=== PATIENT | female | born 1955 | race Caucasian/White ===

== ENCOUNTER → 2019-03-06 | Outpatient (CLI) | payer MEDICARE, MEDICAID ==
[~2019-03-06] MED LIST: ALPR0.254 PO
[2019-03-06 13:51] LABS: BASOPHILS % (AUTO) 0 % (0-10); EOSINOPHILS # (AUTO) 0.1 10^3/uL (0.0-0.3); EOSINOPHILS % (AUTO) 1 % (0-10); HEMATOCRIT 42 % (35-52); HEMOGLOBIN 13.9 G/DL (11.5-16.0); LYMPHOCYTES % (AUTO) 36 % (12-44); MEAN CORPUSCULAR HEMOGLOBIN 31 PG (25-34); MEAN CORPUSCULAR HGB CONC 33 G/DL (32-36); MEAN CORPUSCULAR VOLUME 93 FL (80-99); MEAN PLATELET VOLUME 10.8 FL (7.4-10.4); MONOCYTES # (AUTO) 0.9 X 10^3 (0.0-1.0); MONOCYTES % (AUTO) 8 % (0-12); NEUTROPHILS # (AUTO) 6.2 X 10^3 (1.8-7.8); NEUTROPHILS % (AUTO) 55 % (42-75); PLATELET COUNT 230 10^3/uL (130-400); RED CELL DISTRIBUTION WIDTH 14.5 % (10.0-14.5); WHITE BLOOD COUNT 11.3 10^3/uL (4.3-11.0)
[2019-03-06 14:09] LABS: ALANINE AMINOTRANSFERASE 12 U/L (0-55); ALBUMIN 3.9 GM/DL (3.2-4.5); ALKALINE PHOSPHATASE 59 U/L (40-136); BILIRUBIN,TOTAL 0.4 MG/DL (0.1-1.0); BUN/CREATININE RATIO 15; CALCIUM 9.7 MG/DL (8.5-10.1); CARBON DIOXIDE 23 MMOL/L (21-32); CHLORIDE 108 MMOL/L (98-107); CREATININE SERUM 0.79 MG/DL (0.60-1.30); GFR ESTIMATED > 60; GLUCOSE 95 MG/DL (70-105); PHOSPHORUS 3.2 MG/DL (2.3-4.7); SODIUM 141 MMOL/L (135-145); TOTAL PROTEIN 7.1 GM/DL (6.4-8.2)
--- NOTE | 2019-03-06 17:37 | Diagnostic Imaging Report ---
PROCEDURE: CT chest, abdomen, and pelvis without contrast. INDICATION: Recent diagnosis of left breast cancer. No current treatment. TECHNIQUE: Noncontrast imaging of the chest, abdomen, and pelvis. Auto Exposure Controls were utilized during the CT exam to meet ALARA standards for radiation dose reduction. CORRELATION STUDY: None. FINDINGS: CT CHEST: Nearly 3 cm mass suggested centrally in the left breast. There are some asymmetric increased densities diffusely in the remainder of the left breast. Slight area of nodularity along the posterolateral peripheral margins with density towards the axilla could be reflective of prominent lymph node at 8 mm. There are additional disproportionately prominent left axillary lymph nodes compared to the right axilla concerning for potential metastatic disease despite their relatively smaller size. There is an additional lymph node in the lateral left retropectoral lymph node region, 7 mm in size. Tiny nodule in the medial retropectoral lymph node region as well. A few small lymph nodes at the base of the neck on the left. Prominent mediastinal lymph nodes are present. Lymph node in the mid pretracheal region, short axis dimension 8 mm. Additional one at the subcarinal region anteriorly, short axis 10 mm. Additional smaller lymph nodes are present as well. No definitive enlarged internal mammary lymph node chain nodes. Heart size is normal. No pericardial effusion. Thoracic aortic contour is unremarkable. Lung li demonstrate emphysematous changes along with bullous changes particularly at the lung apices and posterior lungs. Asymmetric wispy-like density in the lateral left upper lobe, 19 x 10 mm. Asymmetric pleural thickening at the lung apices right greater than left posteriorly. Visualized osseous structures demonstrate no evie lytic or sclerotic changes. CT ABDOMEN and PELVIS: The unenhanced liver, spleen, pancreas, and adrenal glands are unremarkable. There is some asymmetric increased density in the dependent portion of the gallbladder which could be reflective of some sludge, debris, or perhaps small stones. No bile duct dilatation. Kidneys with normal configuration. No calcification or obstruction. Mild wall calcification of the abdominal aorta, nonaneurysmal. No pathologically enlarged central or retroperitoneal lymph nodes. Gastrointestinal tract demonstrates no obstruction. Mild severity fecal retention. There are few prominent but nonpathologic enlarged shotty lymph nodes throughout the mesentery. No abdominal ascites or free air. Urinary bladder is unremarkable. Uterus and adnexa are unremarkable. Visualized osseous structures demonstrate asymmetric disc space narrowing at the L5-S1 level. No evie lytic or sclerotic changes. IMPRESSION: CT CHEST: 1. Approximately 3 cm left breast mass likely corresponding to the recent breast cancer diagnosis. 2. Asymmetric number of left axillary and retropectoral lymph nodes. While sizes are smaller at this time, given the overall features, are worrisome for potential neoplasm. There is also an asymmetrically prominent mediastinal lymph node and a few asymmetric lymph nodes at the base of the neck on the left. If further assessment is desired, PET/CT imaging may be of additional benefit. 3. Emphysematous changes. Irregular parenchymal density left upper lobe. This may represent a small area of pneumonitis. Neoplasm not excluded. CT ABDOMEN and PELVIS: 1. Multiple small scattered mesenteric lymph nodes. No definitive pathologically enlarged abdominal or pelvic lymphadenopathy or otherwise findings to suggest abdominal or pelvic metastatic disease. Dictated by: Dictated on workstation # [id number]
== END ==
LOC: RAD 13:35
PROVIDERS: ATTEND Nurse Practitioner Family
DX: C50.912 Malignant neoplasm of unspecified site of left female breast (principal); J43.9 Emphysema, unspecified; J98.4 Other disorders of lung; R59.0 Localized enlarged lymph nodes
CPT/HCPCS: 36415; 71250; 74176; 80053; 84100; 85025

== ENCOUNTER 2019-03-10 06:00 | Outpatient (CLI) | payer MEDICARE, MEDICAID ==
[~2019-03-10] VITALS: Ht 167.6 cm; Wt 74.2 kg
[2019-03-10] MEDS ORDERED: ALPR0.254 PO (13:45)
[2019-03-10 13:49] VITALS: BP 110/58
== END 2019-03-10 15:30 | disposition home or self-care (01) ==
LOC: PREOP 06:00
PROVIDERS: ATTEND Surgery
DX: Z01.818 Encounter for other preprocedural examination (principal)
CPT/HCPCS: 87081

== ENCOUNTER 2019-03-12 06:15 | Inpatient (IN) | payer MEDICARE, MEDICAID ==
[2019-03-12] VITALS (9 sets, daily range): BP systolic 111–132; BP diastolic 62–87
[~2019-03-12] VITALS: Ht 167.6 cm; Wt 74.4 kg
[2019-03-12] MEDS ORDERED: CLINDAMYCIN 600 MG/50 ML IVPB 50 ML IV ONE ×2 (07:00)
[2019-03-12] MEDS ORDERED: ONDANSETRON 4 MG/2 ML (SDV) Z0FRAN IV ONE (07:45)
[2019-03-12] MEDS ORDERED: SCOPOLAMINE 1.5 MG (TRANSDERM-SCOP) PATCH TOP ONE (07:45)
[2019-03-12] MEDS ORDERED: FAMOTIDINE 20MG/2ML IV (PEPCID) IV ONE (07:45)
--- NOTE | 2019-03-12 09:06 | Progress Note-Pre Operative ---
Pre-Operative Progress Note H&P Reviewed The H&P was reviewed, patient examined and no changes noted. Date Seen by Provider: Mar 12, 2019 Time Seen by Provider: 09:00 Date H&P Reviewed: Mar 12, 2019 Time H&P Reviewed: 08:55 Pre-Operative Diagnosis: Left Breast Cancer AYLEEN BRITO SATELLITE INSTRUCTION FACILITATOR Mar 12, 2019 09:06
[2019-03-12] MEDS ORDERED: OXYC-464 PO (09:14)
--- NOTE | 2019-03-12 09:15 | Discharge Inst-Surgical ---
D/C Lap Instructions-KIDO Reconcile Patient Problems Problems Reviewed?: Yes New, Converted, or Re-Newed RX: RX on Chart Follow Up Appt in 2 weeks Activity as tolerated No driving for 24 hours No driving while on pain medications Incentive Spirometry use every 2 hours while awake Regular Diet Symptoms to Report: Fever over 101 degree F, Nausea/Vomiting Infection Signs and Symptoms to report: Increased redness, Foul odor of wound, Increased drainage Bathing instructions: May shower Operative Area Clean/Dry; Keep incision clean/dry If any problems/questions: Contact your physician or go to Emergency Room AYLEEN BRITO APRN Mar 12, 2019 09:15
[2019-03-12] MEDS ORDERED: MIDAZOLAM 2 MG/2 ML (VERSED) VIAL ONE ×2 (09:51→10:57)
[2019-03-12] MEDS: LACTATED RINGERS 1,000 ML IV PRN ×2 (09:55→12:52)
[2019-03-12] MEDS ORDERED: MIDAZOLAM 2 MG/2 ML (VERSED) VIAL IV ONE (10:15)
[2019-03-12] MEDS ORDERED: proPOfol 200 MG/20 ML (DIPRIVAN) VIAL IV ONE (10:57)
[2019-03-12] MEDS ORDERED: LIDOCAINE PF 2% 5 ML (XYLOCAINE) VIAL ONE (10:57)
[2019-03-12] MEDS ORDERED: fentaNYL INJECTION 100 MCG/2 ML AMP ONE (10:57)
[2019-03-12] MEDS ORDERED: DEXAMETHASONE 10 MG/ML (DECADRON) 1 ML VIAL ONE (10:59)
[2019-03-12] MEDS ORDERED: ONDANSETRON 4 MG/2 ML (SDV) Z0FRAN ONE (10:59)
[2019-03-12] MEDS ORDERED: BUP/EPI 0.5% 1:200,000 (MARCAINE) 10ML VIAL IJ ONE (11:00)
[2019-03-12] MEDS ORDERED: METHYLENE BLUE 0.5% (PROVAYBLUE) 50 mg/10 ml vial IV ONE (11:01)
[2019-03-12] MEDS ORDERED: SEVOFLURANE (ULTANE) 15 ML INHAL SOLN ONE ×10 (11:03→15:09)
--- NOTE | 2019-03-12 11:54 | Diagnostic Imaging Report ---
INDICATION: Left lung mass. EXAMINATION: PA and lateral chest. FINDINGS: There is a 2 cm nodule in left upper lobe. There is a 3 cm patchy opacity in the right apex. Both of these were present on previous CT done on 03/06/2019. There are no effusions or pneumothoraces. Heart size and pulmonary vascularity are normal. IMPRESSION: Bilateral pulmonary opacities unchanged from CT dated 03/06/2019. Dictated by: Dictated on workstation # [id number]
[2019-03-12] MEDS ORDERED: HYDROmorphone 2 MG/ML VIAL (DILAUDID) ONE (13:42)
[2019-03-12] MEDS ORDERED: NS IV 1000 ML 1,000 ML IV SCH (14:39)
--- NOTE | 2019-03-12 14:39 | Progress Note-Post Operative ---
Post-Operative Progess Note Surgeon (s)/Industrial Relations Counselor (s) Surgeon GRISEL KWAN MD Industrial Relations Counselor: osiris mauricio INSTRUMENT PROCESSING TECH Pre-Operative Diagnosis Left Breast Cancer Post-Operative Diagnosis same. positive sentinel lymph node Procedure & Operative Findings Date of Procedure 03/12/19 Procedure Performed/Findings left breast sentinel node bx. left modified radical mastectomy. Anesthesia Type general LMA Estimated Blood Loss Estimated blood loss (mL): 100ml Specimens/Packing Specimens Removed left axilla sentinel node. left breast and axillary nodes. GRISEL KWAN MD Mar 12, 2019 14:39
[2019-03-12] MEDS ORDERED: ONDANSETRON 4 MG/2 ML (SDV) Z0FRAN IV PRN (14:45)
[2019-03-12] MEDS ORDERED: diphenhydrAMINE 50 MG/ML INJ (BENADRYL) IVP PRN (14:45)
[2019-03-12] MEDS ORDERED: diphenhydrAMINE 50 MG/ML INJ (BENADRYL) IV PRN (14:45)
[2019-03-12] MEDS ORDERED: METOCLOPRAMIDE INJ 10 MG/2 ML (REGLAN) IV PRN (14:45)
[2019-03-12] MEDS ORDERED: fentaNYL INJECTION 1,000 MCG in NS (IVPB) 80 ML IV SCH (14:45)
[2019-03-12] MEDS ORDERED: NALOXONE 0.4 MG/ML 1 ML (NARCAN) VIAL IV PRN (14:45)
[2019-03-12] MEDS ORDERED: ONDANSETRON 4 MG/2 ML (SDV) Z0FRAN IVP PRN (15:30)
[2019-03-12] MEDS ORDERED: HYDROmorphone 2 MG/ML VIAL (DILAUDID) IV ONE (15:30)
--- NOTE | 2019-03-12 16:10 | NUR ---
NAVA RAJAN admitted to room 433-1, post op left mastectomy with lymph removal, accompanied by staff.NAVA RAJAN and family introduced to surroundings, call light, bed controls, phone, TV, temperature control, lights, meal times, smoking policy, visitor policy, side rail policy, bathrooms and showers. NAVA RAJNA and family verbalize understanding that [facility] is not responsible for the loss or damage to any personal effects or valuables that are kept in the patients posession during their hospitalization. NAVA RAJAN and family verbalize understanding of Interdisciplinary Patient Education. Patient and family were informed about the Rapid Response Team and its purpose.
[2019-03-12] MEDS: LACTATED RINGERS 1,000 ML IV SCH (17:10)
[2019-03-12] MEDS: RT-ALBUTEROL SULF 2.5 MG/3 ML PRE-MIX VIAL INH SCH ×2 (19:18→22:43)
[2019-03-12] MEDS: ENOXAPARIN 30 MG/0.3 ML (LOVENOX) SYR SC SCH (20:43)
[2019-03-12] MEDS: CLINDAMYCIN 600 MG/50 ML IVPB 50 ML IV SCH (20:43)
[2019-03-12] MEDS: NICOTINE 21 MG (NICODERM) PATCH TD SCH (21:34)
[2019-03-13] VITALS (7 sets, daily range): BP systolic 90–117; BP diastolic 44–69
[2019-03-13] MEDS: LACTATED RINGERS 1,000 ML IV SCH ×5 (00:10→20:26)
--- NOTE | 2019-03-13 01:55 | OPERATIVE REPORT ---
DATE OF SERVICE: 03/12/2019 ATTENDING PRIMARY CARE PHYSICIAN: CHAS Amin PREOPERATIVE DIAGNOSIS: Left breast cancer. POSTOPERATIVE DIAGNOSIS: Left breast cancer with positive sentinel node. PROCEDURE: Left axillary sentinel node biopsy and left modified radical mastectomy. SURGEON: Grisel Kwan MD DIESEL FITTER MECHANIC: Adan Pineda APRN. ANESTHESIA: General laryngeal mask airway. ESTIMATED BLOOD LOSS: Minimal. FINDINGS: A large mass at approximately 5 o'clock position of the left breast. This was close to the skin. DISPOSITION: The patient tolerated the procedure well. INDICATIONS: The patient is a 63-year-old female who was recently found to have a left breast mass, which was able to identify upon palpation. She was seen by her primary care provider and did undergo mammography as well as breast ultrasound, which did show solid lesion with lobulated borders on the lower inner quadrant and a posterior acoustical shadowing highly suggestive of carcinoma. She then underwent a needle biopsy, which was positive for invasive ductal carcinoma. She was seen back in the office and the pathology results explained to her that she will at least need a lumpectomy and sentinel node versus a mastectomy and possible axillary node dissection. We then proceeded with further workup including a CBC, CMP, alkaline phosphatase as well as a CT scan of the chest and abdomen. There did appear to be lymphadenopathy of the left axilla on the CT scan. This was concerning for a regional metastasis. There is no distant metastasis identified at this time. DESCRIPTION OF PROCEDURE: The patient was brought to the operating room, laid supine on the table. After adequate IV pain and sedative medications and after a previous lymphoscintigraphy to identify a nuclear medicine, we then proceeded with subdermal injection of isosulfan blue among the quadrants of the nipple areolar complex. This was then massaged in for approximately 10 minutes. The left upper extremity, neck and chest were then prepped and draped in standard surgical fashion. We first proceeded with biopsy of the sentinel node. Using the gamma probe as well as markings from the previous lymphoscintigraphy, we used this as a guide to identify the sentinel node. Skin incision in the axilla was then made vertically using a 15 blade. The subcutaneous tissue as well as the clavipectoral fascia was then opened using electrocautery. The sentinel node was identified using the Francois counter. There was actually two adjacent to each other labeled sentinel node #1 and #2. The readings of the sentinel node were 2200 in the background of 0. This was sent to pathology for frozen section and confirmed positive. We then proceeded with a modified radical mastectomy. We measured out the skin incision in an elliptical shape encompassing the entirety of the nipple areolar complex as well as the axilla incorporating the previous incision. We first proceeded with the superior flap using electrocautery until we reached the clavicle. We then proceeded with creating the inferior flap in a similar manner using electrocautery leaving a thin amount of subcutaneous fat for adequate perfusion of the skin. We proceeded with inferior dissection until the superior aspect of the rectus abdominis muscle was identified. We then proceeded with medial lateral dissection of the breast tissue overlying the pectoralis. We then proceeded with our axillary stents as well as axillary node dissection encompassing levels 1 and 2 nodes. Medial border was the serratus anterior identified in the long thoracic nerve. Lateral border was the latissimus dorsi muscle and the thoracodorsal nerve was identified and spared throughout the process. Superior aspect was dissected to the level of the axillary vein. The thoracodorsal vein was then identified and dissected out using blunt dissection and thoracodorsal vein was then tied and resected or cut with Metzenbaum scissors. This was labeled in the axillary . We then proceeded with superior to inferior dissection encompassing all the lymph nodes. The thoracodorsal nerve and long thoracic nerve were identified and spared throughout the process. There were a few intercostal brachial nerves, which were excised throughout the process. This completed our modified radical mastectomy. The entire wound cavity was then irrigated with sterile water. Two drains were placed, one superiorly and one lateral draining the inferior portion and the medial drain in the superior portion. These were tied to the skin using 3-0 nylon sutures. The subcutaneous tissue was then reapproximated using 3-0 Vicryl interrupted sutures. Skin was closed using 4-0 Monocryl running subcuticular suture. Wound was then cleaned and covered with Dermabond. The patient tolerated the procedure well. We will admit her 23-hour observation and proceed with diet as tolerated as well as early ambulation as well as SCD prophylaxis with early ambulation, calf SCDs as well as Lovenox injections. We will also proceed with clindamycin 800 mg q.8 hours x3 doses as well as pain control with a BLOCK PAVER pump. Aftercare instructions will also be instructed to the patient including monitoring drainage output. Job ID: [id number] DocumentID: [id number] Dictated Date: 03/12/2019 14:59:12 Level Vial Grinder Date: 03/13/2019 01:54:55 Dictated By: GRISEL KWAN MD
[2019-03-13] MEDS: RT-ALBUTEROL SULF 2.5 MG/3 ML PRE-MIX VIAL INH SCH ×4 (02:53→16:13)
[2019-03-13 05:28] LABS: HEMOGLOBIN 11.4 G/DL (11.5-16.0); MEAN PLATELET VOLUME 11.4 FL (7.4-10.4); RED CELL DISTRIBUTION WIDTH 14.5 % (10.0-14.5); WHITE BLOOD COUNT 17.3 10^3/uL (4.3-11.0)
[2019-03-13] MEDS: CLINDAMYCIN 600 MG/50 ML IVPB 50 ML IV SCH ×3 (05:57→20:18)
[2019-03-13] MEDS: PANTOPRAZOLE 40 MG (PROTONIX) VIAL IV SCH (08:36)
[2019-03-13] MEDS: SENNA W/DOCUSATE (SENOKOT S) TABLET PO SCH (08:37)
[2019-03-13] MEDS: NICOTINE 21 MG (NICODERM) PATCH TD SCH (08:37)
[2019-03-13] MEDS: ENOXAPARIN 30 MG/0.3 ML (LOVENOX) SYR SC SCH ×2 (08:37→20:18)
--- NOTE | 2019-03-13 10:32 | Progress Note ---
Subjective Date Seen by a Provider: Mar 13, 2019 Time Seen by a Provider: 09:20 Subjective/Events-last exam Patient lying in bed with niece at bedside. Patient reports doing ok. Still having left chest/axillary pain. tolerating clear liquid diet. No nausea/vomiting or fever/chills. Did report some episodes of shaking. Has not ambulated yet other than to the bathroom. Objective Exam Vital Signs Date Time Temp Pulse Resp B/P (MAP) Pulse Ox O2 Delivery O2 Flow Rate FiO2 03/13/19 08:00 97.3 62 18 97/44 (61) 100 Room Air 03/13/19 07:51 99 Nasal Cannula 2.00 03/13/19 04:00 96.9 80 18 95/55 (68) 96 Nasal Cannula 03/13/19 02:53 88 Room Air 03/13/19 00:12 97.2 62 17 96/58 (71) 98 Room Air 03/12/19 22:43 94 Room Air 03/12/19 20:30 Room Air 03/12/19 20:00 97.5 60 18 124/66 (85) 100 Room Air 03/12/19 19:19 96 Room Air 03/12/19 16:10 Room Air 03/12/19 16:10 Room Air 03/12/19 16:10 97.0 14 96 Room Air 03/12/19 16:00 16 95 Room Air 03/12/19 16:00 96.5 54 18 115/62 (79) 98 Room Air 03/12/19 16:00 Room Air 03/12/19 15:50 16 96 Room Air 03/12/19 15:45 OxyMask 3 03/12/19 15:40 16 96 Room Air 03/12/19 15:30 14 97 OxyMask 5 03/12/19 15:30 OxyMask 5 03/12/19 15:20 18 100 OxyMask 10 03/12/19 15:17 95.3 20 100 OxyMask 10 03/12/19 15:17 OxyMask 10 I & O 03/13/19 07:00 Intake Total 2060 ml Output Total 1608 ml Balance 452 ml Capillary Refill : Less Than 3 Seconds General Appearance: No Apparent Distress, WD/WN Neck: Full Range of Motion, Non Tender, Supple Respiratory: Normal Breath Sounds, No Accessory Muscle Use, No Respiratory Distress Cardiovascular: Regular Rate, Rhythm, No Murmur Gastrointestinal: normal bowel sounds, non tender, soft Extremity: Normal Capillary Refill, Normal Range of Motion, Swelling (1+) Neurologic/Psychiatric: Alert, Oriented x3 Skin: Warm/Dry, Ecchymosis (Left axilla area), Other (Left mastectomy incision C/D/I. No redness or erythema noted. Left mastectomy drains with SS drainage.) Results Lab Laboratory Tests 03/13/19 05:17: White Blood Count 17.3H, Red Blood Count 3.65L, Hemoglobin 11.4L, Hematocrit 34L , Mean Corpuscular Volume 94, Mean Corpuscular Hemoglobin 31, Mean Corpuscular Hemoglobin Concent 33, Red Cell Distribution Width 14.5, Platelet Count 182, Mean Platelet Volume 11.4H Assessment/Plan Assessment/Plan Assess & Plan/Chief Complaint A 63 year old female with left breast cancer who is S/P left modified radical mastectomy. Encourage ambulation Advance to regular diet Start oral pain meds once patient is ambulating, tolerating pain on oral pain meds, and tolerating diet, she can be discharged home. Clinical Quality Measures DVT/VTE Risk/Contraindication: Risk Factor Score Per Nursin RFS Level Per Nursing on Admit: 4+=Very High AYLEEN BRITO METAL HANGING SUPERVISOR Mar 13, 2019 10:32
--- NOTE | 2019-03-13 10:52 | Anesthesia-General Post-Op ---
General Patient Condition Mental Status/LOC: Same as Preop Cardiovascular: Satisfactory Nausea/Vomiting: Absent Respiratory: Satisfactory Pain: Controlled Complications: Absent Post Op Complications Complications None Follow Up Care/Instructions Patient Instructions None needed. Anesthesia/Patient Condition Patient Condition Patient is doing well, no complaints, stable vital signs, no apparent adverse anesthesia problems. No complications reported per nursing. LUIS CARLOS MULLIGAN CRNA Mar 13, 2019 10:52
[2019-03-13] MEDS: oxyCODONE 5 MG/5 ML ORAL SOLN (roxiCODONE) 5 ML UDC PO PRN ×3 (11:17→20:23)
--- NOTE | 2019-03-13 12:34 | NUR ---
Initial visit with the pt, her niece Bebe and long-time friend, Luz Maria. The pt said she found out she had breast cancer a week ago and was told she would return home today. She said today was the first day she could reintroduce solid foods. 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 She expressed feeling unprepared for discharge because she is not stable on her feet, shakes, and added that another day would permit her niece to better prepare the home for her return. She does not have anyone at home to assist her at this time. The pt is L[employer] Day and said she does not have any specific restorationist affiliation or jainism community.
[2019-03-13] MEDS ORDERED: METOCLOPRAMIDE INJ 10 MG/2 ML (REGLAN) IVP PRN (14:45)
[2019-03-13] MEDS ORDERED: ONDANSETRON 4 MG/2 ML (SDV) Z0FRAN IVP PRN (14:45)
--- NOTE | 2019-03-13 14:49 | Progress Note ---
Standard Progress Note Progress Notes/Assess & Plan Date Seen by a Provider: Mar 13, 2019 Time Seen by a Provider: 14:30 Progress/Assessment & Plan Patient reports doing better with PO pain medications. Tolerating soft foods. Has not ambulated yet due to feeling weak. Patient reports that she lives alone and that family has to leave or go to work tonight and does not feel comfortable or steady enough to be by herself. It was explained to patient that we would order physical therapy in order to get her ambulating by herself so that she could care for herself at home. AYLEEN BRITO APRN Mar 13, 2019 14:49
--- NOTE | 2019-03-13 14:55 | NUR ---
Met with pt and jacki and Bebe CARRINGTON to discuss resources for Breast Cancer patients. Will make referral to [facility] Counselor through the [employer]. Will also refer to [facility] our local cancer support agency. Gave jacki literature about Breast cancer and will refer pt to Breast Cancer Navigator on Saturday.Laurezeyad worries about pt's ability to care for herself and her finances. Pt has appt [facility] and will follow upon discharge.
--- OUTSIDE RECORDS SUMMARY | 2019-03-13 15:04 | XMS REPORT | Clinical Summary ---
Author Author [facility] Organization [facility] Address Unknown Phone Unavailable Care Team Providers Care Commercial Driver Name Role Phone Unverified, Unverified Md PCP Unavailable Andrés Hope MD Unavailable Miko Morrissey MD Unavailable Maria T Storm MD Unavailable Mychart, Generic Provider Unavailable Unavailable Source Comments Some departments are not documenting in the electronic medical record. If you d o not see the information that you expected, contact Release of Information in [facility] Information Management department at [phone] for further assistan ce in locating additional records.[facility] Allergies Comments Active Allergy Reactions Severity Noted Date Paul says she gets a rash and then the rash turns into scars. Gadolinium-Containing SEE COMMENTS Low 04/15/2012 Contrast Media Latex, Natural Rubber RASH 06/12/2012 Medications End Date Status Medication Sig Dispensed Refills Start Date Active ALPRAZolam (XANAX) 0.25 Take 0.25 mg 0 mg tablet by mouth as Needed. Active Problems Problem Noted Date Hx of resection of meningioma 11/01/2016 Muscle cramps 03/29/2014 Memory loss 09/02/2013 Overview: She has had memory loss and cognitive symptoms attributed to her meningioma resection and post-surgical changes as well as effects of the cystic intraparenchymal lesion in the right anterior temporal lobe. In addition, she has memory loss including some trouble concentrating, and when considering causes of these cognitive symptoms, the differential should include depression, perhaps anxiety, stress, pain, fatigue, and insomnia, all of which she is experiencing. Last Assessment & Plan: - If TSH, vitamin B12, vitamin D, and RPR have been checked recently, please fax these results to Dr. Storm at . If these labs have not been drawn, please have them drawn and have the results faxed to Dr. Storm. - Referral has been placed to physical therapy for evaluation and treatment of pain in the neck, low back, hips, knees, and feet pain -- Consider joint injections for possible treatment of pain, or possibly the use of Lidoderm patches, Voltaren gel, or other local treatment for pain - Recommend having a sleep study closer to home to evaluate insomnia and fatigue - Recommend considering a psychology or counselor evaluation for evaluation and treatment of stress - If cognitive symptoms continue to get worse despite aggressive management of sleep issues, stress, pain, etc., we would be happy to schedule a follow-up appointment. A follow-up appointment has not been scheduled at this time, however. Chest pain 09/02/2013 Overview: Probable musculoskeletal etiology for the chest pain, however given the sensation of pressure on her chest, need to consider cardiac etiology. L ast Assessment & Plan: - Although chest pain is better today than the previous 4 days, recommend going to the ED for cardiac evaluation as soon after this visit as possible. She has some errands she would like to take care of today first before going to the ED. She acknowledges my concern for heart. Meningioma 06/12/2012 Memory loss 06/12/2012 Light headed 06/12/2012 Family History Medical History Relation Name Comments Brain Tumor Father Hypertension Mother Migraines Two siblings Other Hyperglycemia;Two siblings Relation Name Status Comments Father Mother Social History Date Tobacco Use Types Packs/Day Years Used Current Every Day Smoker Smokeless Tobacco: Never Used Tobacco Cessation: Ready to Quit: No Comments: a pack per day Drinks/Week oz/Week Comments Alcohol Use 0 Standard drinks or equivalent 0.0 Rare Yes Sex Assigned at Date Recorded Not on file Industry Job Start Date Occupation Not on file Not on file Not on file Travel End Travel History Travel Start No recent travel history available. Last Filed Vital Signs Reading Time Taken Comments Vital Sign 121/70 11/01/2016 1:12 PM CDT Blood Pressure 71 11/01/2016 1:12 PM CDT Pulse 36.7 C (98.1 F) 12/11/2012 8:30 AM CDT Temperature 16 06/12/2012 11:14 AM CDT Respiratory Rate - - Oxygen Saturation - - Inhaled Oxygen Concentration 78.5 kg (173 lb) 11/01/2016 1:12 PM CDT Weight 167.6 cm (5' 6") 11/01/2016 1:12 PM CDT Height 27.92 11/01/2016 1:12 PM CDT Body Mass Index Plan of Treatment Health Maintenance Due Date Last Done Comments HEPATITIS C SCREENING 1957 PHYSICAL (COMPREHENSIVE) 1964 EXAM HIV SCREENING 1972 DTAP/TDAP VACCINES (1 - 1975 Tdap) CERVICAL CANCER SCREENING 1987 BREAST CANCER SCREENING 1997 COLORECTAL CANCER 2007 SCREENING SHINGLES RECOMBINANT 2007 VACCINE (1 of 2) INFLUENZA VACCINE 05/12/2019 Results Not on filefrom Last 3 Months Insurance Type Payer Benefit Subscriber ID Effective Phone Address Plan / Dates Group Medicare MEDICARE MEDICARE xxxxxxxxxx 2004- PART A AND Present B Advance Directives Patient Auto Hiker Explanation Type Date Recorded Advance Directive/DPOA
--- OUTSIDE RECORDS SUMMARY | 2019-03-13 15:05 | XMS REPORT | Continuity of Care Document ---
Author Organization Unknown Address Unknown Phone Unavailable Allergies Active Description Code Type Severity Reaction Onset Reported/Identified Relationship to Patient Clinical Status Yes CEPHALEXIN SEVERE SEVERE Yes No Known Drug Allergies [id number] Drug Allergy Unknown N/A 06/11/2014 Yes cephalexin [id number] Drug Allergy Mild RASH 03/10/2019 Yes hydrocodone [id number] Drug Allergy Mild N/V 03/10/2019 Yes Iodinated Contrast- Oral and IV Dye [id number] Drug Allergy Mild TURNED SKIN ORA 03/10/2019 Yes Latex, Natural Rubber [id number] Drug Allergy Mild ITCHING 03/10/2019 Medications There is no data. Problems Date Dx Coded Attending Type Code Diagnosis Diagnosed By 12/18/2013 PAN DAVID MD Ot 780.52 INSOMNIA, UNSPECIFIED 12/18/2013 PAN DAVID MD Ot 780.54 HYPERSOMNIA, UNSPECIFIED 12/18/2013 PAN DAVID MD Ot 786.09 RESPIRATORY ABNORM NEC 07/16/2014 PAN DAVID MD Ot 348.0 07/16/2014 PAN DAVID MD Ot V45.89 02/17/2019 PAT RAJAN 338.19 OTHER ACUTE PAIN 02/17/2019 PAT RAJAN 611.72 LUMP OR MASS IN BREAST 02/17/2019 PAT RAJAN N63.24 UNSPECIFIED LUMP IN THE LEFT BREAST, LOWER INNER QUADRANT 02/17/2019 PAT RAJAN R52 PAIN, UNSPECIFIED 02/17/2019 PAT RAJAN 338.19 OTHER ACUTE PAIN 02/17/2019 PAT RAJAN 611.72 LUMP OR MASS IN BREAST 02/17/2019 PAT RAJAN N63.24 UNSPECIFIED LUMP IN THE LEFT BREAST, LOWER INNER QUADRANT 02/17/2019 PAT RAJAN R52 PAIN, UNSPECIFIED 02/18/2019 Bonnie Obando 338.19 OTHER ACUTE PAIN 02/18/2019 Bonnie Obando 611.72 LUMP OR MASS IN BREAST 02/18/2019 Bonnie Obando W N63.24 UNSPECIFIED LUMP IN THE LEFT BREAST, LOWER INNER QUADRANT 02/18/2019 Bonnie Obando W R52 PAIN, UNSPECIFIED 03/05/2019 PAN DAVID MD Ot 348.0 CEREBRAL CYSTS 03/05/2019 PAN DAVID MD Ot 348.0 CEREBRAL CYSTS 03/05/2019 PAN DAVID MD Ot V45.89 POSTSURGICAL STATES NEC 03/10/2019 ISABEL BRITOIN L RECAPPER Ot C50.912 MALIGNANT NEOPLASM OF UNSPECIFIED SITE O 03/10/2019 ISABEL BRITOIN L RECAPPER Ot J43.9 EMPHYSEMA, UNSPECIFIED 03/10/2019 ISABEL BRITOIN L RECAPPER Ot J98.4 OTHER DISORDERS OF LUNG 03/10/2019 ISABEL BRITOIN L RECAPPER Ot R59.0 LOCALIZED ENLARGED LYMPH NODES 03/10/2019 GRISEL KWAN MD, Ot Z01.818 ENCOUNTER FOR OTHER PREPROCEDURAL EXAMIN 03/11/2019 GRISEL KWAN MD, Ot Z01.818 ENCOUNTER FOR OTHER PREPROCEDURAL EXAMIN Procedures There is no data. Results Test Result Range Thyroid Stimulating Hormone - 02/27/17 14:50 TSH 1.02 mIU/mL 0.32-5.00 Complete blood count (CBC) with automated white blood cell (WBC) differential - 03/06/19 13:48 Blood leukocytes automated count (number/volume) 11.3 10*3/uL 4.3-11.0 Blood erythrocytes automated count (number/volume) 4.55 10*6/uL 4.35-5.85 Venous blood hemoglobin measurement (mass/volume) 13.9 g/dL 11.5-16.0 Blood hematocrit (volume fraction) 42 % 35-52 Automated erythrocyte mean corpuscular volume 93 [foz_us] 80-99 Automated erythrocyte mean corpuscular hemoglobin (mass per erythrocyte) 31 pg 25-34 Automated erythrocyte mean corpuscular hemoglobin concentration measurement (mass/volume) 33 g/dL 32-36 Automated erythrocyte distribution width ratio 14.5 % 10.0- 14.5 Automated blood platelet count (count/volume) 230 10*3/uL 130-400 Automated blood platelet mean volume measurement 10.8 [foz_us] 7.4-10.4 Automated blood neutrophils/100 leukocytes 55 % 42-75 Automated blood lymphocytes/100 leukocytes 36 % 12-44 Blood monocytes/100 leukocytes 8 % 0-12 Automated blood eosinophils/100 leukocytes 1 % 0-10 Automated blood basophils/100 leukocytes 0 % 0-10 Blood neutrophils automated count (number/volume) 6.2 10*3 1.8-7.8 Blood lymphocytes automated count (number/volume) 4.0 10*3 1.0-4.0 Blood monocytes automated count (number/volume) 0.9 10*3 0.0- 1.0 Automated eosinophil count 0.1 10*3/uL 0.0-0.3 Automated blood basophil count (count/volume) 0.0 10*3/uL 0.0-0.1 Comprehensive metabolic panel - 03/06/19 13:48 Serum or plasma sodium measurement (moles/volume) 141 mmol/L 135-145 Serum or plasma potassium measurement (moles/volume) 4.0 mmol/L 3.6-5.0 Serum or plasma chloride measurement (moles/volume) 108 mmol/L 98-107 Carbon dioxide 23 mmol/L 21-32 Serum or plasma anion gap determination (moles/volume) 10 mmol/L 5-14 Serum or plasma urea nitrogen measurement (mass/volume) 12 mg/dL 7-18 Serum or plasma creatinine measurement (mass/volume) 0.79 mg/dL 0.60-1.30 Serum or plasma urea nitrogen/creatinine mass ratio 15 NRG Serum or plasma creatinine measurement with calculation of estimated glomerular filtration rate > NRG Serum or plasma glucose measurement (mass/volume) 95 mg/dL 70-105 Serum or plasma calcium measurement (mass/volume) 9.7 mg/dL 8.5-10.1 Serum or plasma total bilirubin measurement (mass/volume) 0.4 mg/dL 0.1-1.0 Serum or plasma alkaline phosphatase measurement (enzymatic activity/volume) 59 U/L 40-136 Serum or plasma aspartate aminotransferase measurement (enzymatic activity/volume) 18 U/L 5-34 Serum or plasma alanine aminotransferase measurement (enzymatic activity/volume) 12 U/L 0-55 Serum or plasma protein measurement (mass/volume) 7.1 g/dL 6.4-8.2 Serum or plasma albumin measurement (mass/volume) 3.9 g/dL 3.2-4.5 CALCIUM CORRECTED 9.8 mg/dL 8.5-10.1 Serum or plasma phosphate measurement (mass/volume) - 03/06/19 13:48 Serum or plasma phosphate measurement (mass/volume) 3.2 mg/dL 2.3-4.7 Methicillin resistant Staphylococcus aureus (MRSA) screening culture - 03/10/19 14:30 Methicillin resistant Staphylococcus aureus (MRSA) screening culture NEG NRG Automated blood complete blood count (hemogram) panel - 03/13/19 05:17 Blood leukocytes automated count (number/volume) 17.3 10*3/uL 4.3-11.0 Blood erythrocytes automated count (number/volume) 3.65 10*6/uL 4.35-5.85 Venous blood hemoglobin measurement (mass/volume) 11.4 g/dL 11.5-16.0 Blood hematocrit (volume fraction) 34 % 35-52 Automated erythrocyte mean corpuscular volume 94 [foz_us] 80-99 Automated erythrocyte mean corpuscular hemoglobin (mass per erythrocyte) 31 pg 25-34 Automated erythrocyte mean corpuscular hemoglobin concentration measurement (mass/volume) 33 g/dL 32-36 Automated erythrocyte distribution width ratio 14.5 % 10.0- 14.5 Automated blood platelet count (count/volume) 182 10*3/uL 130-400 Automated blood platelet mean volume measurement 11.4 [foz_us] 7.4-10.4 Encounters ACCT No. Visit Date/Time Discharge Status Pt. Type Provider Facility Loc./Unit Complaint [id number] 02/18/2019 09:57:00 02/18/2019 23:59:00 DIS Outpatient Bonnie Obando [id number] 02/17/2019 11:15:00 02/17/2019 23:59:00 DIS Outpatient PAT RAJAN [id number] 02/27/2017 15:09:00 02/27/2017 23:59:00 DIS Outpatient Pan David [id number] 03/10/2019 06:00:00 03/10/2019 15:30:00 DIS Outpatient GRISEL KWAN MD [facility] PREOP LEFT BREAST CANCER [id number] 03/06/2019 13:35:00 03/06/2019 23:59:59 CLS Outpatient AYLEEN BRITO APRN [facility] RAD LEFT BREAST CANCER [id number] 03/04/2019 16:46:00 03/04/2019 23:59:59 CLS Preadmit AYLEEN BRITO APRN [facility] CARD LEFT BREAST CANCER [id number] 06/11/2014 08:47:00 06/11/2014 23:59:59 CLS Outpatient PAN DAVID MD [facility] RAD PAST HX TEMPORAL CYST MASS, YEARLY FOLLOW UP [id number] 06/07/2014 14:57:00 06/07/2014 23:59:59 CLS Outpatient PAN DAVID MD [facility] RAD PAST HX TEMPORAL CYST MASS, YEARLY FOLLOW UP [id number] 12/17/2013 20:46:00 12/18/2013 05:30:00 DIS Outpatient PAN DAVID MD [facility] SLEEP INSOMNIA,EXCESSIVE DAYTIME SLEEPINESS [id number] 04/01/2019 14:25:00 PEN Preadmit SHERITA KIRAN [facility] ONC [id number] 03/12/2019 06:15:00 ACT Outpatient GRISEL KWAN MD [facility] 4TH LEFT BREAST CANCER
--- NOTE | 2019-03-13 15:19 | Physical Therapy Progress Note ---
Therapy Progress Note Patient just returned from ambulating with nursing staff ~300' independently. Patient reports she feels good and plans to go home tomorrow. Patient declined PT and stated she will ambulate independent 2-3 more time this evening. 1 visit ([id number]) JESSIKA SALEEM PT Mar 13, 2019 15:19
[2019-03-14] MEDS: CLINDAMYCIN 600 MG/50 ML IVPB 50 ML IV SCH ×2 (03:27→11:48)
[2019-03-14] MEDS: LACTATED RINGERS 1,000 ML IV SCH (03:27)
[2019-03-14 04:26] VITALS: BP 100/62
[2019-03-14] MEDS: oxyCODONE 5 MG/5 ML ORAL SOLN (roxiCODONE) 5 ML UDC PO PRN (04:40)
--- NOTE | 2019-03-14 07:58 | Progress Note ---
Subjective Date Seen by a Provider: Mar 14, 2019 Time Seen by a Provider: 07:40 Subjective/Events-last exam Patient sleeping in bed comfortably upon arrival. Patient reports doing much better today. Patient said she slept through the night and took her pain meds before she went to bed and then this morning. 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 Tolerating diet with no N/V. No fever/chills. Had BM this AM. Patient reported that she ambulated up and down the steinberg several times yesterday afternoon and evening. She says she feels much better since doing that and more steady on her feet. She states that she does feel like she is ready to go home. Objective Exam Vital Signs Date Time Temp Pulse Resp B/P (MAP) Pulse Ox O2 Delivery O2 Flow Rate FiO2 03/14/19 06:40 20 03/14/19 04:26 98.1 61 18 100/62 (75) 95 Room Air 03/13/19 23:57 98.4 65 18 90/52 (65) 98 Room Air 03/13/19 19:54 98.4 72 18 117/68 (84) 100 Room Air 03/13/19 19:40 Room Air 03/13/19 18:01 20 03/13/19 16:13 95 Room Air 03/13/19 16:00 98.1 68 18 110/69 (83) 99 Room Air 03/13/19 12:08 95 Room Air 03/13/19 12:00 98.3 77 18 104/64 (77) 97 Room Air 03/13/19 09:00 Room Air 03/13/19 08:00 97.3 62 18 97/44 (61) 100 Room Air I & O 03/14/19 07:00 Intake Total 3900 ml Output Total 1520 ml Balance 2380 ml Capillary Refill : Less Than 3 Seconds General Appearance: No Apparent Distress, WD/WN Neck: Full Range of Motion, Normal Inspection, Non Tender, Supple Respiratory: Normal Breath Sounds, No Accessory Muscle Use, No Respiratory Distress Cardiovascular: Regular Rate, Rhythm, No Murmur Gastrointestinal: normal bowel sounds, non tender, soft Extremity: Normal Capillary Refill, Normal Range of Motion, Swelling (1+ lower extremities) Neurologic/Psychiatric: Alert, Oriented x3 Skin: Warm/Dry, Ecchymosis (axillary region), Other (Incision C/D/I. Drains with SS drainage) Assessment/Plan Assessment/Plan Assess & Plan/Chief Complaint A 63 year old female with left breast cancer who is S/P left modified radical mastectomy. Encourage ambulation Continue diet DC HIDE AND SKIN FLESHING MACHINE OPERATOR and fluids. Continue with oral pain meds as needed. Ok to discharge patient home and to follow up in the office on Saturday. Clinical Quality Measures DVT/VTE Risk/Contraindication: Risk Factor Score Per Nursin RFS Level Per Nursing on Admit: 4+=Very High AYLEEN BRITO DUST COLLECTOR Mar 14, 2019 07:58
--- NOTE | 2019-03-14 08:00 | NUR ---
FRANCHISE SALES REPRESENTATIVE discontinued, wasted 74ml Fentanyl with Ludmila SIMS, disposed of in Drug Buster container.
[2019-03-14 08:10] VITALS: BP 102/59
[2019-03-14] MEDS: SENNA W/DOCUSATE (SENOKOT S) TABLET PO SCH (08:26)
[2019-03-14] MEDS: PANTOPRAZOLE 40 MG (PROTONIX) VIAL IV SCH (08:26)
[2019-03-14] MEDS: NICOTINE 21 MG (NICODERM) PATCH TD SCH (08:26)
[2019-03-14] MEDS: ENOXAPARIN 30 MG/0.3 ML (LOVENOX) SYR SC SCH (08:27)
[2019-03-14 11:48] VITALS: BP 118/57
== END 2019-03-14 15:40 | disposition home or self-care (01) | DRG 580 ==
LOC: SDC 06:15 → 4TH 16:10 → SDC 03-13 14:40 → 4TH 03-13 14:40
PROVIDERS: ADMIT Surgery; ATTEND Surgery
PROC: 07T60ZZ Resection of Left Axillary Lymphatic, Open Approach (ICD-10-PCS; 2019-03-12)
PROC: 07B60ZX Excision of Left Axillary Lymphatic, Open Approach, Diagnostic (ICD-10-PCS; 2019-03-12)
PROC: 0HTU0ZZ Resection of Left Breast, Open Approach (ICD-10-PCS; principal; 2019-03-12 12:21)
DX: C50.312 Malignant neoplasm of lower-inner quadrant of left female breast (principal); C77.3 Secondary and unspecified malignant neoplasm of axilla and upper limb lymph nodes; F17.200 Nicotine dependence, unspecified, uncomplicated; Z86.011 Personal history of benign neoplasm of the brain
CPT/HCPCS: 36415; 71046; 85027; 94640; 94664; 94760

== ENCOUNTER 2019-04-02 06:11 | Outpatient (CLI) | payer MEDICARE, MEDICAID ==
[~2019-04-02] VITALS: Ht 167.6 cm; Wt 74.4 kg
[~2019-04-02 06:11] MED LIST changes: +OXYC-464 PO
[2019-04-02] MEDS ORDERED: AMOX-358 PO (13:11)
[2019-04-04] MEDS ORDERED: SULF1TAB35 PO (17:22)
== END 2019-04-02 13:19 | disposition home or self-care (01) ==
LOC: PREOP 06:11
PROVIDERS: ATTEND Surgery
DX: Z01.818 Encounter for other preprocedural examination (principal)

== ENCOUNTER 2019-04-03 08:57 | Day surgery (SDC) | payer MEDICARE, MEDICAID ==
[2019-04-03] VITALS (11 sets, daily range): BP systolic 78–151; BP diastolic 52–94
[~2019-04-03] VITALS: Ht 167.6 cm; Wt 74.4 kg
[~2019-04-03 08:57] MED LIST changes: +AMOX-358 PO
[2019-04-03] MEDS ORDERED: MIDAZOLAM 2 MG/2 ML (VERSED) VIAL ONE (09:40)
[2019-04-03] MEDS ORDERED: PROPOFOL INJECTION 50 ML IV ONE (09:40)
[2019-04-03] MEDS ORDERED: LACTATED RINGERS 1,000 ML IV PRN (09:42)
[2019-04-03] MEDS ORDERED: FAMOTIDINE 20MG/2ML IV (PEPCID) IV ONE (09:45)
[2019-04-03] MEDS ORDERED: ONDANSETRON 4 MG/2 ML (SDV) Z0FRAN IV ONE (09:45)
[2019-04-03] MEDS ORDERED: CLINDAMYCIN 600 MG/50 ML IVPB 50 ML IV ONE (09:45)
[2019-04-03] MEDS ORDERED: HEParin (CENTRAL IV FLUSH) 500 UNIT/5 ML SYR ONE (09:53)
[2019-04-03] MEDS ORDERED: 0.9% SODIUM CHLORIDE PF INJ 20 ML VIAL ONE (09:54)
[2019-04-03] MEDS ORDERED: LIDOCAINE/EPI 1%-1:100,000 (XYLOCAINE) 20ML ONE (09:54)
--- NOTE | 2019-04-03 10:22 | Progress Note-Pre Operative ---
Pre-Operative Progress Note H&P Reviewed The H&P was reviewed, patient examined and no changes noted. Date Seen by Provider: Apr 03, 2019 Time Seen by Provider: 10:00 Date H&P Reviewed: Apr 03, 2019 Time H&P Reviewed: 10:00 Pre-Operative Diagnosis: metastatic left breast cancer GRISEL KWAN MD Apr 03, 2019 10:22
--- NOTE | 2019-04-03 10:25 | Discharge Inst-Surgical ---
D/C Lap Instructions-AQUILES Follow Up 1 week. Activity as tolerated Regular Diet Symptoms to Report: Fever over 101 degree F, Nausea/Vomiting Infection Signs and Symptoms to report: Increased redness, Foul odor of wound, Increased drainage Bathing instructions: May shower Operative Area Clean/Dry; Keep incision clean/dry If any problems/questions: Contact your physician or go to Emergency Room GRISEL KWAN MD Apr 03, 2019 10:25
[2019-04-03] MEDS ORDERED: ONDANSETRON 4 MG/2 ML (SDV) Z0FRAN IVP PRN (10:30)
[2019-04-03] MEDS ORDERED: ACETAMINOPHEN 325 MG TABLET PO PRN (10:30)
[2019-04-03] MEDS ORDERED: oxyCODONE/APAP 5/325MG (PERCOCET 5) TABLET PO PRN (10:30)
[2019-04-03] MEDS ORDERED: morphine INJ 10 MG/ML 1ML (SYR OR VIAL) IVP PRN ×2 (10:30)
--- NOTE | 2019-04-03 11:12 | Progress Note-Post Operative ---
Post-Operative Progess Note Surgeon (s)/Shell Sieve Operator (s) Surgeon GRISEL KWAN MD Shell Sieve Operator: none Pre-Operative Diagnosis metastatic left breast cancer Post-Operative Diagnosis same Procedure & Operative Findings Date of Procedure 04/03/19 Procedure Performed/Findings right subclavian groshong implantable catheter under flouroscopy Anesthesia Type MAC with local Estimated Blood Loss Estimated blood loss (mL): minimal Specimens/Packing Specimens Removed none GRISEL KWAN MD Apr 03, 2019 11:12
[2019-04-03] MEDS ORDERED: morphine INJ 10 MG/ML 1ML (SYR OR VIAL) IVP ONE (11:30)
[2019-04-03] MEDS ORDERED: morphine INJ 10 MG/ML 1ML (SYR OR VIAL) ONE (11:38)
--- NOTE | 2019-04-03 11:50 | Diagnostic Imaging Report ---
INDICATION: Port placement. History of left breast cancer. Known pulmonary masses. TECHNIQUE: Single view chest, 11:34 a.m. CORRELATION STUDY: 03/12/2019. FINDINGS: Right subclavian Bmqdtw-v-Iksb catheter has been placed with tip projecting over the right paramediastinal region, likely over the SVC. Heart size and mediastinum are within normal limits. No pneumothorax or significant effusion. Irregular density at the lateral left upper lung persists, generally stable. Slight parenchymal density in the right lung apex also appears unchanged. There is a somewhat linear density projecting over the lateral aspect of the left lower chest, just lateral to the ribs, nonspecific as to etiology or significance. This may be perhaps attributed to known findings of the breast. IMPRESSION: 1. Right subclavian Ltnitv-m-Fbit catheter has been placed with tip projecting over the low SVC. Dictated by: Dictated on workstation # [id number]
--- NOTE | 2019-04-03 14:11 | Diagnostic Imaging Report ---
Indication: Fluoroscopy for port insertion. Fluoroscopy was provided in the OR during port insertion. One minute 55 seconds of fluoroscopic time was utilized. Images demonstrate a right-sided port with tip overlying the SVC. Impression: Fluoroscopy for port placement. Dictated by: Dictated on workstation # [id number]
--- NOTE | 2019-04-03 15:24 | OPERATIVE REPORT ---
DATE OF SERVICE: 04/03/2019 PREOPERATIVE DIAGNOSIS: Metastatic left breast cancer. POSTOPERATIVE DIAGNOSIS: Metastatic left breast cancer. PROCEDURE: Right subclavian Groshong implantable catheter under fluoroscopy. SURGEON: Grisel Kwan MD ANESTHESIA: Monitored anesthesia care with local. ESTIMATED BLOOD LOSS: Minimal. FINDINGS: Catheter tip at superior vena cava - right atrial junction. DISPOSITION: The patient tolerated the procedure well. INDICATIONS: The patient is a 63-year-old female, who was referred over to us for a palpable mass in the left breast, which was found to be an invasive ductal cancer. She then underwent a modified radical mastectomy for positive nodes of the axilla. She is scheduled to undergo further evaluation with a PET scan as well as chemotherapy and radiation. She is here for a Groshong implantable catheter. DESCRIPTION OF PROCEDURE: The patient was brought to the operating room, laid in the left lateral decubitus position. After adequate IV pain and sedative medications and monitored anesthesia care, the chest and neck were prepped and draped in standard surgical fashion. A 1% lidocaine with epinephrine was used to anesthetize the right subclavian region. The right subclavian vein was then cannulated with drawing of venous blood. Guidewire was then inserted under fluoroscopy. The cannulating needle was removed and a skin incision was made using a 11 blade. A tract was then created using a venous dilator and a sheath over the guidewire. The dilator and guidewire were then removed and a Groshong catheter was placed under fluoroscopy until the tip was at the superior vena cava - right atrial junction. The inner wire within the catheter was then removed. The catheter was cut down to size and port was placed onto the catheter. The subcutaneous reservoir of the anterior chest was then created using blunt dissection as well as electrocautery over the anterior pectoralis fascia with visualization of good hemostasis. The port was then placed into the chest reservoir and sutured to the anterior pectoralis fascia using interrupted 3-0 Vicryl sutures. Subcutaneous tissue was then reapproximated using 3-0 Vicryl interrupted sutures. Skin was closed using 4-0 Monocryl running subcuticular suture. Wound was then cleaned and covered with Dermabond. The patient tolerated the procedure well. We will start IV normal pain medication and get a post-procedure chest x-ray. Once she is tolerating clears, has good pain control and is ambulating well, we will discharge her home. Once confirmation of placement, the catheter may be accessed and used at any time. Job ID: [id number] DocumentID: [id number] Dictated Date: 04/03/2019 11:26:22 Cable Systems Installer Date: 04/03/2019 15:22:18 Dictated By: GRISEL KWAN MD
[2019-04-04] MEDS ORDERED: SULF1TAB35 PO (17:22)
== END 2019-04-03 13:30 | disposition home or self-care (01) ==
LOC: SDC 08:57
PROVIDERS: ATTEND Surgery
DX: C79.81 Secondary malignant neoplasm of breast (principal); C80.1 Malignant (primary) neoplasm, unspecified; F41.9 Anxiety disorder, unspecified; F17.210 Nicotine dependence, cigarettes, uncomplicated; Z91.040 Latex allergy status; Z91.041 Radiographic dye allergy status; Z88.4 Allergy status to anesthetic agent; Z88.1 Allergy status to other antibiotic agents; Z79.891 Long term (current) use of opiate analgesic; Z79.899 Other long term (current) drug therapy; Z91.048 Other nonmedicinal substance allergy status; Z80.1 Family history of malignant neoplasm of trachea, bronchus and lung; Z82.49 Family history of ischemic heart disease and other diseases of the circulatory system
CPT/HCPCS: 71045; 87081

== ENCOUNTER 2019-04-04 17:05 | Emergency (ER) | payer MEDICARE, MEDICAID | END 2019-04-04 17:31 | disposition home or self-care (01) | LOC: ER 17:05 ==

== ENCOUNTER → 2019-04-06 | Outpatient (CLI) | payer MEDICARE, MEDICAID ==
[~2019-04-06] MED LIST changes: +SULF1TAB35 PO
== END ==
LOC: CARD 08:12
PROVIDERS: ATTEND Internal Medicine Hematology & Oncology
DX: C50.912 Malignant neoplasm of unspecified site of left female breast (principal); R93.89 Abnormal findings on diagnostic imaging of other specified body structures
CPT/HCPCS: 93306

== ENCOUNTER → 2019-04-07 | Outpatient (CLI) | payer MEDICARE, MEDICAID ==
--- NOTE | 2019-04-09 14:16 | Diagnostic Imaging Report ---
EXAMINATION: PET/CT. INDICATION: Breast cancer initial. TECHNIQUE: PET/CT imaging was obtained from the base of the skull through the pelvis after the administration of 14.12 mCi of F-[address] imaging was utilized for localization and attenuation correction purposes. The low energy CT utilized for attenuation correction is not considered to be of high enough spatial resolution to allow in and of itself a separate anatomical analysis. The patient's height is 5 foot 6 inches and weight 161 lbs. PET images were obtained one hour after injection. FINDINGS: There are no prior PET/CT examinations available for Compression. The CT chest, abdomen and pelvis exam of 03/06/2019 noted a 3 cm mass in the left breast. By history, the patient had been recently diagnosed with breast cancer. The CT exam also identified a number of left axillary and retropectoral lymph nodes as well as a prominent mediastinal node and a few asymmetric lymph nodes in the base of the neck. In the interval since the prior exam, the patient has undergone a left mastectomy. The CT images do show that there is an 8.7 x 23.7 cm hematoma/seroma in the operative site; however, there is no hypermetabolic activity in this area to suggest residual malignancy. There is slightly increased activity of the chest wall. The maximum SUV in this area is 2.3. I suspect that this is the sequela of the recent surgical procedure. There are no hypermetabolic lymph nodes identified in the mediastinum or in the lower neck on the left. The overall appearance of the PET/CT exam is otherwise unremarkable. There is no other hypermetabolic activity seen to suggest the presence of malignancy. There is physiologic activity in the brain, the kidneys, the bowel, and the bladder. The CT images do show an irregular parenchymal density along the posterior aspect of the right upper lobe. This finding was present on the prior exam and has not changed. This area is not hypermetabolic. The CT exam also identified a 9.6 x 18.6 mm area of increased density in the left upper lung. That finding is again visualized and now measures 9.7 x 16.9 mm. This area has a maximum SUV of only 1.2. These parenchymal abnormalities may be secondary to scar formation. Even though they are not hypermetabolic, I would recommend that a short-term (three-month) follow-up CT chest exam be obtained for continued evaluation. The CT images do show postsurgical changes consistent with prior subtotal occipital craniotomy on the right. Correlation with the patient's history will be recommended. There may be some sludge within the gallbladder. If further study is desired, then ultrasound will be recommended. IMPRESSION: 1. There are postoperative changes consistent with an interval left mastectomy. There is a hematoma/seroma in the biopsy site, but there is no hypermetabolic activity in this area to suggest malignancy. There is no other hypermetabolic activity identified to indicate metastatic disease either. 2. The areas of increased density in both upper lobes are not hypermetabolic and may be secondary to scar formation. Recommendations as above. 3. There are postsurgical changes consistent with a prior subtotal right occipital craniotomy. Correlation with the patient's history will be recommended. 4. There is a question of sludge within the gallbladder. If further study is desired, then ultrasound will be recommended. 5. These results were discussed with Dr. Arita. Dictated by: Dictated on workstation # [id number]
== END ==
LOC: RAD 12:36
PROVIDERS: ATTEND Internal Medicine Hematology & Oncology
DX: C50.912 Malignant neoplasm of unspecified site of left female breast (principal); R93.89 Abnormal findings on diagnostic imaging of other specified body structures; R91.8 Other nonspecific abnormal finding of lung field; Z90.12 Acquired absence of left breast and nipple; Z98.890 Other specified postprocedural states

== ENCOUNTER → 2019-06-09 | Outpatient (CLI) | payer MEDICARE, MEDICAID ==
--- NOTE | 2019-06-09 14:35 | Diagnostic Imaging Report ---
PROCEDURE: US left lower extremity venous. TECHNIQUE: Multiple real-time grayscale images were obtained over the left lower extremity in various projections. Additional duplex Doppler and color Doppler images were also obtained. INDICATION: Pain behind the left knee with left ankle swelling. FINDINGS: There is no evidence of left lower extremity DVT. Left lower extremity deep venous system shows normal compressibility with normal response to augmentation and Valsalva. No fluid collection or mass is seen. IMPRESSION: No evidence of left lower extremity DVT. Dictated by: Dictated on workstation # [id number]
== END ==
LOC: RAD 13:47
PROVIDERS: ATTEND Nurse Practitioner Adult Health
DX: M25.562 Pain in left knee (principal); M25.472 Effusion, left ankle; M79.672 Pain in left foot; M25.572 Pain in left ankle and joints of left foot

== ENCOUNTER 2019-06-29 16:11 | Outpatient (RCR) | payer MEDICARE, MEDICAID ==
[2019-04-01 11:08] LABS: BASOPHILS % (AUTO) 0 % (0-10); EOSINOPHILS # (AUTO) 0.1 10^3/uL (0.0-0.3); EOSINOPHILS % (AUTO) 1 % (0-10); HEMATOCRIT 41 % (35-52); HEMOGLOBIN 13.3 G/DL (11.5-16.0); LYMPHOCYTES # (AUTO) 2.9 X 10^3 (1.0-4.0); LYMPHOCYTES % (AUTO) 25 % (12-44); MEAN CORPUSCULAR HEMOGLOBIN 30 PG (25-34); MEAN CORPUSCULAR HGB CONC 32 G/DL (32-36); MEAN CORPUSCULAR VOLUME 94 FL (80-99); MEAN PLATELET VOLUME 10.8 FL (7.4-10.4); MONOCYTES # (AUTO) 1.3 X 10^3 (0.0-1.0); MONOCYTES % (AUTO) 11 % (0-12); NEUTROPHILS # (AUTO) 7.1 X 10^3 (1.8-7.8); NEUTROPHILS % (AUTO) 63 % (42-75); PLATELET COUNT 238 10^3/uL (130-400); RED CELL DISTRIBUTION WIDTH 14.3 % (10.0-14.5); WHITE BLOOD COUNT 11.4 10^3/uL (4.3-11.0)
[2019-04-01 11:25] LABS: ALANINE AMINOTRANSFERASE 8 U/L (0-55); ALBUMIN 3.9 GM/DL (3.2-4.5); ALKALINE PHOSPHATASE 65 U/L (40-136); BILIRUBIN,TOTAL 0.5 MG/DL (0.1-1.0); BUN/CREATININE RATIO 11; CALCIUM 9.5 MG/DL (8.5-10.1); CARBON DIOXIDE 27 MMOL/L (21-32); CHLORIDE 107 MMOL/L (98-107); CREATININE SERUM 0.72 MG/DL (0.60-1.30); GFR ESTIMATED > 60; GLUCOSE 88 MG/DL (70-105); POTASSIUM 4.4 MMOL/L (3.6-5.0); SODIUM 141 MMOL/L (135-145); TOTAL PROTEIN 7.2 GM/DL (6.4-8.2)
[2019-05-04 14:29] LABS: BASOPHILS % (AUTO) 0 % (0-10); EOSINOPHILS # (AUTO) 0.1 10^3/uL (0.0-0.3); EOSINOPHILS % (AUTO) 1 % (0-10); HEMATOCRIT 39 % (35-52); LYMPHOCYTES # (AUTO) 3.7 X 10^3 (1.0-4.0); LYMPHOCYTES % (AUTO) 36 % (12-44); MEAN CORPUSCULAR HEMOGLOBIN 31 PG (25-34); MEAN CORPUSCULAR HGB CONC 33 G/DL (32-36); MEAN CORPUSCULAR VOLUME 94 FL (80-99); MEAN PLATELET VOLUME 10.9 FL (7.4-10.4); MONOCYTES # (AUTO) 0.9 X 10^3 (0.0-1.0); MONOCYTES % (AUTO) 9 % (0-12); NEUTROPHILS # (AUTO) 5.5 X 10^3 (1.8-7.8); NEUTROPHILS % (AUTO) 54 % (42-75); PLATELET COUNT 217 10^3/uL (130-400); RED CELL DISTRIBUTION WIDTH 14.2 % (10.0-14.5); WHITE BLOOD COUNT 10.2 10^3/uL (4.3-11.0)
[2019-05-04 14:46] LABS: ALANINE AMINOTRANSFERASE 13 U/L (0-55); ALBUMIN 3.9 GM/DL (3.2-4.5); ALKALINE PHOSPHATASE 54 U/L (40-136); BILIRUBIN,TOTAL 0.3 MG/DL (0.1-1.0); BUN/CREATININE RATIO 21; CALCIUM 8.9 MG/DL (8.5-10.1); CARBON DIOXIDE 26 MMOL/L (21-32); CHLORIDE 106 MMOL/L (98-107); CREATININE SERUM 0.68 MG/DL (0.60-1.30); GFR ESTIMATED > 60; GLUCOSE 93 MG/DL (70-105); POTASSIUM 4.2 MMOL/L (3.6-5.0); SODIUM 139 MMOL/L (135-145); TOTAL PROTEIN 6.8 GM/DL (6.4-8.2)
[2019-05-11 15:04] LABS: BUN/CREATININE RATIO 21; CALCIUM 8.6 MG/DL (8.5-10.1); CARBON DIOXIDE 28 MMOL/L (21-32); CHLORIDE 104 MMOL/L (98-107); CREATININE SERUM 0.67 MG/DL (0.60-1.30); GFR ESTIMATED > 60; GLUCOSE 105 MG/DL (70-105); SODIUM 139 MMOL/L (135-145)
[2019-05-11 16:41] LABS: BASOPHILS # (AUTO) 0.1 10^3/uL (0.0-0.1); BASOPHILS % (AUTO) 1 % (0-10); EOSINOPHILS # (AUTO) 0.1 10^3/uL (0.0-0.3); EOSINOPHILS % (AUTO) 1 % (0-10); HEMATOCRIT 38 % (35-52); HEMOGLOBIN 12.5 G/DL (11.5-16.0); LYMPHOCYTES # (AUTO) 3.4 X 10^3 (1.0-4.0); LYMPHOCYTES % (AUTO) 37 % (12-44); MEAN CORPUSCULAR HEMOGLOBIN 31 PG (25-34); MEAN CORPUSCULAR HGB CONC 33 G/DL (32-36); MEAN CORPUSCULAR VOLUME 92 FL (80-99); MONOCYTES % (AUTO) 0 % (0-12); NEUTROPHILS # (AUTO) 5.7 X 10^3 (1.8-7.8); NEUTROPHILS % (AUTO) 62 % (42-75); PLATELET COUNT 146 10^3/uL (130-400); RED CELL DISTRIBUTION WIDTH 13.3 % (10.0-14.5); WHITE BLOOD COUNT 9.2 10^3/uL (4.3-11.0)
[2019-05-18 16:13] LABS: BASOPHILS # (AUTO) 0.1 10^3/uL (0.0-0.1); BASOPHILS % (AUTO) 2 % (0-10); EOSINOPHILS # (AUTO) 0.1 10^3/uL (0.0-0.3); EOSINOPHILS % (AUTO) 2 % (0-10); HEMATOCRIT 37 % (35-52); LYMPHOCYTES # (AUTO) 3.1 X 10^3 (1.0-4.0); LYMPHOCYTES % (AUTO) 76 % (12-44); MEAN CORPUSCULAR HEMOGLOBIN 31 PG (25-34); MEAN CORPUSCULAR HGB CONC 33 G/DL (32-36); MEAN CORPUSCULAR VOLUME 94 FL (80-99); MEAN PLATELET VOLUME 10.1 FL (7.4-10.4); MONOCYTES # (AUTO) 0.8 X 10^3 (0.0-1.0); MONOCYTES % (AUTO) 20 % (0-12); NEUTROPHILS % (AUTO) 1 % (42-75); PLATELET COUNT 234 10^3/uL (130-400); RED CELL DISTRIBUTION WIDTH 13.9 % (10.0-14.5)
[2019-05-18 16:28] LABS: BUN/CREATININE RATIO 13; CALCIUM 8.7 MG/DL (8.5-10.1); CARBON DIOXIDE 26 MMOL/L (21-32); CHLORIDE 110 MMOL/L (98-107); CREATININE SERUM 0.71 MG/DL (0.60-1.30); GFR ESTIMATED > 60; GLUCOSE 95 MG/DL (70-105); POTASSIUM 3.8 MMOL/L (3.6-5.0); SODIUM 143 MMOL/L (135-145)
[2019-05-25 14:42] LABS: BASOPHILS # (AUTO) 0.1 10^3/uL (0.0-0.1); BASOPHILS % (AUTO) 1 % (0-10); EOSINOPHILS % (AUTO) 0 % (0-10); HEMATOCRIT 38 % (35-52); HEMOGLOBIN 12.2 G/DL (11.5-16.0); LYMPHOCYTES % (AUTO) 36 % (12-44); MEAN CORPUSCULAR HEMOGLOBIN 30 PG (25-34); MEAN CORPUSCULAR HGB CONC 32 G/DL (32-36); MEAN CORPUSCULAR VOLUME 94 FL (80-99); MEAN PLATELET VOLUME 9.8 FL (7.4-10.4); MONOCYTES # (AUTO) 1.6 X 10^3 (0.0-1.0); MONOCYTES % (AUTO) 15 % (0-12); NEUTROPHILS # (AUTO) 5.3 X 10^3 (1.8-7.8); NEUTROPHILS % (AUTO) 48 % (42-75); PLATELET COUNT 347 10^3/uL (130-400); RED CELL DISTRIBUTION WIDTH 14.7 % (10.0-14.5)
[2019-05-25 15:05] LABS: ALANINE AMINOTRANSFERASE 15 U/L (0-55); ALBUMIN 3.6 GM/DL (3.2-4.5); ALKALINE PHOSPHATASE 58 U/L (40-136); BILIRUBIN,TOTAL 0.2 MG/DL (0.1-1.0); BUN/CREATININE RATIO 12; CALCIUM 8.9 MG/DL (8.5-10.1); CARBON DIOXIDE 26 MMOL/L (21-32); CHLORIDE 108 MMOL/L (98-107); CREATININE SERUM 0.73 MG/DL (0.60-1.30); GFR ESTIMATED > 60; GLUCOSE 87 MG/DL (70-105); SODIUM 141 MMOL/L (135-145); TOTAL PROTEIN 6.7 GM/DL (6.4-8.2)
[2019-06-01 16:03] LABS: BASOPHILS # (AUTO) 0.1 10^3/uL (0.0-0.1); BASOPHILS % (AUTO) 1 % (0-10); EOSINOPHILS # (AUTO) 0.1 10^3/uL (0.0-0.3); EOSINOPHILS % (AUTO) 1 % (0-10); HEMATOCRIT 38 % (35-52); HEMOGLOBIN 12.5 G/DL (11.5-16.0); LYMPHOCYTES # (AUTO) 2.5 X 10^3 (1.0-4.0); LYMPHOCYTES % (AUTO) 32 % (12-44); MEAN CORPUSCULAR HEMOGLOBIN 31 PG (25-34); MEAN CORPUSCULAR HGB CONC 33 G/DL (32-36); MEAN CORPUSCULAR VOLUME 93 FL (80-99); MONOCYTES # (AUTO) 0.1 X 10^3 (0.0-1.0); MONOCYTES % (AUTO) 1 % (0-12); NEUTROPHILS # (AUTO) 5.1 X 10^3 (1.8-7.8); NEUTROPHILS % (AUTO) 66 % (42-75); PLATELET COUNT 152 10^3/uL (130-400); RED CELL DISTRIBUTION WIDTH 13.9 % (10.0-14.5); WHITE BLOOD COUNT 7.8 10^3/uL (4.3-11.0)
[2019-06-01 16:27] LABS: BUN/CREATININE RATIO 13; CARBON DIOXIDE 25 MMOL/L (21-32); CHLORIDE 105 MMOL/L (98-107); CREATININE SERUM 0.71 MG/DL (0.60-1.30); GFR ESTIMATED > 60; GLUCOSE 89 MG/DL (70-105); POTASSIUM 4.2 MMOL/L (3.6-5.0); SODIUM 139 MMOL/L (135-145)
[2019-06-08 16:01] LABS: BASOPHILS # (AUTO) 0.1 10^3/uL (0.0-0.1); BASOPHILS % (AUTO) 2 % (0-10); EOSINOPHILS # (AUTO) 0.1 10^3/uL (0.0-0.3); EOSINOPHILS % (AUTO) 3 % (0-10); HEMATOCRIT 37 % (35-52); HEMOGLOBIN 12.3 G/DL (11.5-16.0); LYMPHOCYTES # (AUTO) 2.7 X 10^3 (1.0-4.0); LYMPHOCYTES % (AUTO) 68 % (12-44); MEAN CORPUSCULAR HEMOGLOBIN 31 PG (25-34); MEAN CORPUSCULAR HGB CONC 33 G/DL (32-36); MEAN CORPUSCULAR VOLUME 94 FL (80-99); MEAN PLATELET VOLUME 10.4 FL (7.4-10.4); MONOCYTES # (AUTO) 0.9 X 10^3 (0.0-1.0); MONOCYTES % (AUTO) 23 % (0-12); NEUTROPHILS # (AUTO) 0.1 X 10^3 (1.8-7.8); NEUTROPHILS % (AUTO) 3 % (42-75); PLATELET COUNT 228 10^3/uL (130-400); RED CELL DISTRIBUTION WIDTH 14.6 % (10.0-14.5)
[2019-06-08 16:30] LABS: BUN/CREATININE RATIO 18; CALCIUM 9.5 MG/DL (8.5-10.1); CARBON DIOXIDE 26 MMOL/L (21-32); CHLORIDE 105 MMOL/L (98-107); CREATININE SERUM 0.73 MG/DL (0.60-1.30); GFR ESTIMATED > 60; GLUCOSE 94 MG/DL (70-105); POTASSIUM 4.2 MMOL/L (3.6-5.0); SODIUM 140 MMOL/L (135-145)
[2019-06-15 14:24] LABS: BASOPHILS # (AUTO) 0.1 10^3/uL (0.0-0.1); BASOPHILS % (AUTO) 1 % (0-10); EOSINOPHILS # (AUTO) 0.1 10^3/uL (0.0-0.3); EOSINOPHILS % (AUTO) 1 % (0-10); HEMATOCRIT 36 % (35-52); HEMOGLOBIN 11.8 G/DL (11.5-16.0); LYMPHOCYTES # (AUTO) 3.5 X 10^3 (1.0-4.0); LYMPHOCYTES % (AUTO) 29 % (12-44); MEAN CORPUSCULAR HEMOGLOBIN 30 PG (25-34); MEAN CORPUSCULAR HGB CONC 32 G/DL (32-36); MEAN CORPUSCULAR VOLUME 94 FL (80-99); MEAN PLATELET VOLUME 9.9 FL (7.4-10.4); MONOCYTES # (AUTO) 1.4 X 10^3 (0.0-1.0); MONOCYTES % (AUTO) 11 % (0-12); NEUTROPHILS # (AUTO) 7.2 X 10^3 (1.8-7.8); NEUTROPHILS % (AUTO) 59 % (42-75); PLATELET COUNT 344 10^3/uL (130-400); RED CELL DISTRIBUTION WIDTH 14.7 % (10.0-14.5); WHITE BLOOD COUNT 12.3 10^3/uL (4.3-11.0)
[2019-06-15 14:57] LABS: ALANINE AMINOTRANSFERASE 13 U/L (0-55); ALBUMIN 3.6 GM/DL (3.2-4.5); ALKALINE PHOSPHATASE 52 U/L (40-136); BILIRUBIN,TOTAL 0.1 MG/DL (0.1-1.0); BUN/CREATININE RATIO 13; CALCIUM 9.1 MG/DL (8.5-10.1); CARBON DIOXIDE 25 MMOL/L (21-32); CHLORIDE 107 MMOL/L (98-107); GFR ESTIMATED > 60; GLUCOSE 91 MG/DL (70-105); POTASSIUM 4.3 MMOL/L (3.6-5.0); SODIUM 140 MMOL/L (135-145); TOTAL PROTEIN 6.4 GM/DL (6.4-8.2)
[2019-06-23 10:40] LABS: BASOPHILS # (AUTO) 0.1 10^3/uL (0.0-0.1); BASOPHILS % (AUTO) 2 % (0-10); EOSINOPHILS # (AUTO) 0.1 10^3/uL (0.0-0.3); EOSINOPHILS % (AUTO) 1 % (0-10); HEMATOCRIT 36 % (35-52); HEMOGLOBIN 11.9 G/DL (11.5-16.0); LYMPHOCYTES # (AUTO) 2.3 X 10^3 (1.0-4.0); LYMPHOCYTES % (AUTO) 36 % (12-44); MEAN CORPUSCULAR HEMOGLOBIN 30 PG (25-34); MEAN CORPUSCULAR HGB CONC 33 G/DL (32-36); MEAN CORPUSCULAR VOLUME 93 FL (80-99); MEAN PLATELET VOLUME 10.6 FL (7.4-10.4); MONOCYTES # (AUTO) 0.1 X 10^3 (0.0-1.0); MONOCYTES % (AUTO) 2 % (0-12); NEUTROPHILS # (AUTO) 3.9 X 10^3 (1.8-7.8); NEUTROPHILS % (AUTO) 60 % (42-75); PLATELET COUNT 172 10^3/uL (130-400); RED CELL DISTRIBUTION WIDTH 14.6 % (10.0-14.5); WHITE BLOOD COUNT 6.5 10^3/uL (4.3-11.0)
[2019-06-23 11:14] LABS: BUN/CREATININE RATIO 14; CALCIUM 9.6 MG/DL (8.5-10.1); CARBON DIOXIDE 27 MMOL/L (21-32); CHLORIDE 105 MMOL/L (98-107); GFR ESTIMATED > 60; GLUCOSE 103 MG/DL (70-105); POTASSIUM 3.8 MMOL/L (3.6-5.0); SODIUM 138 MMOL/L (135-145)
[~2019-06-29] VITALS: Ht 167.6 cm; Wt 72.1 kg
[~2019-06-29 16:11] MED LIST changes: +CYCLOPHOSPHAMIDE INJECTION 1,000 MG, CYCLOPHOSPHAMIDE INJECTION 100 MG in NS (IVPB) CAN... IV SCH; +FOSAPREPITANT DIMEGLUMINE 150 MG in NS (IVPB) CANCER CENTER ONLY 150 ML IV SCH; +LORazepam INJ 2 MG/ML VIAL CANCER CTR IV SCH; +NS IV 1000 ML (CANCER CTR) IV SCH; +PALONOSETRON HCL 0.25 MG, DEXAMETHASONE INJECTION 10 MG in NS (IVPB) CANCER CENTER 50 ML IV SCH
[2019-06-29 16:30] LABS: BASOPHILS # (AUTO) 0.1 10^3/uL (0.0-0.1); BASOPHILS % (AUTO) 2 % (0-10); EOSINOPHILS # (AUTO) 0.1 10^3/uL (0.0-0.3); EOSINOPHILS % (AUTO) 2 % (0-10); HEMATOCRIT 36 % (35-52); HEMOGLOBIN 11.6 G/DL (11.5-16.0); LYMPHOCYTES # (AUTO) 2.5 X 10^3 (1.0-4.0); LYMPHOCYTES % (AUTO) 72 % (12-44); MEAN CORPUSCULAR HEMOGLOBIN 31 PG (25-34); MEAN CORPUSCULAR HGB CONC 33 G/DL (32-36); MEAN CORPUSCULAR VOLUME 94 FL (80-99); MEAN PLATELET VOLUME 10.7 FL (7.4-10.4); MONOCYTES # (AUTO) 0.6 X 10^3 (0.0-1.0); MONOCYTES % (AUTO) 16 % (0-12); NEUTROPHILS # (AUTO) 0.2 X 10^3 (1.8-7.8); NEUTROPHILS % (AUTO) 7 % (42-75); PLATELET COUNT 207 10^3/uL (130-400); WHITE BLOOD COUNT 3.4 10^3/uL (4.3-11.0)
[2019-06-29 16:43] LABS: BUN/CREATININE RATIO 10; CARBON DIOXIDE 27 MMOL/L (21-32); CHLORIDE 109 MMOL/L (98-107); CREATININE SERUM 0.71 MG/DL (0.60-1.30); GFR ESTIMATED > 60; GLUCOSE 99 MG/DL (70-105); POTASSIUM 4.4 MMOL/L (3.6-5.0); SODIUM 143 MMOL/L (135-145)
== END 2019-06-30 | disposition home or self-care (01) ==
LOC: ONC 16:11
PROVIDERS: ATTEND Internal Medicine Hematology & Oncology
DX: C50.312 Malignant neoplasm of lower-inner quadrant of left female breast (principal); C77.3 Secondary and unspecified malignant neoplasm of axilla and upper limb lymph nodes; F17.200 Nicotine dependence, unspecified, uncomplicated; Z86.011 Personal history of benign neoplasm of the brain
CPT/HCPCS: 36415; 36591; 80048; 80053; 84550; 85025; 86300; 96367; 96375; 96411; 96413; 99213; 99214

== ENCOUNTER 2019-08-27 16:14 | Outpatient (RCR) | payer MEDICARE, MEDICAID ==
[~2019-08-27 16:14] MED LIST changes: -CYCLOPHOSPHAMIDE INJECTION 1,000 MG, CYCLOPHOSPHAMIDE INJECTION 100 MG in NS (IVPB) CAN... IV SCH; -FOSAPREPITANT DIMEGLUMINE 150 MG in NS (IVPB) CANCER CENTER ONLY 150 ML IV SCH; -LORazepam INJ 2 MG/ML VIAL CANCER CTR IV SCH; -NS IV 1000 ML (CANCER CTR) IV SCH; -PALONOSETRON HCL 0.25 MG, DEXAMETHASONE INJECTION 10 MG in NS (IVPB) CANCER CENTER 50 ML IV SCH
== END 2019-11-18 | disposition home or self-care (01) ==
PROVIDERS: ATTEND Nurse Practitioner Adult Health
DX: I89.0 Lymphedema, not elsewhere classified (principal)

== ENCOUNTER → 2019-09-22 | Outpatient (CLI) | payer MEDICARE, MEDICAID ==
[~2019-09-22] VITALS: Ht 78 cm; Wt 167.0 kg
[~2019-09-22] MED LIST changes: +REGADENOSON 0.4 MG/5 ML SYR (LEXISCAN) IV ONE
[2019-09-22] MEDS: CATHETER FLUSH 10 ML SYR IV PRN ×2 (12:21→13:31)
[2019-09-22 13:29] VITALS: BP 155/77
--- NOTE | 2019-09-25 20:53 | STRESS TEST ---
DATE OF SERVICE: RESTING AND POST REGADENOSON TECHNETIUM-99M TETROFOSMIN SPECT CT IMAGING ORDERING PHYSICIAN: Dr. Sanchez. PRIMARY PHYSICIAN: Merle Baires APRN CLINICAL DIAGNOSIS: Chest discomfort. Baseline images were carried out after injection of 10.05 mCi of technetium-99m Tetrofosmin. This was followed by 0.4 mg regadenoson and 29.3 mCi of technetium-99m Tetrofosmin for stress imaging. The electrocardiogram showed sinus rhythm at baseline. It did not change significantly with the regadenoson infusion. The patient tolerated the procedure well and did not report any significant symptoms. Review of images at rest and following stress does not indicate any distinct perfusion defects consistent with myocardial ischemia or infarction. Gated images show normal global left ventricular systolic function, normal regional wall motion. Left ventricular ejection fraction is calculated to be 71%. Left ventricular end diastolic volume is 56 mL. TID is absent (1). CONCLUSIONS: 1. No evidence of any significant myocardial ischemia or infarction on this study. 2. Normal regional wall motion. 3. Normal global left ventricular systolic function with a calculated ejection fraction of 71%. Job ID: [id number] DocumentID: [id number] Dictated Date: 09/25/2019 18:33:11 Truck Loader Date: 09/25/2019 20:52:24 Dictated By: DULCE MARIA SANCHEZ MD, MA, FACP, FACC,
== END ==
LOC: CARD 12:00
PROVIDERS: ATTEND Internal Medicine Cardiovascular Disease
DX: R07.89 Other chest pain (principal); R00.2 Palpitations; Z72.0 Tobacco use
CPT/HCPCS: 78452; 93017; 93225; 93226

== ENCOUNTER → 2019-09-23 | Outpatient (CLI) | payer MEDICARE, MEDICAID ==
[~2019-09-23] MED LIST changes: -REGADENOSON 0.4 MG/5 ML SYR (LEXISCAN) IV ONE
== END ==
LOC: CARD 13:48
PROVIDERS: ATTEND Internal Medicine Cardiovascular Disease
DX: R07.89 Other chest pain (principal); R00.2 Palpitations; Z92.21 Personal history of antineoplastic chemotherapy
CPT/HCPCS: 93306

== ENCOUNTER 2019-10-02 10:51 | Outpatient (RCR) | payer MEDICARE, MEDICAID ==
[2019-07-06 15:14] LABS: BASOPHILS # (AUTO) 0.1 10^3/uL (0.0-0.1); BASOPHILS % (AUTO) 1 % (0-10); EOSINOPHILS # (AUTO) 0.1 10^3/uL (0.0-0.3); EOSINOPHILS % (AUTO) 1 % (0-10); HEMATOCRIT 36 % (35-52); HEMOGLOBIN 11.8 G/DL (11.5-16.0); LYMPHOCYTES % (AUTO) 28 % (12-44); MEAN CORPUSCULAR HEMOGLOBIN 31 PG (25-34); MEAN CORPUSCULAR HGB CONC 33 G/DL (32-36); MEAN CORPUSCULAR VOLUME 94 FL (80-99); MEAN PLATELET VOLUME 10.2 FL (7.4-10.4); MONOCYTES # (AUTO) 1.7 X 10^3 (0.0-1.0); MONOCYTES % (AUTO) 15 % (0-12); NEUTROPHILS # (AUTO) 6.1 X 10^3 (1.8-7.8); NEUTROPHILS % (AUTO) 56 % (42-75); PLATELET COUNT 312 10^3/uL (130-400); RED CELL DISTRIBUTION WIDTH 15.4 % (10.0-14.5); WHITE BLOOD COUNT 10.9 10^3/uL (4.3-11.0)
[2019-07-06 15:34] LABS: ALANINE AMINOTRANSFERASE 19 U/L (0-55); ALBUMIN 3.7 GM/DL (3.2-4.5); ALKALINE PHOSPHATASE 55 U/L (40-136); BILIRUBIN,TOTAL 0.1 MG/DL (0.1-1.0); BUN/CREATININE RATIO 13; CALCIUM 8.6 MG/DL (8.5-10.1); CARBON DIOXIDE 22 MMOL/L (21-32); CHLORIDE 110 MMOL/L (98-107); CREATININE SERUM 0.68 MG/DL (0.60-1.30); GFR ESTIMATED > 60; GLUCOSE 86 MG/DL (70-105); POTASSIUM 4.3 MMOL/L (3.6-5.0); SODIUM 141 MMOL/L (135-145); TOTAL PROTEIN 6.8 GM/DL (6.4-8.2)
[2019-07-14 15:05] LABS: BASOPHILS # (AUTO) 0.1 10^3/uL (0.0-0.1); BASOPHILS % (AUTO) 1 % (0-10); EOSINOPHILS % (AUTO) 1 % (0-10); HEMATOCRIT 36 % (35-52); LYMPHOCYTES # (AUTO) 2.2 X 10^3 (1.0-4.0); LYMPHOCYTES % (AUTO) 36 % (12-44); MEAN CORPUSCULAR HEMOGLOBIN 31 PG (25-34); MEAN CORPUSCULAR HGB CONC 33 G/DL (32-36); MEAN CORPUSCULAR VOLUME 92 FL (80-99); MEAN PLATELET VOLUME 10.6 FL (7.4-10.4); MONOCYTES # (AUTO) 0.1 X 10^3 (0.0-1.0); MONOCYTES % (AUTO) 2 % (0-12); NEUTROPHILS # (AUTO) 3.8 X 10^3 (1.8-7.8); NEUTROPHILS % (AUTO) 61 % (42-75); PLATELET COUNT 157 10^3/uL (130-400); RED CELL DISTRIBUTION WIDTH 14.6 % (10.0-14.5); WHITE BLOOD COUNT 6.2 10^3/uL (4.3-11.0)
[2019-07-14 15:20] LABS: BUN/CREATININE RATIO 17; CALCIUM 9.2 MG/DL (8.5-10.1); CARBON DIOXIDE 28 MMOL/L (21-32); CHLORIDE 105 MMOL/L (98-107); CREATININE SERUM 0.69 MG/DL (0.60-1.30); GFR ESTIMATED > 60; GLUCOSE 95 MG/DL (70-105); SODIUM 140 MMOL/L (135-145)
[2019-07-20 15:32] LABS: BASOPHILS # (AUTO) 0.1 10^3/uL (0.0-0.1); BASOPHILS % (AUTO) 2 % (0-10); EOSINOPHILS # (AUTO) 0.1 10^3/uL (0.0-0.3); EOSINOPHILS % (AUTO) 2 % (0-10); HEMATOCRIT 35 % (35-52); HEMOGLOBIN 11.3 G/DL (11.5-16.0); LYMPHOCYTES # (AUTO) 2.1 X 10^3 (1.0-4.0); LYMPHOCYTES % (AUTO) 64 % (12-44); MEAN CORPUSCULAR HEMOGLOBIN 31 PG (25-34); MEAN CORPUSCULAR HGB CONC 33 G/DL (32-36); MEAN CORPUSCULAR VOLUME 95 FL (80-99); MEAN PLATELET VOLUME 10.2 FL (7.4-10.4); MONOCYTES # (AUTO) 0.9 X 10^3 (0.0-1.0); MONOCYTES % (AUTO) 27 % (0-12); NEUTROPHILS # (AUTO) 0.2 X 10^3 (1.8-7.8); NEUTROPHILS % (AUTO) 5 % (42-75); PLATELET COUNT 225 10^3/uL (130-400); RED CELL DISTRIBUTION WIDTH 15.2 % (10.0-14.5); WHITE BLOOD COUNT 3.3 10^3/uL (4.3-11.0)
[2019-07-20 16:08] LABS: BUN/CREATININE RATIO 8; CALCIUM 8.8 MG/DL (8.5-10.1); CARBON DIOXIDE 25 MMOL/L (21-32); CHLORIDE 110 MMOL/L (98-107); CREATININE SERUM 0.73 MG/DL (0.60-1.30); GFR ESTIMATED > 60; GLUCOSE 102 MG/DL (70-105); POTASSIUM 4.2 MMOL/L (3.6-5.0); SODIUM 143 MMOL/L (135-145)
[2019-08-06 13:27] LABS: BASOPHILS % (AUTO) 0 % (0-10); EOSINOPHILS % (AUTO) 0 % (0-10); HEMATOCRIT 36 % (35-52); HEMOGLOBIN 11.9 G/DL (11.5-16.0); LYMPHOCYTES # (AUTO) 1.1 X 10^3 (1.0-4.0); LYMPHOCYTES % (AUTO) 6 % (12-44); MEAN CORPUSCULAR HEMOGLOBIN 31 PG (25-34); MEAN CORPUSCULAR HGB CONC 33 G/DL (32-36); MEAN CORPUSCULAR VOLUME 94 FL (80-99); MEAN PLATELET VOLUME 10.7 FL (7.4-10.4); MONOCYTES # (AUTO) 0.6 X 10^3 (0.0-1.0); MONOCYTES % (AUTO) 4 % (0-12); NEUTROPHILS # (AUTO) 16.2 X 10^3 (1.8-7.8); NEUTROPHILS % (AUTO) 90 % (42-75); PLATELET COUNT 258 10^3/uL (130-400); RED CELL DISTRIBUTION WIDTH 15.8 % (10.0-14.5)
[2019-08-06 13:43] LABS: ALANINE AMINOTRANSFERASE 18 U/L (0-55); ALKALINE PHOSPHATASE 52 U/L (40-136); BILIRUBIN,TOTAL 0.2 MG/DL (0.1-1.0); BUN/CREATININE RATIO 16; CALCIUM 9.3 MG/DL (8.5-10.1); CARBON DIOXIDE 22 MMOL/L (21-32); CHLORIDE 108 MMOL/L (98-107); CREATININE SERUM 0.75 MG/DL (0.60-1.30); GFR ESTIMATED > 60; GLUCOSE 168 MG/DL (70-105); POTASSIUM 3.8 MMOL/L (3.6-5.0); SODIUM 140 MMOL/L (135-145)
[2019-08-13 15:06] LABS: BASOPHILS % (AUTO) 0 % (0-10); EOSINOPHILS % (AUTO) 0 % (0-10); HEMATOCRIT 34 % (35-52); HEMOGLOBIN 11.2 G/DL (11.5-16.0); LYMPHOCYTES # (AUTO) 0.9 X 10^3 (1.0-4.0); LYMPHOCYTES % (AUTO) 5 % (12-44); MEAN CORPUSCULAR HEMOGLOBIN 31 PG (25-34); MEAN CORPUSCULAR HGB CONC 33 G/DL (32-36); MEAN CORPUSCULAR VOLUME 94 FL (80-99); MEAN PLATELET VOLUME 11.2 FL (7.4-10.4); MONOCYTES # (AUTO) 0.2 X 10^3 (0.0-1.0); MONOCYTES % (AUTO) 1 % (0-12); NEUTROPHILS # (AUTO) 16.9 X 10^3 (1.8-7.8); NEUTROPHILS % (AUTO) 94 % (42-75); PLATELET COUNT 218 10^3/uL (130-400); RED CELL DISTRIBUTION WIDTH 15.6 % (10.0-14.5); WHITE BLOOD COUNT 18.1 10^3/uL (4.3-11.0)
[2019-08-13 15:41] LABS: BUN/CREATININE RATIO 26; CARBON DIOXIDE 20 MMOL/L (21-32); CHLORIDE 107 MMOL/L (98-107); CREATININE SERUM 0.69 MG/DL (0.60-1.30); GFR ESTIMATED > 60; GLUCOSE 139 MG/DL (70-105); POTASSIUM 4.2 MMOL/L (3.6-5.0); SODIUM 138 MMOL/L (135-145)
[2019-08-13 15:42] LABS: CALCIUM 9.2 MG/DL (8.5-10.1)
[2019-08-20 13:43] LABS: BASOPHILS % (AUTO) 0 % (0-10); EOSINOPHILS % (AUTO) 0 % (0-10); HEMATOCRIT 34 % (35-52); HEMOGLOBIN 11.2 G/DL (11.5-16.0); LYMPHOCYTES # (AUTO) 0.7 X 10^3 (1.0-4.0); LYMPHOCYTES % (AUTO) 17 % (12-44); MEAN CORPUSCULAR HEMOGLOBIN 31 PG (25-34); MEAN CORPUSCULAR HGB CONC 33 G/DL (32-36); MEAN CORPUSCULAR VOLUME 94 FL (80-99); MEAN PLATELET VOLUME 10.4 FL (7.4-10.4); MONOCYTES # (AUTO) 0.2 X 10^3 (0.0-1.0); MONOCYTES % (AUTO) 4 % (0-12); NEUTROPHILS # (AUTO) 3.2 X 10^3 (1.8-7.8); NEUTROPHILS % (AUTO) 79 % (42-75); PLATELET COUNT 255 10^3/uL (130-400); RED CELL DISTRIBUTION WIDTH 15.6 % (10.0-14.5)
[2019-08-20 14:17] LABS: BUN/CREATININE RATIO 21; CALCIUM 9.4 MG/DL (8.5-10.1); CARBON DIOXIDE 20 MMOL/L (21-32); CHLORIDE 106 MMOL/L (98-107); GFR ESTIMATED > 60; GLUCOSE 159 MG/DL (70-105); POTASSIUM 4.3 MMOL/L (3.6-5.0); SODIUM 138 MMOL/L (135-145)
[2019-08-27 13:05] LABS: BASOPHILS # (AUTO) 0.1 10^3/uL (0.0-0.1); BASOPHILS % (AUTO) 3 % (0-10); EOSINOPHILS # (AUTO) 0.1 10^3/uL (0.0-0.3); EOSINOPHILS % (AUTO) 2 % (0-10); HEMATOCRIT 32 % (35-52); HEMOGLOBIN 10.5 G/DL (11.5-16.0); LYMPHOCYTES # (AUTO) 1.4 X 10^3 (1.0-4.0); LYMPHOCYTES % (AUTO) 55 % (12-44); MEAN CORPUSCULAR HEMOGLOBIN 32 PG (25-34); MEAN CORPUSCULAR HGB CONC 33 G/DL (32-36); MEAN CORPUSCULAR VOLUME 96 FL (80-99); MONOCYTES # (AUTO) 0.2 X 10^3 (0.0-1.0); MONOCYTES % (AUTO) 9 % (0-12); NEUTROPHILS # (AUTO) 0.8 X 10^3 (1.8-7.8); NEUTROPHILS % (AUTO) 31 % (42-75); PLATELET COUNT 255 10^3/uL (130-400); WHITE BLOOD COUNT 2.6 10^3/uL (4.3-11.0)
[2019-08-27 13:24] LABS: ALANINE AMINOTRANSFERASE 31 U/L (0-55); ALBUMIN 3.7 GM/DL (3.2-4.5); ALKALINE PHOSPHATASE 52 U/L (40-136); BILIRUBIN,TOTAL 0.3 MG/DL (0.1-1.0); BUN/CREATININE RATIO 13; CALCIUM 8.7 MG/DL (8.5-10.1); CARBON DIOXIDE 24 MMOL/L (21-32); CHLORIDE 108 MMOL/L (98-107); CREATININE SERUM 0.67 MG/DL (0.60-1.30); GFR ESTIMATED > 60; GLUCOSE 99 MG/DL (70-105); POTASSIUM 3.9 MMOL/L (3.6-5.0); SODIUM 139 MMOL/L (135-145); TOTAL PROTEIN 6.2 GM/DL (6.4-8.2)
[2019-09-03 13:46] LABS: BASOPHILS # (AUTO) 0.1 10^3/uL (0.0-0.1); BASOPHILS % (AUTO) 2 % (0-10); EOSINOPHILS # (AUTO) 0.1 10^3/uL (0.0-0.3); EOSINOPHILS % (AUTO) 2 % (0-10); HEMATOCRIT 34 % (35-52); HEMOGLOBIN 10.9 G/DL (11.5-16.0); LYMPHOCYTES # (AUTO) 2.8 X 10^3 (1.0-4.0); LYMPHOCYTES % (AUTO) 49 % (12-44); MEAN CORPUSCULAR HEMOGLOBIN 32 PG (25-34); MEAN CORPUSCULAR HGB CONC 33 G/DL (32-36); MEAN CORPUSCULAR VOLUME 97 FL (80-99); MEAN PLATELET VOLUME 10.2 FL (7.4-10.4); MONOCYTES # (AUTO) 0.9 X 10^3 (0.0-1.0); MONOCYTES % (AUTO) 17 % (0-12); NEUTROPHILS # (AUTO) 1.7 X 10^3 (1.8-7.8); NEUTROPHILS % (AUTO) 31 % (42-75); PLATELET COUNT 281 10^3/uL (130-400); RED CELL DISTRIBUTION WIDTH 16.6 % (10.0-14.5); WHITE BLOOD COUNT 5.6 10^3/uL (4.3-11.0)
[2019-09-03 14:09] LABS: BUN/CREATININE RATIO 19; CALCIUM 8.9 MG/DL (8.5-10.1); CARBON DIOXIDE 24 MMOL/L (21-32); CHLORIDE 109 MMOL/L (98-107); CREATININE SERUM 0.68 MG/DL (0.60-1.30); GFR ESTIMATED > 60; GLUCOSE 85 MG/DL (70-105); SODIUM 140 MMOL/L (135-145)
[2019-09-17 12:53] LABS: BASOPHILS # (AUTO) 0.1 10^3/uL (0.0-0.1); BASOPHILS % (AUTO) 0 % (0-10); EOSINOPHILS # (AUTO) 0.1 10^3/uL (0.0-0.3); EOSINOPHILS % (AUTO) 1 % (0-10); HEMATOCRIT 36 % (35-52); HEMOGLOBIN 11.5 G/DL (11.5-16.0); LYMPHOCYTES # (AUTO) 2.7 X 10^3 (1.0-4.0); LYMPHOCYTES % (AUTO) 23 % (12-44); MEAN CORPUSCULAR HEMOGLOBIN 31 PG (25-34); MEAN CORPUSCULAR HGB CONC 32 G/DL (32-36); MEAN CORPUSCULAR VOLUME 98 FL (80-99); MEAN PLATELET VOLUME 10.1 FL (7.4-10.4); MONOCYTES # (AUTO) 1.3 X 10^3 (0.0-1.0); MONOCYTES % (AUTO) 11 % (0-12); NEUTROPHILS # (AUTO) 7.6 X 10^3 (1.8-7.8); NEUTROPHILS % (AUTO) 65 % (42-75); PLATELET COUNT 277 10^3/uL (130-400); RED CELL DISTRIBUTION WIDTH 16.2 % (10.0-14.5); WHITE BLOOD COUNT 11.8 10^3/uL (4.3-11.0)
[2019-09-17 13:12] LABS: ALANINE AMINOTRANSFERASE 16 U/L (0-55); ALBUMIN 3.7 GM/DL (3.2-4.5); ALKALINE PHOSPHATASE 58 U/L (40-136); BILIRUBIN,TOTAL 0.2 MG/DL (0.1-1.0); BUN/CREATININE RATIO 14; CALCIUM 9.1 MG/DL (8.5-10.1); CARBON DIOXIDE 25 MMOL/L (21-32); CHLORIDE 109 MMOL/L (98-107); CREATININE SERUM 0.69 MG/DL (0.60-1.30); GFR ESTIMATED > 60; GLUCOSE 115 MG/DL (70-105); POTASSIUM 3.6 MMOL/L (3.6-5.0); SODIUM 141 MMOL/L (135-145); TOTAL PROTEIN 6.7 GM/DL (6.4-8.2)
[~2019-10-02 10:51] MED LIST changes: +CYCLOPHOSPHAMIDE INJECTION 1,000 MG, CYCLOPHOSPHAMIDE INJECTION 100 MG in NS (IVPB) CAN... IV SCH; +FAMOTIDINE 20MG/2ML IV (CANCER CTR) IV SCH; +FOSAPREPITANT DIMEGLUMINE 150 MG in NS (IVPB) CANCER CENTER ONLY 150 ML IV SCH; +LORazepam INJ 2 MG/ML VIAL CANCER CTR IV SCH; +NS IV 1000 ML (CANCER CTR) IV SCH; +ONDANSETRON MDV (CANCER CENTER 16 MG, DEXAMETHASONE INJECTION 10 MG in NS (IVPB) CANCER... IV SCH; +PALONOSETRON HCL 0.25 MG, DEXAMETHASONE INJECTION 10 MG in NS (IVPB) CANCER CENTER 50 ML IV SCH; +diphenhydrAMINE 25 MG TAB (BENADRYL) CANCER CENTER PO SCH; +diphenhydrAMINE 50 MG/ML INJ (CANCER CENTER) IV SCH; +diphenhydrAMINE 50 MG/ML INJ (CANCER CENTER) ONE
[2019-10-02 11:16] LABS: BASOPHILS % (AUTO) 0 % (0-10); EOSINOPHILS # (AUTO) 0.1 10^3/uL (0.0-0.3); EOSINOPHILS % (AUTO) 1 % (0-10); HEMATOCRIT 39 % (35-52); HEMOGLOBIN 12.2 G/DL (11.5-16.0); LYMPHOCYTES # (AUTO) 2.9 X 10^3 (1.0-4.0); LYMPHOCYTES % (AUTO) 30 % (12-44); MEAN CORPUSCULAR HEMOGLOBIN 31 PG (25-34); MEAN CORPUSCULAR HGB CONC 32 G/DL (32-36); MEAN CORPUSCULAR VOLUME 98 FL (80-99); MEAN PLATELET VOLUME 10.7 FL (7.4-10.4); MONOCYTES # (AUTO) 1.1 X 10^3 (0.0-1.0); MONOCYTES % (AUTO) 11 % (0-12); NEUTROPHILS # (AUTO) 5.6 X 10^3 (1.8-7.8); NEUTROPHILS % (AUTO) 57 % (42-75); PLATELET COUNT 221 10^3/uL (130-400); WHITE BLOOD COUNT 9.7 10^3/uL (4.3-11.0)
[2019-10-02 11:33] LABS: ALANINE AMINOTRANSFERASE 18 U/L (0-55); ALBUMIN 3.8 GM/DL (3.2-4.5); ALKALINE PHOSPHATASE 68 U/L (40-136); BILIRUBIN,TOTAL 0.2 MG/DL (0.1-1.0); BUN/CREATININE RATIO 14; CALCIUM 9.3 MG/DL (8.5-10.1); CARBON DIOXIDE 24 MMOL/L (21-32); CHLORIDE 107 MMOL/L (98-107); CREATININE SERUM 0.77 MG/DL (0.60-1.30); GFR ESTIMATED > 60; GLUCOSE 105 MG/DL (70-105); POTASSIUM 3.9 MMOL/L (3.6-5.0); SODIUM 141 MMOL/L (135-145); TOTAL PROTEIN 6.9 GM/DL (6.4-8.2)
== END 2019-10-04 | disposition home or self-care (01) ==
LOC: ONC 10:51
PROVIDERS: ATTEND Internal Medicine Hematology & Oncology
DX: Z51.11 Encounter for antineoplastic chemotherapy (principal); C50.312 Malignant neoplasm of lower-inner quadrant of left female breast; C77.3 Secondary and unspecified malignant neoplasm of axilla and upper limb lymph nodes; F17.200 Nicotine dependence, unspecified, uncomplicated; Z86.011 Personal history of benign neoplasm of the brain
CPT/HCPCS: 36591; 80048; 80053; 85025; 96367; 96375; 96411; 96413; 99213

== ENCOUNTER → 2019-10-13 | Outpatient (CLI) | payer MEDICARE, MEDICAID ==
[~2019-10-13] MED LIST changes: -CYCLOPHOSPHAMIDE INJECTION 1,000 MG, CYCLOPHOSPHAMIDE INJECTION 100 MG in NS (IVPB) CAN... IV SCH; -FAMOTIDINE 20MG/2ML IV (CANCER CTR) IV SCH; -FOSAPREPITANT DIMEGLUMINE 150 MG in NS (IVPB) CANCER CENTER ONLY 150 ML IV SCH; -LORazepam INJ 2 MG/ML VIAL CANCER CTR IV SCH; -NS IV 1000 ML (CANCER CTR) IV SCH; -ONDANSETRON MDV (CANCER CENTER 16 MG, DEXAMETHASONE INJECTION 10 MG in NS (IVPB) CANCER... IV SCH; -PALONOSETRON HCL 0.25 MG, DEXAMETHASONE INJECTION 10 MG in NS (IVPB) CANCER CENTER 50 ML IV SCH; -diphenhydrAMINE 25 MG TAB (BENADRYL) CANCER CENTER PO SCH; -diphenhydrAMINE 50 MG/ML INJ (CANCER CENTER) IV SCH; -diphenhydrAMINE 50 MG/ML INJ (CANCER CENTER) ONE
--- NOTE | 2019-10-13 14:18 | Diagnostic Imaging Report ---
INDICATION: Screening for osteoporosis. COMPARISON: None FINDINGS: The bone mineral density of the hips and spine was measured. There are no prior studies available for comparison. The T score for the spine is -1.8. The total T score for the left hip is -1.4 and for the right hip -1.2. The T score for the left femoral neck is -1.8 and for the right femoral neck -1.5. All of these values fall within the range of osteopenia. AP Spine L1-L4: [BMD (g/cm2): 0.985] [T-Score: -1.8] [Z-Score: -0.8] [BMD Previous: NA] [BMD % Change: NA] LT Hip Neck: [BMD (g/cm2): 0.793] [T-Score: -1.8] [Z-Score: -0.7] LT Hip Total: [BMD (g/cm2):0.832] [T-Score:-1.4] [Z-Score: -0.6] [BMD Previous: NA] [BMD % Change: NA] RT Hip Neck: [BMD (g/cm2):0.836] [T-Score:-1.5] [Z-Score:-0.4] RT Hip Total: [BMD (g/cm2):0.853] [T-score:-1.2] [Z-Score:-0.4] [BMD Previous:NA] [BMD % Change:NA] *Indicates significant change from prior examination based on 95% confidence level. World Health Organization criteria for BMD interpretation classify patients as Normal (T-score at or above -1.0), Osteopenic (T-score between -1.0 and -2.5) or Osteoporotic (T-score at or below -2.5). LIMITATIONS AND MODIFICATION: None. FRACTURE RISK (FRAX SCORE): The ten year probability of (%): Major Osteoporotic Fracture: [9.3] Hip Fracture: [1.1] IMPRESSION: 1. There is osteopenia of the spine and the hips and both femoral necks. 2. See below National Osteoporosis Foundation guidelines on when to potentially initiate pharmacologic therapy. Based on the National Osteoporosis Foundation Guidelines, pharmacologic treatment should be initiated in any of the following, unless clinical conditions suggest otherwise: * Any patient with prior fragility fracture of the hip or vertebrae. A spine fracture indicates 5X risk for subsequent spine fracture and 2X risk for subsequent hip fracture. * Osteoporosis (T-score <-2.5). * Postmenopausal women and men age 50 and older with low bone mass/osteopenia (T-score between -1.0 and -2.5) by DXA and 10-year major osteoporotic fracture greater than 20% or a 10-year probability of hip fracture greater than 3%. These fracture risks are supplied above in the FRAX score, if applicable. * Clinician judgement and/or patient preferences may indicate treatment for people with 10-year fracture probabilities above or below these levels. Dictated by: Dictated on workstation # [id number]
== END ==
LOC: RAD 13:25
PROVIDERS: ATTEND Internal Medicine Hematology & Oncology
DX: Z13.820 Encounter for screening for osteoporosis (principal); C50.912 Malignant neoplasm of unspecified site of left female breast; M85.89 Other specified disorders of bone density and structure, multiple sites; Z78.0 Asymptomatic menopausal state
CPT/HCPCS: 77080

== ENCOUNTER 2019-12-29 13:35 | Outpatient (RCR) | payer MEDICARE, MEDICAID ==
[2019-10-29 14:21] LABS: BASOPHILS % (AUTO) 0 % (0-10); EOSINOPHILS # (AUTO) 0.1 10^3/uL (0.0-0.3); EOSINOPHILS % (AUTO) 1 % (0-10); HEMATOCRIT 39 % (35-52); HEMOGLOBIN 12.8 G/DL (11.5-16.0); LYMPHOCYTES # (AUTO) 2.2 X 10^3 (1.0-4.0); LYMPHOCYTES % (AUTO) 33 % (12-44); MEAN CORPUSCULAR HEMOGLOBIN 31 PG (25-34); MEAN CORPUSCULAR HGB CONC 33 G/DL (32-36); MEAN CORPUSCULAR VOLUME 96 FL (80-99); MEAN PLATELET VOLUME 10.6 FL (7.4-10.4); MONOCYTES # (AUTO) 0.7 X 10^3 (0.0-1.0); MONOCYTES % (AUTO) 11 % (0-12); NEUTROPHILS # (AUTO) 3.7 X 10^3 (1.8-7.8); NEUTROPHILS % (AUTO) 55 % (42-75); PLATELET COUNT 232 10^3/uL (130-400); RED CELL DISTRIBUTION WIDTH 14.4 % (10.0-14.5); WHITE BLOOD COUNT 6.7 10^3/uL (4.3-11.0)
[2019-10-29 14:42] LABS: ALANINE AMINOTRANSFERASE 18 U/L (0-55); ALBUMIN 3.7 GM/DL (3.2-4.5); ALKALINE PHOSPHATASE 57 U/L (40-136); BILIRUBIN,TOTAL 0.4 MG/DL (0.1-1.0); BUN/CREATININE RATIO 13; CALCIUM 8.8 MG/DL (8.5-10.1); CARBON DIOXIDE 23 MMOL/L (21-32); CHLORIDE 106 MMOL/L (98-107); CREATININE SERUM 0.79 MG/DL (0.60-1.30); GFR ESTIMATED > 60; GLUCOSE 132 MG/DL (70-105); POTASSIUM 3.7 MMOL/L (3.6-5.0); SODIUM 138 MMOL/L (135-145); TOTAL PROTEIN 6.6 GM/DL (6.4-8.2)
[2019-12-01 09:43] LABS: BASOPHILS % (AUTO) 1 % (0-10); EOSINOPHILS # (AUTO) 0.1 10^3/uL (0.0-0.3); EOSINOPHILS % (AUTO) 1 % (0-10); HEMATOCRIT 39 % (35-52); HEMOGLOBIN 13.1 G/DL (11.5-16.0); LYMPHOCYTES # (AUTO) 1.6 X 10^3 (1.0-4.0); LYMPHOCYTES % (AUTO) 22 % (12-44); MEAN CORPUSCULAR HEMOGLOBIN 31 PG (25-34); MEAN CORPUSCULAR HGB CONC 34 G/DL (32-36); MEAN CORPUSCULAR VOLUME 93 FL (80-99); MONOCYTES # (AUTO) 1.1 X 10^3 (0.0-1.0); MONOCYTES % (AUTO) 15 % (0-12); NEUTROPHILS # (AUTO) 4.4 X 10^3 (1.8-7.8); NEUTROPHILS % (AUTO) 61 % (42-75); PLATELET COUNT 249 10^3/uL (130-400); RED CELL DISTRIBUTION WIDTH 14.3 % (10.0-14.5); WHITE BLOOD COUNT 7.1 10^3/uL (4.3-11.0)
[2019-12-01 10:00] LABS: ALANINE AMINOTRANSFERASE 21 U/L (0-55); ALBUMIN 3.7 GM/DL (3.2-4.5); ALKALINE PHOSPHATASE 61 U/L (40-136); BILIRUBIN,TOTAL 0.4 MG/DL (0.1-1.0); BUN/CREATININE RATIO 11; CARBON DIOXIDE 24 MMOL/L (21-32); CHLORIDE 106 MMOL/L (98-107); CREATININE SERUM 0.74 MG/DL (0.60-1.30); GFR ESTIMATED > 60; GLUCOSE 99 MG/DL (70-105); POTASSIUM 3.8 MMOL/L (3.6-5.0); SODIUM 140 MMOL/L (135-145); TOTAL PROTEIN 6.8 GM/DL (6.4-8.2)
[2019-12-29 14:14] LABS: BASOPHILS % (AUTO) 0 % (0-10); EOSINOPHILS # (AUTO) 0.1 10^3/uL (0.0-0.3); EOSINOPHILS % (AUTO) 1 % (0-10); HEMATOCRIT 41 % (35-52); HEMOGLOBIN 13.6 G/DL (11.5-16.0); LYMPHOCYTES # (AUTO) 1.6 X 10^3 (1.0-4.0); LYMPHOCYTES % (AUTO) 18 % (12-44); MEAN CORPUSCULAR HEMOGLOBIN 30 PG (25-34); MEAN CORPUSCULAR HGB CONC 33 G/DL (32-36); MEAN CORPUSCULAR VOLUME 91 FL (80-99); MEAN PLATELET VOLUME 10.1 FL (7.4-10.4); MONOCYTES % (AUTO) 11 % (0-12); NEUTROPHILS # (AUTO) 6.2 X 10^3 (1.8-7.8); NEUTROPHILS % (AUTO) 70 % (42-75); PLATELET COUNT 271 10^3/uL (130-400); RED CELL DISTRIBUTION WIDTH 14.6 % (10.0-14.5); WHITE BLOOD COUNT 8.9 10^3/uL (4.3-11.0)
[2019-12-29 14:32] LABS: ALANINE AMINOTRANSFERASE 12 U/L (0-55); ALBUMIN 3.7 GM/DL (3.2-4.5); ALKALINE PHOSPHATASE 77 U/L (40-136); BILIRUBIN,TOTAL 0.3 MG/DL (0.1-1.0); BUN/CREATININE RATIO 11; CALCIUM 9.2 MG/DL (8.5-10.1); CARBON DIOXIDE 26 MMOL/L (21-32); CHLORIDE 106 MMOL/L (98-107); CREATININE SERUM 0.76 MG/DL (0.60-1.30); GFR ESTIMATED > 60; GLUCOSE 97 MG/DL (70-105); POTASSIUM 3.8 MMOL/L (3.6-5.0); SODIUM 140 MMOL/L (135-145); TOTAL PROTEIN 7.3 GM/DL (6.4-8.2)
== END 2020-01-12 | disposition home or self-care (01) ==
LOC: ONC 13:35
PROVIDERS: ATTEND Internal Medicine Hematology & Oncology
DX: Z51.0 Encounter for antineoplastic radiation therapy (principal); C50.312 Malignant neoplasm of lower-inner quadrant of left female breast; C77.3 Secondary and unspecified malignant neoplasm of axilla and upper limb lymph nodes; F17.200 Nicotine dependence, unspecified, uncomplicated; Z86.011 Personal history of benign neoplasm of the brain
CPT/HCPCS: 36591; 77290; 77295; 77300; 77332; 77334; 77336; 77417; 77470; 80053; 82306; 85025; 99204; 99214

== ENCOUNTER → 2020-01-28 | Outpatient (CLI) | payer MEDICARE, MEDICAID | LOC: CARD 13:16 | PROVIDERS: ATTEND Nurse Practitioner Family | DX: I49.3 Ventricular premature depolarization (principal); Z72.0 Tobacco use | CPT/HCPCS: 93306 ==

== ENCOUNTER → 2020-03-21 | Outpatient (CLI) | payer MEDICARE, MEDICAID ==
--- NOTE | 2020-03-21 15:19 | Diagnostic Imaging Report ---
Indication: Right arm pain Grayscale and color Doppler evaluation of right upper extremity deep veins reveal no intraluminal filling defect. There is normal venous flow. There is normal compressibility and response to augmentation. Impression: No ultrasound evidence of right upper extremity deep venous thrombosis. Dictated by: Dictated on workstation # [id number]
== END ==
LOC: RAD 14:13
PROVIDERS: ATTEND Internal Medicine Hematology & Oncology
DX: M79.601 Pain in right arm (principal); C50.112 Malignant neoplasm of central portion of left female breast

== ENCOUNTER 2020-04-19 13:33 | Outpatient (RCR) | payer MEDICARE, MEDICAID ==
[2020-03-21 16:05] LABS: BASOPHILS % (AUTO) 0 % (0-10); EOSINOPHILS # (AUTO) 0.1 10^3/uL (0.0-0.3); EOSINOPHILS % (AUTO) 1 % (0-10); HEMATOCRIT 40 % (35-52); HEMOGLOBIN 13.2 G/DL (11.5-16.0); LYMPHOCYTES % (AUTO) 22 % (12-44); MEAN CORPUSCULAR HEMOGLOBIN 30 PG (25-34); MEAN CORPUSCULAR HGB CONC 33 G/DL (32-36); MEAN CORPUSCULAR VOLUME 92 FL (80-99); MEAN PLATELET VOLUME 11.1 FL (7.4-10.4); MONOCYTES # (AUTO) 0.7 X 10^3 (0.0-1.0); MONOCYTES % (AUTO) 8 % (0-12); NEUTROPHILS # (AUTO) 6.2 X 10^3 (1.8-7.8); NEUTROPHILS % (AUTO) 69 % (42-75); PLATELET COUNT 160 10^3/uL (130-400)
[2020-03-21 16:48] LABS: ALANINE AMINOTRANSFERASE 13 U/L (0-55); ALBUMIN 3.6 GM/DL (3.2-4.5); ALKALINE PHOSPHATASE 65 U/L (40-136); BILIRUBIN,TOTAL 0.3 MG/DL (0.1-1.0); BUN/CREATININE RATIO 14; CALCIUM 8.7 MG/DL (8.5-10.1); CARBON DIOXIDE 23 MMOL/L (21-32); CHLORIDE 108 MMOL/L (98-107); CREATININE SERUM 0.74 MG/DL (0.60-1.30); GFR ESTIMATED > 60; GLUCOSE 131 MG/DL (70-105); POTASSIUM 3.6 MMOL/L (3.6-5.0); SODIUM 140 MMOL/L (135-145); TOTAL PROTEIN 6.8 GM/DL (6.4-8.2)
[~2020-04-19 13:33] MED LIST changes: +ALPR.25T PO; -ALPR0.254 PO; +ALTEPLASE 2 MG (CATHFLO) CANCER CENTER IV ONE
== END 2020-05-09 | disposition home or self-care (01) ==
LOC: ONC 13:33
PROVIDERS: ATTEND Internal Medicine Hematology & Oncology
DX: Z45.2 Encounter for adjustment and management of vascular access device (principal); C50.112 Malignant neoplasm of central portion of left female breast; C77.3 Secondary and unspecified malignant neoplasm of axilla and upper limb lymph nodes; Z72.0 Tobacco use
CPT/HCPCS: 36593; 80053; 82306; 85025; 96523

== ENCOUNTER → 2020-05-18 | Outpatient (CLI) | payer MEDICARE, MEDICAID ==
[~2020-05-18] MED LIST changes: -ALTEPLASE 2 MG (CATHFLO) CANCER CENTER IV ONE; +IOHEXOL 300 MG/ML 50 ML (OMNIPAQUE 300) VIAL IV ONE
--- NOTE | 2020-05-18 14:26 | Diagnostic Imaging Report ---
INDICATION: Malfunction of right chest wall port. Patient was brought to the fluoroscopy suite and placed on the table in the supine position. The right port was accessed by the [facility]. Fluoroscopy over the chest was performed during the injection of the port with a small amount of Omnipaque 300 contrast. 46 seconds fluoroscopic time was utilized. Preliminary radiograph of the chest demonstrates the a right chest wall port with tip overlying the SVC. Injection images demonstrate a focal area of contrast extravasation from the midportion of the port at the level of the mid 3rd of the subclavian vein. Contrast does track laterally within the soft tissues towards the right axilla. Features are consistent with a focal hole within the port. IMPRESSION: Right chest wall port malfunction. There are findings consistent with a hole within the midportion of the port at the level of the mid subclavian vein. Contrast is seen extravasating from the hole with contrast extending laterally within the soft tissues towards the right axilla. Stephanie Baires of the Cancer Center was notified of these results. Dictated by: Dictated on workstation # [id number]
== END ==
LOC: RAD 13:17
PROVIDERS: ATTEND Nurse Practitioner Adult Health
DX: T85.698A Other mechanical complication of other specified internal prosthetic devices, implants and grafts, initial encounter (principal)
CPT/HCPCS: 36598

== ENCOUNTER 2020-06-14 13:45 | Outpatient (RCR) | payer MEDICARE, MEDICAID ==
[2020-06-14 14:03] LABS: BASOPHILS # (AUTO) 0.1 10^3/uL (0.0-0.1); BASOPHILS % (AUTO) 1 % (0-10); EOSINOPHILS # (AUTO) 0.1 10^3/uL (0.0-0.3); EOSINOPHILS % (AUTO) 1 % (0-10); HEMATOCRIT 43 % (35-52); LYMPHOCYTES # (AUTO) 2.9 10^3/uL (1.0-4.0); LYMPHOCYTES % (AUTO) 28 % (12-44); MEAN CORPUSCULAR HEMOGLOBIN 31 pg (25-34); MEAN CORPUSCULAR HGB CONC 33 g/dL (32-36); MEAN CORPUSCULAR VOLUME 93 fL (80-99); MEAN PLATELET VOLUME 10.2 fL (9.0-12.2); MONOCYTES % (AUTO) 10 % (0-12); NEUTROPHILS # (AUTO) 6.5 10^3/uL (1.8-7.8); NEUTROPHILS % (AUTO) 61 % (42-75); PLATELET COUNT 230 10^3/uL (130-400); WHITE BLOOD COUNT 10.7 10^3/uL (4.3-11.0)
[2020-06-14 14:20] LABS: ALANINE AMINOTRANSFERASE 13 U/L (0-55); ALBUMIN 3.8 GM/DL (3.2-4.5); ALKALINE PHOSPHATASE 61 U/L (40-136); BILIRUBIN,TOTAL 0.4 MG/DL (0.1-1.0); BUN/CREATININE RATIO 14; CALCIUM 9.2 MG/DL (8.5-10.1); CARBON DIOXIDE 24 MMOL/L (21-32); CHLORIDE 105 MMOL/L (98-107); GFR ESTIMATED > 60; GLUCOSE 132 MG/DL (70-105); POTASSIUM 3.7 MMOL/L (3.6-5.0); SODIUM 140 MMOL/L (135-145); TOTAL PROTEIN 7.1 GM/DL (6.4-8.2)
== END 2020-08-15 | disposition home or self-care (01) ==
LOC: ONC 13:45
PROVIDERS: ATTEND Internal Medicine Hematology & Oncology
DX: Z45.2 Encounter for adjustment and management of vascular access device (principal); C50.112 Malignant neoplasm of central portion of left female breast; C77.3 Secondary and unspecified malignant neoplasm of axilla and upper limb lymph nodes; Z72.0 Tobacco use
CPT/HCPCS: 80053; 85025; 99213

== ENCOUNTER → 2020-12-28 | Outpatient (RCR) | payer MEDICARE, MEDICAID ==
[2020-09-29 10:50] LABS: BASOPHILS # (AUTO) 0.1 10^3/uL (0.0-0.1); BASOPHILS % (AUTO) 1 % (0-10); EOSINOPHILS # (AUTO) 0.1 10^3/uL (0.0-0.3); EOSINOPHILS % (AUTO) 1 % (0-10); HEMATOCRIT 43 % (35-52); HEMOGLOBIN 14.1 g/dL (11.5-16.0); LYMPHOCYTES # (AUTO) 4.4 10^3/uL (1.0-4.0); LYMPHOCYTES % (AUTO) 43 % (12-44); MEAN CORPUSCULAR HEMOGLOBIN 31 pg (25-34); MEAN CORPUSCULAR HGB CONC 33 g/dL (32-36); MEAN CORPUSCULAR VOLUME 94 fL (80-99); MEAN PLATELET VOLUME 10.4 fL (9.0-12.2); MONOCYTES # (AUTO) 0.8 10^3/uL (0.0-1.0); MONOCYTES % (AUTO) 8 % (0-12); NEUTROPHILS # (AUTO) 4.7 10^3/uL (1.8-7.8); NEUTROPHILS % (AUTO) 47 % (42-75); PLATELET COUNT 235 10^3/uL (130-400); WHITE BLOOD COUNT 10.1 10^3/uL (4.3-11.0)
[2020-09-29 11:09] LABS: ALANINE AMINOTRANSFERASE 10 U/L (0-55); ALBUMIN 3.8 GM/DL (3.2-4.5); ALKALINE PHOSPHATASE 68 U/L (40-136); BILIRUBIN,TOTAL 0.2 MG/DL (0.1-1.0); BUN/CREATININE RATIO 15; CALCIUM 9.4 MG/DL (8.5-10.1); CARBON DIOXIDE 26 MMOL/L (21-32); CHLORIDE 105 MMOL/L (98-107); CREATININE SERUM 0.86 MG/DL (0.60-1.30); GFR ESTIMATED > 60; GLUCOSE 112 MG/DL (70-105); POTASSIUM 3.8 MMOL/L (3.6-5.0); SODIUM 140 MMOL/L (135-145); TOTAL PROTEIN 7.4 GM/DL (6.4-8.2)
[~2020-12-28] MED LIST changes: -IOHEXOL 300 MG/ML 50 ML (OMNIPAQUE 300) VIAL IV ONE
[2020-12-28 13:51] LABS: BASOPHILS # (AUTO) 0.1 10^3/uL (0.0-0.1); BASOPHILS % (AUTO) 0 % (0-10); EOSINOPHILS # (AUTO) 0.1 10^3/uL (0.0-0.3); EOSINOPHILS % (AUTO) 1 % (0-10); HEMATOCRIT 41 % (35-52); HEMOGLOBIN 13.6 g/dL (11.5-16.0); LYMPHOCYTES % (AUTO) 30 % (12-44); MEAN CORPUSCULAR HEMOGLOBIN 31 pg (25-34); MEAN CORPUSCULAR HGB CONC 33 g/dL (32-36); MEAN CORPUSCULAR VOLUME 94 fL (80-99); MEAN PLATELET VOLUME 10.5 fL (9.0-12.2); MONOCYTES % (AUTO) 8 % (0-12); NEUTROPHILS % (AUTO) 61 % (42-75); PLATELET COUNT 235 10^3/uL (130-400); WHITE BLOOD COUNT 13.2 10^3/uL (4.3-11.0)
[2020-12-28 14:15] LABS: ALANINE AMINOTRANSFERASE 12 U/L (0-55); ALBUMIN 3.8 GM/DL (3.2-4.5); ALKALINE PHOSPHATASE 65 U/L (40-136); BILIRUBIN,TOTAL 0.2 MG/DL (0.1-1.0); BUN/CREATININE RATIO 18; CARBON DIOXIDE 30 MMOL/L (21-32); CHLORIDE 105 MMOL/L (98-107); CREATININE SERUM 0.76 MG/DL (0.60-1.30); GFR ESTIMATED > 60; GLUCOSE 92 MG/DL (70-105); POTASSIUM 3.5 MMOL/L (3.6-5.0); SODIUM 141 MMOL/L (135-145); TOTAL PROTEIN 7.2 GM/DL (6.4-8.2)
== END | disposition home or self-care (01) ==
LOC: ONC 09-29 10:39
PROVIDERS: ATTEND Internal Medicine Hematology & Oncology
DX: Z45.2 Encounter for adjustment and management of vascular access device (principal); C50.112 Malignant neoplasm of central portion of left female breast; C77.3 Secondary and unspecified malignant neoplasm of axilla and upper limb lymph nodes; Z72.0 Tobacco use; Z79.811 Long term (current) use of aromatase inhibitors; Z92.3 Personal history of irradiation; Z92.21 Personal history of antineoplastic chemotherapy
CPT/HCPCS: 80053; 85025; G0463; 99213

== ENCOUNTER → 2021-03-30 | Outpatient (CLI) | payer MEDICARE, MEDICAID ==
[~2021-03-30] MED LIST changes: -OXYC-464 PO; +OXYC1TAB15 PO; -SULF1TAB35 PO; +SULF1TAB38 PO
[2021-03-30 13:41] LABS: BASOPHILS # (AUTO) 0.1 10^3/uL (0.0-0.1); BASOPHILS % (AUTO) 1 % (0-10); EOSINOPHILS # (AUTO) 0.1 10^3/uL (0.0-0.3); EOSINOPHILS % (AUTO) 1 % (0-10); HEMATOCRIT 42 % (35-52); HEMOGLOBIN 13.8 g/dL (11.5-16.0); LYMPHOCYTES # (AUTO) 2.9 10^3/uL (1.0-4.0); LYMPHOCYTES % (AUTO) 27 % (12-44); MEAN CORPUSCULAR HEMOGLOBIN 31 pg (25-34); MEAN CORPUSCULAR HGB CONC 33 g/dL (32-36); MEAN CORPUSCULAR VOLUME 95 fL (80-99); MEAN PLATELET VOLUME 10.7 fL (9.0-12.2); MONOCYTES # (AUTO) 0.8 10^3/uL (0.0-1.0); MONOCYTES % (AUTO) 8 % (0-12); NEUTROPHILS # (AUTO) 6.6 10^3/uL (1.8-7.8); NEUTROPHILS % (AUTO) 63 % (42-75); PLATELET COUNT 226 10^3/uL (130-400); WHITE BLOOD COUNT 10.5 10^3/uL (4.3-11.0)
[2021-03-30 14:03] LABS: ALBUMIN 3.8 GM/DL (3.2-4.5); BILIRUBIN,TOTAL 0.4 MG/DL (0.1-1.0); CALCIUM 9.6 MG/DL (8.5-10.1); CREATININE SERUM 0.75 MG/DL (0.60-1.30); POTASSIUM 3.7 MMOL/L (3.6-5.0); TOTAL PROTEIN 7.4 GM/DL (6.4-8.2)
== END ==
LOC: EDSTATUS 12-29 13:18 → ONC 13:32
PROVIDERS: ATTEND Internal Medicine Hematology & Oncology
DX: C50.812 Malignant neoplasm of overlapping sites of left female breast (principal); C50.112 Malignant neoplasm of central portion of left female breast; E55.9 Vitamin D deficiency, unspecified; Z92.21 Personal history of antineoplastic chemotherapy; Z92.3 Personal history of irradiation; Z79.811 Long term (current) use of aromatase inhibitors
CPT/HCPCS: 80053; 82306; 85025; G0463; 99213

== ENCOUNTER → 2021-06-22 | Outpatient (CLI) | payer MEDICAID, MEDICARE ==
[2021-06-22 14:05] LABS: BASOPHILS # (AUTO) 0.1 10^3/uL (0.0-0.1); BASOPHILS % (AUTO) 1 % (0-10); EOSINOPHILS # (AUTO) 0.1 10^3/uL (0.0-0.3); EOSINOPHILS % (AUTO) 1 % (0-10); HEMATOCRIT 44 % (35-52); HEMOGLOBIN 14.2 g/dL (11.5-16.0); LYMPHOCYTES % (AUTO) 37 % (12-44); MEAN CORPUSCULAR HEMOGLOBIN 31 pg (25-34); MEAN CORPUSCULAR HGB CONC 32 g/dL (32-36); MEAN CORPUSCULAR VOLUME 95 fL (80-99); MEAN PLATELET VOLUME 10.7 fL (9.0-12.2); MONOCYTES # (AUTO) 0.9 10^3/uL (0.0-1.0); MONOCYTES % (AUTO) 8 % (0-12); NEUTROPHILS # (AUTO) 5.7 10^3/uL (1.8-7.8); NEUTROPHILS % (AUTO) 53 % (42-75); PLATELET COUNT 215 10^3/uL (130-400); WHITE BLOOD COUNT 10.8 10^3/uL (4.3-11.0)
[2021-06-22 14:19] LABS: ALBUMIN 3.8 GM/DL (3.2-4.5); BILIRUBIN,TOTAL 0.5 MG/DL (0.1-1.0); CALCIUM 9.3 MG/DL (8.5-10.1); CREATININE SERUM 0.74 MG/DL (0.60-1.30); POTASSIUM 4.4 MMOL/L (3.6-5.0); TOTAL PROTEIN 7.2 GM/DL (6.4-8.2)
== END ==
LOC: ONC 13:51
PROVIDERS: ATTEND Internal Medicine Hematology & Oncology
DX: C50.112 Malignant neoplasm of central portion of left female breast (principal); C77.3 Secondary and unspecified malignant neoplasm of axilla and upper limb lymph nodes; Z79.811 Long term (current) use of aromatase inhibitors; E55.9 Vitamin D deficiency, unspecified; M85.89 Other specified disorders of bone density and structure, multiple sites; Z90.12 Acquired absence of left breast and nipple; Z98.890 Other specified postprocedural states; Z92.21 Personal history of antineoplastic chemotherapy; Z92.3 Personal history of irradiation; Z85.841 Personal history of malignant neoplasm of brain; Z72.0 Tobacco use
CPT/HCPCS: 80053; 82306; 85025; G0463; 99213

== ENCOUNTER 2021-08-07 13:36 | Outpatient (RCR) | payer MEDICARE, MEDICAID | END 2021-08-11 | disposition home or self-care (01) | PROVIDERS: ATTEND Physical Medicine & Rehabilitation | DX: R07.89 Other chest pain (principal); N64.4 Mastodynia; G89.18 Other acute postprocedural pain; Z90.12 Acquired absence of left breast and nipple ==

== ENCOUNTER 2021-11-13 14:07 | Emergency (ER) | payer MEDICARE, MEDICAID ==
[~2021-11-13] VITALS: Ht 167 cm; Wt 63.9 kg
--- NOTE | 2021-11-13 14:31 | ED General ---
General Chief Complaint: Abdominal/GI Problems Stated Complaint: UNABLE TO EAT AND DRINK Source of Information: Patient Exam Limitations: No Limitations History of Present Illness Date Seen by Provider: Nov 13, 2021 Time Seen by Provider: 14:16 Initial Comments Patient is a 66-year-old female who presents to the emergency department from home chief complaint of generalized weakness, nausea for 4 days and headache for 4 days. She states she has not been out of bed for 4 days. She states she has been under a lot of stress recently caring for her elderly mother. Patient has a history of breast cancer [address] Seth. She also has a history of a brain tumor removed in 2001 that she states was noncancerous. She states she started taking an antidepressant on and developed a headache. She states since that time she has had nausea and really nothing sounds good to eat or drink. She states she has urinated today. She feels generally weak. She feels a little lack of coordination that is worsened in her left arm than usual. She states her left side has felt a little weak since she had her breast cancer. She reports no fevers, chills, productive cough or shortness of breath. No chest pain or abdominal pain. Is not currently nauseated. No problems with bowel or bladder. No pain in her extremities. She denies any visual complaints. No speech deficits are noted. She states that she is "drooling" and on exam has a noticeable left droop in her mouth. Speech is clear however. Tongue is midline. No recent traumas, falls, head injuries. She states she is only on a medication for the breast cancer. Denies blood thinners. Does not currently have a headache. All other review of systems reviewed and negative except as stated. Timing/Duration: 3-4 Days Severity: Moderate Associated Systoms: Loss of Appetite, Malaise, Nausea/Vomiting, Weakness Allergies and Home Medications Allergies Coded Allergies: Iodinated Contrast Media (Verified Allergy, Mild, TURNED SKIN ORANGE/LEFT SCAR TISSUE ON ARMS, 03/10/19) Latex, Natural Rubber (Verified Allergy, Mild, ITCHING, 03/10/19) cephalexin (Verified Allergy, Mild, RASH, 03/10/19) hydrocodone (Verified Allergy, Mild, N/V, 03/10/19) Patient Home Medication List Home Medication List Reviewed: Yes ALPRAZolam (Xanax Tablet) 0.25 Mg Tablet, 0.25 MG PO PRN, (Reported) Entered as Reported by: WILLI KRISHNAN on 03/10/19 1345 Amoxicillin/Potassium Clav (Augmentin 875-125 Tablet) 1 Each Tablet, 1 EACH PO BID, (Reported) Entered as Reported by: DAISHA MIGUEL on 04/02/19 1311 Oxycodone HCl/Acetaminophen (Oxycodon-Acetaminophen 7.5-325) 1 Each Tablet, 1-2 EACH PO Q4H PRN for PAIN-MODERATE Prescribed by: AYLEEN BRITO on 03/12/19 0914 Sulfamethoxazole/Trimethoprim (Bactrim Ds Tablet) 1 Each Tablet, 1 EACH PO BID Prescribed by: RADHA BANGURA on 04/04/19 1722 Review of Systems Review of Systems Constitutional: see HPI EENTM: other (dry mouth and drooling) Respiratory: no symptoms reported Cardiovascular: no symptoms reported Gastrointestinal: loss of appetite, nausea Genitourinary: no symptoms reported : No Musculoskeletal: no symptoms reported Skin: no symptoms reported Psychiatric/Neurological: Headache (none currently) All Other Systems Reviewed Negative Unless Noted: Yes Past Kciemca-Dszaax-Fxddry Hx Immunizations Up To Date Tetanus Booster (TDap): Unknown PED Vaccines UTD: No Seasonal Allergies Seasonal Allergies: No Past Medical History Surgeries: Yes (BRAIN TUMOR, mastectomy) Respiratory: No Cardiac: No Neurological: Yes (HX BRAIN TUMOR) Genitourinary: No Gastrointestinal: No Musculoskeletal: Yes (MUSCLE CRAMPS IN HANDS/FEET, MILD ARTHRITIS IN BACK) Arthritis Endocrine: No HEENT: Yes (PARTIAL DENTURE) Loss of Vision: Denies Hearing Impairment: Denies Cancer: Yes (METS TO LYMPH NODES) Breast What Type of Treatment Did You: Surgical Intervention Psychosocial: Yes Anxiety Integumentary: Yes (BACTERIAL FOLLICULITIS) Blood Disorders: No Adverse Reaction/Blood Tranf: No Physical Exam Vital Signs Vital Signs - First Documented 11/13/21 14:10 Temp 36.5 Pulse 77 Resp 18 B/P (MAP) 114/77 (89) Pulse Ox 96 Capillary Refill : Height, Weight, BMI Height: 5'6.00" Weight: 160lbs. 2.0oz. 72.284528sh; 274.49 BMI Method:Stated General Appearance: No Apparent Distress, Thin Eyes: Bilateral Eye Normal Inspection, Bilateral Eye PERRL (pupils 3-4mm equal), Bilateral Eye EOMI HEENT: PERRL/EOMI, Other (dry mucous mebranes) Respiratory: Lungs Clear, Normal Breath Sounds, No Accessory Muscle Use, No Respiratory Distress Cardiovascular: Regular Rate, Rhythm, Normal Peripheral Pulses Gastrointestinal: Normal Bowel Sounds, Non Tender, Soft Extremity: Normal Inspection, Normal Range of Motion, Non Tender, No Calf Tenderness Neurologic/Psychiatric: Alert, Oriented x3, No Motor/Sensory Deficits, Normal Mood/Affect, Other (left shoulder shrug is somewhat weak; otherwise good strength all muscle groups kiki upper extremities; normal sensation (slightly better on the right she states) obvious droop left side of mouth; tongue is midline) Skin: Normal Color, Warm/Dry Progress/Results/Core Measures Suspected Sepsis SIRS Temperature: Pulse: Respiratory Rate: Laboratory Tests 11/13/21 14:20: White Blood Count 15.1H Blood Pressure / Mean: Laboratory Tests 11/13/21 14:20: Creatinine 0.92, INR Comment 1.0, Platelet Count 288, Total Bilirubin 0.5 Results/Orders Lab Results Laboratory Tests Test 11/13/21 14:15 11/13/21 14:20 11/13/21 16:30 Range/Units Glucometer 115 H 70-110 MG/DL White Blood Count 15.1 H 4.3-11.0 10^3/uL Red Blood Count 5.11 3.80-5.11 10^6/uL Hemoglobin 15.5 11.5-16.0 g/dL Hematocrit 47 35-52 % Mean Corpuscular Volume 93 80-99 fL Mean Corpuscular Hemoglobin 30 25-34 pg Mean Corpuscular Hemoglobin Concent 33 32-36 g/dL Red Cell Distribution Width 13.4 10.0-14.5 % Platelet Count 288 130-400 10^3/uL Mean Platelet Volume 10.8 9.0-12.2 fL Immature Granulocyte % (Auto) 1 % Neutrophils (%) (Auto) 73 42-75 % Lymphocytes (%) (Auto) 17 12-44 % Monocytes (%) (Auto) 8 0-12 % Eosinophils (%) (Auto) 0 0-10 % Basophils (%) (Auto) 1 0-10 % Neutrophils # (Auto) 11.1 H 1.8-7.8 10^3/uL Lymphocytes # (Auto) 2.6 1.0-4.0 10^3/uL Monocytes # (Auto) 1.2 H 0.0-1.0 10^3/uL Eosinophils # (Auto) 0.1 0.0-0.3 10^3/uL Basophils # (Auto) 0.1 0.0-0.1 10^3/uL Immature Granulocyte # (Auto) 0.1 0.0-0.1 10^3/uL Neutrophils % (Manual) 73 % Lymphocytes % (Manual) 16 % Monocytes % (Manual) 10 % Band Neutrophils 1 % Blood Morphology Comment NORMAL Prothrombin Time 13.5 12.2-14.7 SEC INR Comment 1.0 0.8-1.4 Activated Partial Thromboplast Time 26 24-35 SEC D-Dimer 2.18 H 0.00-0.49 UG/ML Sodium Level 143 135-145 MMOL/L Potassium Level 3.9 3.6-5.0 MMOL/L Chloride Level 103 98-107 MMOL/L Carbon Dioxide Level 21 21-32 MMOL/L Anion Gap 19 H 5-14 MMOL/L Blood Urea Nitrogen 17 7-18 MG/DL Creatinine 0.92 0.60-1.30 MG/DL Estimat Glomerular Filtration Rate 70 BUN/Creatinine Ratio 18 Glucose Level 108 H 70-105 MG/DL Calcium Level 10.1 8.5-10.1 MG/DL Corrected Calcium 10.0 8.5-10.1 MG/DL Total Bilirubin 0.5 0.1-1.0 MG/DL Aspartate Amino Transf (AST/SGOT) 15 5-34 U/L Alanine Aminotransferase (ALT/SGPT) 11 0-55 U/L Alkaline Phosphatase 82 40-136 U/L Troponin I < 0.028 <0.028 NG/ML Total Protein 8.1 6.4-8.2 GM/DL Albumin 4.1 3.2-4.5 GM/DL Urine Color YELLOW Urine Clarity CLEAR Urine pH 5.5 5-9 Urine Specific [place] >=1.030 1.016-1.022 Urine Protein 1+ H NEGATIVE Urine Glucose (UA) NEGATIVE NEGATIVE Urine Ketones 2+ H NEGATIVE Urine Nitrite NEGATIVE NEGATIVE Urine Bilirubin 2+ H NEGATIVE Urine Urobilinogen 1.0 < = 1.0 MG/DL Urine Leukocyte Esterase 1+ H NEGATIVE Urine RBC (Auto) 2+ H NEGATIVE Urine RBC 2-5 H /HPF Urine WBC 5-10 H /HPF Urine Crystals PRESENT H /LPF Urine Amorphous Sediment FEW RODNEY URATES H /LPF Urine Bacteria TRACE /HPF Urine Casts PRESENT /LPF Urine Hyaline Casts 10-25 H /LPF Urine Mucus NEGATIVE /LPF Urine Culture Indicated YES My Orders Orders - GARRY CARRASCO MD Cbc With Automated Diff (11/13/21 14:32) Protime With Inr (11/13/21 14:32) Partial Thromboplastin Time (11/13/21 14:32) Comprehensive Metabolic Panel (11/13/21 14:32) Fibrin Degradation Products (11/13/21 14:32) Troponin I Joel (11/13/21 14:32) Ua Culture If Indicated (11/13/21 14:32) Chest 1 View, Ap/Pa Only (11/13/21 14:32) Ekg Tracing (11/13/21 14:32) Nothing By Mouth (11/13/21 Lunch) Accucheck Stat ONCE (11/13/21 14:32) Ed Iv/Invasive Line Start (11/13/21 14:32) Ed Iv/Invasive Line Start (11/13/21 14:32) Vital Signs Stroke Patient Q15M (11/13/21 14:32) Ct Head Wo-R/O Stroke (11/13/21 14:32) O2 (11/13/21 14:32) Intake & Output 06,14,22 (11/13/21 14:32) Monitor-Rhythm Ecg Trace Only (11/13/21 14:32) Dysphagia Screening Tool Q10MX1 (11/13/21 14:32) Post Thrombolytic Adminstratio (11/13/21 14:32) Lipid Panel (11/14/21 06:00) Manual Differential (11/13/21 14:20) Dexamethasone Injection (Decadron Injec (11/13/21 16:45) Levetiracetam Injection (Keppra Injectio (11/13/21 16:33) Urine Culture (11/13/21 16:30) Medications Given in ED Current Medications Medications Dose Ordered Sig/Jaylen Route Start Time Stop Time Status Last Admin Dose Admin Dexamethasone Sodium Phosphate 10 mg ONCE ONCE IV 11/13/21 16:45 11/13/21 16:46 DC 11/13/21 17:01 10 MG Vital Signs/I&O 11/13/21 14:10 Temp 36.5 Pulse 77 Resp 18 B/P (MAP) 114/77 (89) Pulse Ox 96 Capillary Refill : Progress Note #1: Time: 15:48 Progress Note discussed with the patient, her CT findings, and her neice, Bebe. Bebe is her POA and requested both a local consult as well as [facility]. I clouded images to both facilities. Reached out to [facility] to discuss with Neurosurgery (Dr Luna is speech therapist early intervention for them). Awaiting a call back Progress Note #2: Time: 16:36 Progress Note Discussed with Dr. Dupree, neurosurgery at 1625 at [facility]. He accepts the patient in consultation. He recommends Decadron 10 mg IV as well as 1 g of Keppra. I spoke with Nava's DPOA, Bebe again. She is comfortable with transfer to [facility]. I am awaiting callback from [facility] with a hospitalist for acceptance. Progress Note #3: Time: 17:17 Progress Note Case discussed with Dr. Weiss at [facility] who accepts the patient for transfer. Bebe (tom) Patient's DPOA phone number [phone] ECG Initial ECG Impression Date: Nov 13, 2021 Initial ECG Impression Time: 14:18 Initial ECG Rate: 78 Initial ECG Rhythm: Normal Sinus Initial ECG Intervals: Normal Initial ECG Intervals SD 140 QRS 88 QTc 437 Normal sinus, no ectopy, no ST segment depression or elevation. Diagnostic Imaging Diagonstic Imaging: CT Plain Films/CT/US/NM/MRI: head Comments [facility], [place] NAME: NAVA RAAJN [facility] REC#: [id number] PT STATUS: REG ER : 1955 PHYSICIAN: GARRY CARRASCO MD ADMIT DATE: 11/13/21/ER Draft Date of Exam:11/13/21 CT HEAD WO-R/O STROKE PROCEDURE: CT head wo r/o stroke. TECHNIQUE: Multiple contiguous axial images were obtained through the brain without the use of intravenous contrast. Auto Exposure Controls were utilized during the CT exam to meet ALARA standards for radiation dose reduction. INDICATION: Left weakness and left facial droop. FINDINGS: There is an approximately 1.6 x 1.8 x 1.5 cm ovoid mass centered in the subcortical white matter in the posterior right frontal lobe with large amount of surrounding vasogenic edema. This does result in approximately 0.6 cm leftward shift of midline at the level of interventricular septum. No evie herniation is identified. There is no evidence of hemorrhage. There is focal density within the posterior aspect of the right head of caudate nucleus which may represent infarct of indeterminate age. Surgical findings are seen in the posterior fossa on the right with underlying cerebellar encephalomalacia and calcification within the region of superior sagittal sinus underlying this region which could be chronically thrombosed. IMPRESSION: Approximately 1.6 x 1.8 cm ovoid mass in the subcortical white matter of the posterior right frontal lobe with large amount of surrounding vasogenic edema and 0.6 cm leftward shift of midline. This may represent metastatic lesion and clinical correlation is recommended. Otherwise, there are postoperative findings in the posterior fossa related to known meningioma. Dictated on workstation # [id number] Dict: 11/13/21 1514 Trans: 11/13/21 1530 [id number] Interpreted by: YAYA SCHWARZ MD Electronically signed by: Diagonstic Imaging: Xray Plain Films/CT/US/NM/MRI: chest Comments [facility], [place] NAME: NAVA RAJAN [facility] REC#: [id number] PT STATUS: REG ER : 1955 PHYSICIAN: GARRY CARRASCO MD ADMIT DATE: 11/13/21/ER Signed Date of Exam:11/13/21 CHEST 1 VIEW, AP/PA ONLY CHEST 1 VIEW, AP/PA ONLY Indication: Stroke Comparison: 04/03/2019 Findings: No focal airspace disease in the visualized lungs. Please note that the posterior lower lobes are poorly evaluated by portable radiography. No pleural effusion or pneumothorax. Normal cardiomediastinal silhouette. Right IJ Port-A-Cath has been removed since prior exam. Impression: 1. No acute cardiopulmonary process by portable radiography. Dictated by: Dictated on workstation # [id number] Dict: 11/13/21 1449 Trans: 11/13/21 1451 [facility] [id number] Interpreted by: FLORI BERMUDEZ MD Electronically signed by: FLORI BERMUDEZ MD 11/13/21 1451 Departure Communication (PCP) [id number] Arita's office Impression Primary Impression: Brain tumor Disposition: XFER SHT-TRM HOSP Condition: Stable Transfer Transfer Reason: Exceeds level of care Time Spoke to Accepting Phy: 17:16 Transfer Progress Notes Discussed with Dr Weiss - accepted Transfer Facility: [facility] Method of Transfer: EMS Departure-Patient Inst. Referrals: NO,LOCAL PHYSICIAN (PCP) Primary Care Physician GARRY HERNANDEZ (Family) Primary Care Physician GARRY CARRASCO MD Nov 13, 2021 14:31
[2021-11-13 14:37] LABS: BASOPHILS # (AUTO) 0.1 10^3/uL (0.0-0.1); BASOPHILS % (AUTO) 1 % (0-10); EOSINOPHILS # (AUTO) 0.1 10^3/uL (0.0-0.3); EOSINOPHILS % (AUTO) 0 % (0-10); HEMATOCRIT 47 % (35-52); HEMOGLOBIN 15.5 g/dL (11.5-16.0); LYMPHOCYTES # (AUTO) 2.6 10^3/uL (1.0-4.0); LYMPHOCYTES % (AUTO) 17 % (12-44); MEAN CORPUSCULAR HEMOGLOBIN 30 pg (25-34); MEAN CORPUSCULAR HGB CONC 33 g/dL (32-36); MEAN CORPUSCULAR VOLUME 93 fL (80-99); MEAN PLATELET VOLUME 10.8 fL (9.0-12.2); MONOCYTES # (AUTO) 1.2 10^3/uL (0.0-1.0); MONOCYTES % (AUTO) 8 % (0-12); NEUTROPHILS # (AUTO) 11.1 10^3/uL (1.8-7.8); NEUTROPHILS % (AUTO) 73 % (42-75); PLATELET COUNT 288 10^3/uL (130-400); WHITE BLOOD COUNT 15.1 10^3/uL (4.3-11.0)
[2021-11-13 14:42] LABS: ALBUMIN 4.1 GM/DL (3.2-4.5); CHLORIDE 103 MMOL/L (98-107); POTASSIUM 3.9 MMOL/L (3.6-5.0); SODIUM 143 MMOL/L (135-145)
[2021-11-13 14:43] LABS: CALCIUM 10.1 MG/DL (8.5-10.1)
[2021-11-13 14:44] LABS: GLUCOSE 108 MG/DL (70-105)
[2021-11-13 14:45] LABS: TOTAL PROTEIN 8.1 GM/DL (6.4-8.2)
[2021-11-13 14:46] LABS: BILIRUBIN,TOTAL 0.5 MG/DL (0.1-1.0); CARBON DIOXIDE 21 MMOL/L (21-32); FIBRIN DEGRADATION PRODUCTS 2.18 UG/ML (0.00-0.49); PROTHROMBIN TIME PATIENT 13.5 SEC (12.2-14.7)
[2021-11-13 14:48] LABS: ALKALINE PHOSPHATASE 82 U/L (40-136); CREATININE SERUM 0.92 MG/DL (0.60-1.30); GFR ESTIMATED 70
[2021-11-13 14:49] LABS: BUN/CREATININE RATIO 18
[2021-11-13 14:51] LABS: ALANINE AMINOTRANSFERASE 11 U/L (0-55)
--- NOTE | 2021-11-13 14:52 | Diagnostic Imaging Report ---
CHEST 1 VIEW, AP/PA ONLY Indication: Stroke Comparison: 04/03/2019 Findings: No focal airspace disease in the visualized lungs. Please note that the posterior lower lobes are poorly evaluated by portable radiography. No pleural effusion or pneumothorax. Normal cardiomediastinal silhouette. Right IJ Port-A-Cath has been removed since prior exam. Impression: 1. No acute cardiopulmonary process by portable radiography. Dictated by: Dictated on workstation # [id number]
[2021-11-13 15:03] LABS: BAND NEUTROPHILS 1 %; LYMPHOCYTES % (MANUAL) 16 %; MONOCYTES % (MANUAL) 10 %; NEUTROPHILS % (MANUAL) 73 %
[2021-11-13 15:05] LABS: RBC MORPH NORMAL
--- NOTE | 2021-11-13 15:31 | Diagnostic Imaging Report ---
PROCEDURE: CT head wo r/o stroke. TECHNIQUE: Multiple contiguous axial images were obtained through the brain without the use of intravenous contrast. Auto Exposure Controls were utilized during the CT exam to meet ALARA standards for radiation dose reduction. INDICATION: Left weakness and left facial droop. FINDINGS: There is an approximately 1.6 x 1.8 x 1.5 cm ovoid mass centered in the subcortical white matter in the posterior right frontal lobe with large amount of surrounding vasogenic edema. This does result in approximately 0.6 cm leftward shift of midline at the level of interventricular septum. No evie herniation is identified. There is no evidence of hemorrhage. There is focal density within the posterior aspect of the right head of caudate nucleus which may represent infarct of indeterminate age. Surgical findings are seen in the posterior fossa on the right with underlying cerebellar encephalomalacia and calcification within the region of superior sagittal sinus underlying this region which could be chronically thrombosed. IMPRESSION: Approximately 1.6 x 1.8 cm ovoid mass in the subcortical white matter of the posterior right frontal lobe with large amount of surrounding vasogenic edema and 0.6 cm leftward shift of midline. This may represent metastatic lesion and clinical correlation is recommended. Otherwise, there are postoperative findings in the posterior fossa related to known meningioma. Dictated by: Dictated on workstation # [id number]
[2021-11-13 16:40] LABS: CLARITY,URINE CLEAR; COLOR,URINE YELLOW; GLUCOSE, URINE (UA) NEGATIVE (NEGATIVE); KETONES,URINE 2+ (NEGATIVE); LEUKOCYTE ESTERASE ,URINE 1+ (NEGATIVE); NITRITE,URINE NEGATIVE (NEGATIVE); PH,URINE 5.5 (5-9); PROTEIN,URINE 1+ (NEGATIVE)
[2021-11-13 17:00] LABS: AMORPHOUS SEDIMENT,UR FEW AMOR URATES /LPF; BACTERIA,URINE TRACE /HPF; BILIRUBIN,URINE 2+ (NEGATIVE)
[2021-11-13] MEDS ORDERED: fentaNYL INJ 100 MCG/2 ML AMP ONE (19:44)
[2021-11-13] MEDS ORDERED: fentaNYL INJ 100 MCG/2 ML AMP IVP ONE (19:45)
[2021-11-13 19:47] VITALS: BP 95/67
== END 2021-11-13 19:47 | disposition short-term general hospital (02) ==
LOC: EDUNIT# 14:07 → ER 14:09
DX: D49.6 Neoplasm of unspecified behavior of brain (principal); Z91.040 Latex allergy status
CPT/HCPCS: 36415; 70450; 71045; 80053; 81000; 82947; 84484; 85007; 85027; 85379; 85610; 85730; 87088; 93005; 93041

== ENCOUNTER 2021-11-18 09:31 | Inpatient (IN) | payer MEDICARE, MEDICAID ==
[~2021-11-18] VITALS: Ht 167 cm; Wt 72.9 kg
[~2021-11-18 09:31] MED LIST changes: +ACETAMINOPHEN 325 MG TABLET PO PRN; +BISACODYL 10 MG SUPP (DULCOLAX) PR PRN; +CALCIUM CARBONATE 500 MG (TUMS) TAB.CHEW PO PRN; +DOCUSATE SODIUM 100 MG (COLACE) CAP PO PRN; +FLEET ENEMA ADULT 1 EA BTL PR PRN; +LACTULOSE SYRUP 10GM/15ML (ENULOSE) 30ML UDC PO PRN; +LOPERAMIDE 2 MG (IMODIUM) TABLET PO PRN; +ONDANSETRON 4 MG (ZOFRAN) ORAL DISSOLVE TAB PO PRN; +diphenhydrAMINE 25 MG TAB (BENADRYL) PO PRN; +guaiFENesin/CODEINE (ROBITUSSIN AC) 10ML UDC PO PRN
[2021-11-18 09:37] VITALS: BP 150/87
--- NOTE | 2021-11-18 10:40 | Physical Therapy Progress Note ---
Therapy Progress Note Attempted to see patient for ARU Physical Therapy initial evaluation. Patient lying on her right side at this therapist entered the room. I introduced myself and the patient replied, "Hi, I'm Karen and I aint fucking doing anything today, bye." "Its too damn loud out there, all I hear is the fucking phone and the alarm, this is bullshit. In fact, I'm leaving right now." At this point patient attempts to get out of bed. She demonstrates [place] with bed mobility and with verbal cues, patient stopped while sitting on the edge of the bed. Patient was educated on the requirements of this rehab setting and replied, "that's fine, as soon as my niece gets here I'll have her take me home because I have bills to pain and maybe I'll come back if I ever get any rest, just shut that fucking door!" Patient was left in her bed per her request, with call light in reach, door shut upon PT departure and nurse notified of situation, although both ARU nurses were at the desk and indicated they heard the previous interaction. GINA COYNE PT Nov 18, 2021 10:40
--- NOTE | 2021-11-18 11:42 | Occupational Therapy Eval ---
OT Evaluation-General/PLF Medical Diagnosis Admission Date Nov 18, 2021 at 09:31 Height/Weight Height (Feet): 5 Height (Inches): 6.00 Weight (Pounds): 160 Weight (Ounces): 2.0 Precautions Precautions/Isolations: Seizure, Fall Prevention, Standard Precautions ADL-Prior Level of Function SCALE: Activities may be completed with or without assistive devices. 4-Smrvfxwxiz-lboipkp completes the activity by him/herself with no assistance from a helper. 5-Set-up or Clean-up Assistance-helper sets up or cleans up; patient completes activity. [place] assists only prior to or following the activity. 4-Supervision or Touching Assistance-helper provides verbal cues and/or touching/steadying and/or contact guard assistance as patient completes activity. Assistance may be provided throughout the activity or intermittently. 3-Partial/Moderate Assistance-helper does LESS THAN HALF the effort. [place] lifts, holds or supports trunk or limbs, but provides less than half the effort. 2-Substantial/Maximal Assistance-helper does MORE THAN HALF the effort. [place] l ifts or holds trunk or limbs and provides more than half the effort. 9-Lufxmfqqd-vnncib does ALL the effort. Patient does none of the effort to complete the activity. Or, the assistance of 2 or more helpers is required for the patient to complete the activity. If activity was not attempted, code reason: 7-Patient Refused. 9-Not Applicable-not attempted and the patient did not perform the activity before the current illness, exacerbation or injury. 10-Not Attempted due to Environmental Limitations-(lack of equipment, weather restraints, etc.). 88-Not Attempted due to Medical Conditions or Safety Concerns. ADL PLOF Comments Pt reports IND with I/ADLs and functional mobility without AD. She uses SPC as needed. OT Alf Goals Alf Goals 1=Demonstrate adherence to instructed precautions during ADL tasks. 2=Patient will verbalize/demonstrate understanding of assistive devices/modifications for ADL. 3=Patient will improve strength/tolerance for activity to enable patient to perform ADL's. OT Education/Plan Treatment Plan/Plan of Care Patient would benefit from OT for education, treatment and training to promote independence in ADL's, mobility, safety and/or upper extremity function for ADL's. GLENDY CAMACHO OT Nov 18, 2021 11:42
--- NOTE | 2021-11-18 11:50 | Occupational Therapy Eval ---
OT Evaluation-General/PLF Medical Diagnosis Admission Date Nov 18, 2021 at 09:31 Medical Diagnosis: brain masses Onset Date: Nov 18, 2021 Therapy Diagnosis Therapy Diagnosis: decreased ADL status Height/Weight Height (Feet): 5 Height (Inches): 6.00 Weight (Pounds): 160 Weight (Ounces): 2.0 Precautions Precautions/Isolations: Seizure, Fall Prevention, Standard Precautions Referral Physician: Noble Medical History Additional Medical History meningioma resection, breast cancer (2019 with L mastectomy). Brain tumor removed 2001. Presented to ED for generalized weakness, nausea, and abdominal pain for 4 days. Pt transferred to ARU 11/18/21 for skilled therapy and medication management. Current History Multiple brain masses consistent with metastatic brain disease, likely due to breast cancer, largest in R parietal and R frontal area. Social History Home: Single Level Current Living Status: Alone Entry Into Home: Stairs With Railing Steps Into Home: 3 ADL-Prior Level of Function SCALE: Activities may be completed with or without assistive devices. 6-Fnvcefrbrf-uktkjoj completes the activity by him/herself with no assistance from a helper. 5-Set-up or Clean-up Assistance-helper sets up or cleans up; patient completes activity. [place] assists only prior to or following the activity. 4-Supervision or Touching Assistance-helper provides verbal cues and/or touching/steadying and/or contact guard assistance as patient completes activity. Assistance may be provided throughout the activity or intermittently. 3-Partial/Moderate Assistance-helper does LESS THAN HALF the effort. [place] lifts, holds or supports trunk or limbs, but provides less than half the effort. 2-Substantial/Maximal Assistance-helper does MORE THAN HALF the effort. [place] lifts or holds trunk or limbs and provides more than half the effort. 7-Jtemfzttj-aylnwt does ALL the effort. Patient does none of the effort to complete the activity. Or, the assistance of 2 or more helpers is required for the patient to complete the activity. If activity was not attempted, code reason: 7-Patient Refused. 9-Not Applicable-not attempted and the patient did not perform the activity before the current illness, exacerbation or injury. 10-Not Attempted due to Environmental Limitations-(lack of equipment, weather restraints, etc.). 88-Not Attempted due to Medical Conditions or Safety Concerns. ADL PLOF Comments Pt reports IND with I/ADLs and functional mobility without AD. She uses SPC as needed. Self Care: Independent Functional Cognition: Independent DME/Equipment: Bath Chair, Grab Bars, Tub/Shower, Toilet/Riser OT Current Status Subjective Pt seated EOB, agreeable to OT evaluation. Pt states she would like to apologize to PT for how she acted with him. Pt indicates she needs to check out of the hospital for a little bit to go home, pay her bills, and get a few things settled. Pt states she does better with less stimuli, doors closed, lights off, and quiet. She also does better on a schedule, knowing when to expect people in/out of her room. Mental Status/Objective Patient Orientation: Person, Place, Situation Current Upper Extremity ROM WFL Upper Extremity Coordination WFL Upper Extremity Sensation Pt reports cubital tunnel syndrome LUE. 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 Upper Extremity Strength RUE grossly 4/5, LUE grossly 3+/5 ADL-Treatment Eating (QC): 4 (Supervision per clinical judgment due to pocketing of food.) Oral Hygiene (QC): 7 Shower/Bathe Self (QC): 7 Upper Body Dressing (QC): 7 Lower Body Dressing (QC): 7 On/Off Footwear (QC): 6 (IND) Toileting Hygiene (QC): 4 (SBA, pt able to manage hygiene and clothing management.) Pt appears impulsive during session. Other Treatments Pt seated EOB, agreeable to OT evaluation. Pt donned footwear independently, then agreeable to performing functional mobility around ARU common area. Pt completed with CGA, OT showed pt ARU common area and therapy gym, then pt returned to her room, no AD. Pt completed toileting, then stood at sink to wash hands, SBA. Pt returned EOB. Post tx, pt up EOB, instructed to use call light when she needs to get up, pt verbalized understanding. Nurse present, all needs met, call light in reach. Education OT Patient Education: Correct positioning, Energy conservation, Modified ADL techniques, Progress toward Goal/Update tx plan, Purpose of tx/functional activities, Rehab process Teaching Recipient: Patient Teaching Methods: Discussion Response to Teaching: Verbalize Understanding OT Short Term Goals Short Term Goals Time Frame: Nov 29, 2021 Eatin Oral hygiene: 5 Shower/bathe self: 5 Lower body dressin OT Hotel Controller Goals Hotel Controller Goals Time Frame: Dec 09, 2021 Eating (QC): 6 Oral Hygiene (QC): 6 Toileting Hygiene (QC): 6 Shower/Bathe Self (QC): 6 Upper Body Dressing (QC): 6 Lower Body Dressing (QC): 6 On/Off Footwear (QC): 6 Additional Goals: 1-Demonstrate ADL Tasks, 2-Verbalize Understanding, 3- ImproveStrength/Kaylynn 1=Demonstrate adherence to instructed precautions during ADL tasks. 2=Patient will verbalize/demonstrate understanding of assistive devices/modifications for ADL. 3=Patient will improve strength/tolerance for activity to enable patient to perform ADL's. OT Education/Plan Problem List/Assessment Assessment: Decreased Activ Tolerance, Decreased Safety Aware, Decreased UE Strength, Impaired Funct Balance, Impaired I ADL's, Impaired Self-Care Skills Discharge Recommendations Plan/Recommendations: Continue POC Treatment Plan/Plan of Care Patient would benefit from OT for education, treatment and training to promote independence in ADL's, mobility, safety and/or upper extremity function for ADL's. Plan of Care: ADL Retraining, Functional Mobility, Group Exercise/Act as Ind, UE Funct Exercise/Act Treatment Duration: Dec 09, 2021 Frequency: At least 5 of 7 days/Wk (IRF) Estimated Hrs Per Day: 1.5 hours per day Agreement: Yes Rehab Potential: Fair Time/GCodes Start Time: 11:15 Stop Time: 11:30 Total Time Billed (hr/min): 15 Billed Treatment Time ELICIA Bowling ADDISON OT Nov 18, 2021 11:50
--- NOTE | 2021-11-18 12:44 | PM&R Post Admission Assessment ---
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 She has a past medical history of left-sided breast cancer diagnosed in 2019 but found to have brain masses consistent with metastatic brain disease with the largest in the right parietal and right frontal area. She does have a history of meningioma resection. She will likely require whole brain radiation. Maintained on Keppra and Decadron. Previously her level of functioning was independent but she will need aggressive rehab to strengthen and decrease the chance of falls since she lives alone. Past Dnuuyiv-Teixnw-Ijmeuy Hx Past Med/Social Hx: Reviewed Nursing Past Med/Soc Hx, Reviewed and Corrections made Patient Social History Marrital Status: single Employed/Student: retired Alcohol Use: Denies Use Smoking Status: Current Everyday Smoker Former Smoker, Quit: Mar 12, 2019 Type Used: Cigarettes 2nd Hand Smoke Exposure: Yes Recent Hopitalizations: No Immunizations Up To Date Tetanus Booster (TDap): Unknown Pediatric: No Seasonal Allergies Seasonal Allergies: No Past Medical History Meningioma resection Musculoskeletal: Arthritis Loss of Vision: Denies Hearing Impairment: Denies Cancer: Breast What Type of Treatment Did You: Surgical Intervention Psychosocial: Anxiety History of Blood Disorders: No Adverse Reaction to Blood Bah: No Self Care: Independent Functional Cognition: Independent Eatin (Supervision per clinical judgment due to pocketing of food.) Oral Hygiene: 7 Shower/Bathe Self: 7 Upper Body Dressin Lower Body Dressin On/Off Footwear: 6 (IND) Toileting Hygiene: 4 (SBA, pt able to manage hygiene and clothing management.) PM&R Allergy/Meds/Data Review Allergies Coded Allergies: Iodinated Contrast Media (Verified Allergy, Mild, TURNED SKIN ORANGE/LEFT SCAR TISSUE ON ARMS, 03/10/19) Latex, Natural Rubber (Verified Allergy, Mild, ITCHING, 03/10/19) cephalexin (Verified Allergy, Mild, RASH, 03/10/19) hydrocodone (Verified Allergy, Mild, N/V, 03/10/19) Home Medications Scheduled Pantoprazole Sodium (Protonix), 40 MG PO DAILY, (Reported) Miscellaneous Medications Letrozole (Letrozole), Unknown Dose PO, (Reported) Discontinued Medications ALPRAZolam (Xanax Tablet), 0.25 MG PO PRN, (Reported) Amoxicillin/Potassium Clav (Augmentin 875-125 Tablet), 1 EACH PO BID, (Reported) Oxycodone HCl/Acetaminophen (Oxycodon-Acetaminophen 7.5-325), 1-2 EACH PO Q4H PRN for PAIN-MODERATE Sulfamethoxazole/Trimethoprim (Bactrim Ds Tablet), 1 EACH PO BID Current Medications Current Medications Reviewed Review of Systems Constitutional: see HPI, malaise, weakness EENTM: no symptoms reported Respiratory: no symptoms reported Cardiovascular: no symptoms reported Gastrointestinal: no symptoms reported Genitourinary: no symptoms reported Musculoskeletal: back pain, joint pain Skin: no symptoms reported Psychiatric/Neurological: Tremors, Weakness Physical Exam Physical Exam Vital Signs Vital Signs - First Documented 11/18/21 09:37 Temp 37.0 Pulse 73 Resp 20 B/P (MAP) 150/87 (108) Pulse Ox 98 O2 Delivery Room Air Capillary Refill : Height, Weight, BMI Height: 5'6.00" Weight: 160lbs. 2.0oz. [id number]; 22.91 BMI Method:Stated General Appearance: No Apparent Distress, WD/WN, Chronically ill, Thin Eyes: Bilateral Eye Normal Inspection, Bilateral Eye PERRL HEENT: PERRL/EOMI, Normal ENT Inspection, Pharynx Normal Neck: Full Range of Motion, Normal Inspection, Non Tender, Supple, Carotid Bruit Respiratory: Chest Non Tender, Lungs Clear, Normal Breath Sounds, No Accessory Muscle Use, No Respiratory Distress Cardiovascular: Regular Rate, Rhythm, No Edema, No Gallop, No JVD, No Murmur, Normal Peripheral Pulses Gastrointestinal: Normal Bowel Sounds, No Organomegaly, No Pulsatile Mass, Non Tender, Soft Back: Normal Inspection, No CVA Tenderness, No Vertebral Tenderness Extremity: Normal Capillary Refill, Normal Inspection, Normal Range of Motion, Non Tender, No Calf Tenderness, No Pedal Edema Neurologic/Psychiatric: Alert, Oriented x3, No Motor/Sensory Deficits, music writer II- XII Norm as Tested, Depressed Affect, Motor Weakness (Right-sided) Skin: Normal Color, Warm/Dry Lymphatic: No Adenopathy PM&R Medical Assessment & Plan REHAB/MEDICAL ASSESSMENT AND PLAN: REHAB IMPAIRMENT GROUP: Debility from brain masses ETIOLOGIC DIAGNOSIS: Debility from brain masses The comorbidities that impact the patients function and/or functional outcome by: Poor reserve, metastatic brain masses, current smoker REHAB PLAN: The patient is being admitted to our comprehensive inpatient rehabilitation [facility] and can tolerate the intensity of service consisting of at least: 180 minutes of therapy a day, 5 out of 7 days a week Rehab treatment will consist of: PT and OT will focus on regaining function with right-sided weakness and overall fall risk with the use of assistive devices in order to regain function to go home independently The patient/family has a good understanding of our discharge process and will benefit from an interdisciplinary inpatient rehabilitation program. The patient has potential to make improvement and is in need of at least two of the following multidisciplinary therapies including but not limited to physical, occupational, speech, and prosthetics and orthotics. Additionally the patient will need services from respiratory, nutritional services, wound care, psychology, etc. (Customize this to each patient). Given the patients complex condition and risk of further medical complications, rehabilitation services cannot be safely or effectively provided at a lower level of care such as a usp facility. BARRIERS TO DISCHARGE: Lives alone ESTIMATED LOS: 7 days DISPOSITION: Home RELEVANT CHANGES SINCE PREADMISSION SCREENING: I have compared the patients medical and functional status at the time of the preadmission screening and there are: no changes PROGNOSIS: Fair REHABILITATION GOALS: 1. PT and OT will focus on regaining function with right-sided weakness and overall fall risk with the use of assistive devices in order to regain function to go home independently All the above goals were reviewed with the patient and he/she is in agreement. By signing this document, I acknowledge that I have personally performed a full physical examination on this patient within 24 hours of admission to this inpatient rehabilitation facility and have determined the patient to be able to tolerate the above course of treatment at an intensive level for a reasonable period of time. I will be completing a detailed individualized Plan of Care for this patient by day #4 of the patients stay based upon the Preadmission Screen, the Post-Admission Evaluation, and the therapy evaluations. Admission Dx/Comorbidities: (1) Breast cancer, left Qualifiers: Qualified Codes: C50.912 - Malignant neoplasm of unspecified site of left female breast ICD Codes: C50.912 - Malignant neoplasm of unspecified site of left female breast (2) Brain tumor Status: Acute ICD Codes: D49.6 - Neoplasm of unspecified behavior of brain Assessment/Plan Assessment and Plan Assess & Plan/Chief Complaint Assessment: Metastatic brain disease Right-sided weakness Fall risk Breast cancer left in 2019 GERD Plan: Keppra Decadron Inpatient rehab protocol FELIX GARCIA DO Nov 18, 2021 12:43
[2021-11-18] MEDS: DOCUSATE SODIUM 100 MG (COLACE) CAP PO SCH ×2 (14:11→19:26)
[2021-11-18] MEDS: polyethylene glycoL POWDER 17 GM (MIRALAX) PACK PO SCH ×2 (14:11→19:26)
[2021-11-18] MEDS: SENNA W/DOCUSATE (SENOKOT S) TABLET PO SCH ×2 (14:11→19:27)
[2021-11-18] MEDS ORDERED: LETR2.5T6 PO (15:13)
[2021-11-18] MEDS ORDERED: PANT40TA2 PO (15:13)
[2021-11-18 19:36] VITALS: BP 126/81
[2021-11-18] MEDS: ALPRAZolam 0.25 MG (XANAX) TAB PO PRN (19:39)
[2021-11-18] MEDS: MELATONIN 3 MG TABLET PO PRN (19:40)
[2021-11-19 05:49] LABS: BASOPHILS % (AUTO) 0 % (0-10); EOSINOPHILS % (AUTO) 0 % (0-10); HEMATOCRIT 40 % (35-52); HEMOGLOBIN 13.3 g/dL (11.5-16.0); LYMPHOCYTES # (AUTO) 2.6 10^3/uL (1.0-4.0); LYMPHOCYTES % (AUTO) 15 % (12-44); MEAN CORPUSCULAR HEMOGLOBIN 31 pg (25-34); MEAN CORPUSCULAR HGB CONC 33 g/dL (32-36); MEAN CORPUSCULAR VOLUME 92 fL (80-99); MEAN PLATELET VOLUME 11.4 fL (9.0-12.2); MONOCYTES # (AUTO) 1.1 10^3/uL (0.0-1.0); MONOCYTES % (AUTO) 6 % (0-12); NEUTROPHILS # (AUTO) 12.7 10^3/uL (1.8-7.8); NEUTROPHILS % (AUTO) 76 % (42-75); PLATELET COUNT 190 10^3/uL (130-400); WHITE BLOOD COUNT 16.7 10^3/uL (4.3-11.0)
[2021-11-19 06:00] LABS: POTASSIUM 4.6 MMOL/L (3.6-5.0)
[2021-11-19 06:01] LABS: CALCIUM 8.4 MG/DL (8.5-10.1)
[2021-11-19 06:02] LABS: TOTAL PROTEIN 5.4 GM/DL (6.4-8.2)
[2021-11-19 06:04] LABS: BILIRUBIN,TOTAL 0.3 MG/DL (0.1-1.0)
[2021-11-19 06:06] LABS: CREATININE SERUM 0.63 MG/DL (0.60-1.30)
--- NOTE | 2021-11-19 07:41 | Individualized Plan of Care ---
Individualized Plan of Care Rehab Nursing IPOC Order Admission Date Nov 18, 2021 at 09:31 Current Orders Orders Admission Order(Inpt,Obs,Sdc) (11/18/21 06:07) Vital Signs: Per Unit Policy ( 08,16,00 (11/18/21 06:07) Trent Ch , (11/18/21 06:07) Sequential Compression Device (11/18/21 06:07) Shoder Filler-Inpt Rehab Con (11/18/21 06:07) Rehab Nursing Orders-Ipoc (11/18/21 06:07) Physical Therapy Rehab Orders (11/18/21 06:07) Occupational Therapy Rehab Ord (11/18/21 06:07) Speech Therapy Rehab Orders (11/18/21 06:07) Cbc With Automated Diff (11/19/21 06:00) Comprehensive Metabolic Panel (11/19/21 06:00) Precautions (Aru) (11/18/21 06:07) Weekly Weight WEEK (11/18/21 06:07) Rehab-Intensity Of Therapy (11/18/21 06:07) Initiate Admission Nursing Pro .admission (11/18/21 06:07) Alprazolam Tablet (Xanax Tablet) (11/18/21 06:15) Calcium Carbonate Chew Tablet (Antacid C (11/18/21 06:15) Diphenhydramine Tablet (Benadryl Tablet) (11/18/21 06:00) Docusate Sodium Capsule (Colace Capsule) (11/18/21 09:00) Docusate Sodium Capsule (Colace Capsule) (11/18/21 06:15) Bisacodyl Suppository (Dulcolax Supposit (11/18/21 06:15) Lactulose Oral Solution (Enulose Oral So (11/18/21 06:00) Na Phos/Na Biphos Enema (Fleet Enema Dererll (11/18/21 06:00) Guaifenesin/Codeine Syrup (Robitussin Ac (11/18/21 06:00) Loperamide Tablet (Imodium Tablet) (11/18/21 06:15) Melatonin Tablet (Melatonin Tablet) (11/18/21 06:00) Polyethylene Glycol Powder Pkt (Miralax (11/18/21 09:00) Ondansetron Oral Dissolve Tab (Zofran (11/18/21 06:15) Senna S Tablet (Senokot S Tablet) (11/18/21 09:00) Acetaminophen Tablet/Caplet (Tylenol T (11/18/21 06:00) Code/Resuscitation (11/18/21 06:07) Initiate Admission Nursing Pro .admission (11/18/21 06:07) Admission Arrival Bed Request (11/18/21 09:31) General/Regular (11/18/21 Lunch) Dexamethasone Tablet (Decadron Tablet) (11/18/21 21:00) Levetiracetam Tablet (Keppra Tablet) (11/18/21 21:00) Dexamethasone Tablet (Decadron Tablet) (11/21/21 09:00) Pantoprazole Tablet (Protonix Tablet) (11/19/21 07:00) Diclofenac 1% Gel (Voltaren 1% Gel) (11/19/21 13:00) Rehab Nursing Orders: Ongoing Assess. of Cognitive Status, Ongoing Assess. of Function Status, Bladder Management, Bladder Scan, Bladder Training, Bowel Management, Bowel Training, Disease Management & Educaiton, DVT Prophylaxis, Fall Prevention, Fluid/Electrolyte/Nutrition Mgmt, Infection Prevention, Medication Management & Education, Management of Risks & Complications, Management of Skin Intergrity, Nutrition Management, Pain Management, Patient/Family Support, Safety Management Intensity of Therapy to be met Patient to be seen: Min.3h per day/5 of 7d PT IPOC Problem List: Activity Tolerance, Gait, Transfer, ROM Treatment Plan: Continue Plan of Care Functional Activity Kaylynn, Functional Strength, Gait, Safety, Therapeutic Exercise Treatment Duration: Nov 20, 2021 Frequency: 5 times per week Estimated Hrs Per Day: 1 hour per day OT IPOC Problems: Decreased Activ Tolerance, Decreased Safety Aware, Decreased UE Strength, Impaired Funct Balance, Impaired I ADL's, Impaired Self-Care Skills OT Treatment, Training and Edu: Yes Plan of Care: ADL Retraining, Functional Mobility, Group Exercise/Act as Ind, UE Funct Exercise/Act Treatment Duration: Dec 09, 2021 Frequency: At least 5 of 7 days/Wk (IRF) Estimated Hrs Per Day: 1.[address] IPOC Speech Therapy Treatment Plan: Discontinue ST Treatment Duration: Nov 20, 2021 Frequency: Modified Program (IRF) Estimated Hrs Per Day: Other Shoder Filler/Case Mgmt Shoder Filler/Case Managemen: Discharge Planning Dietitian/Jira Developer Dietitian/Jira Developer to monitor nutritional status and make changes and/or recommendations as needed and work with speech pathology on dietary upgrades as the occur. Physician IPOC Medical Issues being managed closely and that require the 24 hour availability of a physician: Metastatic brain disease with generalized weakness and overall debility will require close monitoring for seizures and cerebral edema complications Medical Issues: Bowel/Bladder Function, DVT Prophylaxis, Falls Precautions, Fluid/Electrolyte/Nutrition Balance, Infection Protection, Pain Management Brief Synthesis of Preadmission Screen, Post-Admission Evaluation, and Therapy Evaluations: PT and OT will focus on safety and increase functional strength in order to return back to independent living Medical Prognosis: Fair Anticipated Length of Stay: 7 days FELIX GARCIA DO Nov 19, 2021 07:41
--- NOTE | 2021-11-19 07:41 | PM&R Progress Note ---
Subjective HPI/CC On Admission Date Seen by Provider: Nov 19, 2021 Time Seen by Provider: 12:30 Subjective/Events-last exam 11/19/2021: Patient doing well Pain is well controlled Cousin is here visiting at the bedside Voltaren gel will be placed on the thoracic spine where she has had pain since the CT scan done Checked meds labs Review of Systems General: Fatigue, Malaise Musculoskeletal: back pain Objective Exam Vital Signs Vital Signs Date Time Temp Pulse Resp B/P (MAP) Pulse Ox O2 Delivery O2 Flow Rate FiO2 11/19/21 20:19 37.5 55 16 121/59 (79) 97 Room Air Capillary Refill : General Appearance: No Apparent Distress, WD/WN, Chronically ill, Thin HEENT: PERRL/EOMI, Normal ENT Inspection, Pharynx Normal Neck: Full Range of Motion, Normal Inspection, Non Tender, Supple, Carotid Bruit Respiratory: Chest Non Tender, Lungs Clear, Normal Breath Sounds, No Accessory Muscle Use, No Respiratory Distress Cardiovascular: Regular Rate, Rhythm, No Edema, No Gallop, No JVD, No Murmur, Normal Peripheral Pulses Gastrointestinal: Normal Bowel Sounds, No Organomegaly, No Pulsatile Mass, Non Tender, Soft Back: Normal Inspection, No CVA Tenderness, No Vertebral Tenderness Extremity: Normal Capillary Refill, Normal Inspection, Normal Range of Motion, Non Tender, No Calf Tenderness, No Pedal Edema Neurologic/Psychiatric: Alert, Oriented x3, No Motor/Sensory Deficits, soaping machine back tender II- XII Norm as Tested, Depressed Affect, Motor Weakness (Right-sided) Skin: Normal Color, Warm/Dry Lymphatic: No Adenopathy Results/Procedures Lab Patient resulted labs reviewed. FIM Transfers Therapy Code Descriptions/Definitions Functional Nelson Measure: 0=Not Assessed/NA 4=Minimal Assistance 1=Total Assistance 5=Supervision or Setup 2=Maximal Assistance 6=Modified Nelson 3=Moderate Assistance 7=Complete IndependenceSCALE: Activities may be completed with or without assistive devices. 5-Tqfszhtxdm-nzqpmqm completes the activity by him/herself with no assistance from a helper. 5-Set-up or Clean-up Assistance-helper sets up or cleans up; patient completes activity. [place] assists only prior to or following the activity. 4-Supervision or Touching Assistance-helper provides verbal cues and/or touching/steadying and/or contact guard assistance as patient completes activity. Assistance may be provided throughout the activity or intermittently. 3-Partial/Moderate Assistance-helper does LESS THAN HALF the effort. [place] lifts, holds or supports trunk or limbs, but provides less than half the effort. 2-Substantial/Maximal Assistance-helper does MORE THAN HALF the effort. [place] lifts or holds trunk or limbs and provides more than half the effort. 7-Zossyfcbo-pfnope does ALL the effort. Patient does none of the effort to complete the activity. Or, the assistance of 2 or more helpers is required for the patient to complete the activity. If activity was not attempted, code reason: 7-Patient Refused. 9-Not Applicable-not attempted and the patient did not perform the activity before the current illness, exacerbation or injury. 10-Not Attempted due to Environmental Limitations-(lack of equipment, weather restraints, etc.). 88-Not Attempted due to Medical Conditions or Safety Concerns. ADL-Treatment Eating (QC): 4 (Supervision per clinical judgment due to pocketing of food.) Oral Hygiene (QC): 7 Shower/Bathe Self (QC): 7 Upper Body Dressing (QC): 7 Lower Body Dressing (QC): 7 On/Off Footwear (QC): 6 (IND) Toileting Hygiene (QC): 4 (SBA, pt able to manage hygiene and clothing management.) Assessment/Plan Assessment and Plan Assess & Plan/Chief Complaint Assessment: Metastatic brain disease Right-sided weakness Fall risk Breast cancer left in 2019 GERD Plan: Almas Metzger Inpatient rehab protocol 11/19/2021: Supportive care Pain control Voltaren gel (1) Breast cancer, left Qualifiers: Qualified Codes: C50.912 - Malignant neoplasm of unspecified site of left female breast (2) Brain tumor Status: Acute FELIX GARCIA DO Nov 19, 2021 07:41
[2021-11-19 08:23] VITALS: BP 104/69
[2021-11-19] MEDS: DOCUSATE SODIUM 100 MG (COLACE) CAP PO SCH ×2 (08:33→19:47)
[2021-11-19] MEDS: SENNA W/DOCUSATE (SENOKOT S) TABLET PO SCH ×2 (08:33→19:48)
[2021-11-19] MEDS: polyethylene glycoL POWDER 17 GM (MIRALAX) PACK PO SCH ×2 (08:33→19:47)
[2021-11-19] MEDS: PANTOPRAZOLE 40 MG (PROTONIX) TAB PO SCH (08:48)
[2021-11-19] MEDS: DICLOFENAC 1% GEL 100 GM (VOLTAREN) TUBE TOP SCH ×3 (13:34→19:49)
[2021-11-19 20:19] VITALS: BP 121/59
[2021-11-19] MEDS: MELATONIN 3 MG TABLET PO PRN (21:39)
[2021-11-19] MEDS: ALPRAZolam 0.25 MG (XANAX) TAB PO PRN (21:39)
--- NOTE | 2021-11-20 06:08 | PM&R Progress Note ---
Subjective HPI/CC On Admission Date Seen by Provider: Nov 20, 2021 Time Seen by Provider: 09:30 Subjective/Events-last exam 11/20/2021: Patient doing well Still very dizzy Appointment tomorrow regarding radiation plan Back pain still remains 11/19/2021: Patient doing well Pain is well controlled Cousin is here visiting at the bedside Voltaren gel will be placed on the thoracic spine where she has had pain since the CT scan done Checked meds labs Review of Systems General: Fatigue, Malaise Objective Exam Vital Signs Vital Signs Date Time Temp Pulse Resp B/P (MAP) Pulse Ox O2 Delivery O2 Flow Rate FiO2 11/20/21 20:00 95 Room Air 11/20/21 19:40 37.5 74 18 123/62 (82) Capillary Refill : General Appearance: No Apparent Distress, WD/WN, Chronically ill, Thin HEENT: PERRL/EOMI, Normal ENT Inspection, Pharynx Normal Neck: Full Range of Motion, Normal Inspection, Non Tender, Supple, Carotid Bruit Respiratory: Chest Non Tender, Lungs Clear, Normal Breath Sounds, No Accessory Muscle Use, No Respiratory Distress Cardiovascular: Regular Rate, Rhythm, No Edema, No Gallop, No JVD, No Murmur, Normal Peripheral Pulses Gastrointestinal: Normal Bowel Sounds, No Organomegaly, No Pulsatile Mass, Non Tender, Soft Back: Normal Inspection, No CVA Tenderness, No Vertebral Tenderness Extremity: Normal Capillary Refill, Normal Inspection, Normal Range of Motion, Non Tender, No Calf Tenderness, No Pedal Edema Neurologic/Psychiatric: Alert, Oriented x3, No Motor/Sensory Deficits, plant puller II- XII Norm as Tested, Depressed Affect, Motor Weakness (Right-sided) Skin: Normal Color, Warm/Dry Lymphatic: No Adenopathy Results/Procedures Lab Patient resulted labs reviewed. FIM Transfers Therapy Code Descriptions/Definitions Functional [place] Measure: 0=Not Assessed/NA 4=Minimal Assistance 1=Total Assistance 5=Supervision or Setup 2=Maximal Assistance 6=Modified [place] 3=Moderate Assistance 7=Complete IndependenceSCALE: Activities may be completed with or without assistive devices. 5-Yqqoybebly-abijoln completes the activity by him/herself with no assistance from a helper. 5-Set-up or Clean-up Assistance-helper sets up or cleans up; patient completes activity. [place] assists only prior to or following the activity. 4-Supervision or Touching Assistance-helper provides verbal cues and/or touching/steadying and/or contact guard assistance as patient completes activity. Assistance may be provided throughout the activity or intermittently. 3-Partial/Moderate Assistance-helper does LESS THAN HALF the effort. [place] lifts, holds or supports trunk or limbs, but provides less than half the effort. 2-Substantial/Maximal Assistance-helper does MORE THAN HALF the effort. [place] lifts or holds trunk or limbs and provides more than half the effort. 1-Ypvnnxpza-aidmma does ALL the effort. Patient does none of the effort to complete the activity. Or, the assistance of 2 or more helpers is required for the patient to complete the activity. If activity was not attempted, code reason: 7-Patient Refused. 9-Not Applicable-not attempted and the patient did not perform the activity before the current illness, exacerbation or injury. 10-Not Attempted due to Environmental Limitations-(lack of equipment, weather restraints, etc.). 88-Not Attempted due to Medical Conditions or Safety Concerns. ADL-Treatment Eating (QC): 4 (Supervision per clinical judgment due to pocketing of food.) Oral Hygiene (QC): 7 Shower/Bathe Self (QC): 7 Upper Body Dressing (QC): 7 Lower Body Dressing (QC): 7 On/Off Footwear (QC): 6 (IND) Toileting Hygiene (QC): 4 (SBA, pt able to manage hygiene and clothing management.) Assessment/Plan Assessment and Plan Assess & Plan/Chief Complaint Assessment: Metastatic brain disease Right-sided weakness Fall risk Breast cancer left in 2019 GERD Plan: Almas Metzger Inpatient rehab protocol 11/19/2021: Supportive care Pain control Voltaren gel 11/20/2021: Home medication evaluation Supportive care (1) Breast cancer, left Qualifiers: Qualified Codes: C50.912 - Malignant neoplasm of unspecified site of left female breast (2) Brain tumor Status: Acute FELIX GARCIA DO Nov 20, 2021 06:08
[2021-11-20] MEDS: PANTOPRAZOLE 40 MG (PROTONIX) TAB PO SCH (06:35)
[2021-11-20 07:15] VITALS: BP 113/67
[2021-11-20] MEDS: DOCUSATE SODIUM 100 MG (COLACE) CAP PO SCH ×2 (08:07→21:25)
[2021-11-20] MEDS: SENNA W/DOCUSATE (SENOKOT S) TABLET PO SCH ×2 (08:08→21:25)
[2021-11-20] MEDS: polyethylene glycoL POWDER 17 GM (MIRALAX) PACK PO SCH ×2 (08:08→21:28)
[2021-11-20] MEDS: DICLOFENAC 1% GEL 100 GM (VOLTAREN) TUBE TOP SCH ×4 (08:09→23:27)
--- NOTE | 2021-11-20 10:28 | ST Cognitive Linguistic Eval ---
Speech Evaluation-General Medical Diagnosis Brain Mass Onset Date: Nov 18, 2021 Therapy Diagnosis Therapy Diagnosis: Intact Neurocognitive Skills Precautions Precautions: Fall Precautions/Isolations: Fall Prevention, Standard Precautions Referral Referring Physician: Dr. Chayo Dickey Reason for Referral: Evaluation/Treatment Medical History Current History The patient is a 66-year-old female with a past medical history of breast cancer (left-side), who was transferred to [facility] for aggressive rehabilitation to strengthen and decrease falls following a diagnosis of brain masses consistent with metastatic brain disease. Reviewed History: Yes Social History Current Living Status: Alone Speech PLF-Current Status Prior Level of Function The patient denied any concerns with her speech, language, or cognition. Subjective The patient was seated upright in her bed, awake and alert upon entrance to her room by the clinician. The patient greeted the clinician appropriately and was agreeable to participation in the cognitive linguistic assessment. Language Eval: Auditory Comprehends Simple Yes/No Ques: Functional Indent/Objects Multiple Cheng: Functional Ident/Pics in Multiple Cheng: Functional Follows 1-Step Commands: Functional Follows Complex Directions: Functional Follows General Conversations: Functional Language Eval: Verbal Language Completes Spontaneous Greeting: Functional Produces Auto, Serial Info: Functional Imitates Simple Words/Phrases: Functional Word Finding: Functional Requests Basic Needs: Functional States Basic Personal Info: Functional Expresses Complex Ideas: Functional Language Evaluation: Reading Follows Simple Written Direct: Functional Language Evaluation: Writing Writes to Simple Dictation: Functional Cognitive Patient Orientation The patient was independently oriented to self, location, month, day of week, date and year. Objective Cognitive Domain Attention: WNL Memory: WNL Problem Solving: Functional Executive Functions: WNL Visuospatial Skills: WNL Composite Severity Rating: WNL Clock Drawing Severity Rating: WNL Objective Formal/Standardized Tests [facility] Mental Status Exam (UMS) Results The patient demonstrated a result of +28/30 on the SLUMS correlating to neurocognitive skills within normal limits. Oral Motor/Speech Production The patient does not display overt dysarthria or apraxia of speech. The patient remains 100% intelligible in known and unknown contexts. Impression The patient demonstrated a result of +28/30 on the SLUMS correlating to neurocognitive skills within normal limits. The patient received two points lower than 30 due to a subtraction error during mental math. Speech Patient Assess Expression of Ideas/Wants: Expression (4) Understanding Verbal Content: Understands (4) Brief Interview-Mental Status: Yes Repetition of Three Words: Three (3) Temporal Orientation: Year: Correct (3) Temporal Orientation: Month: Accurate within 5 days(2) Temporal Orientation: Day: Correct (1) Recall : Wear to say "Sock": Yes, no cue required (2) Recall : Color: Yes, no cue required (2) Recall : Bed: Yes, no cue required (2) Memory/Recall Ability: Current season, Location of own room, Staff names and faces, That he or she is in a hsp/hsp unit Speech-Plan Treatment Plan Speech Therapy Treatment Plan: Discontinue ST (Cognitive, Dysphagia to be evaluated on 11/21/21) Treatment Duration: Nov 20, 2021 Frequency: 1 time per week Estimated Hrs Per Day: .5 hour per day Rehab Potential: Fair Pt/Family Agrees to Plan: Yes Safety Risks/Education Teaching Recipient: Patient Teaching Methods: Discussion Response to Teaching: Verbalize Understanding Education Topics Provided: BONNIEUMS results, Plan of Care Time Speech Therapy Time In: 11:00 Speech Therapy Time Out: 11:30 Total Billed Time: 30 Billed Treatment Time 1, ROGER PHAN [facility] Nov 20, 2021 10:28
--- NOTE | 2021-11-20 10:29 | Occupational Ther Daily Note ---
OT Current Status-Daily Note Subjective Pt reports back pain. No numerical value given. Pt reports nursing staff have been applying Voltaren gel which has helped. Appearance Pt left sitting on side of bed, all needs within reach. Mental Status/Objective Patient Orientation: Person, Place, Situation Attachments: IV ADL-Treatment Therapy Code Descriptions/Definitions Functional [place] Measure: 0=Not Assessed/NA 4=Minimal Assistance 1=Total Assistance 5=Supervision or Setup 2=Maximal Assistance 6=Modified [place] 3=Moderate Assistance 7=Complete IndependenceSCALE: Activities may be completed with or without assistive devices. 8-Zmimjkydap-bfqsell completes the activity by him/herself with no assistance from a helper. 5-Set-up or Clean-up Assistance-helper sets up or cleans up; patient completes activity. [place] assists only prior to or following the activity. 4-Supervision or Touching Assistance-helper provides verbal cues and/or touching/steadying and/or contact guard assistance as patient completes activity. Assistance may be provided throughout the activity or intermittently. 3-Partial/Moderate Assistance-helper does LESS THAN HALF the effort. [place] lifts, holds or supports trunk or limbs, but provides less than half the effort. 2-Substantial/Maximal Assistance-helper does MORE THAN HALF the effort. [place] lifts or holds trunk or limbs and provides more than half the effort. 4-Tgksldmiq-bexuiv does ALL the effort. Patient does none of the effort to complete the activity. Or, the assistance of 2 or more helpers is required for the patient to complete the activity. If activity was not attempted, code reason: 7-Patient Refused. 9-Not Applicable-not attempted and the patient did not perform the activity before the current illness, exacerbation or injury. 10-Not Attempted due to Environmental Limitations-(lack of equipment, weather restraints, etc.). 88-Not Attempted due to Medical Conditions or Safety Concerns. Eating (QC): 6 Oral Hygiene (QC): 6 Shower/Bathe Self (QC): 5 Upper Body Dressing (QC): 6 Lower Body Dressing (QC): 6 On/Off Footwear: 6 Toileting Hygiene (QC): 6 Toilet Transfer (QC): 6 Pt reports that she had already washed up prior to OT arrival. Education on purpose of task, pt then agreeable. Post set up, pt able to reach/wash all body parts without assist. She retrieved and donned all clothing independently while sitting on the EOB. Pt appears slightly SOB post activity but denies any signs of fatigue. Pt already aware of energy conservation strategies and able to describe them to OT. SBA/supervision as she ambulated within the room, NO AD. No LOB. Pt reports loss of R peripheral vision. Education on compensating and scanning techniques. Pt sat to organize multiple bags, min verbal cues for redirection back to task as pt is very talkative. Pt reports she has been getting up to use bathroom without staff present. OT reminds/educates pt on safety/fall policy and use of call light. Reinforcement will be needed. Education OT Patient Education: Energy conservation, Modified ADL techniques, Progress toward Goal/Update tx plan, Purpose of tx/functional activities, Safety issues Teaching Recipient: Patient Teaching Methods: Discussion Response to Teaching: Verbalize Understanding, Return Demonstration OT Short Term Goals Short Term Goals Time Frame: Nov 29, 2021 Eatin Oral hygiene: 5 Shower/bathe self: 5 Lower body dressin OT [facility] Goals Elementary Vocal Music Teacher Goals Time Frame: Dec 09, 2021 Eating (QC): 6 Oral Hygiene (QC): 6 Toileting Hygiene (QC): 6 Shower/Bathe Self (QC): 6 Upper Body Dressing (QC): 6 Lower Body Dressing (QC): 6 On/Off Footwear (QC): 6 Additional Goals: 1-Demonstrate ADL Tasks, 2-Verbalize Understanding, 3- ImproveStrength/Kaylynn 1=Demonstrate adherence to instructed precautions during ADL tasks. 2=Patient will verbalize/demonstrate understanding of assistive d evices/modifications for ADL. 3=Patient will improve strength/tolerance for activity to enable patient to perform ADL's. OT Education/Plan Problem List/Assessment Assessment: Decreased Activ Tolerance, Decreased Safety Aware, Decreased UE Strength, Impaired I ADL's, Visual-Perceptual Deficit Discharge Recommendations Plan/Recommendations: Continue POC Treatment Plan/Plan of Care Treatment,Training & Education: Yes Patient would benefit from OT for education, treatment and training to promote independence in ADL's, mobility, safety and/or upper extremity function for ADL's. Plan of Care: ADL Retraining, Functional Mobility, Group Exercise/Act as Ind, UE Funct Exercise/Act Treatment Duration: Dec 09, 2021 Frequency: At least 5 of 7 days/Wk (IRF) Estimated Hrs Per Day: 1.5 hours per day Agreement: Yes Rehab Potential: Fair Time/GCodes Start Time: 08:55 Stop Time: 10:10 Total Time Billed (hr/min): 75 Billed Treatment Time 1 visit ADL x4 (60 min) FA (15 min) Letty Contreras OT Nov 20, 2021 10:29
[2021-11-20] MEDS ORDERED: ALPR0.254 PO (10:57)
[2021-11-20] MEDS ORDERED: LETR2.5T PO (10:57)
[2021-11-20] MEDS ORDERED: ESCI-2 PO (10:57)
--- NOTE | 2021-11-20 10:59 | Physical Therapy Evaluation ---
PT Evaluation-General Medical Diagnosis Admission Date Nov 18, 2021 at 09:31 Medical Diagnosis: brain masses Onset Date: Nov 18, 2021 Therapy Diagnosis Therapy Diagnosis: impaired balance, endurance Height/Weight Height (Feet): 5 Height (Inches): 6.00 Weight (Pounds): 160 Weight (Ounces): 2.0 Precautions Precautions/Isolations: Seizure, Fall Prevention, Standard Precautions Referral Physician: Chayo Dickey DO Reason for Referral: Evaluation/Treatment Medical History Pertinent Medical History: GERD Additional Medical History osteopenia (per patient) Current History meningioma resection, breast cancer (2019 with L mastectomy). Brain tumor removed 2001. Presented to ED for generalized weakness, nausea, and abdominal pain for 4 days. Pt transferred to ARU 11/18/21 for skilled therapy and medication management. Social History Home: Single Level Current Living Status: Alone Entry Into Home: Stairs With Railing PT Steps Into Home: 3 Prior Prior Level of Function SCALE: Activities may be completed with or without assistive devices. 9-Qkvflewnpq-okzuelu completes the activity by him/herself with no assistance from a helper. 5-Set-up or Clean-up Assistance-helper sets up or cleans up; patient completes activity. [place] assists only prior to or following the activity. 4-Supervision or Touching Assistance-helper provides verbal cues and/or touching/steadying and/or contact guard assistance as patient completes activity. Assistance may be provided throughout the activity or intermittently. 3-Partial/Moderate Assistance-helper does LESS THAN HALF the effort. [place] lifts, holds or supports trunk or limbs, but provides less than half the effort. 2-Substantial/Maximal Assistance-helper does MORE THAN HALF the effort. [place] lifts or holds trunk or limbs and provides more than half the effort. 1-Yizoetdji-lzhizm does ALL the effort. Patient does none of the effort to compl ete the activity. Or, the assistance of 2 or more helpers is required for the patient to complete the activity. If activity was not attempted, code reason: 7-Patient Refused. 9-Not Applicable-not attempted and the patient did not perform the activity before the current illness, exacerbation or injury. 10-Not Attempted due to Environmental Limitations-(lack of equipment, weather restraints, etc.). 88-Not Attempted due to Medical Conditions or Safety Concerns. Bed Mobility: 6 Transfers (B,C,W/C): 6 Gait: 6 Stairs: 6 Indoor Mobility (Ambulation): Independent Stairs: Independent PT Evaluation-Current Subjective Patient in bed pre tx, agrees to PT, has minor, unrated pain in right lateral calf. Pt/Family Goals to be independent at home Objective Patient Orientation: Person, Place, Situation ROM/Strength ROM Lower Extremities WNL Strength Lower Extremities LLE (hip flexion 3+/5, knee flexion 4-/5, knee extension 4+/5, dorsiflexion 4+/5), RLE (hip flexion 3+/5, knee flexion 4-/5, knee extension 4+/5, dorsiflexion 4+/5) Neuromuscular (Tone, Coordination, Reflexes) Patient states she has occasional impaired peripheral vision on the right side, when tested it is intact today. Sensory Vision: Functional Hearing: Functional Sensation Right Lower Extremit: Intact Sensation Left Lower Extremity: Intact Transfers Roll Left & Right (QC): 6 Sit to Lying (QC): 6 Lying to Sitting/Side of Bed(Q: 6 Sit to Stand (QC): 4 Chair/Imw-au-Odheq Xfer(QC): 4 Toilet Transfer (QC): 4 Car Transfer (QC): 4 Patient performs rolling and supine <-> sit with independence, sit <-> stand and transfers SBA, car transfer SBA. Gait Does the Patient Walk?: Yes Mode of Locomotion: Walk Anticipated Mode of Locomotion: Walk Walk 10 feet (QC): 4 Walk 50 ft with 2 Turns(QC): 4 Walk 150 ft (QC): 4 Walking 10ft/uneven surface-QC: 4 Distance: 300', 120' Gait Assistive Device: None Comments/Gait Description Patient can ambulate 300' without an assistive device with SBA (including 50' with at least 2 turns of 90 degrees and 10' over an uneven surface), gait is slow but steady. Wheelchair Training Wheel 50 ft with 2 turns (QC): 9 Wheel 150 ft (QC): 9 Stairs #of Steps: 12 1 Step (curb) (QC): 4 4 Steps (QC): 4 12 Steps (QC): 4 Patient can go up and down 12 steps using 1 handrail with SBA Balance Sitting Static: Normal Sitting Dynamic: Normal Standing Static: Normal Standing Dynamic: Good Picking up an Object (QC): 4 Treatment NuStep level 6 for 15 min. Patient also performed a [place] Balance Scale test and scored 49/56 indicating she may needs to use a cane especially over uneven surfaces or outside. Based on her balance score she should be ok to be independent in her room and go to the bathroom by herself but she has a 95 Morrison falls score which is a high risk so we will not recommend that at this time. Assessment/Needs Patient in bed post tx with nurse call, phone, tray, all needs met. Patient has impaired mobility, balance, strength, and endurance. However, she ambulates without an assistive device. Rehab Potential: Fair PT Short Term Goals Short Term Goals Time Frame: Nov 27, 2021 Roll Left & Right: 6 Sit to lyin Lying to sitting on side of be: 6 Sit to stand: 5 Chair/mao-sb-aieyl transfer: 5 Walk 10 feet: 5 Walk 50 feet with two turns: 5 Walk 150 feet: 5 PT Human Resources Talent Manager Goals Human Resources Talent Manager Goals PT Human Resources Talent Manager Goals Time Frame: December 11, 2021 Roll Left & Right (QC): 6 Sit to Lying (QC): 6 Lying-Sitting on Side/Bed(QC): 6 Sit to Stand (QC): 6 Chair/Wvt-hu-Uweif Xfer(QC): 6 Toilet Transfer (QC): 6 Car Transfer (QC): 6 Does the Patient Walk: Yes Walk 10 feet (QC): 6 Walk 50ft with 2 Turns (QC): 6 Walk 150 ft (QC): 6 Walking 10ft on Uneven Surface: 6 1 Step (curb) (QC): 6 4 Steps (QC): 6 12 Steps (QC): 6 Picking up an Object (QC): 6 Wheel 50 feet with 2 turns (QC: 9 Wheel 150 feet: 9 PT Plan Problem List Problem List: Activity Tolerance, Functional Strength, Safety, Balance, Gait, T KYLEE ray Treatment/Plan Treatment Plan: Continue Plan of Care Treatment Plan: Education, Functional Activity Kaylynn, Functional Strength, Gait, Safety, Therapeutic Exercise, Transfers Treatment Duration: December 11, 2021 Frequency: At least 5 of 7 days/Wk (IRF) Estimated Hrs Per Day: 1.5 hours per day Patient and/or Family Agrees t: Yes Safety Risks/Education Patient Education: Gait Training, Transfer Techniques, Correct Positioning, Safety Issues Teaching Recipient: Patient Teaching Methods: Demonstration, Discussion Response to Teaching: Reinforcement Needed Discharge Recommendations Plan Patient will perform bed mobility and transfer training, balance and endurance training, functional strengthening, stair training, gait training, and e ducation, to improve functional mobility and independence at home. Therapy Discharge Recommendati: Home & Family, Post Acute PT Time/GCodes Time In: 1015 Time Out: 1115 Total Billed Treatment Time: 60 Total Billed Treatment 1 visit EVM 15' NM 15' EX 15' FA 15' ALEXYS DIAZ PT Nov 20, 2021 10:59
--- NOTE | 2021-11-20 11:23 | Progress Note ---
GARRY CULLEN MED STUDENT 11/20/21 1123: Progress Note Karen states that there has not been much progress. She is still dizzy when sitting up in the chair. She is most concerned with her lumbar pain that seems to move around. Per PT, pt denied any treatment on Saturday, November 18. Per OT she reports getting up and using the restroom without notifying staff beforehand. She is able to dress herself without assistance. CHAYO DICKEY DO 11/21/21 0534: Supervisory-Addendum Brief Verification & Attestation Participated in pt care: history, MDM, physical Personally performed: exam, history, MDM, supervision of care Care discussed with: Medical Student Procedures: n/a Results interpretation: Verified all documentation Verification and Attestation of Medical Student E/M Service A medical student performed and documented this service in my presence. I reviewed and verified all information documented by the medical student and made modifications to such information, when appropriate. I personally performed the physical exam and medical decision making. Chayo Dickey, Nov 21, 2021,05:34 GARRY CULLEN MED STUDENT Nov 20, 2021 11:23 CHAYO DICKEY DO Nov 21, 2021 05:34
--- NOTE | 2021-11-20 13:20 | Physical Therapy Daily Note ---
PT Daily Note-Current Subjective Patient had just finished lunch and was ready to start treatment. Pain Location: No Pain Reported Mental Status Patient Orientation: Person, Place, Situation Transfers SCALE: Activities may be completed with or without assistive devices. 8-Odaxuadegh-nicedzd completes the activity by him/herself with no assistance from a helper. 5-Set-up or Clean-up Assistance-helper sets up or cleans up; patient completes activity. [place] assists only prior to or following the activity. 4-Supervision or Touching Assistance-helper provides verbal cues and/or touching/steadying and/or contact guard assistance as patient completes activity. Assistance may be provided throughout the activity or intermittently. 3-Partial/Moderate Assistance-helper does LESS THAN HALF the effort. [place] lifts, holds or supports trunk or limbs, but provides less than half the effort. 2-Substantial/Maximal Assistance-helper does MORE THAN HALF the effort. [place] lifts or holds trunk or limbs and provides more than half the effort. 2-Wyvydxehi-xcffkj does ALL the effort. Patient does none of the effort to comp lete the activity. Or, the assistance of 2 or more helpers is required for the patient to complete the activity. If activity was not attempted, code reason: 7-Patient Refused. 9-Not Applicable-not attempted and the patient did not perform the activity before the current illness, exacerbation or injury. 10-Not Attempted due to Environmental Limitations-(lack of equipment, weather restraints, etc.). 88-Not Attempted due to Medical Conditions or Safety Concerns. Sit to Stand (QC): 6 Weight Bearing Full Weight Bearing Full Weight Bearing Gait Training Does the Patient Walk?: Yes Distance: 700' Walk 10 feet (QC): 6 Walk 50 ft with 2 Turns(QC): 6 Walk 150 ft (QC): 6 Gait Assistive Device: None Wheelchair Training Does the Pt Use a Wheelchair?: No Treatments Ambulation Assessment Current Status: Good Progress Patient's walking speed is a little slow, but maintains safety and can navigate easily throughout the [place] without a walking aid. PT Short Term Goals Short Term Goals Time Frame: Nov 27, 2021 Roll Left & Right: 6 Sit to lyin Lying to sitting on side of be: 6 Sit to stand: 5 Chair/tpa-xp-vwpfl transfer: 5 Walk 10 feet: 5 Walk 50 feet with two turns: 5 Walk 150 feet: 5 PT Penitentiary Goals Heavy Equipment Operator/[place] Goals PT Penitentiary Goals Time Frame: December 11, 2021 Roll Left & Right (QC): 6 Sit to Lying (QC): 6 Lying-Sitting on Side/Bed(QC): 6 Sit to Stand (QC): 6 Chair/Cab-ej-Ikokd Xfer(QC): 6 Toilet Transfer (QC): 6 Car Transfer (QC): 6 Does the Patient Walk: Yes Walk 10 feet (QC): 6 Walk 50ft with 2 Turns (QC): 6 Walk 150 ft (QC): 6 Walking 10ft on Uneven Surface: 6 1 Step (curb) (QC): 6 4 Steps (QC): 6 12 Steps (QC): 6 Picking up an Object (QC): 6 Wheel 50 feet with 2 turns (QC: 9 Wheel 150 feet: 9 PT Plan Problem List Problem List: Activity Tolerance, Functional Strength, Safety, Balance, Gait Treatment/Plan Treatment Plan: Continue Plan of Care Treatment Plan: Education, Functional Activity Kaylynn, Functional Strength, Gait, Safety, Therapeutic Exercise, Transfers Treatment Duration: December 11, 2021 Frequency: At least 5 of 7 days/Wk (IRF) Estimated Hrs Per Day: 1.5 hours per day Patient and/or Family Agrees t: Yes Safety Risks/Education Patient Education: Gait Training, Safety Issues Teaching Recipient: Patient Teaching Methods: Discussion Response to Teaching: Verbalize Understanding Time/GCodes Time In: 1300 Time Out: 1315 Total Billed Treatment Time: 15 Total Billed Treatment 1 visit FA 15min ALEXYS DIAZ PT Nov 20, 2021 13:20
[2021-11-20 19:40] VITALS: BP 123/62
[2021-11-20] MEDS ORDERED: NON-FORMULARY MEDICATION 1 EA EA (Escitalopram Oxalate 10 MG) PO SCH (21:00)
[2021-11-20] MEDS: ALPRAZolam 0.25 MG (XANAX) TAB PO PRN (21:43)
[2021-11-20] MEDS: MELATONIN 3 MG TABLET PO PRN (21:43)
[2021-11-21] MEDS: PANTOPRAZOLE 40 MG (PROTONIX) TAB PO SCH (06:23)
--- NOTE | 2021-11-21 06:23 | PM&R Progress Note ---
Subjective HPI/CC On Admission Date Seen by Provider: Nov 21, 2021 Time Seen by Provider: 09:15 Subjective/Events-last exam 11/21/2021: Patient ready to go to appointment Plan for radiation treatment Supportive care continues Still feels a bit dizzy 11/20/2021: Patient doing well Still very dizzy Appointment tomorrow regarding radiation plan Back pain still remains 11/19/2021: Patient doing well Pain is well controlled Cousin is here visiting at the bedside Voltaren gel will be placed on the thoracic spine where she has had pain since the CT scan done Checked meds labs Review of Systems General: Fatigue, Malaise Objective Exam Vital Signs Vital Signs Date Time Temp Pulse Resp B/P (MAP) Pulse Ox O2 Delivery O2 Flow Rate FiO2 11/21/21 20:38 37.6 66 18 138/84 (102) 96 Room Air Capillary Refill : General Appearance: No Apparent Distress, WD/WN, Chronically ill, Thin HEENT: PERRL/EOMI, Normal ENT Inspection, Pharynx Normal Neck: Full Range of Motion, Normal Inspection, Non Tender, Supple, Carotid Bruit Respiratory: Chest Non Tender, Lungs Clear, Normal Breath Sounds, No Accessory Muscle Use, No Respiratory Distress Cardiovascular: Regular Rate, Rhythm, No Edema, No Gallop, No JVD, No Murmur, Normal Peripheral Pulses Gastrointestinal: Normal Bowel Sounds, No Organomegaly, No Pulsatile Mass, Non Tender, Soft Back: Normal Inspection, No CVA Tenderness, No Vertebral Tenderness Extremity: Normal Capillary Refill, Normal Inspection, Normal Range of Motion, Non Tender, No Calf Tenderness, No Pedal Edema Neurologic/Psychiatric: Alert, Oriented x3, No Motor/Sensory Deficits, sustainability project coordinator II- XII Norm as Tested, Depressed Affect, Motor Weakness (Right-sided) Skin: Normal Color, Warm/Dry Lymphatic: No Adenopathy Results/Procedures Lab Patient resulted labs reviewed. FIM Transfers Therapy Code Descriptions/Definitions Functional [place] Measure: 0=Not Assessed/NA 4=Minimal Assistance 1=Total Assistance 5=Supervision or Setup 2=Maximal Assistance 6=Modified [place] 3=Moderate Assistance 7=Complete IndependenceSCALE: Activities may be completed with or without assistive devices. 6-Nlojtzriyr-sznllhj completes the activity by him/herself with no assistance from a helper. 5-Set-up or Clean-up Assistance-helper sets up or cleans up; patient completes activity. [place] assists only prior to or following the activity. 4-Supervision or Touching Assistance-helper provides verbal cues and/or touching/steadying and/or contact guard assistance as patient completes activity. Assistance may be provided throughout the activity or intermittently. 3-Partial/Moderate Assistance-helper does LESS THAN HALF the effort. [place] lifts, holds or supports trunk or limbs, but provides less than half the effort. 2-Substantial/Maximal Assistance-helper does MORE THAN HALF the effort. [place] lifts or holds trunk or limbs and provides more than half the effort. 4-Joaagxnzh-gpqqqb does ALL the effort. Patient does none of the effort to complete the activity. Or, the assistance of 2 or more helpers is required for the patient to complete the activity. If activity was not attempted, code reason: 7-Patient Refused. 9-Not Applicable-not attempted and the patient did not perform the activity before the current illness, exacerbation or injury. 10-Not Attempted due to Environmental Limitations-(lack of equipment, weather restraints, etc.). 88-Not Attempted due to Medical Conditions or Safety Concerns. Roll Left to Right (QC): 6 Sit to Lying (QC): 6 Sit to Stand (QC): 6 Chair/Foj-kt-Ovopx Xfer(QC): 4 Car Transfer (QC): 4 Gait Training Does the Patient Walk?: Yes Distance: 700' Walk 10 feet (QC): 6 Walk 50 ft with 2 Turns(QC): 6 Walk 150 ft (QC): 6 Walking 10ft/uneven surface-QC: 4 Gait Assistive Device: None Wheelchair Training Does the Pt Use a Wheelchair?: No Wheel 50 ft with 2 turns (QC): 9 Wheel 150 ft (QC): 9 Stair Training #of Steps: 12 1 Step (curb) (QC): 4 4 Steps (QC): 4 12 Steps (QC): 4 Balance Picking up an Object (QC): 4 ADL-Treatment Eating (QC): 6 Oral Hygiene (QC): 6 Shower/Bathe Self (QC): 5 Upper Body Dressing (QC): 6 Lower Body Dressing (QC): 6 On/Off Footwear (QC): 6 Toileting Hygiene (QC): 6 Toilet Transfer (QC): 6 Assessment/Plan Assessment and Plan Assess & Plan/Chief Complaint Assessment: Metastatic brain disease Right-sided weakness Fall risk Breast cancer left in 2019 GERD Plan: Keppra Decadron Inpatient rehab protocol 11/19/2021: Supportive care Pain control Voltaren gel 11/20/2021: Home medication evaluation Supportive care 11/21/2021: Oncology appointment today Wean off Decadron (1) Breast cancer, left Qualifiers: Qualified Codes: C50.912 - Malignant neoplasm of unspecified site of left female breast (2) Brain tumor Status: Acute FELIX GARCIA DO Nov 21, 2021 06:23
[2021-11-21 08:00] VITALS: BP 116/65
[2021-11-21] MEDS: polyethylene glycoL POWDER 17 GM (MIRALAX) PACK PO SCH ×2 (08:01→20:06)
[2021-11-21] MEDS: DOCUSATE SODIUM 100 MG (COLACE) CAP PO SCH ×2 (08:01→20:06)
[2021-11-21] MEDS: DICLOFENAC 1% GEL 100 GM (VOLTAREN) TUBE TOP SCH ×4 (08:01→21:38)
[2021-11-21] MEDS: LETROZOLE 2.5 MG (FEMARA) TAB PO SCH (08:04)
[2021-11-21] MEDS: SENNA W/DOCUSATE (SENOKOT S) TABLET PO SCH ×2 (08:06→20:06)
--- NOTE | 2021-11-21 08:39 | Occupational Ther Daily Note ---
OT Current Status-Daily Note Subjective Pt reports feeling slightly nauseated at OT arrival, agreeable to treatment. Per nursing, pt's niece is supposed to pick patient up for appointment, however pt reports that her niece is to meet her at her appointment and transportation is to be arranged through the hospital. Niece was called and clarifies that she will be meeting patient at her appointment in [place]. RN notified to contact social work. Appearance Pt left sitting EOB, all needs within reach. Mental Status/Objective Patient Orientation: Person, Place, Situation Attachments: IV ADL-Treatment Therapy Code Descriptions/Definitions Functional [place] Measure: 0=Not Assessed/NA 4=Minimal Assistance 1=Total Assistance 5=Supervision or Setup 2=Maximal Assistance 6=Modified [place] 3=Moderate Assistance 7=Complete IndependenceSCALE: Activities may be completed with or without assistive devices. 2-Aaisvedxmf-jzobkfu completes the activity by him/herself with no assistance from a helper. 5-Set-up or Clean-up Assistance-helper sets up or cleans up; patient completes activity. [place] assists only prior to or following the activity. 4-Supervision or Touching Assistance-helper provides verbal cues and/or touching/steadying and/or contact guard assistance as patient completes activity. Assistance may be provided throughout the activity or intermittently. 3-Partial/Moderate Assistance-helper does LESS THAN HALF the effort. [place] lifts, holds or supports trunk or limbs, but provides less than half the effort. 2-Substantial/Maximal Assistance-helper does MORE THAN HALF the effort. [place] lifts or holds trunk or limbs and provides more than half the effort. 5-Guyxbqsuk-zhtqjr does ALL the effort. Patient does none of the effort to complete the activity. Or, the assistance of 2 or more helpers is required for the patient to complete the activity. If activity was not attempted, code reason: 7-Patient Refused. 9-Not Applicable-not attempted and the patient did not perform the activity before the current illness, exacerbation or injury. 10-Not Attempted due to Environmental Limitations-(lack of equipment, weather restraints, etc.). 88-Not Attempted due to Medical Conditions or Safety Concerns. Eating (QC): 6 Oral Hygiene (QC): 6 Upper Body Dressing (QC): 6 Lower Body Dressing (QC): 6 On/Off Footwear: 6 Toileting Hygiene (QC): 6 Toilet Transfer (QC): 6 Pt retrieved and donned all clothing independently. She stood at the sink to wash her upper body and hair and perform all grooming tasks without assist. Pt is very talkative and requires several redirection cues for time management. Other Treatment Pt ambulated around room to organize/clean up belongings, no LOB or cues for safety required. No AD utilized. Pt does report slight fatigue at end of activity. Education OT Patient Education: Energy conservation, Progress toward Goal/Update tx plan, Purpose of tx/functional activities Teaching Recipient: Patient Teaching Methods: Discussion Response to Teaching: Verbalize Understanding, Return Demonstration OT Short Term Goals Short Term Goals Time Frame: Nov 29, 2021 Eatin Oral hygiene: 5 Shower/bathe self: 5 Lower body dressin OT Residential Goals Cook Roast Goals Time Frame: Dec 09, 2021 Eating (QC): 6 Oral Hygiene (QC): 6 Toileting Hygiene (QC): 6 Shower/Bathe Self (QC): 6 Upper Body Dressing (QC): 6 Lower Body Dressing (QC): 6 On/Off Footwear (QC): 6 Additional Goals: 1-Demonstrate ADL Tasks, 2-Verbalize Understanding, 3- ImproveStrength/Kaylynn 1=Demonstrate adherence to instructed precautions during ADL tasks. 2=Patient will verbalize/demonstrate understanding of assistive devices/modifications for ADL. 3=Patient will improve strength/tolerance for activity to enable patient to perform ADL's. OT Education/Plan Problem List/Assessment Assessment: Decreased Activ Tolerance, Decreased UE Strength, Impaired I ADL's Discharge Recommendations Plan/Recommendations: Continue POC Therapy Discharge Recommendati: Home & Family Treatment Plan/Plan of Care Treatment,Training & Education: Yes Patient would benefit from OT for education, treatment and training to promote independence in ADL's, mobility, safety and/or upper extremity function for ADL's. Plan of Care: ADL Retraining, Functional Mobility, Group Exercise/Act as Ind, UE Funct Exercise/Act Treatment Duration: Dec 09, 2021 Frequency: At least 5 of 7 days/Wk (IRF) Estimated Hrs Per Day: 1.5 hours per day Agreement: Yes Rehab Potential: Fair Time/GCodes Start Time: 07:28 Stop Time: 08:45 Total Time Billed (hr/min): 77 Billed Treatment Time 1 visit ADL x3 (45 min) FA x2 (32 min) Letty Contreras OT Nov 21, 2021 08:39
--- NOTE | 2021-11-21 09:36 | Physical Therapy Progress Note ---
Therapy Progress Note Patient sitting EOB pre tx, has an appointment in [place] this morning. Patient refuses tx before getting picked up for her appointment. Encouraged patient to participate and explained the benefits of therapy. She continues to refuse and states she will try therapy after she gets back. ALEXYS DIAZ PT Nov 21, 2021 09:35
--- NOTE | 2021-11-21 11:10 | ST Dysphagia Evaluation ---
Speech Evaluation-General Medical Diagnosis Brain Mass Onset Date: Nov 18, 2021 Therapy Diagnosis Therapy Diagnosis: Intact Oropharyngeal Swallow Precautions Precautions: Fall, Aspiration Precautions/Isolations: Aspiration, Fall Prevention, Standard Precautions Referral Referring Physician: Dr. Chayo Dickey Reason for Referral: Evaluation/Treatment Medical History Pertinent Medical History: GERD Current History The patient is a 66-year-old female with a past medical history of breast cancer (left-side), who was transferred to [facility] for aggressive rehabilitation to strengthen and decrease falls following a diagnosis of brain masses consistent with metastatic brain disease. Reviewed History: Yes Social History Current Living Status: Alone Speech PLF/Current-Dysphagia Prior Level of Function The patient consumes a regular diet consistency with thin liquids. Upon arrival, the patient's documents stated "need for ST due to pocketing." The clinician and patient discussed the "pocketing" impairment to which the patient currently denied. Per patient, the pocketing was secondary to dental work and teeth extractions. The physician wanted to ensure material was not lodged in the extracted tooth region. The patient used a mirror to help her increase awareness of pocketing and impro ve consistent removal. Additionally, the patient stated she "drooled" for a couple of weeks which "made them think I had a stroke." The patient denied continued drooling or sensation differences in the left or right labial or buccal areas. Subjective The patient was seated upright on the edge of her bed, awake and alert upon entrance to her room by the clinician. The patient greeted the clinician appropriately and was agreeable to participation in the clinical bedside swallowing evaluation. Cognitive Status Patient Orientation: Person, Place, Time Oral Motor Skills Dentition: Natural Current Food Consistancy: Regular, Thin Liquids Ability to Follow Directions: Excellent Oral Expression Ability: No Impairment Voice Voice Phonatory-Based Quality: Normal Voice Pitch: Normal Voice Loudness: Normal Face Facial Symmetry: Symmetrical Oral-Facial Assessment Oral-Facial Dentition: Normal Labial Seal Description: Normal Smile: Normal Puff Cheeks: Normal Lingual Protrusion: Normal Lingual ROM: Normal Lingual Strength: Normal Volitional Dry Swallow: Yes Voluntary Cough: Yes Can Clear Throat Volitionally: Yes Productive Cough: Yes Productive Throat Clear: Yes Dysphagia Evaluation Consistencies Presented: Regular, Thin Liquid, Pureed The patient does not display oral dysphagia characteristics. The patient independently wipes her mouth following the swallow with a tissue which she attributes to the period where she "drooled." Pharyngeal swallowing impairments were not present during the evaluation. Dietary Recommendations: Regular Liquid Recommendations: Thin Recommendations: - Regular consistency diet with thin liquids, as tolerated. - Upright and alert for P.O. intake. - Small, single bites and sips. - Alternate solids and liquids on a 1:1 ratio, as needed. - Assess for pocketing (left), as necessary. - Monitor for s/s of suspected aspiration with P.O. intake. If demonstrated, contact speech pathology. Dysphagia Evaluation Summary The patient demonstrated an intact oropharyngeal swallow. Overt s/s of suspected aspiration were not demonstrated throughout the evaluation. Speech-Plan Treatment Plan Speech Therapy Treatment Plan: Discontinue ST Treatment Duration: Nov 20, 2021 Frequency: 1 time per week Estimated Hrs Per Day: .5 hour per day Rehab Potential: Good Pt/Family Agrees to Plan: Yes Safety Risks/Education Teaching Recipient: Patient Teaching Methods: Discussion Response to Teaching: Verbalize Understanding Education Topics Provided: Results of BSE, Safe Swallowing Practices Time Speech Therapy Time In: 08:45 Speech Therapy Time Out: 09:15 Total Billed Time: 30 Billed Treatment Time 1, DERECK, DYST WILLI Loo Nov 21, 2021 11:10
--- NOTE | 2021-11-21 16:26 | Physical Therapy Daily Note ---
PT Daily Note-Current Subjective Patient had returned from appointment at [place], and stated that she will start radiation therapy to the brain starting on saturday. Patient was compliant to start treatment and no new complaints. Pain Location: No Pain Reported Mental Status Patient Orientation: Person, Place, Time, Situation Transfers SCALE: Activities may be completed with or without assistive devices. 9-Jaejjkmgpj-wdoartg completes the activity by him/herself with no assistance from a helper. 5-Set-up or Clean-up Assistance-helper sets up or cleans up; patient completes activity. [place] assists only prior to or following the activity. 4-Supervision or Touching Assistance-helper provides verbal cues and/or touching/steadying and/or contact guard assistance as patient completes activity. Assistance may be provided throughout the activity or intermittently. 3-Partial/Moderate Assistance-helper does LESS THAN HALF the effort. [place] lifts, holds or supports trunk or limbs, but provides less than half the effort. 2-Substantial/Maximal Assistance-helper does MORE THAN HALF the effort. [place] lifts or holds trunk or limbs and provides more than half the effort. 7-Koxxsfdcy-bcwwxf does ALL the effort. Patient does none of the effort to complete the activity. Or, the assistance of 2 or more helpers is required for the patient to complete the activity. If activity was not attempted, code reason: 7-Patient Refused. 9-Not Applicable-not attempted and the patient did not perform the activity before the current illness, exacerbation or injury. 10-Not Attempted due to Environmental Limitations-(lack of equipment, weather restraints, etc.). 88-Not Attempted due to Medical Conditions or Safety Concerns. Sit to Lying (QC): 6 Lying to Sitting/Side of Bed(Q: 6 Sit to Stand (QC): 6 Weight Bearing Full Weight Bearing Full Weight Bearing Gait Training Does the Patient Walk?: Yes Distance: 500', 100', 100', 300' Walk 10 feet (QC): 6 Walk 50 ft with 2 Turns(QC): 6 Walk 150 ft (QC): 6 Gait Assistive Device: None Normal gait pattern and but slightly slow gait speed. Wheelchair Training Does the Pt Use a Wheelchair?: No Type of Wheelchair: N/A Exercises Supine Ex: Bridging Supine Reps: 30 Clams 3 x 10 reps NuStep Minutes: 12 NuStep Workload: 8 Treatments Step-ups 3 x 10 each leg. Ambulation (backward walking 4 x 10ft, side stepping 4 x 10ft, tandem walking 4 x 10ft). Sit to stands 3 x 8 reps. Assessment Current Status: Good Progress Patient has good strength and balance with normal ambulation without using an ambulation aid. Patient demonstrates R LE weakness as noted with sit to stands, and LE exercises. Patient was left in bed with call light, tray, and all needs met. PT Short Term Goals Short Term Goals Time Frame: Nov 27, 2021 Roll Left & Right: 6 Sit to lyin Lying to sitting on side of be: 6 Sit to stand: 5 Chair/ltf-yu-mdwfm transfer: 5 Walk 10 feet: 5 Walk 50 feet with two turns: 5 Walk 150 feet: 5 PT Snf Goals Snf Goals PT Aircraft Electronics Technical Officer Goals Time Frame: December 11, 2021 Roll Left & Right (QC): 6 Sit to Lying (QC): 6 Lying-Sitting on Side/Bed(QC): 6 Sit to Stand (QC): 6 Chair/Mbu-sj-Pwwqm Xfer(QC): 6 Toilet Transfer (QC): 6 Car Transfer (QC): 6 Does the Patient Walk: Yes Walk 10 feet (QC): 6 Walk 50ft with 2 Turns (QC): 6 Walk 150 ft (QC): 6 Walking 10ft on Uneven Surface: 6 1 Step (curb) (QC): 6 4 Steps (QC): 6 12 Steps (QC): 6 Picking up an Object (QC): 6 Wheel 50 feet with 2 turns (QC: 9 Wheel 150 feet: 9 PT Plan Problem List Problem List: Activity Tolerance, Functional Strength, Safety, Balance, Gait, Transfer, ROM Treatment/Plan Treatment Plan: Continue Plan of Care Treatment Plan: Education, Functional Activity Kaylynn, Functional Strength, Gait, Safety, Therapeutic Exercise, Transfers Treatment Duration: December 11, 2021 Frequency: At least 5 of 7 days/Wk (IRF) Estimated Hrs Per Day: 1.5 hours per day Patient and/or Family Agrees t: Yes Safety Risks/Education Patient Education: Gait Training, Safety Issues Teaching Recipient: Patient Teaching Methods: Discussion Response to Teaching: Verbalize Understanding Time/GCodes Time In: 1430 Time Out: 1620 Total Billed Treatment Time: 83 Total Billed Treatment 1 visit GT 15min FA 45 min EX 23 min (14:30-14:53) Patient break for meal (15:20-16:20) GINA COYNE PT Nov 21, 2021 16:26
[2021-11-21] MEDS ORDERED: CATHETER FLUSH 10 ML SYR IVP PRN (16:30)
[2021-11-21 20:38] VITALS: BP 138/84
[2021-11-21] MEDS: ALPRAZolam 0.25 MG (XANAX) TAB PO PRN (21:36)
[2021-11-21] MEDS: MELATONIN 3 MG TABLET PO PRN (21:36)
[2021-11-21] MEDS: CATHETER FLUSH 10 ML SYR IVP SCH (21:39)
--- NOTE | 2021-11-22 06:06 | PM&R Progress Note ---
Subjective HPI/CC On Admission Date Seen by Provider: Nov 22, 2021 Time Seen by Provider: 09:00 Subjective/Events-last exam 11/22/2021: Patient doing pretty well Discharge plan for Saturday Radiation is started on Saturday Checked meds and labs 11/21/2021: Patient ready to go to appointment Plan for radiation treatment Supportive care continues Still feels a bit dizzy 11/20/2021: Patient doing well Still very dizzy Appointment tomorrow regarding radiation plan Back pain still remains 11/19/2021: Patient doing well Pain is well controlled Cousin is here visiting at the bedside Voltaren gel will be placed on the thoracic spine where she has had pain since the CT scan done Checked meds labs Review of Systems General: Fatigue, Malaise Objective Exam Vital Signs Vital Signs Date Time Temp Pulse Resp B/P (MAP) Pulse Ox O2 Delivery O2 Flow Rate FiO2 11/22/21 20:30 Room Air 11/22/21 20:00 36.8 64 18 114/61 (78) 97 Capillary Refill : General Appearance: No Apparent Distress, WD/WN, Chronically ill, Thin HEENT: PERRL/EOMI, Normal ENT Inspection, Pharynx Normal Neck: Full Range of Motion, Normal Inspection, Non Tender, Supple, Carotid Brui t Respiratory: Chest Non Tender, Lungs Clear, Normal Breath Sounds, No Accessory Muscle Use, No Respiratory Distress Cardiovascular: Regular Rate, Rhythm, No Edema, No Gallop, No JVD, No Murmur, Normal Peripheral Pulses Gastrointestinal: Normal Bowel Sounds, No Organomegaly, No Pulsatile Mass, Non Tender, Soft Back: Normal Inspection, No CVA Tenderness, No Vertebral Tenderness Extremity: Normal Capillary Refill, Normal Inspection, Normal Range of Motion, Non Tender, No Calf Tenderness, No Pedal Edema Neurologic/Psychiatric: Alert, Oriented x3, No Motor/Sensory Deficits, 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 FIM Transfers Therapy Code Descriptions/Definitions Functional [place] Measure: 0=Not Assessed/NA 4=Minimal Assistance 1=Total Assistance 5=Supervision or Setup 2=Maximal Assistance 6=Modified [place] 3=Moderate Assistance 7=Complete IndependenceSCALE: Activities may be completed with or without assistive devices. 8-Egzlsouemp-hfpjtty completes the activity by him/herself with no assistance from a helper. 5-Set-up or Clean-up Assistance-helper sets up or cleans up; patient completes activity. [place] assists only prior to or following the activity. 4-Supervision or Touching Assistance-helper provides verbal cues and/or touching/steadying and/or contact guard assistance as patient completes activity. Assistance may be provided throughout the activity or intermittently. 3-Partial/Moderate Assistance-helper does LESS THAN HALF the effort. [place] lifts, holds or supports trunk or limbs, but provides less than half the effort. 2-Substantial/Maximal Assistance-helper does MORE THAN HALF the effort. [place] lifts or holds trunk or limbs and provides more than half the effort. 6-Dyqntzyis-povpck does ALL the effort. Patient does none of the effort to complete the activity. Or, the assistance of 2 or more helpers is required for the patient to complete the activity. If activity was not attempted, code reason: 7-Patient Refused. 9-Not Applicable-not attempted and the patient did not perform the activity before the current illness, exacerbation or injury. 10-Not Attempted due to Environmental Limitations-(lack of equipment, weather restraints, etc.). 88-Not Attempted due to Medical Conditions or Safety Concerns. Roll Left to Right (QC): 6 Sit to Lying (QC): 6 Sit to Stand (QC): 6 Chair/Kit-bs-Uibkw Xfer(QC): 4 Car Transfer (QC): 4 Gait Training Does the Patient Walk?: Yes Distance: 500', 100', 100', 300' Walk 10 feet (QC): 6 Walk 50 ft with 2 Turns(QC): 6 Walk 150 ft (QC): 6 Walking 10ft/uneven surface-QC: 4 Gait Assistive Device: None Wheelchair Training Does the Pt Use a Wheelchair?: No Wheel 50 ft with 2 turns (QC): 9 Wheel 150 ft (QC): 9 Type of Wheelchair: N/A Stair Training #of Steps: 12 1 Step (curb) (QC): 4 4 Steps (QC): 4 12 Steps (QC): 4 Balance Picking up an Object (QC): 4 ADL-Treatment Eating (QC): 6 Oral Hygiene (QC): 6 Shower/Bathe Self (QC): 5 Upper Body Dressing (QC): 6 Lower Body Dressing (QC): 6 On/Off Footwear (QC): 6 Toileting Hygiene (QC): 6 Toilet Transfer (QC): 6 Assessment/Plan Assessment and Plan Assess & Plan/Chief Complaint Assessment: Metastatic brain disease Right-sided weakness Fall risk Breast cancer left in 2019 GERD Plan: Keppra Decadron Inpatient rehab protocol 11/19/2021: Supportive care Pain control Voltaren gel 11/20/2021: Home medication evaluation Supportive care 11/21/2021: Oncology appointment today Wean off Decadron 11/22/2021: Radiation treatment to start on Saturday Continue aggressive treatment (1) Breast cancer, left Qualifiers: Qualified Codes: C50.912 - Malignant neoplasm of unspecified site of left female breast (2) Brain tumor Status: Acute FELIX GARCIA DO Nov 22, 2021 06:06
[2021-11-22] MEDS: CATHETER FLUSH 10 ML SYR IVP SCH ×3 (06:35→21:00)
[2021-11-22] MEDS: PANTOPRAZOLE 40 MG (PROTONIX) TAB PO SCH (06:35)
[2021-11-22 07:35] VITALS: BP 113/56
[2021-11-22] MEDS: LETROZOLE 2.5 MG (FEMARA) TAB PO SCH (08:30)
[2021-11-22] MEDS: SENNA W/DOCUSATE (SENOKOT S) TABLET PO SCH ×2 (08:34→19:50)
[2021-11-22] MEDS: polyethylene glycoL POWDER 17 GM (MIRALAX) PACK PO SCH ×2 (08:34→19:50)
[2021-11-22] MEDS: DOCUSATE SODIUM 100 MG (COLACE) CAP PO SCH ×2 (08:34→19:50)
[2021-11-22] MEDS: DICLOFENAC 1% GEL 100 GM (VOLTAREN) TUBE TOP SCH ×4 (08:34→20:59)
--- NOTE | 2021-11-22 09:10 | Physical Therapy Progress Note ---
Therapy Progress Note Patient refuses therapy this morning. She says she has a headache and won't do anything until she is ready. Patient continues to refuse even with encouragement. Will try back later. ALEXYS DIAZ PT Nov 22, 2021 09:10
--- NOTE | 2021-11-22 10:54 | Occupational Ther Daily Note ---
OT Current Status-Daily Note Subjective Pt requires significant extra time and encouragement to participate this date. Appearance Pt left sitting EOB, all needs within reach. Mental Status/Objective Attachments: IV ADL-Treatment Therapy Code Descriptions/Definitions Functional [place] Measure: 0=Not Assessed/NA 4=Minimal Assistance 1=Total Assistance 5=Supervision or Setup 2=Maximal Assistance 6=Modified [place] 3=Moderate Assistance 7=Complete IndependenceSCALE: Activities may be completed with or without assistive devices. 9-Eiknrysert-pvuhdyp completes the activity by him/herself with no assistance from a helper. 5-Set-up or Clean-up Assistance-helper sets up or cleans up; patient completes activity. [place] assists only prior to or following the activity. 4-Supervision or Touching Assistance-helper provides verbal cues and/or touching/steadying and/or contact guard assistance as patient completes activity. Assistance may be provided throughout the activity or intermittently. 3-Partial/Moderate Assistance-helper does LESS THAN HALF the effort. [place] lifts, holds or supports trunk or limbs, but provides less than half the effort. 2-Substantial/Maximal Assistance-helper does MORE THAN HALF the effort. [place] lifts or holds trunk or limbs and provides more than half the effort. 3-Atfhjsmme-ccmwqt does ALL the effort. Patient does none of the effort to complete the activity. Or, the assistance of 2 or more helpers is required for the patient to complete the activity. If activity was not attempted, code reason: 7-Patient Refused. 9-Not Applicable-not attempted and the patient did not perform the activity before the current illness, exacerbation or injury. 10-Not Attempted due to Environmental Limitations-(lack of equipment, weather restraints, etc.). 88-Not Attempted due to Medical Conditions or Safety Concerns. Eating (QC): 6 Oral Hygiene (QC): 6 Shower/Bathe Self (QC): 6 (per patient report) Upper Body Dressing (QC): 6 Lower Body Dressing (QC): 6 On/Off Footwear: 6 Toileting Hygiene (QC): 6 Toilet Transfer (QC): 6 Lengthy education/discussion on discharge plan and home modifications/energy conservation strategies. Pt knowledgeable on abilities and appears to have good insight into when to slow down and take breaks. Pt declines shower as she r eports she has been washing up with wet wipes before bed each night. She verbalizes that she doesn't require any assist. Other Treatment Pt participated in UE exercises with marky nguyen. Goal to promote increased strength, endurance, and coordination needed for functional tasks. Mod verbal and tactile cues for correct technique and for slow/controlled movement. Reminders/education on maintaining tension throughout entire movement. LUE slightly weaker than Right. 12x2 all planes. Education OT Patient Education: Correct positioning, Energy conservation, Exercise program, Modified ADL techniques, Purpose of tx/functional activities Teaching Recipient: Patient Teaching Methods: Demonstration, Discussion Response to Teaching: Verbalize Understanding, Return Demonstration, Reinforcement Needed OT Short Term Goals Short Term Goals Time Frame: Nov 29, 2021 Eatin Oral hygiene: 5 Shower/bathe self: 5 Lower body dressin OT Tv Production Assistant Goals Tv Production Assistant Goals Time Frame: Dec 09, 2021 Eating (QC): 6 Oral Hygiene (QC): 6 Toileting Hygiene (QC): 6 Shower/Bathe Self (QC): 6 Upper Body Dressing (QC): 6 Lower Body Dressing (QC): 6 On/Off Footwear (QC): 6 Additional Goals: 1-Demonstrate ADL Tasks, 2-Verbalize Understanding, 3- ImproveStrength/Kaylynn 1=Demonstrate adherence to instructed precautions during ADL tasks. 2=Patient will verbalize/demonstrate understanding of assistive devices/modifications for ADL. 3=Patient will improve strength/tolerance for activity to enable patient to perform ADL's. OT Education/Plan Problem List/Assessment Assessment: Decreased Activ Tolerance, Decreased UE Strength, Impaired I ADL's Discharge Recommendations Plan/Recommendations: Continue POC Therapy Discharge Recommendati: Home & Family Treatment Plan/Plan of Care Treatment,Training & Education: Yes Patient would benefit from OT for education, treatment and training to promote independence in ADL's, mobility, safety and/or upper extremity function for ADL's. Plan of Care: ADL Retraining, Functional Mobility, Group Exercise/Act as Ind, UE Funct Exercise/Act Treatment Duration: Dec 09, 2021 Frequency: At least 5 of 7 days/Wk (IRF) Estimated Hrs Per Day: 1.5 hours per day Agreement: Yes Rehab Potential: Good Time/GCodes Start Time: 07:30 (1000) Stop Time: 08:15 (1045) Total Time Billed (hr/min): 90 Billed Treatment Time 1 visit ADL x3 (45 min) EX x3 (45 min) Letty Contreras OT Nov 22, 2021 10:53
--- NOTE | 2021-11-22 12:02 | Physical Therapy Daily Note ---
PT Daily Note-Current Subjective Patient was in a better mood and consented treatment. Pain Location: No Pain Reported Mental Status Patient Orientation: Person, Place, Situation Transfers SCALE: Activities may be completed with or without assistive devices. 7-Aodwwknszd-ycibdum completes the activity by him/herself with no assistance from a helper. 5-Set-up or Clean-up Assistance-helper sets up or cleans up; patient completes activity. [place] assists only prior to or following the activity. 4-Supervision or Touching Assistance-helper provides verbal cues and/or touching/steadying and/or contact guard assistance as patient completes activity. Assistance may be provided throughout the activity or intermittently. 3-Partial/Moderate Assistance-helper does LESS THAN HALF the effort. [place] lifts, holds or supports trunk or limbs, but provides less than half the effort. 2-Substantial/Maximal Assistance-helper does MORE THAN HALF the effort. [place] lifts or holds trunk or limbs and provides more than half the effort. 9-Nmgnqtvij-fmcvjg does ALL the effort. Patient does none of the effort to complete the activity. Or, the assistance of 2 or more helpers is required for the patient to complete the activity. If activity was not attempted, code reason: 7-Patient Refused. 9-Not Applicable-not attempted and the patient did not perform the activity before the current illness, exacerbation or injury. 10-Not Attempted due to Environmental Limitations-(lack of equipment, weather restraints, etc.). 88-Not Attempted due to Medical Conditions or Safety Concerns. Roll Left & Right (QC): 6 Sit to Lying (QC): 6 Lying to Sitting/Side of Bed(Q: 6 Sit to Stand (QC): 6 Chair/Wpe-ve-Vqwhw Xfer(QC): 6 Toilet Transfer (QC): 6 Car Transfer (QC): 6 Weight Bearing Full Weight Bearing Full Weight Bearing Gait Training Distance: 100', 700' Walk 10 feet (QC): 6 Walk 50 ft with 2 Turns(QC): 6 Walk 150 ft (QC): 6 Walking 10ft/uneven surface-QC: 6 Gait Assistive Device: None Wheelchair Training Does the Pt Use a Wheelchair?: No Wheel 50 ft with 2 turns (QC): 9 Wheel 150 ft (QC): 9 Stair Training Stair Training: Handrails/: 2 handrails #of Steps: 12 1 Step (curb) (QC): 6 4 Steps (QC): 6 12 Steps (QC): 6 Stairs: Pattern: Reciprocal Balance Picking up an Object (QC): 6 Special Test Comments BBS: 50/56 Exercises Supine Ex: Bridging Supine Reps: 24 Clams 2 x 10reps (B) Treatments LE strengthening, sit to stands (2 l64soox), stair training, Ambulation, side stepping. Assessment Current Status: Good Progress Patient demonstrates dynamic knee valgus during stair training, and sit to stands and requires tactile cues. Patient has good walking balance, and endurance and can navigate long distance hallways without difficulty. Patient demonstrates good balance on the bourgeois balance scale scoring a 50/56. Patient was left seated in bed with call light, tray, and all needs met. PT Short Term Goals Short Term Goals Time Frame: Nov 27, 2021 Roll Left & Right: 6 Sit to lyin Lying to sitting on side of be: 6 Sit to stand: 5 Chair/qcn-kq-iwjix transfer: 5 Walk 10 feet: 5 Walk 50 feet with two turns: 5 Walk 150 feet: 5 PT Dye Weigher Helper Goals Dye Weigher Helper Goals PT Dye Weigher Helper Goals Time Frame: December 11, 2021 Roll Left & Right (QC): 6 Sit to Lying (QC): 6 Lying-Sitting on Side/Bed(QC): 6 Sit to Stand (QC): 6 Chair/Rox-wg-Bfwer Xfer(QC): 6 Toilet Transfer (QC): 6 Car Transfer (QC): 6 Does the Patient Walk: Yes Walk 10 feet (QC): 6 Walk 50ft with 2 Turns (QC): 6 Walk 150 ft (QC): 6 Walking 10ft on Uneven Surface: 6 1 Step (curb) (QC): 6 4 Steps (QC): 6 12 Steps (QC): 6 Picking up an Object (QC): 6 Wheel 50 feet with 2 turns (QC: 9 Wheel 150 feet: 9 PT Plan Problem List Problem List: Activity Tolerance, Functional Strength, Safety, Balance, Gait, Transfer, ROM Treatment/Plan Treatment Plan: Continue Plan of Care Treatment Plan: Education, Functional Activity Kaylynn, Functional Strength, Gait, Safety, Therapeutic Exercise, Transfers Treatment Duration: December 11, 2021 Frequency: At least 5 of 7 days/Wk (IRF) Estimated Hrs Per Day: 1.5 hours per day Patient and/or Family Agrees t: Yes Safety Risks/Education Patient Education: Gait Training, Transfer Techniques, Steps, Safety Issues Teaching Recipient: Patient Teaching Methods: Discussion Response to Teaching: Verbalize Understanding, Return Demonstration Time/GCodes Time In: 1100 Time Out: 1200 Total Billed Treatment Time: 60 Total Billed Treatment 1 visit EX 30min FA 30min ALEXYS DIAZ PT Nov 22, 2021 12:01
--- NOTE | 2021-11-22 13:36 | Physical Therapy Daily Note ---
PT Daily Note-Current Subjective Pt. agrees to Rx, denies any pain or discomfort. Pain Location: No Pain Reported Mental Status Patient Orientation: Normal For Age Transfers SCALE: Activities may be completed with or without assistive devices. 2-Cixsyamlpm-wonildx completes the activity by him/herself with no assistance from a helper. 5-Set-up or Clean-up Assistance-helper sets up or cleans up; patient completes activity. [place] assists only prior to or following the activity. 4-Supervision or Touching Assistance-helper provides verbal cues and/or touching/steadying and/or contact guard assistance as patient completes activity. Assistance may be provided throughout the activity or intermittently. 3-Partial/Moderate Assistance-helper does LESS THAN HALF the effort. [place] lifts, holds or supports trunk or limbs, but provides less than half the effort. 2-Substantial/Maximal Assistance-helper does MORE THAN HALF the effort. [place] lifts or holds trunk or limbs and provides more than half the effort. 8-Manmyijfh-wrwgay does ALL the effort. Patient does none of the effort to complete the activity. Or, the assistance of 2 or more helpers is required for the patient to complete the activity. If activity was not attempted, code reason: 7-Patient Refused. 9-Not Applicable-not attempted and the patient did not perform the activity before the current illness, exacerbation or injury. 10-Not Attempted due to Environmental Limitations-(lack of equipment, weather restraints, etc.). 88-Not Attempted due to Medical Conditions or Safety Concerns. Roll Left & Right (QC): 6 Sit to Lying (QC): 6 Lying to Sitting/Side of Bed(Q: 6 Sit to Stand (QC): 6 Chair/Dty-iy-Ucdoz Xfer(QC): 6 pt. also demonstrated seated to floor, and TRF from floor to quadruped to crawling to up to mat table again all indep/SBA Weight Bearing Full Weight Bearing Full Weight Bearing Gait Training Does the Patient Walk?: Yes Gait Assistive Device: None [id number] no AD, no LOB, good gait pattern Exercises NuStep Minutes: 10 NuStep Workload: 8 Treatments gait , prone, quadruped, crawling, tall on knees, balance challenges in tall on knees, floor TRF , nustep Assessment Current Status: Good Progress no LOB, no cognitive difficulty, no AD for gait, up ad ioana in room PT Short Term Goals Short Term Goals Time Frame: Nov 27, 2021 Roll Left & Right: 6 Sit to lyin Lying to sitting on side of be: 6 Sit to stand: 5 Chair/ysj-ru-uojwj transfer: 5 Walk 10 feet: 5 Walk 50 feet with two turns: 5 Walk 150 feet: 5 PT Clinical Microbiologist Goals Retirement Goals PT Clinical Microbiologist Goals Time Frame: December 11, 2021 Roll Left & Right (QC): 6 Sit to Lying (QC): 6 Lying-Sitting on Side/Bed(QC): 6 Sit to Stand (QC): 6 Chair/Rpd-rh-[place] Xfer(QC): 6 Toilet Transfer (QC): 6 Car Transfer (QC): 6 Does the Patient Walk: Yes Walk 10 feet (QC): 6 Walk 50ft with 2 Turns (QC): 6 Walk 150 ft (QC): 6 Walking 10ft on Uneven Surface: 6 1 Step (curb) (QC): 6 4 Steps (QC): 6 12 Steps (QC): 6 Picking up an Object (QC): 6 Wheel 50 feet with 2 turns (QC: 9 Wheel 150 feet: 9 PT Plan Treatment/Plan Treatment Plan: Continue Plan of Care Treatment Plan: Education, Functional Activity Kaylynn, Functional Strength, Gait, Safety, Therapeutic Exercise, Transfers Treatment Duration: December 11, 2021 Frequency: At least 5 of 7 days/Wk (IRF) Estimated Hrs Per Day: 1.5 hours per day Patient and/or Family Agrees t: Yes Safety Risks/Education Patient Education: Gait Training, Transfer Techniques (floor), Correct Positioning, Safety Issues Teaching Recipient: Patient Teaching Methods: Demonstration, Discussion Response to Teaching: Verbalize Understanding, Return Demonstration, Reinforcement Needed Time/GCodes Time In: 1300 Time Out: 1330 Total Billed Treatment Time: 30 Total Billed Treatment 1,EX15m,FA15m RUPAL KEVIN SCRAPER HAND Nov 22, 2021 13:35
[2021-11-22 20:00] VITALS: BP 114/61
[2021-11-22] MEDS: ALPRAZolam 0.25 MG (XANAX) TAB PO PRN (20:58)
[2021-11-22] MEDS: MELATONIN 3 MG TABLET PO PRN (20:59)
[2021-11-23] MEDS: PANTOPRAZOLE 40 MG (PROTONIX) TAB PO SCH (06:35)
[2021-11-23] MEDS: CATHETER FLUSH 10 ML SYR IVP SCH ×3 (06:35→20:13)
--- NOTE | 2021-11-23 06:39 | PM&R Progress Note ---
Subjective HPI/CC On Admission Date Seen by Provider: Nov 23, 2021 Time Seen by Provider: 11:30 Subjective/Events-last exam 11/23/21: Patient doing well Discharge is planned tomorrow No other concerns The patient has a mobility limitation that significantly impairs her ability to participate in one or more mobility-related activities of daily living (MRADL) in the home. Mobility limitation is one that: * Prevents the beneficiary from accomplishing the MRADL entirely, or * Places the beneficiary at reasonably determined heightened risk of morbidity or mortality secondary to the attempts to perform the MRADL, or * Prevents the beneficiary from completing the MRADL within a reasonable time frame; and The patient is able to safely use the walker; and The functional mobility deficit can be sufficiently resolved with use of a walker. 11/22/2021: Patient doing pretty well Discharge plan for Saturday Radiation is started on Saturday Checked meds and labs 11/21/2021: Patient ready to go to appointment Plan for radiation treatment Supportive care continues Still feels a bit dizzy 11/20/2021: Patient doing well Still very dizzy Appointment tomorrow regarding radiation plan Back pain still remains 11/19/2021: Patient doing well Pain is well controlled Cousin is here visiting at the bedside Voltaren gel will be placed on the thoracic spine where she has had pain since the CT scan done Checked meds labs Review of Systems General: Fatigue, Malaise Neurological: Weakness Objective Exam Vital Signs Vital Signs Date Time Temp Pulse Resp B/P (MAP) Pulse Ox O2 Delivery O2 Flow Rate FiO2 11/23/21 20:32 37.5 56 16 112/63 (79) 97 Room Air Capillary Refill : General Appearance: No Apparent Distress, WD/WN, Chronically ill, Thin HEENT: PERRL/EOMI, Normal ENT Inspection, Pharynx Normal Neck: Full Range of Motion, Normal Inspection, Non Tender, Supple, Carotid Bruit Respiratory: Chest Non Tender, Lungs Clear, Normal Breath Sounds, No Accessory Muscle Use, No Respiratory Distress Cardiovascular: Regular Rate, Rhythm, No Edema, No Gallop, No JVD, No Murmur, Normal Peripheral Pulses Gastrointestinal: Normal Bowel Sounds, No Organomegaly, No Pulsatile Mass, Non Tender, Soft Back: Normal Inspection, No CVA Tenderness, No Vertebral Tenderness Extremity: Normal Capillary Refill, Normal Inspection, Normal Range of Motion, Non Tender, No Calf Tenderness, No Pedal Edema Neurologic/Psychiatric: Alert, Oriented x3, No Motor/Sensory Deficits, 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 FIM Transfers Therapy Code Descriptions/Definitions Functional [place] Measure: 0=Not Assessed/NA 4=Minimal Assistance 1=Total Assistance 5=Supervision or Setup 2=Maximal Assistance 6=Modified [place] 3=Moderate Assistance 7=Complete IndependenceSCALE: Activities may be completed with or without assistive devices. 5-Minjpviivw-vgmpfiy completes the activity by him/herself with no assistance from a helper. 5-Set-up or Clean-up Assistance-helper sets up or cleans up; patient completes activity. [place] assists only prior to or following the activity. 4-Supervision or Touching Assistance-helper provides verbal cues and/or touching/steadying and/or contact guard assistance as patient completes activity. Assistance may be provided throughout the activity or intermittently. 3-Partial/Moderate Assistance-helper does LESS THAN HALF the effort. [place] lifts, holds or supports trunk or limbs, but provides less than half the effort. 2-Substantial/Maximal Assistance-helper does MORE THAN HALF the effort. [place] lifts or holds trunk or limbs and provides more than half the effort. 8-Pqxxbxogd-ugljxo does ALL the effort. Patient does none of the effort to complete the activity. Or, the assistance of 2 or more helpers is required for the patient to complete the activity. If activity was not attempted, code reason: 7-Patient Refused. 9-Not Applicable-not attempted and the patient did not perform the activity before the current illness, exacerbation or injury. 10-Not Attempted due to Environmental Limitations-(lack of equipment, weather restraints, etc.). 88-Not Attempted due to Medical Conditions or Safety Concerns. Roll Left to Right (QC): 6 Sit to Lying (QC): 6 Sit to Stand (QC): 6 Chair/Zgg-cr-Ymovq Xfer(QC): 6 Car Transfer (QC): 6 Gait Training Does the Patient Walk?: Yes Distance: 100', 700' Walk 10 feet (QC): 6 Walk 50 ft with 2 Turns(QC): 6 Walk 150 ft (QC): 6 Walking 10ft/uneven surface-QC: 6 Gait Assistive Device: None Wheelchair Training Does the Pt Use a Wheelchair?: No Wheel 50 ft with 2 turns (QC): 9 Wheel 150 ft (QC): 9 Type of Wheelchair: N/A Stair Training Stair Training: Handrails/: 2 handrails #of Steps: 12 1 Step (curb) (QC): 6 4 Steps (QC): 6 12 Steps (QC): 6 Stairs: Pattern: Reciprocal Balance Picking up an Object (QC): 6 ADL-Treatment Eating (QC): 6 Oral Hygiene (QC): 6 Shower/Bathe Self (QC): 6 (per patient report) Upper Body Dressing (QC): 6 Lower Body Dressing (QC): 6 On/Off Footwear (QC): 6 Toileting Hygiene (QC): 6 Toilet Transfer (QC): 6 Assessment/Plan Assessment and Plan Assess & Plan/Chief Complaint Assessment: Metastatic brain disease Right-sided weakness Fall risk Breast cancer left in 2019 GERD Plan: [facility] Inpatient rehab protocol 11/19/2021: Supportive care Pain control Voltaren gel 11/20/2021: Home medication evaluation Supportive care 11/21/2021: Oncology appointment today Wean off Decadron 11/22/2021: Radiation treatment to start on Saturday Continue aggressive treatment 11/23/2021: Discharge tomorrow (1) Breast cancer, left Qualifiers: Qualified Codes: C50.912 - Malignant neoplasm of unspecified site of left female breast (2) Brain tumor Status: Acute FELIX GARCIA DO Nov 23, 2021 06:39
[2021-11-23 08:00] VITALS: BP 128/60
[2021-11-23] MEDS: LETROZOLE 2.5 MG (FEMARA) TAB PO SCH (09:00)
[2021-11-23] MEDS: DICLOFENAC 1% GEL 100 GM (VOLTAREN) TUBE TOP SCH ×4 (09:08→20:20)
--- NOTE | 2021-11-23 10:26 | Occupational Ther Daily Note ---
OT Current Status-Daily Note Subjective Pt initially reports chest pain. Improves after getting up and burping. Appearance Pt returned to sitting EOB, all needs within reach. Mental Status/Objective Patient Orientation: Person, Place, Situation Attachments: IV ADL-Treatment Therapy Code Descriptions/Definitions Functional [place] Measure: 0=Not Assessed/NA 4=Minimal Assistance 1=Total Assistance 5=Supervision or Setup 2=Maximal Assistance 6=Modified [place] 3=Moderate Assistance 7=Complete IndependenceSCALE: Activities may be completed with or without assistive devices. 0-Rcfbhofrri-guacwlm completes the activity by him/herself with no assistance from a helper. 5-Set-up or Clean-up Assistance-helper sets up or cleans up; patient completes activity. [place] assists only prior to or following the activity. 4-Supervision or Touching Assistance-helper provides verbal cues and/or touching/steadying and/or contact guard assistance as patient completes activity. Assistance may be provided throughout the activity or intermittently. 3-Partial/Moderate Assistance-helper does LESS THAN HALF the effort. [place] lifts, holds or supports trunk or limbs, but provides less than half the effort. 2-Substantial/Maximal Assistance-helper does MORE THAN HALF the effort. [place] lifts or holds trunk or limbs and provides more than half the effort. 1-Jleojepfe-eemyby does ALL the effort. Patient does none of the effort to complete the activity. Or, the assistance of 2 or more helpers is required for the patient to complete the activity. If activity was not attempted, code reason: 7-Patient Refused. 9-Not Applicable-not attempted and the patient did not perform the activity before the current illness, exacerbation or injury. 10-Not Attempted due to Environmental Limitations-(lack of equipment, weather restraints, etc.). 88-Not Attempted due to Medical Conditions or Safety Concerns. Eating (QC): 6 Oral Hygiene (QC): 6 Shower/Bathe Self (QC): 6 Upper Body Dressing (QC): 6 Lower Body Dressing (QC): 6 On/Off Footwear: 6 Toileting Hygiene (QC): 6 Toilet Transfer (QC): 6 All adls performed independently, no safety concerns observed. Other Treatment Pt completed UE exercises with 2# dumbbell and seated/standing shoulder nile exercises with focus on improving UE strength, endurance, and L shoulder ROM for functional tasks. Improved speed/control of exercises after initial min cues. Pt able to complete all movements through full range but does fatigue quickly with L shoulder exercises. No LOB when performing exercises in standing. Min cues for preferred technique. 15x2, all planes. Pt ambulated ~400 feet x2, No LOB or use of AD. Education OT Patient Education: Correct positioning, Energy conservation, Exercise program, Progress toward Goal/Update tx plan, Purpose of tx/functional activities Teaching Recipient: Patient Teaching Methods: Demonstration, Discussion Response to Teaching: Verbalize Understanding, Return Demonstration OT Short Term Goals Short Term Goals Time Frame: Nov 29, 2021 Eatin Oral hygiene: 5 Shower/bathe self: 5 Lower body dressin OT Jail Goals Visitor Information Assistant Goals Time Frame: Dec 09, 2021 Eating (QC): 6 Oral Hygiene (QC): 6 Toileting Hygiene (QC): 6 Shower/Bathe Self (QC): 6 Upper Body Dressing (QC): 6 Lower Body Dressing (QC): 6 On/Off Footwear (QC): 6 Additional Goals: 1-Demonstrate ADL Tasks, 2-Verbalize Understanding, 3- ImproveStrength/Kaylynn 1=Demonstrate adherence to instructed precautions during ADL tasks. 2=Patient will verbalize/demonstrate understanding of assistive devices/modifications for ADL. 3=Patient will improve strength/tolerance for activity to enable patient to perform ADL's. OT Education/Plan Problem List/Assessment Assessment: Decreased Activ Tolerance, Decreased UE Strength Discharge Recommendations Plan/Recommendations: Continue POC Treatment Plan/Plan of Care Treatment,Training & Education: Yes Patient would benefit from OT for education, treatment and training to promote independence in ADL's, mobility, safety and/or upper extremity function for ADL's. Plan of Care: ADL Retraining, Functional Mobility, Group Exercise/Act as Ind, UE Funct Exercise/Act Treatment Duration: Dec 09, 2021 Frequency: At least 5 of 7 days/Wk (IRF) Estimated Hrs Per Day: 1.5 hours per day Agreement: Yes Rehab Potential: Good Time/GCodes Start Time: 08:50 Stop Time: 10:20 Total Time Billed (hr/min): 90 Billed Treatment Time 1 visit ADL x3 (45 min) EX x3 (45 min) Letty Contreras OT Nov 23, 2021 10:26
--- NOTE | 2021-11-23 12:07 | Physical Therapy Daily Note ---
PT Daily Note-Current Subjective Patient was sitting in bed prior to treatment. Pt had no new complaints. Pain Location: No Pain Reported Mental Status Patient Orientation: Person, Place, Time, Situation Transfers SCALE: Activities may be completed with or without assistive devices. 5-Eprxxtlhhn-vcdbtqs completes the activity by him/herself with no assistance f rom a helper. 5-Set-up or Clean-up Assistance-helper sets up or cleans up; patient completes activity. [place] assists only prior to or following the activity. 4-Supervision or Touching Assistance-helper provides verbal cues and/or touching/steadying and/or contact guard assistance as patient completes activity. Assistance may be provided throughout the activity or intermittently. 3-Partial/Moderate Assistance-helper does LESS THAN HALF the effort. [place] lifts, holds or supports trunk or limbs, but provides less than half the effort. 2-Substantial/Maximal Assistance-helper does MORE THAN HALF the effort. [place] lifts or holds trunk or limbs and provides more than half the effort. 7-Lcalhiqmf-weqoor does ALL the effort. Patient does none of the effort to complete the activity. Or, the assistance of 2 or more helpers is required for the patient to complete the activity. If activity was not attempted, code reason: 7-Patient Refused. 9-Not Applicable-not attempted and the patient did not perform the activity before the current illness, exacerbation or injury. 10-Not Attempted due to Environmental Limitations-(lack of equipment, weather restraints, etc.). 88-Not Attempted due to Medical Conditions or Safety Concerns. Sit to Lying (QC): 6 Lying to Sitting/Side of Bed(Q: 6 Sit to Stand (QC): 6 Chair/Ukj-xu-Dhzwj Xfer(QC): 6 Weight Bearing Full Weight Bearing Full Weight Bearing Gait Training Does the Patient Walk?: Yes Distance: 1500' Walk 10 feet (QC): 6 Walk 50 ft with 2 Turns(QC): 6 Walk 150 ft (QC): 6 Walking 10ft/uneven surface-QC: 6 Gait Assistive Device: None Relatively normal gait pattern and speed Wheelchair Training Does the Pt Use a Wheelchair?: No Stair Training Stair Training: Handrails/: 1 handrail #of Steps: 8 1 Step (curb) (QC): 6 4 Steps (QC): 6 Stairs: Pattern: Reciprocal Exercises Standing: Sit to Stand Standing Reps: 20 Stationary Lunge: 3 x 10reps each leg. NuStep Minutes: 15 NuStep Workload: 4 Treatments Ambulation, stairs, LE strengthening Assessment Current Status: Good Progress Patient was able to ambulate long distances without a rest break or any walking device independently. She could walk steadily over grass, uneven concrete, small hill, stairs, and curbs. Patient demonstrates good strength with transfers as she can do them independently. Patient has slight weakness in hip as dynamic valgus is seen with sit to stand exercises, and stationary lunges require assistance with both hands. Patient was left sitting in bed with tray, call light, and all needs met. PT Short Term Goals Short Term Goals Time Frame: Nov 27, 2021 Roll Left & Right: 6 Sit to lyin Lying to sitting on side of be: 6 Sit to stand: 5 Chair/jih-qz-elyxx transfer: 5 Walk 10 feet: 5 Walk 50 feet with two turns: 5 Walk 150 feet: 5 PT Independent Film Maker Goals Independent Film Maker Goals PT Assisted Goals Time Frame: December 11, 2021 Roll Left & Right (QC): 6 Sit to Lying (QC): 6 Lying-Sitting on Side/Bed(QC): 6 Sit to Stand (QC): 6 Chair/Vap-yd-Ojand Xfer(QC): 6 Toilet Transfer (QC): 6 Car Transfer (QC): 6 Does the Patient Walk: Yes Walk 10 feet (QC): 6 Walk 50ft with 2 Turns (QC): 6 Walk 150 ft (QC): 6 Walking 10ft on Uneven Surface: 6 1 Step (curb) (QC): 6 4 Steps (QC): 6 12 Steps (QC): 6 Picking up an Object (QC): 6 Wheel 50 feet with 2 turns (QC: 9 Wheel 150 feet: 9 PT Plan Problem List Problem List: Activity Tolerance, Functional Strength, Safety, Balance, Gait, Transfer, ROM Treatment/Plan Treatment Plan: Continue Plan of Care Treatment Plan: Education, Functional Activity Kaylynn, Functional Strength, Gait, Safety, Therapeutic Exercise, Transfers Treatment Duration: December 11, 2021 Frequency: At least 5 of 7 days/Wk (IRF) Estimated Hrs Per Day: 1.5 hours per day Patient and/or Family Agrees t: Yes Safety Risks/Education Patient Education: Gait Training, Transfer Techniques, Correct Positioning, Safety Issues Teaching Recipient: Patient Teaching Methods: Discussion Response to Teaching: Verbalize Understanding, Return Demonstration Time/GCodes Time In: 1100 Time Out: 1200 Total Billed Treatment Time: 60 Total Billed Treatment 1 visit 30min FA 30min EX ALEXYS DIAZ PT Nov 23, 2021 12:07
--- NOTE | 2021-11-23 15:23 | Physical Therapy Daily Note ---
PT Daily Note-Current Subjective Patient sitting at edge of bed upon PT arrival, agreeable to treatment. Mental Status Patient Orientation: Person, Place, Time, Situation Transfers SCALE: Activities may be completed with or without assistive devices. 4-Cpsrjstxzu-iqjnjmm completes the activity by him/herself with no assistance from a helper. 5-Set-up or Clean-up Assistance-helper sets up or cleans up; patient completes activity. [place] assists only prior to or following the activity. 4-Supervision or Touching Assistance-helper provides verbal cues and/or touching/steadying and/or contact guard assistance as patient completes activity. Assistance may be provided throughout the activity or intermittently. 3-Partial/Moderate Assistance-helper does LESS THAN HALF the effort. [place] lifts, holds or supports trunk or limbs, but provides less than half the effort. 2-Substantial/Maximal Assistance-helper does MORE THAN HALF the effort. [place] lifts or holds trunk or limbs and provides more than half the effort. 0-Ckhjbjezp-ttbrdm does ALL the effort. Patient does none of the effort to complete the activity. Or, the assistance of 2 or more helpers is required for the patient to complete the activity. If activity was not attempted, code reason: 7-Patient Refused. 9-Not Applicable-not attempted and the patient did not perform the activity before the current illness, exacerbation or injury. 10-Not Attempted due to Environmental Limitations-(lack of equipment, weather restraints, etc.). 88-Not Attempted due to Medical Conditions or Safety Concerns. Roll Left & Right (QC): 6 Sit to Lying (QC): 6 Lying to Sitting/Side of Bed(Q: 6 Sit to Stand (QC): 6 Chair/Ipz-rf-Qtqzv Xfer(QC): 6 Weight Bearing Full Weight Bearing Full Weight Bearing Gait Training Does the Patient Walk?: Yes Distance: 600 feet Walk 10 feet (QC): 6 Walk 50 ft with 2 Turns(QC): 6 Walk 150 ft (QC): 6 Gait Assistive Device: None Exercises Standing: Hip Abduction, Heel/toe raises, Marching NuStep Minutes: 10 NuStep Workload: 5 Assessment Current Status: Excellent Progress Patient tolerated treatment well. Patient performs all observed bed mobility and transfers with independence. Patient performs Nu Step and therapeutic exercise in standing as listed above. Patient ambulates 600 feet with no assistive device, with independence. Patient in bed post treatment with all needs met, nursing notified and call light in reach. PT Short Term Goals Short Term Goals Time Frame: Nov 27, 2021 Roll Left & Right: 6 Sit to lyin Lying to sitting on side of be: 6 Sit to stand: 5 Chair/zoh-uj-hetiq transfer: 5 Walk 10 feet: 5 Walk 50 feet with two turns: 5 Walk 150 feet: 5 PT Frame Cleaner Goals Long-Term Goals PT Long-Term Goals Time Frame: December 11, 2021 Roll Left & Right (QC): 6 (Met) Sit to Lying (QC): 6 (Met) Lying-Sitting on Side/Bed(QC): 6 (Met) Sit to Stand (QC): 6 (Met) Chair/Edg-mf-Wxnsf Xfer(QC): 6 (Met) Toilet Transfer (QC): 6 (Met) Car Transfer (QC): 6 (Met) Does the Patient Walk: Yes Walk 10 feet (QC): 6 (Met) Walk 50ft with 2 Turns (QC): 6 (Met) Walk 150 ft (QC): 6 (Met) Walking 10ft on Uneven Surface: 6 (Met) 1 Step (curb) (QC): 6 (Met) 4 Steps (QC): 6 (Met) 12 Steps (QC): 6 Picking up an Object (QC): 6 (Met) Does the Pt use WC or Scooter?: No Wheel 50 feet with 2 turns (QC: 9 Wheel 150 feet: 9 PT Plan Treatment/Plan Treatment Plan: Continue Plan of Care Treatment Plan: Education, Functional Activity Kaylynn, Functional Strength, Gait, Safety, Therapeutic Exercise, Transfers Treatment Duration: December 11, 2021 Frequency: At least 5 of 7 days/Wk (IRF) Estimated Hrs Per Day: 1.5 hours per day Patient and/or Family Agrees t: Yes Safety Risks/Education Patient Education: Gait Training Teaching Recipient: Patient Teaching Methods: Demonstration, Discussion Response to Teaching: Verbalize Understanding, Return Demonstration Time/GCodes Time In: 1400 Time Out: 1430 Total Billed Treatment Time: 30 Total Billed Treatment Visit, Gait, Ex GINA COYNE PT Nov 23, 2021 15:23
[2021-11-23] MEDS: SENNA W/DOCUSATE (SENOKOT S) TABLET PO SCH ×2 (16:36→20:10)
[2021-11-23] MEDS: DOCUSATE SODIUM 100 MG (COLACE) CAP PO SCH ×2 (16:36→20:10)
[2021-11-23] MEDS: polyethylene glycoL POWDER 17 GM (MIRALAX) PACK PO SCH ×2 (16:36→20:10)
[2021-11-23] MEDS: MELATONIN 3 MG TABLET PO PRN (20:11)
[2021-11-23] MEDS: ALPRAZolam 0.25 MG (XANAX) TAB PO PRN (20:11)
[2021-11-23 20:32] VITALS: BP 112/63
[2021-11-24] MEDS: PANTOPRAZOLE 40 MG (PROTONIX) TAB PO SCH (06:22)
[2021-11-24] MEDS: CATHETER FLUSH 10 ML SYR IVP SCH (06:23)
[2021-11-24] MEDS ORDERED: ESCI-2 PO (06:53)
[2021-11-24] MEDS ORDERED: DEXA4TAB PO (06:53)
[2021-11-24] MEDS ORDERED: LEVE500T6 PO (06:53)
[2021-11-24] MEDS ORDERED: ALPR0.254 PO (06:53)
[2021-11-24] MEDS ORDERED: LETR2.5T PO (06:53)
[2021-11-24] MEDS ORDERED: PANT40TA2 PO (06:53)
[2021-11-24] MEDS ORDERED: DICL100G13 TOP (06:53)
--- NOTE | 2021-11-24 06:54 | Discharge Summary ---
Diagnosis/Chief Complaint Date of Admission Nov 18, 2021 at 09:31 Date of Discharge Discharge Date: Nov 24, 2021 Discharge Diagnosis Assessment: Metastatic brain disease Right-sided weakness Fall risk Breast cancer left in 2019 GERD Plan: Keppra Decadron Inpatient rehab protocol 11/19/2021: Supportive care Pain control Voltaren gel 11/20/2021: Home medication evaluation Supportive care 11/21/2021: Oncology appointment today Wean off Decadron 11/22/2021: Radiation treatment to start on Saturday Continue aggressive treatment 11/23/2021: Discharge tomorrow (1) Breast cancer, left Qualifiers: Qualified Codes: C50.912 - Malignant neoplasm of unspecified site of left female breast (2) Brain tumor Status: Acute Discharge Summary Discharge Physical Examination Allergies: Coded Allergies: Iodinated Contrast Media (Verified Allergy, Mild, TURNED SKIN ORANGE/LEFT SCAR TISSUE ON ARMS, 03/10/19) Latex, Natural Rubber (Verified Allergy, Mild, ITCHING, 03/10/19) cephalexin (Verified Allergy, Mild, RASH, 03/10/19) hydrocodone (Verified Allergy, Mild, N/V, 03/10/19) Vitals & I&Os Vital Signs Date Time Temp Pulse Resp B/P (MAP) Pulse Ox O2 Delivery O2 Flow Rate FiO2 11/24/21 12:00 36.1 60 20 124/59 96 Room Air General Appearance: Alert, Oriented X3, Cooperative Respiratory: Clear to Auscultation Cardiovascular: Regular Rate Neuro: Normal Gait, Normal Speech, Strength at 5/5 X4 Ext Psych/Mental Status: Mental Status NL Hospital Course Was the Problem List Reviewed?: Yes Hospital course: Patient had an uneventful hospital course after she arrived following focal weakness found to have metastatic breast cancer to the brain. Patient was placed on Decadron and Keppra for cerebral edema and seizure prophylaxis respectively. Patient was able to participate in therapy and had good results and minimal dizziness and no syncope. Patient was deemed stable for discharge with radiation treatment to start on Saturday at [facility]. Labs (last 24 hrs) Laboratory Tests 11/19/21 05:30: White Blood Count 16.7H, Red Blood Count 4.35, Hemoglobin 13.3, Hematocrit 40, Mean Corpuscular Volume 92, Mean Corpuscular Hemoglobin 31, Mean Corpuscular Hemoglobin Concent 33, Red Cell Distribution Width 13.7, Platelet Count 190, Mean Platelet Volume 11.4, Immature Granulocyte % (Auto) 2, Neutrophils (%) (Auto) 76H, Lymphocytes (%) (Auto) 15, Monocytes (%) (Auto) 6, Eosinophils (%) (Auto) 0, Basophils (%) (Auto) 0, Neutrophils # (Auto) 12.7H, Lymphocytes # (A uto) 2.6, Monocytes # (Auto) 1.1H, Eosinophils # (Auto) 0.0, Basophils # (Auto) 0.0, Immature Granulocyte # (Auto) 0.4H, Sodium Level 138, Potassium Level 4.6, Chloride Level 102, Carbon Dioxide Level 24, Anion Gap 12, Blood Urea Nitrogen 18, Creatinine 0.63, Estimat Glomerular Filtration Rate 99, BUN/Creatinine Ratio 29, Glucose Level 88, Calcium Level 8.4L, Corrected Calcium 9.2, Total Bilirubin 0.3, Aspartate Amino Transf (AST/SGOT) 17, Alanine Aminotransferase (ALT/SGPT) 32, Alkaline Phosphatase 54, Total Protein 5.4L, Albumin 3.0L Pending Labs Laboratory Tests 11/19/21 05:30: White Blood Count 16.7, Red Blood Count 4.35, Hemoglobin 13.3, Hematocrit 40, Mean Corpuscular Volume 92, Mean Corpuscular Hemoglobin 31, Mean Corpuscular Hemoglobin Concent 33, Red Cell Distribution Width 13.7, Platelet Count 190, Mean Platelet Volume 11.4, Immature Granulocyte % (Auto) 2, Neutrophils (%) (Auto) 76, Lymphocytes (%) (Auto) 15, Monocytes (%) (Auto) 6, Eosinophils (%) (Auto) 0, Basophils (%) (Auto) 0, Neutrophils # (Auto) 12.7, Lymphocytes # (Auto) 2.6, Monocytes # (Auto) 1.1, Eosinophils # (Auto) 0.0, Basophils # (Auto) 0.0, Immature Granulocyte # (Auto) 0.4, Sodium Level 138, Potassium Level 4.6, Chloride Level 102, Carbon Dioxide Level 24, Anion Gap 12, Blood Urea Nitrogen 18, Creatinine 0.63, Estimat Glomerular Filtration Rate 99, BUN/Creatinine Ratio 29, Glucose Level 88, Calcium Level 8.4, Corrected Calcium 9.2, Total Bilirubin 0.3, Aspartate Amino Transf (AST/SGOT) 17, Alanine Aminotransferase (ALT/SGPT) 32, Alkaline Phosphatase 54, Total Protein 5.4, Albumin 3.0 Discharge Home Medications: Active Scripts Active Dexamethasone 4 Mg Tablet 2 Mg PO BID Levetiracetam 500 Mg Tablet 500 Mg PO BID Diclofenac Sodium 100 Gm Gel..gram. 0 Gm TOP QID ALPRAZolam 0.25 Mg Tablet 0.125-0.25 Mg PO Q8H PRN Escitalopram Oxalate 10 Mg Tablet 10 Mg PO HS Femara (Letrozole) 2.5 Mg Tab 2.5 Mg PO DAILY Protonix (Pantoprazole Sodium) 40 Mg Tablet.dr 40 Mg PO DAILY Instructions to patient/family Please see electronic discharge instructions given to patient. Diagnosis/Problems Diagnosis/Problems (1) Breast cancer, left Qualifiers: Qualified Codes: C50.912 - Malignant neoplasm of unspecified site of left female breast (2) Brain tumor Status: Acute FELIX GARCIA DO Nov 24, 2021 06:54
[2021-11-24 07:36] VITALS: BP 124/59
--- NOTE | 2021-11-24 08:09 | Therapy Team Discharge Summary ---
Therapy Discharge Summary Discharge Recommendations Date of Discharge Physical Therapy Patient came to rehab with diagnosis of brain mass. Upon evaluation patient performs rolling and supine <-> sit with independence, sit <-> stand and transfers SBA, car transfer SBA, ambulate 300' without an assistive device with SBA (including 50' with at least 2 turns of 90 degrees and 10' over an uneven surface), went up and down 12 steps using 1 handrail with SBA, and picked up an object from the floor with CGA. Patient has been performing bed mobility and transfer training, balance and endurance training, functional strengthening, stair training, gait training, and education. Patient has made good progress and has met all of her terminal manager goals. Now, patient performs bed mobility and transfers with independence, car transfer independent, ambulates over 700' without an assistive device with independence (including 50' with at least 2 turns of 90 degrees and 10' over an uneven surface), can go up and down 12 steps using 2 handrails with independence, and can cotton picker an object from the floor with independence. Patient is being discharged from this facility today and will be discharged from PT at this time. Roll Left to Right (QC): 6 Sit to Lying (QC): 6 Lying to Sitting/Side of Bed(Q: 6 Sit to Stand (QC): 6 Chair/Lxa-oj-Gzwkc Xfer(QC): 6 Toilet Transfer (QC): 6 Car Transfer (QC): 6 Does the Patient Walk: Yes Mode of Locomotion: Walk Anticipated Mode of Locomotion: Walk Walk 10 feet (QC): 6 Walk 50 ft with 2 Turns(QC): 6 Walk 150 ft (QC): 6 Walking 10ft on uneven surface: 6 Distance: 300', 120' Gait Assistive Device: None Does the Pt Use a Wheelchair: No Wheel 50 ft with 2 turns (QC): 9 Wheel 150 ft (QC): 9 Type of Wheelchair: N/A #of Steps: 8 1 Step (curb) (QC): 6 4 Steps (QC): 6 12 Steps (QC): 6 Balance Sitting Static: Normal Balance Sitting Dynamic: Normal Balance-Standing Static: Normal Picking up an Object (QC): 6 Occupational Therapy Decreased Activ Tolerance, Decreased UE Strength Eating (QC): 6 Oral Hygiene (QC): 6 Shower/Bathe Self (QC): 6 Upper Body Dressing (QC): 6 Lower Body Dressing (QC): 6 On/Off Footwear (QC): 6 Toileting Hygiene (QC): 6 PT Fdc Goals Fdc Goals PT Fdc Goals Time Frame: December 11, 2021 Roll Left to Right (QC): 6 (Met) Sit to Lying (QC): 6 (Met) Lying-Sitting on Side/Bed(QC): 6 (Met) Sit to Stand (QC): 6 (Met) Chair/Pww-ew-Jxdrv Xfer(QC): 6 (Met) Car Transfer (QC): 6 (Met) Does the Patient Walk: Yes Walk 10 feet (QC): 6 (Met) Walk 10ft-Uneven Surface(QC): 6 (Met) Walk 50ft with 2 Turns (QC): 6 (Met) Walk 150 ft (QC): 6 (Met) Does the Pt use WC or Scooter?: No Wheel 50 feet with 2 turns (QC: 9 1 Step (curb) (QC): 6 (Met) 4 Steps (QC): 6 (Met) 12 Steps (QC): 6 Picking up an Object (QC): 6 (Met) OT Fdc Goals Janitor Head Goals Time Frame: Dec 09, 2021 Eating (QC): 6 Oral Hygiene (QC): 6 Shower/Bathe Self (QC): 6 Upper Body Dressing (QC): 6 Lower Body Dressing (QC): 6 On/Off Footwear (QC): 6 Toileting Hygiene (QC): 6 Toilet/Commode Transfer (QC): 6 (Met) Additional Goals: 1-Demonstrate ADL Tasks, 2-Verbalize Understanding, 3- ImproveStrength/Kaylynn 1=Demonstrate adherence to instructed precautions during ADL tasks. 2=Patient will verbalize/demonstrate understanding of assistive devices/modifications for ADL. 3=Patient will improve strength/tolerance for activity to enable patient to perform ADL's. ALEXYS DIAZ PT Nov 24, 2021 08:09
[2021-11-24] MEDS: DOCUSATE SODIUM 100 MG (COLACE) CAP PO SCH (09:28)
[2021-11-24] MEDS: polyethylene glycoL POWDER 17 GM (MIRALAX) PACK PO SCH (09:29)
[2021-11-24] MEDS: SENNA W/DOCUSATE (SENOKOT S) TABLET PO SCH (09:29)
[2021-11-24] MEDS: LETROZOLE 2.5 MG (FEMARA) TAB PO SCH (09:29)
[2021-11-24] MEDS: DICLOFENAC 1% GEL 100 GM (VOLTAREN) TUBE TOP SCH (09:33)
[2021-11-24 12:00] VITALS: BP 124/59
--- NOTE | 2021-11-24 13:35 | Therapy Team Discharge Summary ---
Therapy Discharge Summary Discharge Recommendations Date of Discharge Therapy D/C Recommendations: Home Independently Physical Therapy Roll Left to Right (QC): 6 Sit to Lying (QC): 6 Lying to Sitting/Side of Bed(Q: 6 Sit to Stand (QC): 6 Chair/Cjh-bg-Mhsgj Xfer(QC): 6 Toilet Transfer (QC): 6 Car Transfer (QC): 6 Does the Patient Walk: Yes Mode of Locomotion: Walk Anticipated Mode of Locomotion: Walk Walk 10 feet (QC): 6 Walk 50 ft with 2 Turns(QC): 6 Walk 150 ft (QC): 6 Walking 10ft on uneven surface: 6 Distance: 300', 120' Gait Assistive Device: None Does the Pt Use a Wheelchair: No Wheel 50 ft with 2 turns (QC): 9 Wheel 150 ft (QC): 9 Type of Wheelchair: N/A #of Steps: 8 1 Step (curb) (QC): 6 4 Steps (QC): 6 12 Steps (QC): 6 Balance Sitting Static: Normal Balance Sitting Dynamic: Normal Balance-Standing Static: Normal Picking up an Object (QC): 6 Occupational Therapy OT arrived to ARU with diagnosis of brain masses. At time of eval, she was SBA for eating and toileting, set up for bathing, and indep with footwear, upper and lower body dressing. During rehab stay, OT focused on safety, energy conservation, endurance, UE strength/ROM, and higher level balance. 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 Pt is now indep with all adls. She discharged from this facility and will be discharged from OT at this time. Decreased Activ Tolerance, Decreased UE Strength Eating (QC): 6 Oral Hygiene (QC): 6 Shower/Bathe Self (QC): 6 Upper Body Dressing (QC): 6 Lower Body Dressing (QC): 6 On/Off Footwear (QC): 6 Toileting Hygiene (QC): 6 PT Television Servicer Goals Television Servicer Goals PT Fdc Goals Time Frame: December 11, 2021 Roll Left to Right (QC): 6 (Met) Sit to Lying (QC): 6 (Met) Lying-Sitting on Side/Bed(QC): 6 (Met) Sit to Stand (QC): 6 (Met) Chair/Vtl-az-Rxqjt Xfer(QC): 6 (Met) Car Transfer (QC): 6 (Met) Does the Patient Walk: Yes Walk 10 feet (QC): 6 (Met) Walk 10ft-Uneven Surface(QC): 6 (Met) Walk 50ft with 2 Turns (QC): 6 (Met) Walk 150 ft (QC): 6 (Met) Does the Pt use WC or Scooter?: No Wheel 50 feet with 2 turns (QC: 9 1 Step (curb) (QC): 6 (Met) 4 Steps (QC): 6 (Met) 12 Steps (QC): 6 Picking up an Object (QC): 6 (Met) OT Television Servicer Goals Television Servicer Goals Time Frame: Dec 09, 2021 Eating (QC): 6 (met) Oral Hygiene (QC): 6 (met) Shower/Bathe Self (QC): 6 (met) Upper Body Dressing (QC): 6 (met) Lower Body Dressing (QC): 6 (met) On/Off Footwear (QC): 6 (met) Toileting Hygiene (QC): 6 (met) Toilet/Commode Transfer (QC): 6 (Met) Additional Goals: 1-Demonstrate ADL Tasks, 2-Verbalize Understanding, 3- ImproveStrength/Kaylynn 1=Demonstrate adherence to instructed precautions during ADL tasks. 2=Patient will verbalize/demonstrate understanding of assistive devices/modifications for ADL. 3=Patient will improve strength/tolerance for activity to enable patient to perform ADL's. Letty Contreras OT Nov 24, 2021 13:35
== END 2021-11-24 12:00 | disposition home or self-care (01) | DRG 57 ==
PROVIDERS: ADMIT Internal Medicine; ATTEND Internal Medicine
DX: G81.91 Hemiplegia, unspecified affecting right dominant side (principal); C79.31 Secondary malignant neoplasm of brain; Z91.81 History of falling; F41.9 Anxiety disorder, unspecified; K21.9 Gastro-esophageal reflux disease without esophagitis; Z85.3 Personal history of malignant neoplasm of breast; Z87.891 Personal history of nicotine dependence; Z88.5 Allergy status to narcotic agent; Z88.1 Allergy status to other antibiotic agents; Z91.041 Radiographic dye allergy status; Z91.040 Latex allergy status
CPT/HCPCS: 36415; 80053; 85025

== ENCOUNTER 2022-01-01 15:04 | Outpatient (CLI) | payer MEDICARE, MEDICAID ==
[~2022-01-01] VITALS: Ht 167.6 cm; Wt 63.0 kg
[~2022-01-01 15:04] MED LIST changes: -ACETAMINOPHEN 325 MG TABLET PO PRN; +ALPR0.254 PO; -BISACODYL 10 MG SUPP (DULCOLAX) PR PRN; -CALCIUM CARBONATE 500 MG (TUMS) TAB.CHEW PO PRN; +DEXA4TAB PO; +DICL100G13 TOP; -DOCUSATE SODIUM 100 MG (COLACE) CAP PO PRN; +ESCI-2 PO; -FLEET ENEMA ADULT 1 EA BTL PR PRN; -LACTULOSE SYRUP 10GM/15ML (ENULOSE) 30ML UDC PO PRN; +LETR2.5T PO; +LETR2.5T6 PO; +LEVE500T6 PO; -LOPERAMIDE 2 MG (IMODIUM) TABLET PO PRN; -ONDANSETRON 4 MG (ZOFRAN) ORAL DISSOLVE TAB PO PRN; +PANT40TA2 PO; -diphenhydrAMINE 25 MG TAB (BENADRYL) PO PRN; -guaiFENesin/CODEINE (ROBITUSSIN AC) 10ML UDC PO PRN
[2022-01-01] MEDS ORDERED: LEVE500T99 PO (15:18)
[2022-01-01] MEDS ORDERED: ONDA-105 PO (15:18)
[2022-01-01] MEDS ORDERED: DOXY-227 PO (15:18)
== END 2022-01-01 15:26 | disposition home or self-care (01) ==
LOC: PREOP 15:04
PROVIDERS: ATTEND Surgery
DX: Z01.818 Encounter for other preprocedural examination (principal)

== ENCOUNTER 2022-01-04 12:20 | Day surgery (SDC) | payer MEDICARE, MEDICAID ==
[~2022-01-04] VITALS: Ht 167.3 cm; Wt 63.0 kg
[~2022-01-04 12:20] MED LIST changes: +DOXY-227 PO; +LEVE500T99 PO; +ONDA-105 PO
[2022-01-04] MEDS ORDERED: LACTATED RINGERS 1,000 ML IV STA (12:27)
[2022-01-04] MEDS ORDERED: HURRICAINE EXT TUBE (BENZOCAINE) XX PRN (12:30)
[2022-01-04 12:40] VITALS: BP 113/68
[2022-01-04] MEDS ORDERED: proPOfol 200 MG/20 ML (DIPRIVAN) VIAL IV ONE (14:03)
--- NOTE | 2022-01-04 14:08 | Progress Note-Pre Operative ---
Pre-Operative Progress Note H&P Reviewed The H&P was reviewed, patient examined and no changes noted. Date Seen by Provider: January 04, 2022 Time Seen by Provider: 14:07 Date H&P Reviewed: January 04, 2022 Time H&P Reviewed: 14:07 Pre-Operative Diagnosis: ABNORMAL PET, GERD JER SIMS DO January 04, 2022 14:08
[2022-01-04 14:27] VITALS: BP 115/59
--- NOTE | 2022-01-04 14:27 | Progress Note-Post Operative ---
Post-Operative Progess Note Surgeon (s)/Portrait Photographer (s) Surgeon JER SIMS DO Portrait Photographer: NA Pre-Operative Diagnosis ABNORMAL PET, GERD Post-Operative Diagnosis GASTRITIS, SMALL HIATAL HERNIA Procedure & Operative Findings Date of Procedure 01/04/22 Procedure Performed/Findings EGD C BIOPSIES Anesthesia Type PER TOILET PRODUCTS MOLDER Estimated Blood Loss Estimated blood loss (mL): NA Specimens/Packing Specimens Removed ANTRUM, GE JER SIMS DO January 04, 2022 14:27
--- NOTE | 2022-01-04 14:27 | Anesthesia-General Post-Op ---
MAC Patient Condition Mental Status/LOC: Same as Preop Cardiovascular: Satisfactory Nausea/Vomiting: Absent Respiratory: Satisfactory Pain: Controlled Complications: Absent Post Op Complications Complications None Follow Up Care/Instructions Patient Instructions None needed. Anesthesiology Discharge Order Discharge Order Patient is doing well, no complaints, stable vital signs, no apparent adverse anesthesia problems. No complications reported per nursing. LISA SUMMERS CRNA January 04, 2022 14:27
--- NOTE | 2022-01-04 14:28 | Discharge Inst-Simple/Standard ---
Discharge Inst-Standard Patient Instructions/Follow Up Plan of Care/Instructions/FU: 2 WEEKS LEVI Activity as Tolerated: Yes Discharge Diet: Regular Diet JER SIMS DO January 04, 2022 14:28
[2022-01-04 14:29] VITALS: BP 111/59
[2022-01-04 14:45] VITALS: BP 111/59
[2022-01-04 14:50] VITALS: BP 124/71
--- NOTE | 2022-01-04 23:03 | OPERATIVE REPORT ---
DATE OF SERVICE: 01/04/2022 PREOPERATIVE DIAGNOSIS: Abnormal PET scan and gastroesophageal reflux disease. POSTOPERATIVE DIAGNOSES: Gastritis, antral gastritis, small hiatal hernia. PROCEDURE: EGD with biopsy. SURGEON: Jer Tello DO ANESTHESIA: Per RN PERINATAL. ESTIMATED BLOOD LOSS: None. COMPLICATIONS: None. INDICATIONS: The patient is a 66-year-old female with metastatic breast cancer. She had an abnormal PET scan and she has GERD symptoms. She understands risks and benefits of procedure and wishes to proceed. Consent was signed in the chart. DESCRIPTION OF PROCEDURE: The patient is endoscopy suite, placed in left lateral recumbent position. Timeout was performed. Scope was inserted in mouth, down the esophagus, stomach and into the duodenum without difficulty. No polyps, masses or ulcerations within the duodenum. Scope was slowly retracted back into the stomach where it was further insufflated. Erythematous changes patching this in the antrum, which biopsies were obtained. There were no polyps, masses or ulcerations. Scope was retroflexed noting a small hiatal hernia, no other pathology. Scope was returned to its normal position, slowly withdrawn to distal esophagus. Biopsy of the GE junction was obtained. No polyps, masses or ulcerations. Scope was slowly retracted back to completely remove noting no other pathology. The patient tolerated procedure well without any complications. She was taken to recovery room in stable condition. RECOMMENDATIONS: The patient will continue on current medications. Await biopsy results. Further recommendations pending those results. Job ID: [id number] DocumentID: [id number] Dictated Date: 01/04/2022 14:30:58 Hand Launderer Date: 01/04/2022 23:02:56 Dictated By: JER TELLO DO
== END 2022-01-04 14:56 | disposition home or self-care (01) ==
LOC: ENDO 12:20
PROVIDERS: ATTEND Surgery
DX: K21.00 Gastro-esophageal reflux disease with esophagitis, without bleeding (principal); K29.50 Unspecified chronic gastritis without bleeding; K31.89 Other diseases of stomach and duodenum; K44.9 Diaphragmatic hernia without obstruction or gangrene; C50.919 Malignant neoplasm of unspecified site of unspecified female breast; R93.89 Abnormal findings on diagnostic imaging of other specified body structures; F17.210 Nicotine dependence, cigarettes, uncomplicated; Z79.899 Other long term (current) drug therapy; Z92.21 Personal history of antineoplastic chemotherapy; Z92.3 Personal history of irradiation

== ENCOUNTER 2022-02-09 16:42 | Inpatient (IN) | payer MEDICARE, MEDICAID ==
[~2022-02-09] VITALS: Ht 167.7 cm; Wt 66.1 kg
[2022-02-09 17:03] LABS: BASOPHILS % (AUTO) 0 % (0-10)
[2022-02-09 17:05] LABS: BASOPHILS # (AUTO) 0.2 10^3/uL (0.0-0.1); EOSINOPHILS # (AUTO) 2.2 10^3/uL (0.0-0.3); EOSINOPHILS % (AUTO) 3 % (0-10); HEMATOCRIT 37 % (35-52); HEMOGLOBIN 11.9 g/dL (11.5-16.0); LYMPHOCYTES # (AUTO) 3.1 10^3/uL (1.0-4.0); LYMPHOCYTES % (AUTO) 4 % (12-44); MEAN CORPUSCULAR HEMOGLOBIN 31 pg (25-34); MEAN CORPUSCULAR HGB CONC 32 g/dL (32-36); MEAN CORPUSCULAR VOLUME 96 fL (80-99); MEAN PLATELET VOLUME 13.9 fL (9.0-12.2); MONOCYTES % (AUTO) 5 % (0-12); NEUTROPHILS # (AUTO) 60.9 10^3/uL (1.8-7.8); NEUTROPHILS % (AUTO) 81 % (42-75)
[2022-02-09 17:08] LABS: WHITE BLOOD COUNT 75.6 10^3/uL (4.3-11.0)
[2022-02-09 17:09] LABS: PLATELET COUNT 38 10^3/uL (130-400)
[2022-02-09 17:31] LABS: POTASSIUM 3.6 MMOL/L (3.6-5.0)
[2022-02-09 17:32] LABS: CALCIUM 8.3 MG/DL (8.5-10.1)
[2022-02-09 17:33] LABS: TOTAL PROTEIN 6.2 GM/DL (6.4-8.2)
[2022-02-09 17:35] LABS: BILIRUBIN,TOTAL 1.2 MG/DL (0.1-1.0)
[2022-02-09 17:37] LABS: CREATININE SERUM 1.01 MG/DL (0.60-1.30)
[2022-02-09 17:40] LABS: ANISOCYTOSIS SLIGHT; ATYPICAL LYMPHOCYTES 2 %; BAND NEUTROPHILS 8 %; EOSINOPHILS % (MANUAL) 1 %; LYMPHOCYTES % (MANUAL) 4 %; MAGNESIUM 1.9 MG/DL (1.6-2.4); MONOCYTES % (MANUAL) 3 %; NEUTROPHILS % (MANUAL) 82 %; POIKILOCYTOSIS SLIGHT; TOXIC GRANULATION/VACUOLAZATIO 1+
[2022-02-09] MEDS ORDERED: NYSTATIN ORAL SUSP 5 ML UDC PO STA (18:01)
[2022-02-09] MEDS ORDERED: CEFEPIME INJECTION 2,000 MG in NS (IVPB) 50 ML IV ONE (18:30)
--- NOTE | 2022-02-09 18:48 | ED General ---
General Chief Complaint: General Problems/Pain Stated Complaint: DEHYDRATION,L ARM PAIN Nursing Triage Note: arrives to room 6 via ems with c/o generalized weakness, swelling in left arm and suspected dehydration. Source of Information: Patient, EMS Exam Limitations: No Limitations (RADHA ASTUDILLO MD) History of Present Illness Date Seen by Provider: Feb 09, 2022 Time Seen by Provider: 16:56 Initial Comments This is 66-year-old woman presents to the emergency room via EMS at the direction of Kirill Ma who is helping direct her care for the [facility]. She is presently being treated for breast cancer with brain metastasis. She just completed a round of whole brain radiation and has follow- up scheduled to determine progress. She is not actively on treatment at this moment. In recent days she has become exceptionally weak. She describes extreme thirst and feels like she is getting dehydrated. Apparently her home health workers tried to draw blood today and had a difficult time, presumably due to dehydration. Patient therefore was sent to the emergency room. She denies any urinary changes, fever, new cough or shortness of breath, or GI symptoms. She has had persistent nausea and vomiting related to her cancer treatments, and she takes Zofran for that. Bonnie Hernandez is her primary care provider. Dr. Arita is her oncologist. Systolic blood pressure was noted to be 85 by EMS. Patient reports she normally does run lower blood pressures. She has been on dexamethasone therapy along with her radiation. Patient has been noted to have increasing swelling in her left upper arm. This is the side she had mastectomy on. However, mastectomy was a few years ago and swelling is worsening recently. There was speculation about possible DVT. She is already on Xarelto for recent diagnosis of lower extremity DVT. Patient's niece, Bebe, who is also her POA ([phone]) later clarifies that the patient managed her radiation therapy at the end of November. She began having some neurologic symptoms such as drooling recently and was then restarted on dexamethasone therapy. (RADHA ASTUDILLO MD) Associated Systoms: Loss of Appetite (JEN TIPTON MD) Allergies and Home Medications Allergies Coded Allergies: Iodinated Contrast Media (Verified Allergy, Mild, TURNED SKIN ORANGE/LEFT SCAR TISSUE ON ARMS, 03/10/19) Latex, Natural Rubber (Verified Allergy, Mild, ITCHING, 03/10/19) cephalexin (Verified Allergy, Mild, RASH, 03/10/19) hydrocodone (Verified Allergy, Mild, N/V, 03/10/19) lactose (Verified Allergy, Unknown, 02/09/22) Patient Home Medication List Home Medication List Reviewed: Yes (RADHA ASTUDILLO MD) ALPRAZolam (ALPRAZolam) 0.25 Mg Tablet, 0.125-0.25 MG PO Q8H PRN for ANXIETY Prescribed by: FELIX GARCIA on 11/24/21653 Dexamethasone (Dexamethasone) 4 Mg Tablet, 2 MG PO BID Prescribed by: FELIX GARCIA on 11/24/21652 Doxycycline Hyclate (Doxycycline Hyclate) 100 Mg Tablet.dr, 100 MG PO BID, (Reported) Entered as Reported by: TAL GASPAR on 01/01/221517 Escitalopram Oxalate (Escitalopram Oxalate) 10 Mg Tablet, 10 MG PO HS Prescribed by: FELIX GARCIA on 11/24/21652 Letrozole (Femara) 2.5 Mg Tab, 2.5 MG PO DAILY Prescribed by: FELIX GARCIA on 11/24/21652 Levetiracetam (Levetiracetam) 500 Mg Tablet, 500 MG PO BID Prescribed by: FELIX GARCIA on 11/24/21652 Levetiracetam (Keppra) 500 Mg Tablet, 500 MG PO DAILY, (Reported) Entered as Reported by: TAL GASPAR on 01/01/221517 Ondansetron HCl (Ondansetron HCl) 4 Mg Tablet, 4 MG PO PRN, (Reported) Entered as Reported by: TAL GASPAR on 01/01/221517 Pantoprazole Sodium (Protonix) 40 Mg Tablet.dr, 40 MG PO DAILY Prescribed by: FELIX GARCIA on 11/24/21652 Review of Systems Review of Systems Constitutional: see HPI, weakness EENTM: no symptoms reported Respiratory: no symptoms reported Cardiovascular: see HPI Gastrointestinal: see HPI Genitourinary: no symptoms reported Musculoskeletal: no symptoms reported Skin: no symptoms reported Psychiatric/Neurological: See HPI Hematologic/Lymphatic: See HPI Immunological/Allergic: see HPI (RADHA ASTUDILLO MD) Past Plzsegs-Qmdgnw-Zxgipw Hx Patient Social History Tobacco Use?: No Smoking Status: Former Smoker Use of E-Cig and/or Vaping dev: No Substance use?: No Alcohol Use?: No Pt feels they are or have been: No (RADHA ASTUDILLO MD) Immunizations Up To Date Tetanus Booster (TDap): Unknown PED Vaccines UTD: No First/Initial COVID19 Vaccinat: declined Second COVID19 Vaccination Luis Daniel: NO Third COVID19 Vaccination Date: NO (RADHA ASTUDILLO MD) Seasonal Allergies Seasonal Allergies: No (RADHA ASTUDILLO MD) Past Medical History Surgery/Hospitalization HX: pmh: breast ca, brain tumor Surgeries: Yes (BRAIN TUMOR, mastectomy, port) Breast, Tonsillectomy Respiratory: No Cardiac: No Neurological: Yes (HX BRAIN TUMOR) Genitourinary: No Gastrointestinal: No Musculoskeletal: Yes (MUSCLE CRAMPS IN HANDS/FEET, MILD ARTHRITIS IN BACK) Arthritis Endocrine: No HEENT: Yes (PARTIAL DENTURE) Loss of Vision: Denies Hearing Impairment: Denies Cancer: Yes (METS TO LYMPH NODES) Brain, Breast Did You Recieve Any Treatments: Yes What Type of Treatment Did You: Radiation, Surgical Intervention Psychosocial: Yes Anxiety Integumentary: Yes (BACTERIAL FOLLICULITIS) Blood Disorders: No Adverse Reaction/Blood Tranf: No (RADHA ASTUDILLO MD) Physical Exam Vital Signs Vital Signs - First Documented 02/09/22 16:42 Temp 36.7 Pulse 91 Resp 18 B/P (MAP) 96/64 (75) Pulse Ox 98 O2 Delivery Room Air (JEN TIPTON MD) Vital Signs Capillary Refill : Less Than 3 Seconds (RADHA ASTUDILLO MD) Height, Weight, BMI Height: 5'6.00" Weight: 160lbs. 2.0oz. 72.247507br; 22.00 BMI Method:Stated General Appearance: No Apparent Distress, WD/WN, Cachetic HEENT: PERRL/EOMI, Normal ENT Inspection, Other (White plaquing on the tongue and roof of the mouth suspicious for thrush) Neck: Normal Inspection Respiratory: Lungs Clear, Normal Breath Sounds, No Accessory Muscle Use Cardiovascular: Regular Rate, Rhythm, No Edema, No Murmur Gastrointestinal: Normal Bowel Sounds, Non Tender, Soft Extremity: Normal Inspection, No Pedal Edema Neurologic/Psychiatric: Alert, Oriented x3, No Motor/Sensory Deficits, Normal Mood/Affect Skin: Normal Color, Warm/Dry (RADHA ASTUDILLO MD) Focused Exam Lactate Level 02/09/22 19:10: Lactic Acid Level 1.49 (JEN TIPTON MD) Lactic Acid Level Laboratory Tests Test 02/09/22 19:10 Lactic Acid Level 1.49 MMOL/L (0.50-2.00) (JEN TIPTON MD) Progress/Results/Core Measures Suspected Sepsis SIRS Temperature: Pulse: 91 Respiratory Rate: 18 Laboratory Tests 02/09/22 16:54: White Blood Count 75.6*H Blood Pressure 96 /64 Mean: 75 Laboratory Tests 02/09/22 16:54: Creatinine 1.01, Platelet Count 38*L, Total Bilirubin 1.2H (RADHA ASTUDILLO MD) Results/Orders Lab Results Laboratory Tests Test 02/09/22 16:54 02/09/22 18:55 02/09/22 19:10 Range/Units White Blood Count 75.6 *H 4.3-11.0 10^3/uL Red Blood Count 3.84 3.80-5.11 10^6/uL Hemoglobin 11.9 11.5-16.0 g/dL Hematocrit 37 35-52 % Mean Corpuscular Volume 96 80-99 fL Mean Corpuscular Hemoglobin 31 25-34 pg Mean Corpuscular Hemoglobin Concent 32 32-36 g/dL Red Cell Distribution Width 15.9 H 10.0-14.5 % Platelet Count 38 *L 130-400 10^3/uL Mean Platelet Volume 13.9 H 9.0-12.2 fL Immature Granulocyte % (Auto) 7 % Neutrophils (%) (Auto) 81 H 42-75 % Lymphocytes (%) (Auto) 4 L 12-44 % Monocytes (%) (Auto) 5 0-12 % Eosinophils (%) (Auto) 3 0-10 % Basophils (%) (Auto) 0 0-10 % Neutrophils # (Auto) 60.9 H 1.8-7.8 10^3/uL Lymphocytes # (Auto) 3.1 1.0-4.0 10^3/uL Monocytes # (Auto) 4.0 H 0.0-1.0 10^3/uL Eosinophils # (Auto) 2.2 H 0.0-0.3 10^3/uL Basophils # (Auto) 0.2 H 0.0-0.1 10^3/uL Immature Granulocyte # (Auto) 5.2 H 0.0-0.1 10^3/uL Neutrophils % (Manual) 82 % Lymphocytes % (Manual) 4 % Monocytes % (Manual) 3 % Eosinophils % (Manual) 1 % Band Neutrophils 8 % Atypical Lymphocytes 2 % Toxic Granulation 1+ Percent Immature Platelet Fraction 14.1 H 0.0-7.6 % Poikilocytosis SLIGHT Anisocytosis SLIGHT Sodium Level 138 135-145 MMOL/L Potassium Level 3.6 3.6-5.0 MMOL/L Chloride Level 101 98-107 MMOL/L Carbon Dioxide Level 24 21-32 MMOL/L Anion Gap 13 5-14 MMOL/L Blood Urea Nitrogen 19 H 7-18 MG/DL Creatinine 1.01 0.60-1.30 MG/DL Estimat Glomerular Filtration Rate 62 BUN/Creatinine Ratio 19 Glucose Level 100 70-105 MG/DL Calcium Level 8.3 L 8.5-10.1 MG/DL Corrected Calcium 9.1 8.5-10.1 MG/DL Magnesium Level 1.9 1.6-2.4 MG/DL Total Bilirubin 1.2 H 0.1-1.0 MG/DL Aspartate Amino Transf (AST/SGOT) 47 H 5-34 U/L Alanine Aminotransferase (ALT/SGPT) 37 0-55 U/L Alkaline Phosphatase 313 H 40-136 U/L Total Protein 6.2 L 6.4-8.2 GM/DL Albumin 3.0 L 3.2-4.5 GM/DL Influenza Type A (RT-PCR) Not Detected Not Detecte Influenza Type B (RT-PCR) Not Detected Not Detecte SARS-CoV-2 RNA (RT-PCR) Not Detected Not Detecte Lactic Acid Level 1.49 0.50-2.00 MMOL/L (JEN TIPTON MD) Medications Given in ED Current Medications Medications Dose Ordered Sig/Jaylen Route Start Time Stop Time Status Last Admin Dose Admin Cefepime HCl 2000 mg/Sodium Chloride 50 ml @ 100 mls/hr ONCE ONCE IV 7/1/22 18:30 02/09/22 18:59 DC 02/09/22 19:13 100 MLS/HR (JEN TIPTON MD) Vital Signs/I&O 02/09/22 02/09/22 16:42 20:29 Temp 36.7 Pulse 91 76 Resp 18 18 B/P (MAP) 96/64 (75) 98/52 Pulse Ox 98 96 O2 Delivery Room Air Room Air (JEN TIPTON MD) Vital Signs/I&O Capillary Refill : Less Than 3 Seconds (RADHA ASTUDILLO MD) Blood Pressure Mean: 75 Progress Note : Time: 18:42 Progress Note Patient was hydrated with a liter of IV fluids. Labs were reviewed and she was found to have severe leukocytosis and thrombocytopenia. I discussed these new changes with Dr. Arita. He does not believe this represents a neoplastic process but rather infection in the context of her metastatic breast cancer and steroid use. He is recommending a septic work-up and admission on broad- spectrum antibiotics. Patient is agreeable to this plan and actually thankful because she feels so weak that she does not feel she can function at home. She is receiving a total of 1500 mL of IV fluids at this point. Cefepime has been ordered for empiric antibiotic treatment. Oral nystatin is being given for thrush. Kirill Ma was updated with her condition. I discussed CODE STATUS with the patient. I explained risks and benefits of CPR and intubation. I explained the poor probable prognosis of a code experience with her comorbidi ties. She still would like cardiac resuscitation but no intubation. (RADHA ASTUDILLO MD) Progress Note : Progress Note 2008: I have assumed care of the patient from Dr. Astudillo pending labs. Lactic acid is negative as well as COVID testing. I did discuss the case with Dr. Padilla and she accepts patient for admission, inpatient status. UA is pending as well as blood cultures. I did speak with the patient's niece, Bebe, phone number is [phone]. I did update her on the case and did write bridge orders including her typical medications. There is question on nystatin which I have not ordered. We will continue cefepime 1 g every 6 hours per sepsis protocol and recheck labs in the morning. I will continue gentle hydration. Bebe has asked that she be updated after she is seen by Dr. Padilla. I did notify Dr. Padilla that Bebe was the DPOA and that the number would be in the chart as listed above. Patient is appreciative as well as Bebe is appreciative. Admit, inpatient status. (JEN TIPTON MD) Departure Communication (Admissions) Time/Spoke to Admitting Phy: 20:02 (JEN TIPTON MD) Impression Primary Impression: Metastatic breast cancer Additional Impressions: Leukocytosis Qualified Codes: D72.829 - Elevated white blood cell count, unspecified Thrombocytopenia Thrush Disposition: ADMITTED INPATIENT Condition: Stable Admissions Decision to Admit Reason: Admit from ER (General) (RADHA ASTUDILLO MD) Decision to Admit Reason: Admit from ER (General) Decision to Admit/Date: Feb 09, 2022 Time/Decision to Admit Time: 20:02 (JEN TIPTON MD) Departure-Patient Inst. Referrals: GARRY HERNANDEZ (PCP/Family) Primary Care Physician Copy Copies To 1: GINA MA MD Copies To 2: SHERITA ARITA JOSHUA T MD Feb 09, 2022 18:48 JEN TIPTON MD Feb 09, 2022 20:38
--- NOTE | 2022-02-09 19:09 | Diagnostic Imaging Report ---
INDICATION: Elevated white blood cell count COMPARISON: 11/13/2021 TECHNIQUE: Single radiograph of the chest dated 02/09/2022. FINDINGS: Interval placement of a Port-A-Cath with the hub overlying left chest with the distal tip overlying the right atrium. The cardiac silhouette is within normal limits in size. No significant pulmonary vascular congestion. The lungs are hyperinflated with background chronic interstitial lung changes again identified. No new focal pulmonary opacity. No pleural effusion. No pneumothorax. Scattered osseous degenerative changes without acute osseous abnormality. IMPRESSION: Background pulmonary hyperinflation with associated chronic interstitial lung changes without superimposed acute cardiopulmonary abnormality. Interval placement of a Port-A-Cath with the distal tip overlying the right atrium. No pneumothorax. Dictated by: Dictated on workstation # [id number]
[2022-02-09 21:00] VITALS: BP 116/60
[2022-02-09] MEDS ORDERED: NS IV ONE (21:00)
[2022-02-09] MEDS ORDERED: NS IV 1000 ML 1,000 ML ONE (21:36)
[2022-02-09] MEDS: NS IV 1000 ML 1,000 ML IV SCH (21:39)
[2022-02-09] MEDS: RIVAROXABAN 15 MG TABLET (XARELTO) PO SCH (21:57)
[2022-02-09] MEDS: ALPRAZolam 0.25 MG (XANAX) TAB PO PRN (21:57)
[2022-02-09] MEDS: fentaNYL INJ 100 MCG/2 ML AMP IV PRN (21:57)
[2022-02-09 23:00] VITALS: BP 102/46
[2022-02-10] MEDS: CEFEPIME 1,000 MG/NS 50 ML IVPB IV SCH ×8 (00:34→17:23)
[2022-02-10 04:00] VITALS: BP 115/54
[2022-02-10 05:39] LABS: BASOPHILS % (AUTO) 0 % (0-10); HEMATOCRIT 34 % (35-52); HEMOGLOBIN 10.9 g/dL (11.5-16.0); MEAN CORPUSCULAR HEMOGLOBIN 31 pg (25-34); MEAN CORPUSCULAR HGB CONC 32 g/dL (32-36); MEAN CORPUSCULAR VOLUME 96 fL (80-99); MONOCYTES # (AUTO) 3.4 10^3/uL (0.0-1.0); MONOCYTES % (AUTO) 4 % (0-12)
[2022-02-10 05:41] LABS: BASOPHILS # (AUTO) 0.2 10^3/uL (0.0-0.1); EOSINOPHILS # (AUTO) 2.7 10^3/uL (0.0-0.3); EOSINOPHILS % (AUTO) 4 % (0-10); LYMPHOCYTES % (AUTO) 4 % (12-44); MEAN PLATELET VOLUME 12.6 fL (9.0-12.2); NEUTROPHILS # (AUTO) 61.4 10^3/uL (1.8-7.8); NEUTROPHILS % (AUTO) 79 % (42-75); PLATELET COUNT 45 10^3/uL (130-400)
[2022-02-10 05:46] LABS: WHITE BLOOD COUNT 77.4 10^3/uL (4.3-11.0)
[2022-02-10 05:50] LABS: POTASSIUM 3.8 MMOL/L (3.6-5.0)
[2022-02-10 05:52] LABS: CALCIUM 7.8 MG/DL (8.5-10.1)
[2022-02-10] MEDS: PANTOPRAZOLE 40 MG (PROTONIX) TAB PO SCH (05:53)
[2022-02-10 05:56] LABS: CREATININE SERUM 0.82 MG/DL (0.60-1.30)
[2022-02-10 07:49] VITALS: BP 102/49
[2022-02-10] MEDS: RIVAROXABAN 15 MG TABLET (XARELTO) PO SCH ×2 (08:16→17:23)
[2022-02-10] MEDS: fentaNYL INJ 100 MCG/2 ML AMP IV PRN (09:49)
--- NOTE | 2022-02-10 10:19 | History & Physical-Hospitalist ---
History of Present Illness HPI/Chief Complaint Patient is 66-year-old female with past medical history of metastatic breast cancer who presented to the emergency department due to generalized weakness. She iS under the care of Renita Storm with [facility] program and was directed to the emergency department by him. She has breast cancer with brain mets and completed whole brain radiation in November. She states she is supposed to follow-up with her oncologist to have further imaging but she is unsure when that is. Over the past few days she has felt very ill and has continued to get weaker and weaker. She is very thirsty as well and was worried she was getting dehydrated. On arrival to the emergency department she was found to have a leukocytosis of 75 and oncology was consulted due to concern for neoplasm. Dr. Seth was more concerned about infectious etiology so she has been admitted for IV antibiotics. This morning she reports feeling a little better. She has been able to eat breakfast without nausea or vomiting. Source: patient Exam Limitations: no limitations Date Seen 02/10/22 Time Seen by a Provider: 10:00 Attending Physician Fartun Obando PCP Admitting Physician: Jarad Padilla MD Attending Physician: Jarad Padilla MD Referring Physician Date of Admission Feb 09, 2022 at 20:09 Home Medications & Allergies Home Medications Reviewed patient Home Medication Reconciliation performed by pharmacy medication reconciliations application technician and/or nursing. Patients Allergies have been reviewed. Allergies Allergies Coded Allergies Iodinated Contrast Media (Verified Allergy, Mild, TURNED SKIN ORANGE/LEFT SCAR TISSUE ON ARMS, 03/10/19) Latex, Natural Rubber (Verified Allergy, Mild, ITCHING, 03/10/19) cephalexin (Verified Allergy, Mild, RASH, 03/10/19) hydrocodone (Verified Allergy, Mild, N/V, 03/10/19) lactose (Verified Allergy, Unknown, 02/09/22) Past Enxykra-Wfdzja-Aoxzad Hx Patient Social History Employed/Student: retired Tobacco Use?: No Smoking Status: Former Smoker Use of E-Cig and/or Vaping dev: No Substance use?: No Alcohol Use?: No Pt feels they are or have been: No Immunizations Up To Date First/Initial COVID19 Vaccinat: declined Second COVID19 Vaccination Luis Daniel: declined Tetanus Booster (TDap): Unknown PED Vaccines UTD: No Seasonal Allergies Seasonal Allergies: No Current Status status: No Advance Directives: No Communicates: Verbally Primary Language: German Preferred Spoken Language: German Is interpretation needed?: No Implanted or Applied Medical D: Port-a-cath Past Medical History Surgeries: Breast, Tonsillectomy Arthritis Loss of Vision: Denies Hearing Impairment: Denies Brain, Breast Did You Recieve Any Treatments: Yes What Type of Treatment Did You: Radiation, Surgical Intervention Anxiety Blood Disorders: No Adverse Reaction/Blood Tranf: No Family Medical History Reviewed Nursing Family Hx No Pertinent Family Hx Review of Systems Constitutional: No chills, No fever; malaise, weakness EENTM: no symptoms reported Respiratory: No cough, No short of breath Cardiovascular: No chest pain, No palpitations Gastrointestinal: No abdominal pain; nausea, vomiting Genitourinary: no symptoms reported Musculoskeletal: no symptoms reported Skin: no symptoms reported Psychiatric/Neurological: No Symptoms Reported Physical Exam Physical Exam Vital Signs Vital Signs - First Documented 02/09/22 16:42 Temp 36.7 Pulse 91 Resp 18 B/P (MAP) 96/64 (75) Pulse Ox 98 O2 Delivery Room Air Capillary Refill : Less Than 3 Seconds Height, Weight, BMI Height: 5'6.00" Weight: 160lbs. 2.0oz. [id number]; 21.40 BMI Method:Stated General Appearance: Chronically ill, Cachetic, Thin HEENT: PERRL/EOMI, Moist Mucous Membranes; No Scleral Icterus (L), No Scleral Icterus (R) Neck: Normal Inspection, Supple Respiratory: Lungs Clear, No Accessory Muscle Use, No Respiratory Distress Cardiovascular: Regular Rate, Rhythm, No Murmur Gastrointestinal: Normal Bowel Sounds, Non Tender, Soft Extremity: Normal Capillary Refill, No Calf Tenderness, No Pedal Edema, Other (edematous left arm) Neurologic/Psychiatric: Alert, Oriented x3, Normal Mood/Affect; No Aphasia Results Results/Procedures Labs Laboratory Tests 02/09/22 16:54 02/10/22 05:10 Patient resulted labs reviewed. Imaging: Reviewed Imaging Report [facility] [place] NAME: NAVA RAJAN [facility] REC#: [id number] PT STATUS: REG ER : 1955 PHYSICIAN: RADHA AGUIRRE MD ADMIT DATE: 02/09/22/ER Signed Date of Exam:02/09/22 CHEST 1 VIEW, AP/PA ONLY INDICATION: Elevated white blood cell count COMPARISON: 11/13/2021 TECHNIQUE: Single radiograph of the chest dated 02/09/2022. FINDINGS: Interval placement of a Port-A-Cath with the hub overlying left chest with the distal tip overlying the right atrium. The cardiac silhouette is within normal limits in size. No significant pulmonary vascular congestion. The lungs are hyperinflated with background chronic interstitial lung changes again identified. No new focal pulmonary opacity. No pleural effusion. No pneumothorax. Scattered osseous degenerative changes without acute osseous abnormality. IMPRESSION: Background pulmonary hyperinflation with associated chronic interstitial lung changes without superimposed acute cardiopulmonary abnormality. Interval placement of a Port-A-Cath with the distal tip overlying the right atrium. No pneumothorax. Dictated by: Dictated on workstation # [id number] Dict: 02/09/221904 Trans: 02/09/221936 [facility] [id number] Interpreted by: DANIELA OBRIEN MD Electronically signed by: DANIELA OBRIEN MD 02/09/221936 Assessment/Plan Admission Diagnosis Profound leukocytosis Admission Status: Inpatient Order (span 2 midnights) Reason for Inpatient Admission: see below Assessment and Plan Profound leukocytosis thrombocytopenia New onset No identifiable infectious source noted Continue on Cefepime Discussed with Dr Arita who will see Unsure if infectious, neoplastic, or due to steroids Await cultures I called and spoke with her niece who is DPOA and answered all questions Metastatic breast cancer to brain Follows with Dr Arita Attempt to get MRI of brain 02/13 Anxiety Depression Continue home meds DVT ppx: Xarelto Diagnosis/Problems Diagnosis/Problems (1) Metastatic breast cancer Status: Acute (2) Thrombocytopenia Status: Acute (3) Leukocytosis Status: Acute Qualifiers: Leukocytosis type: unspecified Qualified Codes: D72.829 - Elevated white blood cell count, unspecified (4) Thrush Status: Acute (5) Brain tumor Status: Acute (6) GERD (gastroesophageal reflux disease) JARAD PADILLA MD Feb 10, 2022 10:19
[2022-02-10 12:00] VITALS: BP 90/54
[2022-02-10 15:41] VITALS: BP 90/49
[2022-02-10] MEDS: NS IV 1000 ML 1,000 ML IV SCH (16:16)
[2022-02-10 20:09] VITALS: BP 83/47
[2022-02-10] MEDS ORDERED: NON-FORMULARY MEDICATION 1 EA EA (Escitalopram Oxalate 10 MG) PO SCH (21:00)
[2022-02-10] MEDS: ALPRAZolam 0.25 MG (XANAX) TAB PO PRN (21:32)
[2022-02-10 22:01] LABS: BILIRUBIN,URINE NEGATIVE (NEGATIVE); CLARITY,URINE SL CLOUDY; COLOR,URINE DARK YELLOW; GLUCOSE, URINE (UA) NEGATIVE (NEGATIVE); KETONES,URINE TRACE (NEGATIVE); LEUKOCYTE ESTERASE ,URINE 1+ (NEGATIVE); NITRITE,URINE NEGATIVE (NEGATIVE); PROTEIN,URINE TRACE (NEGATIVE)
[2022-02-10 22:13] LABS: BACTERIA,URINE FEW /HPF; SQUAMOUS EPITHELIAL CELL,UR 0-2 /HPF
[2022-02-10 23:52] VITALS: BP 93/60
[2022-02-11] MEDS: CEFEPIME 1,000 MG/NS 50 ML IVPB IV SCH ×8 (00:18→17:54)
[2022-02-11 03:40] VITALS: BP 94/80
[2022-02-11] MEDS: PANTOPRAZOLE 40 MG (PROTONIX) TAB PO SCH ×2 (05:17→08:53)
[2022-02-11 05:27] LABS: BASOPHILS # (AUTO) 0.1 10^3/uL (0.0-0.1); BASOPHILS % (AUTO) 0 % (0-10); EOSINOPHILS # (AUTO) 1.8 10^3/uL (0.0-0.3); EOSINOPHILS % (AUTO) 2 % (0-10); HEMATOCRIT 34 % (35-52); HEMOGLOBIN 10.5 g/dL (11.5-16.0); LYMPHOCYTES # (AUTO) 3.1 10^3/uL (1.0-4.0); LYMPHOCYTES % (AUTO) 4 % (12-44); MEAN CORPUSCULAR HEMOGLOBIN 31 pg (25-34); MEAN CORPUSCULAR HGB CONC 31 g/dL (32-36); MEAN CORPUSCULAR VOLUME 100 fL (80-99); MEAN PLATELET VOLUME 11.8 fL (9.0-12.2); MONOCYTES # (AUTO) 3.7 10^3/uL (0.0-1.0); MONOCYTES % (AUTO) 5 % (0-12); NEUTROPHILS % (AUTO) 82 % (42-75); PLATELET COUNT 47 10^3/uL (130-400)
[2022-02-11 05:30] LABS: WHITE BLOOD COUNT 82.8 10^3/uL (4.3-11.0)
[2022-02-11 05:43] LABS: ALBUMIN 2.6 GM/DL (3.2-4.5); POTASSIUM 3.9 MMOL/L (3.6-5.0)
[2022-02-11 05:45] LABS: TOTAL PROTEIN 5.5 GM/DL (6.4-8.2)
[2022-02-11] MEDS: fentaNYL INJ 100 MCG/2 ML AMP IV PRN ×3 (05:45→20:34)
[2022-02-11 05:47] LABS: BILIRUBIN,TOTAL 0.8 MG/DL (0.1-1.0)
[2022-02-11 05:49] LABS: CREATININE SERUM 0.72 MG/DL (0.60-1.30)
[2022-02-11] MEDS: oxyCODONE/APAP 5/325MG (PERCOCET 5) TABLET PO PRN ×2 (07:38→18:00)
[2022-02-11] MEDS: RIVAROXABAN 15 MG TABLET (XARELTO) PO SCH (07:38)
[2022-02-11] MEDS: ALPRAZolam 0.25 MG (XANAX) TAB PO PRN ×2 (07:45→19:59)
[2022-02-11] MEDS: ONDANSETRON 4 MG/2 ML (SDV) Z0FRAN IV PRN ×2 (07:45→18:01)
[2022-02-11 07:54] LABS: ANISOCYTOSIS SLIGHT; BAND NEUTROPHILS 37 %; BASOPHILS % (MANUAL) 0 %; EOSINOPHILS % (MANUAL) 1 %; LYMPHOCYTES % (MANUAL) 4 %; METAMYELOCYTES % 5 %; MONOCYTES % (MANUAL) 2 %; NEUTROPHILS % (MANUAL) 51 %; POLYCHROMASIA SLIGHT
[2022-02-11 08:02] VITALS: BP 101/49
[2022-02-11] MEDS: LETROZOLE 2.5 MG (FEMARA) TAB PO SCH (08:53)
[2022-02-11] MEDS ORDERED: MAGIC MOUTHWASH, ADULT 155 ML BOTTLE PO SCH (09:00)
--- NOTE | 2022-02-11 11:48 | Progress Note - Hospitalist ---
Subjective HPI/CC On Admission Date Seen by Provider: Feb 11, 2022 Patient is 66-year-old female with past medical history of metastatic breast cancer who presented to the emergency department due to generalized weakness. She iS under the care of Renita Storm with [facility] program and was directed to the emergency department by him. She has breast cancer with brain mets and completed whole brain radiation in November. She states she is supposed to follow-up with her oncologist to have further imaging but she is unsure when that is. Over the past few days she has felt very ill and has continued to get weaker and weaker. She is very thirsty as well and was worried she was getting dehydrated. On arrival to the emergency department she was found to have a leukocytosis of 75 and oncology was consulted due to concern for neoplasm. Dr. Seth was more concerned about infectious etiology so she has been admitted for IV antibiotics. This morning she reports feeling a little better. She has been able to eat breakfast without nausea or vomiting. Subjective/Events-last exam Pt reports back pain. Has waffle pillow but requesting pillow case for it as it's sticking to her skin. No other specific complaints. Focused Exam Lactate Level 02/09/22 19:10: Lactic Acid Level 1.49 Objective Exam Vital Signs Vital Signs Date Time Temp Pulse Resp B/P (MAP) Pulse Ox O2 Delivery O2 Flow Rate FiO2 02/11/22 09:02 94 Room Air 02/11/22 08:02 36.6 71 16 101/49 (66) Capillary Refill : Less Than 3 Seconds General Appearance: No Apparent Distress, Chronically ill, Cachetic Respiratory: Lungs Clear, No Respiratory Distress Cardiovascular: Regular Rate, Rhythm, No Murmur Neurologic/Psychiatric: Alert, Oriented x3 Results/Procedures Lab Laboratory Tests 02/11/22 05:12 Patient resulted labs reviewed. Imaging: Reviewed Imaging Report Assessment/Plan Assessment and Plan Assess & Plan/Chief Complaint Profound leukocytosis thrombocytopenia No identifiable infectious source noted Continue on Cefepime until cultures back Heme/Onc consulted, appreciate recs Await cultures Spoke with niece (DPOA) again today, discussed lab results and answered all questions Metastatic breast cancer to brain Follows with Dr Arita Attempt to get MRI of brain 02/13 if able Anxiety Depression Continue home meds DVT ppx: Xarelto Diagnosis/Problems Diagnosis/Problems (1) Metastatic breast cancer Status: Acute (2) Thrombocytopenia Status: Acute (3) Leukocytosis Status: Acute Qualifiers: Leukocytosis type: unspecified Qualified Codes: D72.829 - Elevated white blood cell count, unspecified (4) Thrush Status: Acute (5) Brain tumor Status: Acute (6) GERD (gastroesophageal reflux disease) JARAD CAVAZOS MD Feb 11, 2022 11:48
[2022-02-11 12:18] VITALS: BP 90/45
[2022-02-11] MEDS: MAGIC MOUTHWASH (ADULT) PO SCH ×12 (12:23→19:57)
[2022-02-11] MEDS: NS IV 1000 ML 1,000 ML IV SCH (12:23)
[2022-02-11] MEDS ORDERED: MAGIC MOUTHWASH (ADULT) PO SCH ×4 (13:00)
[2022-02-11] MEDS: MAGIC MOUTHWASH, ADULT 155 ML BOTTLE PO SCH ×3 (13:15→19:55)
[2022-02-11 15:50] VITALS: BP 96/58
[2022-02-11] MEDS: RIVAROXABAN 20 MG TABLET (XARELTO) PO SCH (17:55)
[2022-02-11 20:09] VITALS: BP 111/72
[2022-02-11 23:07] VITALS: BP 92/57
[2022-02-12] MEDS: CEFEPIME 1,000 MG/NS 50 ML IVPB IV SCH ×10 (00:50→23:00)
[2022-02-12] MEDS: PANTOPRAZOLE 40 MG (PROTONIX) TAB PO SCH (02:16)
[2022-02-12] MEDS: fentaNYL INJ 100 MCG/2 ML AMP IV PRN ×5 (02:22→22:58)
[2022-02-12] MEDS: NS IV 1000 ML 1,000 ML IV SCH ×2 (05:52→06:31)
[2022-02-12 06:02] LABS: HEMOGLOBIN 9.7 g/dL (11.5-16.0)
[2022-02-12 06:04] LABS: BASOPHILS # (AUTO) 0.1 10^3/uL (0.0-0.1); BASOPHILS % (AUTO) 0 % (0-10); EOSINOPHILS % (AUTO) 3 % (0-10); HEMATOCRIT 30 % (35-52); LYMPHOCYTES % (AUTO) 4 % (12-44); MEAN CORPUSCULAR HEMOGLOBIN 32 pg (25-34); MEAN CORPUSCULAR HGB CONC 32 g/dL (32-36); MEAN CORPUSCULAR VOLUME 97 fL (80-99); MEAN PLATELET VOLUME 11.4 fL (9.0-12.2); MONOCYTES # (AUTO) 3.2 10^3/uL (0.0-1.0); MONOCYTES % (AUTO) 4 % (0-12); NEUTROPHILS # (AUTO) 63.6 10^3/uL (1.8-7.8); NEUTROPHILS % (AUTO) 81 % (42-75); PLATELET COUNT 46 10^3/uL (130-400)
[2022-02-12 06:19] LABS: ALBUMIN 2.3 GM/DL (3.2-4.5); POTASSIUM 3.7 MMOL/L (3.6-5.0)
[2022-02-12 06:21] LABS: CALCIUM 7.6 MG/DL (8.5-10.1)
[2022-02-12 06:22] LABS: TOTAL PROTEIN 4.8 GM/DL (6.4-8.2)
[2022-02-12 06:24] LABS: BILIRUBIN,TOTAL 0.8 MG/DL (0.1-1.0)
[2022-02-12 06:25] LABS: WHITE BLOOD COUNT 78.6 10^3/uL (4.3-11.0)
[2022-02-12 06:26] LABS: CREATININE SERUM 0.64 MG/DL (0.60-1.30)
[2022-02-12 08:23] VITALS: BP 107/68
[2022-02-12] MEDS: LETROZOLE 2.5 MG (FEMARA) TAB PO SCH (08:49)
[2022-02-12] MEDS: MAGIC MOUTHWASH, ADULT 155 ML BOTTLE PO SCH ×4 (08:50→19:37)
[2022-02-12] MEDS: MAGIC MOUTHWASH (ADULT) PO SCH ×16 (09:19→19:37)
--- NOTE | 2022-02-12 10:08 | Physical Therapy Progress Note ---
Therapy Progress Note Patient refused evaluation today. Reports she doesn't feel like it and "I probably won't be able to tomorrow either." Will attempt again tomorrow and progress per patient tolerance. GINA COYNE PT Feb 12, 2022 10:07
[2022-02-12] MEDS ORDERED: FLUCONAZOLE 100 MG/50 ML 50 ML IV NR (12:00)
--- NOTE | 2022-02-12 15:02 | Progress Note - Hospitalist ---
Subjective HPI/CC On Admission Date Seen by Provider: Feb 12, 2022 Time Seen by Provider: 11:35 Patient is 66-year-old female with past medical history of metastatic breast cancer who presented to the emergency department due to generalized weakness. She iS under the care of Renita Storm with [facility] program and was directed to the emergency department by him. She has breast cancer with brain mets and completed whole brain radiation in November. She states she is supposed to follow-up with her oncologist to have further imaging but she is unsure when that is. Over the past few days she has felt very ill and has continued to get weaker and weaker. She is very thirsty as well and was worried she was getting dehydrated. On arrival to the emergency department she was found to have a leukocytosis of 75 and oncology was consulted due to concern for neoplasm. Dr. Seth was more concerned about infectious etiology so she has been admitted for IV antibiotics. This morning she reports feeling a little better. She has been able to eat breakfast without nausea or vomiting. Subjective/Events-last exam She has no specific complaints. She is feeling tired. She denies shortness of breath and cough. She denies fevers. She denies diarrhea. She has had some abdominal pain. Her family is present. Her niece says she had a blood clot from her nose and she also coughed up some blood earlier. She also says her left arm is more swollen. Focused Exam Lactate Level 02/09/22 19:10: Lactic Acid Level 1.49 Objective Exam Vital Signs Vital Signs Date Time Temp Pulse Resp B/P (MAP) Pulse Ox O2 Delivery O2 Flow Rate FiO2 02/12/22 08:23 36.5 81 16 107/68 (81) 98 Room Air Capillary Refill : Less Than 3 Seconds General Appearance: No Apparent Distress, Chronically ill Respiratory: Lungs Clear, No Respiratory Distress Cardiovascular: Regular Rate, Rhythm, No Murmur Gastrointestinal: Normal Bowel Sounds, Non Tender, Soft Extremity: No Inflammation; Pedal Edema, Swelling (left arm) Neurologic/Psychiatric: Alert, Motor Weakness Skin: Normal Color, Warm/Dry Results/Procedures Lab Laboratory Tests 02/12/22 05:56 Patient resulted labs reviewed. Imaging: Reviewed Imaging Report Assessment/Plan Assessment and Plan Assess & Plan/Chief Complaint Leukocytosis Anemia Thrombocytopenia WBC 78, stable No evidence of acute infection CXR unrevealing UA with minimal WBC, few bacteria Blood cultures with no growth to date Manual diff with 37% bands Procal mildly elevated, 0.[address] Arita, he is concerned for infectious etiology Continue Cefepime Begin Diflucan Metastatic breast cancer to the brain s/p radiation Follows with Dr. Arita DVT Xarelto Anxiety and depression Continue home meds Diagnosis/Problems Diagnosis/Problems (1) Leukocytosis Status: Acute Qualifiers: Leukocytosis type: unspecified Qualified Codes: D72.829 - Elevated white blood cell count, unspecified (2) Thrombocytopenia Status: Acute (3) Metastatic breast cancer Status: Acute REIN WAITE MD Feb 12, 2022 15:01
[2022-02-12] MEDS: RIVAROXABAN 20 MG TABLET (XARELTO) PO SCH (15:36)
[2022-02-12] MEDS: ONDANSETRON 4 MG/2 ML (SDV) Z0FRAN IV PRN ×2 (15:36→22:58)
[2022-02-12 15:38] VITALS: BP 92/57
[2022-02-12 23:04] VITALS: BP 83/47
[2022-02-13 03:00] VITALS: BP 90/36
[2022-02-13] MEDS: CEFEPIME 1,000 MG/NS 50 ML IVPB IV SCH ×8 (05:23→22:22)
[2022-02-13 06:22] LABS: BASOPHILS # (AUTO) 0.1 10^3/uL (0.0-0.1); BASOPHILS % (AUTO) 0 % (0-10); EOSINOPHILS # (AUTO) 2.1 10^3/uL (0.0-0.3); EOSINOPHILS % (AUTO) 3 % (0-10); HEMATOCRIT 30 % (35-52); HEMOGLOBIN 9.5 g/dL (11.5-16.0); LYMPHOCYTES # (AUTO) 2.7 10^3/uL (1.0-4.0); LYMPHOCYTES % (AUTO) 3 % (12-44); MEAN CORPUSCULAR HEMOGLOBIN 31 pg (25-34); MEAN CORPUSCULAR HGB CONC 31 g/dL (32-36); MEAN CORPUSCULAR VOLUME 99 fL (80-99); MEAN PLATELET VOLUME 12.1 fL (9.0-12.2); MONOCYTES # (AUTO) 3.9 10^3/uL (0.0-1.0); MONOCYTES % (AUTO) 5 % (0-12); NEUTROPHILS # (AUTO) 65.9 10^3/uL (1.8-7.8); NEUTROPHILS % (AUTO) 79 % (42-75)
[2022-02-13 06:28] LABS: PLATELET COUNT 30 10^3/uL (130-400); WHITE BLOOD COUNT 83.1 10^3/uL (4.3-11.0)
[2022-02-13 06:38] LABS: ALBUMIN 2.2 GM/DL (3.2-4.5); POTASSIUM 3.5 MMOL/L (3.6-5.0)
[2022-02-13 06:40] LABS: TOTAL PROTEIN 4.8 GM/DL (6.4-8.2)
[2022-02-13 06:42] LABS: BILIRUBIN,TOTAL 0.9 MG/DL (0.1-1.0)
[2022-02-13 06:44] LABS: CREATININE SERUM 0.68 MG/DL (0.60-1.30)
[2022-02-13 07:52] VITALS: BP 97/49
--- NOTE | 2022-02-13 09:52 | Physical Therapy Progress Note ---
Therapy Progress Note Patient declined PT and OOB activity on this date. PT attempted to encourage patient to participate, however, patient continued to decline. Will attempt tomorrow a.m. 1 ref JESSIKA SALEEM PT Feb 13, 2022 09:52
[2022-02-13] MEDS ORDERED: DEXA1TAB PO (10:13)
[2022-02-13] MEDS ORDERED: CHOL400L PO (10:13)
[2022-02-13] MEDS ORDERED: MULT200T12 PO (10:13)
[2022-02-13] MEDS ORDERED: ALPR0.254 PO (10:13)
[2022-02-13] MEDS ORDERED: POLY30DR6 OP (10:13)
[2022-02-13] MEDS ORDERED: ONDA8TAB13 PO (10:13)
[2022-02-13] MEDS ORDERED: PANT40TA52 PO (10:13)
[2022-02-13] MEDS ORDERED: RIVA15TA PO (10:17)
[2022-02-13] MEDS: FLUCONAZOLE 100 MG/50 ML 50 ML IV SCH (10:29)
[2022-02-13] MEDS: PANTOPRAZOLE 40 MG (PROTONIX) TAB PO SCH (10:29)
[2022-02-13] MEDS: LETROZOLE 2.5 MG (FEMARA) TAB PO SCH (10:29)
[2022-02-13] MEDS: MAGIC MOUTHWASH (ADULT) PO SCH ×16 (10:42→20:30)
[2022-02-13] MEDS: MAGIC MOUTHWASH, ADULT 155 ML BOTTLE PO SCH ×4 (10:42→20:40)
[2022-02-13 15:49] VITALS: BP 90/42
--- NOTE | 2022-02-13 19:54 | Diagnostic Imaging Report ---
PROCEDURE: CT left upper extremity without contrast. TECHNIQUE: Multiple contiguous axial images were obtained through the left upper extremity without the use of intravenous contrast. Auto Exposure Controls were utilized during the CT exam to meet ALARA standards for radiation dose reduction. INDICATION: Occult infection and leukocytosis. There is some edema in the subcutaneous tissues of the left upper extremity. No definite superficial or deep soft tissue fluid collection is identified to suggest abscess. No soft tissue gas is identified. No bony destructive changes are seen. Shoulder alignment appears normal. There are no fractures. IMPRESSION: There is some mild soft tissue edema which could be owing to cellulitis. No fluid collection or soft tissue gas is identified. Dictated by: Dictated on workstation # [id number]
--- NOTE | 2022-02-13 20:18 | Diagnostic Imaging Report ---
PROCEDURE: CT chest, abdomen, and pelvis without contrast. TECHNIQUE: Multiple contiguous axial images were obtained through the chest, abdomen, and pelvis without the use of intravenous contrast. Auto Exposure Controls were utilized during the CT exam to meet ALARA standards for radiation dose reduction. INDICATION: Leukocytosis. Correlation is made with prior CT from 03/06/2019. CT CHEST: There is a left chest wall port that has the tip entering the right atrium. Postop changes from left mastectomy are noted. No definite axillary lymphadenopathy is identified. Mediastinal and hilar evaluation is limited without intravenous contrast but no significant lymphadenopathy is seen. There is no pericardial fluid. There is trace right and small left pleural effusion. There appears to be some biapical pleural-parenchymal scarring. There is an area of consolidation versus mass in the lateral aspect of the left upper lobe measuring 2.6 x 1.4 cm. The remainder of the lung li are fairly clear apart from some compressive atelectasis in the left lower lobe. CT abdomen and pelvis: Liver is enlarged measuring 20 cm. No liver mass is detected. There is a stone within the gallbladder. No biliary duct dilatation is seen. Pancreas and spleen are unremarkable. No adrenal mass is detected. Kidneys are unremarkable. Aorta is nonaneurysmal. No central retroperitoneal or mesenteric lymphadenopathy is seen. Bowel loops are normal caliber. No free fluid in the abdomen is seen. There is a small amount of free fluid in the pelvis. The uterus and bladder are unremarkable. No definite pelvic lymphadenopathy is seen. Bony structures are nonacute. IMPRESSION: 1. Postop changes from left mastectomy. There are areas of pleural parenchymal thickening and scarring in the apices bilaterally. There is a soft tissue masslike density in the left upper lobe, indeterminate between an area of consolidation and pneumonia versus mass. Close follow-up after course of therapy would be recommended to confirm clearing. A PET/CT study to evaluate for hypermetabolism would be an additional consideration. 2. Bilateral effusions, left greater. 3. Cholelithiasis. 4. Small amount of free pelvic fluid. No definite abdominal or pelvic mass or lymphadenopathy is seen. 5. Hepatomegaly. Dictated by: Dictated on workstation # [id number]
[2022-02-13] MEDS ORDERED: VANCOMYCIN INJECTION 0.1 MG in NS (IVPB) 250 ML IV SCH (21:15)
--- NOTE | 2022-02-13 21:18 | Progress Note - Hospitalist ---
Subjective HPI/CC On Admission Date Seen by Provider: Feb 13, 2022 Time Seen by Provider: 10:05 Patient is 66-year-old female with past medical history of metastatic breast cancer who presented to the emergency department due to generalized weakness. She iS under the care of Renita Storm with [facility] program and was directed to the emergency department by him. She has breast cancer with brain mets and completed whole brain radiation in November. She states she is supposed to follow-up with her oncologist to have further imaging but she is unsure when that is. Over the past few days she has felt very ill and has continued to get weaker and weaker. She is very thirsty as well and was worried she was getting dehydrated. On arrival to the emergency department she was found to have a leukocytosis of 75 and oncology was consulted due to concern for neoplasm. Dr. Seth was more concerned about infectious etiology so she has been admitted for IV antibiotics. This morning she reports feeling a little better. She has been able to eat breakfast without nausea or vomiting. Subjective/Events-last exam She is feeling tired. She denies pain. She is not short of breath. Objective Exam Vital Signs Vital Signs Date Time Temp Pulse Resp B/P (MAP) Pulse Ox O2 Delivery O2 Flow Rate FiO2 02/13/22 20:35 Room Air 02/13/22 15:49 36.3 84 16 90/42 (58) 97 Capillary Refill : Less Than 3 Seconds General Appearance: No Apparent Distress, Chronically ill Respiratory: Lungs Clear, No Respiratory Distress Cardiovascular: Regular Rate, Rhythm, No Murmur Gastrointestinal: Normal Bowel Sounds, Non Tender, Soft Extremity: Normal Inspection; No Inflammation; Pedal Edema, Swelling (left arm) Neurologic/Psychiatric: Alert, Depressed Affect, Motor Weakness Results/Procedures Lab Laboratory Tests 02/13/22 06:15 Patient resulted labs reviewed. Imaging: Reviewed Imaging Report Assessment/Plan Assessment and Plan Assess & Plan/Chief Complaint Leukocytosis Anemia Thrombocytopenia WBC remains significantly elevated Platelets down again today No evidence of acute infection CXR unrevealing UA with minimal WBC, few bacteria Blood cultures with no growth to date Urine culture with no growth Procal mildly elevated Case discussed with Dr. Arita, he is concerned for infectious etiology Continue Diflucan Add Vancomycin Add Flagyl Obtain CT chest/abdomen/pelvis/upper extremity Metastatic breast cancer to the brain s/p radiation Follows with Dr. Juan J Sunshineto Anxiety and depression Continue home meds Diagnosis/Problems Diagnosis/Problems (1) Leukocytosis Status: Acute Qualifiers: Leukocytosis type: unspecified Qualified Codes: D72.829 - Elevated white blood cell count, unspecified (2) Thrombocytopenia Status: Acute (3) Metastatic breast cancer Status: Acute ERIN WAITE MD Feb 13, 2022 21:18
[2022-02-13] MEDS ORDERED: VANCOMYCIN INJECTION 1,250 MG in NS (IVPB) 250 ML IV ONE (22:45)
[2022-02-13] MEDS: metroNIDAZOLE 500MG/100ML IVPB 100 ML IV SCH (23:19)
[2022-02-13] MEDS: ONDANSETRON 4 MG/2 ML (SDV) Z0FRAN IV PRN (23:28)
[2022-02-13] MEDS: fentaNYL INJ 100 MCG/2 ML AMP IV PRN (23:28)
[2022-02-13 23:30] VITALS: BP 93/46
[2022-02-14 06:43] LABS: BASOPHILS % (AUTO) 0 % (0-10); LYMPHOCYTES % (AUTO) 3 % (12-44); MEAN CORPUSCULAR VOLUME 97 fL (80-99)
[2022-02-14 06:45] LABS: ALBUMIN 2.3 GM/DL (3.2-4.5); BASOPHILS # (AUTO) 0.1 10^3/uL (0.0-0.1); EOSINOPHILS # (AUTO) 1.1 10^3/uL (0.0-0.3); EOSINOPHILS % (AUTO) 1 % (0-10); HEMATOCRIT 29 % (35-52); HEMOGLOBIN 9.3 g/dL (11.5-16.0); LYMPHOCYTES # (AUTO) 2.4 10^3/uL (1.0-4.0); MEAN CORPUSCULAR HEMOGLOBIN 31 pg (25-34); MEAN CORPUSCULAR HGB CONC 32 g/dL (32-36); MEAN PLATELET VOLUME 12.3 fL (9.0-12.2); MONOCYTES # (AUTO) 3.8 10^3/uL (0.0-1.0); MONOCYTES % (AUTO) 4 % (0-12); NEUTROPHILS # (AUTO) 77.5 10^3/uL (1.8-7.8); NEUTROPHILS % (AUTO) 83 % (42-75); POTASSIUM 3.6 MMOL/L (3.6-5.0)
[2022-02-14 06:46] LABS: CALCIUM 7.9 MG/DL (8.5-10.1)
[2022-02-14 06:47] LABS: TOTAL PROTEIN 4.8 GM/DL (6.4-8.2)
[2022-02-14 06:49] LABS: BILIRUBIN,TOTAL 0.8 MG/DL (0.1-1.0)
[2022-02-14 06:51] LABS: CREATININE SERUM 0.61 MG/DL (0.60-1.30)
[2022-02-14 07:06] LABS: PLATELET COUNT 24 10^3/uL (130-400); WHITE BLOOD COUNT 93.6 10^3/uL (4.3-11.0)
[2022-02-14 07:13] LABS: FIBRIN DEGRADATION PRODUCTS >= 20.00 UG/ML (0.00-0.49); FIBRINOGEN 152 MG/DL (221-496); INR 1.7 (0.8-1.4); PARTIAL THROMBOPLASTIN TIME 38 SEC (24-35); PROTHROMBIN TIME PATIENT 20.8 SEC (12.2-14.7)
[2022-02-14] MEDS ORDERED: VANCOMYCIN 750 MG/NS 250 ML IVPB IV SCH ×2 (07:30)
[2022-02-14] MEDS: LETROZOLE 2.5 MG (FEMARA) TAB PO SCH ×2 (07:48→08:31)
[2022-02-14] MEDS: PANTOPRAZOLE 40 MG (PROTONIX) TAB PO SCH ×2 (07:48→08:31)
[2022-02-14] MEDS: FLUCONAZOLE 100 MG/50 ML 50 ML IV SCH (07:48)
[2022-02-14 08:17] VITALS: BP 97/49
[2022-02-14] MEDS: MAGIC MOUTHWASH, ADULT 155 ML BOTTLE PO SCH ×4 (08:31→20:54)
[2022-02-14] MEDS: NYSTATIN ORAL SUSP 5 ML UDC PO SCH ×4 (08:31→20:54)
[2022-02-14 08:49] LABS: ANISOCYTOSIS SLIGHT; BAND NEUTROPHILS 20 %; EOSINOPHILS % (MANUAL) 2 %; LYMPHOCYTES % (MANUAL) 1 %; METAMYELOCYTES % 3 %; MONOCYTES % (MANUAL) 3 %; MYELOCYTES % 1 %; NEUTROPHILS % (MANUAL) 70 %; TOXIC GRANULATION/VACUOLAZATIO 1+
--- NOTE | 2022-02-14 08:57 | Physical Therapy Progress Note ---
Therapy Progress Note Order for PT evaluation received. Patient refuses therapy though. Patient was given encouragement and educated on the benefits of therapy but she continues to refuse. Will check back in the afternoon if able. ALEXYS DIAZ PT Feb 14, 2022 08:57
[2022-02-14] MEDS: CEFEPIME INJECTION 1,000 MG in NS (IVPB) 50 ML IV SCH ×3 (09:43→20:56)
[2022-02-14] MEDS: metroNIDAZOLE 500MG/100ML IVPB 100 ML IV SCH ×2 (10:20→22:09)
[2022-02-14 11:11] LABS: BASOPHILS # (AUTO) 0.1 10^3/uL (0.0-0.1); BASOPHILS % (AUTO) 0 % (0-10); EOSINOPHILS # (AUTO) 1.1 10^3/uL (0.0-0.3); EOSINOPHILS % (AUTO) 1 % (0-10); HEMATOCRIT 29 % (35-52); HEMOGLOBIN 9.3 g/dL (11.5-16.0); LYMPHOCYTES # (AUTO) 2.4 10^3/uL (1.0-4.0); LYMPHOCYTES % (AUTO) 3 % (12-44); MEAN CORPUSCULAR HEMOGLOBIN 31 pg (25-34); MEAN CORPUSCULAR HGB CONC 32 g/dL (32-36); MEAN CORPUSCULAR VOLUME 97 fL (80-99); MEAN PLATELET VOLUME 12.3 fL (9.0-12.2); MONOCYTES # (AUTO) 3.8 10^3/uL (0.0-1.0); MONOCYTES % (AUTO) 4 % (0-12); NEUTROPHILS # (AUTO) 77.5 10^3/uL (1.8-7.8); NEUTROPHILS % (AUTO) 83 % (42-75)
[2022-02-14 11:12] LABS: PLATELET COUNT 24 10^3/uL (130-400); WHITE BLOOD COUNT 93.6 10^3/uL (4.3-11.0)
[2022-02-14 11:28] LABS: ABSOLUTE RETIC # 108 10e9/uL (24-90); RETICULOCYTE % 3.58 % (0.50-2.40)
[2022-02-14 11:34] LABS: ANISOCYTOSIS SLIGHT; BAND NEUTROPHILS 20 %; BURR CELLS SLIGHT; EOSINOPHILS % (MANUAL) 2 %; HELMET/BITE CELLS SLIGHT; LYMPHOCYTES % (MANUAL) 1 %; METAMYELOCYTES % 3 %; MONOCYTES % (MANUAL) 3 %; MYELOCYTES % 1 %; NEUTROPHILS % (MANUAL) 70 %; TOXIC GRANULATION/VACUOLAZATIO 1+
--- NOTE | 2022-02-14 13:57 | Physical Therapy Progress Note ---
Therapy Progress Note Patient continues to refuse therapy. She says she feels too sick and too weak. Patient was encouraged to take advantage of physical activity when she can in order to maintain strength. Plan to attempt evaluation 02/15/22. MICHELLE STOUT PT Feb 14, 2022 13:57
--- NOTE | 2022-02-14 14:39 | Progress Note - Hospitalist ---
Subjective HPI/CC On Admission Date Seen by Provider: Feb 14, 2022 Time Seen by Provider: 11:00 Patient is 66-year-old female with past medical history of metastatic breast cancer who presented to the emergency department due to generalized weakness. She iS under the care of Renita Storm with [facility] program and was directed to the emergency department by him. She has breast cancer with brain mets and completed whole brain radiation in November. She states she is supposed to follow-up with her oncologist to have further imaging but she is unsure when that is. Over the past few days she has felt very ill and has continued to get weaker and weaker. She is very thirsty as well and was worried she was getting dehydrated. On arrival to the emergency department she was found to have a leukocytosis of 75 and oncology was consulted due to concern for neoplasm. Dr. Seth was more concerned about infectious etiology so she has been admitted for IV antibiotics. This morning she reports feeling a little better. She has been able to eat breakfast without nausea or vomiting. Subjective/Events-last exam She is feeling a bit better today. She is still tired and weak. She denies shortness of breath. Her appetite is slightly improved. Objective Exam Vital Signs Vital Signs Date Time Temp Pulse Resp B/P (MAP) Pulse Ox O2 Delivery O2 Flow Rate FiO2 02/14/22 08:17 36.7 75 18 97/49 (65) 97 Room Air Capillary Refill : Less Than 3 Seconds General Appearance: No Apparent Distress, Chronically ill Respiratory: No Respiratory Distress, Decreased Breath Sounds Cardiovascular: Regular Rate, Rhythm, No Murmur Gastrointestinal: Normal Bowel Sounds, Soft Extremity: No Inflammation; Swelling (left arm) Neurologic/Psychiatric: Alert, Depressed Affect, Motor Weakness Lymphatic: No Adenopathy Results/Procedures Lab Laboratory Tests 02/14/22 06:20 Patient resulted labs reviewed. Imaging: Reviewed Imaging Report Assessment/Plan Assessment and Plan Assess & Plan/Chief Complaint Leukocytosis Anemia Thrombocytopenia Possible CML DIC WBC remains significantly elevated, trended up Platelets down again today DIC panel consistent with DIC No evidence of acute infection CXR unrevealing UA with minimal WBC, few bacteria Blood cultures with no growth to date Urine culture with no growth Procal mildly elevated Case discussed with Dr. Arita, recommended pathology review of smear Peripheral smear ordered Case discussed with Dr. Morales, performed smear and will add on BCR-ABL testing Continue Diflucan, Vancomycin, Cefepime, Flagyl CT chest/abdomen/pelvis did not identify any infectious source, left lung mass which was previously present CT extremity with soft tissue swelling, no abscess Goals of care discussion Palliative care consulted DNR/DNI Metastatic cancer to the brain Lung mass History of breast cancer s/p brain radiation Follows with Dr. Arita DVT Xarelto Anxiety and depression Continue home meds Diagnosis/Problems Diagnosis/Problems (1) Leukocytosis Status: Acute Qualifiers: Leukocytosis type: unspecified Qualified Codes: D72.829 - Elevated white blood cell count, unspecified (2) Thrombocytopenia Status: Acute (3) DIC (disseminated intravascular coagulation) Status: Acute (4) Metastatic breast cancer Status: Acute (5) DVT (deep venous thrombosis) Status: Chronic Qualifiers: DVT location: lower extremity Affected thrombotic vein of extremity: unspecified vein of extremity Chronicity: acute Laterality: bilateral Qualified Codes: I82.403 - Acute embolism and thrombosis of unspecified deep veins of lower extremity, bilateral (6) Lung mass Status: Acute (7) Brain mass Status: Acute ERIN WAITE MD Feb 14, 2022 14:39
[2022-02-14 15:59] VITALS: BP 84/40
[2022-02-14] MEDS: VANCOMYCIN 750 MG/NS 250 ML IVPB IV SCH ×2 (18:00)
[2022-02-14] MEDS: oxyCODONE/APAP 5/325MG (PERCOCET 5) TABLET PO PRN (18:52)
[2022-02-14] MEDS ORDERED: TROUGH ORDER-PHARMACY XX NR (23:00)
[2022-02-14 23:19] VITALS: BP 90/46
[2022-02-15] MEDS: VANCOMYCIN 750 MG/NS 250 ML IVPB IV SCH ×2 (00:08)
[2022-02-15] MEDS: CEFEPIME INJECTION 1,000 MG in NS (IVPB) 50 ML IV SCH ×4 (03:31→20:25)
[2022-02-15] MEDS: ONDANSETRON 4 MG/2 ML (SDV) Z0FRAN IV PRN ×2 (05:45→08:51)
[2022-02-15 06:08] LABS: BASOPHILS % (AUTO) 1 % (0-10); HEMOGLOBIN 9.1 g/dL (11.5-16.0); LYMPHOCYTES % (AUTO) 3 % (12-44)
[2022-02-15 06:10] LABS: BASOPHILS # (AUTO) 0.6 10^3/uL (0.0-0.1); EOSINOPHILS # (AUTO) 2.3 10^3/uL (0.0-0.3); EOSINOPHILS % (AUTO) 3 % (0-10); HEMATOCRIT 28 % (35-52); LYMPHOCYTES # (AUTO) 2.5 10^3/uL (1.0-4.0); MEAN CORPUSCULAR HEMOGLOBIN 31 pg (25-34); MEAN CORPUSCULAR HGB CONC 32 g/dL (32-36); MEAN CORPUSCULAR VOLUME 97 fL (80-99); MONOCYTES # (AUTO) 3.8 10^3/uL (0.0-1.0); MONOCYTES % (AUTO) 5 % (0-12); NEUTROPHILS # (AUTO) 67.4 10^3/uL (1.8-7.8); NEUTROPHILS % (AUTO) 79 % (42-75)
[2022-02-15 06:22] LABS: ALBUMIN 2.2 GM/DL (3.2-4.5)
[2022-02-15 06:23] LABS: POTASSIUM 3.5 MMOL/L (3.6-5.0)
[2022-02-15 06:24] LABS: CALCIUM 7.7 MG/DL (8.5-10.1)
[2022-02-15 06:25] LABS: TOTAL PROTEIN 4.8 GM/DL (6.4-8.2)
[2022-02-15 06:27] LABS: BILIRUBIN,TOTAL 0.8 MG/DL (0.1-1.0)
[2022-02-15 06:29] LABS: CREATININE SERUM 0.61 MG/DL (0.60-1.30); PLATELET COUNT 17 10^3/uL (130-400)
[2022-02-15 08:00] VITALS: BP 89/44
[2022-02-15] MEDS ORDERED: VANCOMYCIN 500 MG/NS 100 ML IVPB IV SCH ×4 (08:00→12:00)
[2022-02-15] MEDS: PANTOPRAZOLE 40 MG (PROTONIX) TAB PO SCH (08:51)
[2022-02-15] MEDS: LETROZOLE 2.5 MG (FEMARA) TAB PO SCH ×3 (08:51→09:11)
[2022-02-15] MEDS: FLUCONAZOLE 100 MG/50 ML 50 ML IV SCH (08:51)
[2022-02-15] MEDS: oxyCODONE/APAP 5/325MG (PERCOCET 5) TABLET PO PRN (08:52)
[2022-02-15] MEDS: MAGIC MOUTHWASH, ADULT 155 ML BOTTLE PO SCH ×4 (09:11→20:25)
[2022-02-15] MEDS: NYSTATIN ORAL SUSP 5 ML UDC PO SCH ×4 (09:11→20:25)
--- NOTE | 2022-02-15 09:45 | Physical Therapy Evaluation ---
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 7-Yfzduvudkj-knbjqgb completes the activity by him/herself with no assistance from a helper. 5-Set-up or Clean-up Assistance-helper sets up or cleans up; patient completes activity. [place] assists only prior to or following the activity. 4-Supervision or Touching Assistance-helper provides verbal cues and/or touchin g/steadying and/or contact guard assistance as patient completes activity. Assistance may be provided throughout the activity or intermittently. 3-Partial/Moderate Assistance-helper does LESS THAN HALF the effort. [place] lifts, holds or supports trunk or limbs, but provides less than half the effort. 2-Substantial/Maximal Assistance-helper does MORE THAN HALF the effort. [place] lifts or holds trunk or limbs and provides more than half the effort. 4-Vvbqdyacj-rxlpjb does ALL the effort. Patient does none of the effort to complete the activity. Or, the assistance of 2 or more helpers is required for the patient to complete the activity. If activity was not attempted, code reason: 7-Patient Refused. 9-Not Applicable-not attempted and the patient did not perform the activity before the current illness, exacerbation or injury. 10-Not Attempted due to Environmental Limitations-(lack of equipment, weather restraints, etc.). 88-Not Attempted due to Medical Conditions or Safety Concerns. Bed Mobility: 6 Transfers (B,C,W/C): 6 Gait: 6 Indoor Mobility (Ambulation): Independent Prior Devices Use: None PT Evaluation-Current Subjective Patient agrees to PT. RN present Objective Patient Orientation: Confused ROM/Strength ROM Lower Extremities bilateral LE WFL Strength Lower Extremities 3/5 grossly bilateral LE Integumentary/Posture Bowel Incontinence: No Bladder Incontinence: No Posture WFL Neuromuscular (Tone, Coordination, Reflexes) grossly intact Sensory Vision: Functional Hearing: Functional Transfers Lying to Sitting/Side of Bed(Q: 3 Sit to Stand (QC): 3 Chair/Vst-nu-Jjghd Xfer(QC): 3 Gait Does the Patient Walk?: No and Walking Goal IS indicated Mode of Locomotion: Walk Anticipated Mode of Locomotion: Walk Gait Assistive Device: FWW Balance Sitting Static: Fair Sitting Dynamic: Fair Standing Static: Fair Standing Dynamic: Poor Assessment/Needs 66 y.o. female, will benefit from skilled PT to address functional strength and mobility to improve current LOF. Patient has c/o nausea. Up in recliner with needs met. Rehab Potential: Guarded PT Mcc Goals [place] Operator Goals PT Mcc Goals Time Frame: Mar 03, 2022 Roll Left & Right (QC): 4 Sit to Lying (QC): 4 Lying-Sitting on Side/Bed(QC): 4 Sit to Stand (QC): 4 Chair/Xrk-pm-Owdqb Xfer(QC): 4 Toilet Transfer (QC): 4 Walk 10 feet (QC): 4 Walk 50ft with 2 Turns (QC): 4 Walk 150 ft (QC): 4 PT Plan Problem List Problem List: Activity Tolerance, Functional Strength, Safety, Balance, Gait, Transfer, Bed Mobility Treatment/Plan Treatment Plan: Continue Plan of Care Treatment Plan: Bed Mobility, Education, Functional Activity Kaylynn, Functional Strength, Gait, Safety, Therapeutic Exercise, Transfers Treatment Duration: Mar 03, 2022 Frequency: 6 times per week Estimated Hrs Per Day: .25 hour per day Time/GCodes Time In: 843 Time Out: 856 Total Billed Treatment Time: 13 Total Billed Treatment 1 visit [facility] 13 min JESSIKA SALEEM PT Feb 15, 2022 09:45
[2022-02-15 09:52] VITALS: BP 89/44
[2022-02-15] MEDS: metroNIDAZOLE 500MG/100ML IVPB 100 ML IV SCH ×2 (10:00→23:00)
[2022-02-15 11:39] VITALS: BP 89/44
[2022-02-15] MEDS: VANCOMYCIN 500 MG/NS 100 ML IVPB IV SCH ×4 (14:32→23:00)
[2022-02-15 15:41] VITALS: BP 91/44
--- NOTE | 2022-02-15 16:48 | Progress Note - Hospitalist ---
Subjective HPI/CC On Admission Date Seen by Provider: Feb 15, 2022 Time Seen by Provider: 10:20 Patient is 66-year-old female with past medical history of metastatic breast cancer who presented to the emergency department due to generalized weakness. She iS under the care of Renita Storm with [facility] program and was directed to the emergency department by him. She has breast cancer with brain mets and completed whole brain radiation in November. She states she is supposed to follow-up with her oncologist to have further imaging but she is unsure when that is. Over the past few days she has felt very ill and has continued to get weaker and weaker. She is very thirsty as well and was worried she was getting dehydrated. On arrival to the emergency department she was found to have a leukocytosis of 75 and oncology was consulted due to concern for neoplasm. Dr. Seth was more concerned about infectious etiology so she has been admitted for IV antibiotics. This morning she reports feeling a little better. She has been able to eat breakfast without nausea or vomiting. Subjective/Events-last exam She is feeling about the same as yesterday. She is sitting in her chair. She denies pain. She is not short of breath. Objective Exam Vital Signs Vital Signs Date Time Temp Pulse Resp B/P (MAP) Pulse Ox O2 Delivery O2 Flow Rate FiO2 02/15/22 15:41 36.1 69 20 91/44 (60) 98 Room Air Capillary Refill : Less Than 3 Seconds General Appearance: No Apparent Distress, WD/WN Respiratory: Lungs Clear, No Respiratory Distress Cardiovascular: Regular Rate, Rhythm, No Murmur Gastrointestinal: Normal Bowel Sounds, Soft Extremity: Non Tender; No Inflammation; Swelling Neurologic/Psychiatric: Alert, Depressed Affect Results/Procedures Lab Laboratory Tests 02/15/22 06:00 Patient resulted labs reviewed. Imaging: Reviewed Imaging Report Assessment/Plan Assessment and Plan Assess & Plan/Chief Complaint Leukocytosis Anemia Thrombocytopenia Possible CML DIC WBC remains significantly elevated Platelets down again today DIC panel consistent with DIC No evidence of acute infection CXR unrevealing UA with minimal WBC, few bacteria Blood cultures with no growth to date Urine culture with no growth Throat culture negative Procal mildly elevated CT chest/abdomen/pelvis did not identify any infectious source, left lung mass which was previously present CT extremity with soft tissue swelling, no abscess Continue Diflucan, Vancomycin, Cefepime, Flagyl Peripheral smear concerning for possible CML/CMML Awaiting BCR-ABL testing Goals of care discussion Palliative care consulted DNR/DNI Metastatic cancer to the brain Lung mass History of breast cancer s/p brain radiation Follows with Dr. Arita DVT Xarelto Anxiety and depression Continue home meds Diagnosis/Problems Diagnosis/Problems (1) Leukocytosis Status: Acute Qualifiers: Leukocytosis type: unspecified Qualified Codes: D72.829 - Elevated white blood cell count, unspecified (2) Thrombocytopenia Status: Acute (3) DIC (disseminated intravascular coagulation) Status: Acute (4) Metastatic breast cancer Status: Acute (5) DVT (deep venous thrombosis) Status: Chronic Qualifiers: DVT location: lower extremity Affected thrombotic vein of extremity: unspecified vein of extremity Chronicity: acute Laterality: bilateral Qualified Codes: I82.403 - Acute embolism and thrombosis of unspecified deep veins of lower extremity, bilateral (6) Lung mass Status: Acute (7) Brain mass Status: Acute ERIN WAITE MD Feb 15, 2022 16:48
[2022-02-15 23:43] VITALS: BP 86/47
[2022-02-16] MEDS: CEFEPIME INJECTION 1,000 MG in NS (IVPB) 50 ML IV SCH ×4 (01:46→20:44)
[2022-02-16 05:03] LABS: BASOPHILS % (AUTO) 0 % (0-10); EOSINOPHILS % (AUTO) 1 % (0-10); MEAN CORPUSCULAR VOLUME 97 fL (80-99); NEUTROPHILS % (AUTO) 84 % (42-75)
[2022-02-16 05:05] LABS: BASOPHILS # (AUTO) 0.1 10^3/uL (0.0-0.1); HEMATOCRIT 29 % (35-52); HEMOGLOBIN 9.2 g/dL (11.5-16.0); LYMPHOCYTES # (AUTO) 3.2 10^3/uL (1.0-4.0); LYMPHOCYTES % (AUTO) 3 % (12-44); MEAN CORPUSCULAR HEMOGLOBIN 31 pg (25-34); MEAN CORPUSCULAR HGB CONC 32 g/dL (32-36); MEAN PLATELET VOLUME 12.5 fL (9.0-12.2); MONOCYTES # (AUTO) 3.8 10^3/uL (0.0-1.0); MONOCYTES % (AUTO) 4 % (0-12); NEUTROPHILS # (AUTO) 86.2 10^3/uL (1.8-7.8)
[2022-02-16 05:08] LABS: PLATELET COUNT 15 10^3/uL (130-400); WHITE BLOOD COUNT 103.2 10^3/uL (4.3-11.0)
[2022-02-16 05:11] LABS: ALBUMIN 2.3 GM/DL (3.2-4.5)
[2022-02-16 05:12] LABS: POTASSIUM 3.7 MMOL/L (3.6-5.0)
[2022-02-16 05:13] LABS: CALCIUM 7.8 MG/DL (8.5-10.1)
[2022-02-16 05:16] LABS: BILIRUBIN,TOTAL 0.7 MG/DL (0.1-1.0)
[2022-02-16 05:18] LABS: CREATININE SERUM 0.61 MG/DL (0.60-1.30)
[2022-02-16 08:00] VITALS: BP 100/54
[2022-02-16] MEDS: NYSTATIN ORAL SUSP 5 ML UDC PO SCH ×4 (09:02→20:44)
[2022-02-16] MEDS: MAGIC MOUTHWASH, ADULT 155 ML BOTTLE PO SCH ×4 (09:02→20:44)
[2022-02-16] MEDS: FLUCONAZOLE 100 MG/50 ML 50 ML IV SCH (09:57)
[2022-02-16] MEDS: metroNIDAZOLE 500MG/100ML IVPB 100 ML IV SCH ×2 (09:58→20:45)
[2022-02-16] MEDS: PANTOPRAZOLE 40 MG (PROTONIX) TAB PO SCH (09:58)
--- NOTE | 2022-02-16 10:03 | Physical Therapy Progress Note ---
Therapy Progress Note Patient on hold per RN due to current status. Will check in a.m. to resume JESSIKA SALEEM PT Feb 16, 2022 10:03
[2022-02-16] MEDS: VANCOMYCIN INJECTION 1,000 MG in NS (IVPB) 250 ML IV SCH ×2 (12:09→23:19)
[2022-02-16] MEDS: ALPRAZolam 0.25 MG (XANAX) TAB PO PRN (13:55)
[2022-02-16 15:34] VITALS: BP 93/43
--- NOTE | 2022-02-16 19:38 | Progress Note - Hospitalist ---
Subjective HPI/CC On Admission Date Seen by Provider: Feb 16, 2022 Time Seen by Provider: 09:45 Patient is 66-year-old female with past medical history of metastatic breast cancer who presented to the emergency department due to generalized weakness. She iS under the care of Renita Storm with [facility] program and was directed to the emergency department by him. She has breast cancer with brain mets and completed whole brain radiation in November. She states she is supposed to follow-up with her oncologist to have further imaging but she is unsure when that is. Over the past few days she has felt very ill and has continued to get weaker and weaker. She is very thirsty as well and was worried she was getting dehydrated. On arrival to the emergency department she was found to have a leukocytosis of 75 and oncology was consulted due to concern for neoplasm. Dr. Seth was more concerned about infectious etiology so she has been admitted for IV antibiotics. This morning she reports feeling a little better. She has been able to eat breakfast without nausea or vomiting. Subjective/Events-last exam She has been refusing medications. She thinks they are making her sick. We discussed all options including continued aggressive care and hospice. She will consider but does not want to make a decision at this time. Objective Exam Vital Signs Vital Signs Date Time Temp Pulse Resp B/P (MAP) Pulse Ox O2 Delivery O2 Flow Rate FiO2 02/16/22 15:34 36.6 75 18 93/43 (60) 98 Room Air Capillary Refill : Less Than 3 Seconds General Appearance: No Apparent Distress, Chronically ill Respiratory: Lungs Clear, No Respiratory Distress Cardiovascular: Regular Rate, Rhythm, No Murmur Gastrointestinal: Normal Bowel Sounds, Soft Extremity: Non Tender; No Inflammation; Swelling Neurologic/Psychiatric: Alert, Depressed Affect, Motor Weakness Results/Procedures Lab Laboratory Tests 02/16/22 04:57 Patient resulted labs reviewed. Imaging: Reviewed Imaging Report Assessment/Plan Assessment and Plan Assess & Plan/Chief Complaint Leukocytosis Anemia Thrombocytopenia Possible CML DIC WBC remains significantly elevated Platelets down again today DIC panel consistent with DIC No evidence of acute infection CXR unrevealing UA with minimal WBC, few bacteria Blood cultures with no growth to date Urine culture with no growth Throat culture negative Procal mildly elevated CT chest/abdomen/pelvis did not identify any infectious source, left lung mass which was previously present CT extremity with soft tissue swelling, no abscess Continue Diflucan, Vancomycin, Cefepime, Flagyl, currently refusing all medications Peripheral smear concerning for possible CML/CMML Awaiting BCR-ABL testing Goals of care discussion Palliative care following DNR/DNI Considering hospice Metastatic cancer to the brain Lung mass History of breast cancer s/p brain radiation Follows with Dr. Arita DVT Xarelto Anxiety and depression Continue home meds Diagnosis/Problems Diagnosis/Problems (1) Leukocytosis Status: Acute Qualifiers: Leukocytosis type: unspecified Qualified Codes: D72.829 - Elevated white blood cell count, unspecified (2) Thrombocytopenia Status: Acute (3) DIC (disseminated intravascular coagulation) Status: Acute (4) Metastatic breast cancer Status: Acute (5) DVT (deep venous thrombosis) Status: Chronic Qualifiers: DVT location: lower extremity Affected thrombotic vein of extremity: unspecified vein of extremity Chronicity: acute Laterality: bilateral Qualified Codes: I82.403 - Acute embolism and thrombosis of unspecified deep veins of lower extremity, bilateral (6) Lung mass Status: Acute (7) Brain mass Status: Acute ERIN WAITE MD Feb 16, 2022 19:38
[2022-02-16 23:28] VITALS: BP 102/44
[2022-02-17] MEDS: CEFEPIME INJECTION 1,000 MG in NS (IVPB) 50 ML IV SCH ×4 (02:19→19:59)
[2022-02-17 05:31] LABS: BASOPHILS % (AUTO) 1 % (0-10); HEMOGLOBIN 8.8 g/dL (11.5-16.0); LYMPHOCYTES # (AUTO) 2.7 10^3/uL (1.0-4.0); LYMPHOCYTES % (AUTO) 3 % (12-44); MEAN CORPUSCULAR VOLUME 97 fL (80-99)
[2022-02-17 05:33] LABS: BASOPHILS # (AUTO) 0.7 10^3/uL (0.0-0.1); EOSINOPHILS # (AUTO) 2.3 10^3/uL (0.0-0.3); EOSINOPHILS % (AUTO) 2 % (0-10); HEMATOCRIT 27 % (35-52); MEAN CORPUSCULAR HEMOGLOBIN 32 pg (25-34); MEAN CORPUSCULAR HGB CONC 33 g/dL (32-36); MEAN PLATELET VOLUME 12.3 fL (9.0-12.2); MONOCYTES # (AUTO) 3.9 10^3/uL (0.0-1.0); MONOCYTES % (AUTO) 4 % (0-12); NEUTROPHILS # (AUTO) 79.5 10^3/uL (1.8-7.8); NEUTROPHILS % (AUTO) 81 % (42-75)
[2022-02-17 05:38] LABS: PLATELET COUNT 14 10^3/uL (130-400); WHITE BLOOD COUNT 97.6 10^3/uL (4.3-11.0)
[2022-02-17 05:40] LABS: POTASSIUM 3.4 MMOL/L (3.6-5.0)
[2022-02-17 05:41] LABS: CALCIUM 7.7 MG/DL (8.5-10.1)
[2022-02-17 05:45] LABS: CREATININE SERUM 0.58 MG/DL (0.60-1.30)
[2022-02-17 06:07] LABS: PROTHROMBIN TIME PATIENT 22.7 SEC (12.2-14.7)
[2022-02-17 06:08] LABS: FIBRIN DEGRADATION PRODUCTS > 20.00 UG/ML (0.00-0.49); FIBRINOGEN 105 MG/DL (221-496); PARTIAL THROMBOPLASTIN TIME 38 SEC (24-35)
[2022-02-17 07:30] VITALS: BP 103/49
--- NOTE | 2022-02-17 08:34 | Physical Therapy Progress Note ---
Therapy Progress Note Patient refuses therapy this morning. Will check back Saturday. ALEXYS DIAZ PT Feb 17, 2022 08:34
[2022-02-17] MEDS: NYSTATIN ORAL SUSP 5 ML UDC PO SCH ×4 (08:49→20:02)
[2022-02-17] MEDS: PANTOPRAZOLE 40 MG (PROTONIX) TAB PO SCH (08:49)
[2022-02-17] MEDS: metroNIDAZOLE 500MG/100ML IVPB 100 ML IV SCH ×2 (08:50→22:00)
[2022-02-17] MEDS: FLUCONAZOLE 100 MG/50 ML 50 ML IV SCH (08:50)
[2022-02-17] MEDS: MAGIC MOUTHWASH, ADULT 155 ML BOTTLE PO SCH ×4 (09:12→20:02)
[2022-02-17] MEDS: VANCOMYCIN INJECTION 1,000 MG in NS (IVPB) 250 ML IV SCH ×2 (11:37→23:57)
--- NOTE | 2022-02-17 11:40 | Progress Note - Hospitalist ---
Subjective HPI/CC On Admission Date Seen by Provider: Feb 17, 2022 Time Seen by Provider: 10:20 Patient is 66-year-old female with past medical history of metastatic breast cancer who presented to the emergency department due to generalized weakness. She iS under the care of Renita Storm with [facility] program and was directed to the emergency department by him. She has breast cancer with brain mets and completed whole brain radiation in November. She states she is supposed to follow-up with her oncologist to have further imaging but she is unsure when that is. Over the past few days she has felt very ill and has continued to get weaker and weaker. She is very thirsty as well and was worried she was getting dehydrated. On arrival to the emergency department she was found to have a leukocytosis of 75 and oncology was consulted due to concern for neoplasm. Dr. Seth was more concerned about infectious etiology so she has been admitted for IV antibiotics. This morning she reports feeling a little better. She has been able to eat breakfast without nausea or vomiting. Subjective/Events-last exam She is feeling ok. She is doing about the same. She still has swelling in her left arm. She has been sipping several different drinks. Objective Exam Vital Signs Vital Signs Date Time Temp Pulse Resp B/P (MAP) Pulse Ox O2 Delivery O2 Flow Rate FiO2 02/17/22 08:18 98 Room Air 02/17/22 07:30 36.7 77 16 103/49 (67) Capillary Refill : Less Than 3 Seconds General Appearance: No Apparent Distress, Chronically ill Respiratory: Lungs Clear, No Respiratory Distress Cardiovascular: Regular Rate, Rhythm, No Murmur Gastrointestinal: Normal Bowel Sounds, Soft Extremity: Non Tender; No Inflammation; Swelling (left arm) Neurologic/Psychiatric: Alert, Depressed Affect Results/Procedures Lab Laboratory Tests 02/17/22 05:23 Patient resulted labs reviewed. Imaging: Reviewed Imaging Report Assessment/Plan Assessment and Plan Assess & Plan/Chief Complaint Leukocytosis Anemia Thrombocytopenia Possible CML DIC WBC remains significantly elevated, platelets very low DIC panel remains consistent with DIC No evidence of acute infection CXR unrevealing UA with minimal WBC, few bacteria Blood cultures with no growth to date Urine culture with no growth Throat culture negative Procal mildly elevated CT chest/abdomen/pelvis did not identify any infectious source, left lung mass which was previously present CT extremity with soft tissue swelling, no abscess Continue Diflucan, Vancomycin, Cefepime, Flagyl, currently refusing all medications Peripheral smear concerning for possible CML/CMML Awaiting BCR-ABL testing, still pending, discussed with lab Goals of care discussion Poor prognosis Palliative care following DNR/DNI Considering hospice, will make further decisions after BCR-ABL test returns Metastatic cancer to the brain Lung mass History of breast cancer s/p brain radiation Follows with Dr. Arita DVT Xarelto held due to thrombocytopenia Anxiety and depression Continue home meds Diagnosis/Problems Diagnosis/Problems (1) Leukocytosis Status: Acute Qualifiers: Leukocytosis type: unspecified Qualified Codes: D72.829 - Elevated white blood cell count, unspecified (2) Thrombocytopenia Status: Acute (3) DIC (disseminated intravascular coagulation) Status: Acute (4) Metastatic breast cancer Status: Acute (5) DVT (deep venous thrombosis) Status: Chronic Qualifiers: DVT location: lower extremity Affected thrombotic vein of extremity: unspecified vein of extremity Chronicity: acute Laterality: bilateral Qualified Codes: I82.403 - Acute embolism and thrombosis of unspecified deep veins of lower extremity, bilateral (6) Lung mass Status: Acute (7) Brain mass Status: Acute (8) Poor prognosis Status: Acute (9) Goals of care, counseling/discussion Status: Acute ERIN WAITE MD Feb 17, 2022 11:40
[2022-02-17 16:00] VITALS: BP 99/45
[2022-02-18 00:39] VITALS: BP 101/61
[2022-02-18] MEDS: CEFEPIME INJECTION 1,000 MG in NS (IVPB) 50 ML IV SCH ×4 (02:45→20:35)
[2022-02-18 05:13] LABS: BASOPHILS # (AUTO) 0.8 10^3/uL (0.0-0.1); BASOPHILS % (AUTO) 1 % (0-10); EOSINOPHILS # (AUTO) 2.1 10^3/uL (0.0-0.3); EOSINOPHILS % (AUTO) 2 % (0-10); HEMATOCRIT 28 % (35-52); LYMPHOCYTES % (AUTO) 3 % (12-44); MEAN CORPUSCULAR HEMOGLOBIN 31 pg (25-34); MEAN CORPUSCULAR HGB CONC 32 g/dL (32-36); MEAN CORPUSCULAR VOLUME 97 fL (80-99); MONOCYTES # (AUTO) 3.8 10^3/uL (0.0-1.0); MONOCYTES % (AUTO) 4 % (0-12); NEUTROPHILS # (AUTO) 84.5 10^3/uL (1.8-7.8); NEUTROPHILS % (AUTO) 82 % (42-75)
[2022-02-18 05:15] LABS: PLATELET COUNT 21 10^3/uL (130-400); WHITE BLOOD COUNT 102.7 10^3/uL (4.3-11.0)
[2022-02-18] MEDS: oxyCODONE/APAP 5/325MG (PERCOCET 5) TABLET PO PRN (07:54)
[2022-02-18] MEDS: ALPRAZolam 0.25 MG (XANAX) TAB PO PRN (07:54)
[2022-02-18 08:00] VITALS: BP 94/44
[2022-02-18] MEDS: FLUCONAZOLE 100 MG/50 ML 50 ML IV SCH (09:14)
[2022-02-18] MEDS: NYSTATIN ORAL SUSP 5 ML UDC PO SCH ×4 (09:15→20:36)
[2022-02-18] MEDS: MAGIC MOUTHWASH, ADULT 155 ML BOTTLE PO SCH ×4 (09:15→20:36)
[2022-02-18] MEDS: PANTOPRAZOLE 40 MG (PROTONIX) TAB PO SCH (09:15)
[2022-02-18] MEDS: metroNIDAZOLE 500MG/100ML IVPB 100 ML IV SCH (10:54)
[2022-02-18] MEDS: fentaNYL INJ 100 MCG/2 ML AMP IV PRN (11:53)
[2022-02-18] MEDS: VANCOMYCIN INJECTION 1,000 MG in NS (IVPB) 250 ML IV SCH (11:53)
[2022-02-18] MEDS: ONDANSETRON 4 MG/2 ML (SDV) Z0FRAN IV PRN (11:53)
--- NOTE | 2022-02-18 15:33 | Progress Note - Hospitalist ---
Subjective HPI/CC On Admission Date Seen by Provider: Feb 18, 2022 Time Seen by Provider: 11:20 Patient is 66-year-old female with past medical history of metastatic breast cancer who presented to the emergency department due to generalized weakness. She iS under the care of Renita Storm with [facility] program and was directed to the emergency department by him. She has breast cancer with brain mets and completed whole brain radiation in November. She states she is supposed to follow-up with her oncologist to have further imaging but she is unsure when that is. Over the past few days she has felt very ill and has continued to get weaker and weaker. She is very thirsty as well and was worried she was getting dehydrated. On arrival to the emergency department she was found to have a leukocytosis of 75 and oncology was consulted due to concern for neoplasm. Dr. Seth was more concerned about infectious etiology so she has been admitted for IV antibiotics. This morning she reports feeling a little better. She has been able to eat breakfast without nausea or vomiting. Subjective/Events-last exam She is doing about the same. She still has left arm swelling. She has been trying to drink some fluids. Objective Exam Vital Signs Vital Signs Date Time Temp Pulse Resp B/P (MAP) Pulse Ox O2 Delivery O2 Flow Rate FiO2 02/18/22 08:44 97 Room Air 0.00 02/18/22 08:00 36.5 79 16 94/44 (61) Capillary Refill : Less Than 3 Seconds General Appearance: No Apparent Distress, Chronically ill Respiratory: Lungs Clear, No Respiratory Distress Cardiovascular: Regular Rate, Rhythm, No Murmur Gastrointestinal: Normal Bowel Sounds, Soft Extremity: Normal Inspection; No Inflammation; Swelling Neurologic/Psychiatric: Alert, Depressed Affect, Motor Weakness Results/Procedures Lab Laboratory Tests 02/18/22 05:08 Patient resulted labs reviewed. Imaging: Reviewed Imaging Report Assessment/Plan Assessment and Plan Assess & Plan/Chief Complaint Leukocytosis Anemia Thrombocytopenia Possible CML DIC WBC remains significantly elevated, platelets very low DIC panel remains consistent with DIC No evidence of acute infection CXR unrevealing UA with minimal WBC, few bacteria Blood cultures with no growth to date Urine culture with no growth Throat culture negative Procal mildly elevated CT chest/abdomen/pelvis did not identify any infectious source, left lung mass which was previously present CT extremity with soft tissue swelling, no abscess Continue Diflucan, Vancomycin, Cefepime, Flagyl Peripheral smear concerning for possible CML/CMML Awaiting BCR-ABL testing, still pending Goals of care discussion Poor prognosis Palliative care following DNR/DNI Considering hospice, will make further decisions after BCR-ABL test returns Metastatic cancer to the brain Lung mass History of breast cancer s/p brain radiation Follows with Dr. Arita DVT Xarelto held due to thrombocytopenia Anxiety and depression Continue home meds Diagnosis/Problems Diagnosis/Problems (1) Leukocytosis Status: Acute Qualifiers: Leukocytosis type: unspecified Qualified Codes: D72.829 - Elevated white blood cell count, unspecified (2) Thrombocytopenia Status: Acute (3) DIC (disseminated intravascular coagulation) Status: Acute (4) Metastatic breast cancer Status: Acute (5) DVT (deep venous thrombosis) Status: Chronic Qualifiers: DVT location: lower extremity Affected thrombotic vein of extremity: unspecified vein of extremity Chronicity: acute Laterality: bilateral Qualified Codes: I82.403 - Acute embolism and thrombosis of unspecified deep veins of lower extremity, bilateral (6) Lung mass Status: Acute (7) Brain mass Status: Acute (8) Poor prognosis Status: Acute (9) Goals of care, counseling/discussion Status: Acute ERIN WAITE MD Feb 18, 2022 15:33
[2022-02-18 16:00] VITALS: BP 109/53
[2022-02-18 23:38] VITALS: BP 100/56
[2022-02-19] MEDS: VANCOMYCIN INJECTION 1,000 MG in NS (IVPB) 250 ML IV SCH ×3 (00:02)
[2022-02-19] MEDS: CEFEPIME INJECTION 1,000 MG in NS (IVPB) 50 ML IV SCH (02:45)
[2022-02-19 06:16] LABS: BASOPHILS # (AUTO) 0.1 10^3/uL (0.0-0.1); BASOPHILS % (AUTO) 0 % (0-10); EOSINOPHILS # (AUTO) 2.1 10^3/uL (0.0-0.3); EOSINOPHILS % (AUTO) 2 % (0-10); HEMATOCRIT 28 % (35-52); HEMOGLOBIN 8.8 g/dL (11.5-16.0); LYMPHOCYTES # (AUTO) 2.1 10^3/uL (1.0-4.0); LYMPHOCYTES % (AUTO) 2 % (12-44); MEAN CORPUSCULAR HEMOGLOBIN 31 pg (25-34); MEAN CORPUSCULAR HGB CONC 32 g/dL (32-36); MEAN CORPUSCULAR VOLUME 97 fL (80-99); MONOCYTES # (AUTO) 3.9 10^3/uL (0.0-1.0); MONOCYTES % (AUTO) 4 % (0-12); NEUTROPHILS # (AUTO) 87.5 10^3/uL (1.8-7.8); NEUTROPHILS % (AUTO) 84 % (42-75); PLATELET COUNT 18 10^3/uL (130-400); WHITE BLOOD COUNT 104.3 10^3/uL (4.3-11.0)
[2022-02-19 08:20] VITALS: BP 109/51
[2022-02-19] MEDS: FLUCONAZOLE 100 MG/50 ML 50 ML IV SCH (09:00)
[2022-02-19] MEDS: NYSTATIN ORAL SUSP 5 ML UDC PO SCH ×4 (09:00→19:28)
[2022-02-19] MEDS: MAGIC MOUTHWASH, ADULT 155 ML BOTTLE PO SCH ×4 (09:00→19:28)
[2022-02-19] MEDS: PANTOPRAZOLE 40 MG (PROTONIX) TAB PO SCH (09:00)
--- NOTE | 2022-02-19 09:27 | Physical Therapy Progress Note ---
Therapy Progress Note Patient adamantly declined PT. PT attempted to educate patient on importance of OOB activity, however, patient continues to decline. Will attempt tomorrow a.m. 1 ref JESSIKA SALEEM PT Feb 19, 2022 09:27
--- NOTE | 2022-02-19 10:52 | Progress Note - Hospitalist ---
Subjective HPI/CC On Admission Date Seen by Provider: Feb 19, 2022 Patient is 66-year-old female with past medical history of metastatic breast cancer who presented to the emergency department due to generalized weakness. She iS under the care of Renita Storm with [facility] program and was directed to the emergency department by him. She has breast cancer with brain mets and completed whole brain radiation in November. She states she is supposed to follow-up with her oncologist to have further imaging but she is unsure when that is. Over the past few days she has felt very ill and has continued to get weaker and weaker. She is very thirsty as well and was worried she was getting dehydrated. On arrival to the emergency department she was found to have a leukocytosis of 75 and oncology was consulted due to concern for neoplasm. Dr. Seth was more concerned about infectious etiology so she has been admitted for IV antibiotics. This morning she reports feeling a little better. She has been able to eat breakfast without nausea or vomiting. Subjective/Events-last exam Pt reports feeling tired. Did not eat much for breakfast. Discussed her lab results and my conversation with Dr Arita with her. She reports she does not want any further testing or medications. Objective Exam Vital Signs Vital Signs Date Time Temp Pulse Resp B/P (MAP) Pulse Ox O2 Delivery O2 Flow Rate FiO2 02/19/22 08:20 36.7 87 16 109/51 (70) 97 Room Air 02/18/22 08:44 0.00 Capillary Refill : Less Than 3 Seconds General Appearance: No Apparent Distress, Chronically ill, Cachetic Respiratory: Lungs Clear Cardiovascular: Regular Rate, Rhythm Neurologic/Psychiatric: Alert, Oriented x3 Results/Procedures Lab Laboratory Tests 02/19/22 05:55 Patient resulted labs reviewed. Imaging: Reviewed Imaging Report Assessment/Plan Assessment and Plan Assess & Plan/Chief Complaint Leukocytosis Anemia Thrombocytopenia Possible CML DIC WBC remains significantly elevated, platelets very low DIC panel remains consistent with DIC No evidence of acute infection despite exhaustive work up CXR unrevealing UA with minimal WBC, few bacteria Blood cultures with no growth to date Urine culture with no growth Throat culture negative Procal mildly elevated CT chest/abdomen/pelvis did not identify any infectious source, left lung mass which was previously present CT extremity with soft tissue swelling, no abscess Continue Diflucan, Vancomycin, Cefepime, Flagyl Peripheral smear concerning for possible CML/CMML Awaiting BCR-ABL testing, still pending Discussed with Dr Arita today who will talk to patient regarding options for further care as she is declining medications and further tests Goals of care discussion Poor prognosis Palliative care following DNR/DNI Considering hospice, plans to talk with Dr Arita about this Metastatic cancer to the brain Lung mass History of breast cancer s/p brain radiation Follows with Dr. Arita DVT Xarelto held due to thrombocytopenia Anxiety and depression Continue home meds Diagnosis/Problems Diagnosis/Problems (1) Metastatic breast cancer Status: Acute (2) Thrombocytopenia Status: Acute (3) Leukocytosis Status: Acute Qualifiers: Leukocytosis type: unspecified Qualified Codes: D72.829 - Elevated white blood cell count, unspecified (4) Thrush Status: Acute (5) Brain tumor Status: Acute (6) GERD (gastroesophageal reflux disease) JARAD CAVAZOS MD Feb 19, 2022 10:52
[2022-02-19 15:37] VITALS: BP 116/53
[2022-02-19 23:24] VITALS: BP 117/57
[2022-02-20 05:44] LABS: BASOPHILS # (AUTO) 0.1 10^3/uL (0.0-0.1); BASOPHILS % (AUTO) 0 % (0-10); EOSINOPHILS # (AUTO) 1.2 10^3/uL (0.0-0.3); EOSINOPHILS % (AUTO) 1 % (0-10); HEMATOCRIT 28 % (35-52); HEMOGLOBIN 8.9 g/dL (11.5-16.0); LYMPHOCYTES # (AUTO) 2.6 10^3/uL (1.0-4.0); LYMPHOCYTES % (AUTO) 2 % (12-44); MEAN CORPUSCULAR HEMOGLOBIN 31 pg (25-34); MEAN CORPUSCULAR HGB CONC 32 g/dL (32-36); MEAN CORPUSCULAR VOLUME 96 fL (80-99); MONOCYTES % (AUTO) 4 % (0-12); NEUTROPHILS # (AUTO) 93.4 10^3/uL (1.8-7.8); NEUTROPHILS % (AUTO) 85 % (42-75)
[2022-02-20 05:46] LABS: PLATELET COUNT 26 10^3/uL (130-400)
[2022-02-20 07:57] VITALS: BP 114/49
[2022-02-20] MEDS: MAGIC MOUTHWASH, ADULT 155 ML BOTTLE PO SCH ×4 (08:05→20:56)
[2022-02-20 09:01] LABS: ALBUMIN 2.5 GM/DL (3.2-4.5); BILIRUBIN,TOTAL 1.5 MG/DL (0.1-1.0); CALCIUM 8.1 MG/DL (8.5-10.1); CREATININE SERUM 0.71 MG/DL (0.60-1.30); TOTAL PROTEIN 4.8 GM/DL (6.4-8.2)
--- NOTE | 2022-02-20 09:20 | Physical Therapy Progress Note ---
Therapy Progress Note Patient continues to declined all PT intervention. Will attempt 1 more day before PT dismisses patient from services. 1 ref JESSIKA SALEEM PT Feb 20, 2022 09:20
[2022-02-20 12:46] LABS: PROTHROMBIN TIME PATIENT 23.1 SEC (12.2-14.7)
[2022-02-20] MEDS: FLUCONAZOLE 100 MG/50 ML 50 ML IV SCH (12:47)
[2022-02-20] MEDS: NYSTATIN ORAL SUSP 5 ML UDC PO SCH ×4 (12:48→20:56)
[2022-02-20] MEDS: PANTOPRAZOLE 40 MG (PROTONIX) TAB PO SCH (12:48)
[2022-02-20 15:39] VITALS: BP 107/46
--- NOTE | 2022-02-20 16:32 | Progress Note - Hospitalist ---
Subjective HPI/CC On Admission Date Seen by Provider: Feb 20, 2022 Time Seen by Provider: 09:40 Patient is 66-year-old female with past medical history of metastatic breast cancer who presented to the emergency department due to generalized weakness. She iS under the care of Renita Storm with [facility] program and was directed to the emergency department by him. She has breast cancer with brain mets and completed whole brain radiation in November. She states she is supposed to follow-up with her oncologist to have further imaging but she is unsure when that is. Over the past few days she has felt very ill and has continued to get weaker and weaker. She is very thirsty as well and was worried she was getting dehydrated. On arrival to the emergency department she was found to have a leukocytosis of 75 and oncology was consulted due to concern for neoplasm. Dr. Seth was more concerned about infectious etiology so she has been admitted for IV antibiotics. This morning she reports feeling a little better. She has been able to eat breakfast without nausea or vomiting. Subjective/Events-last exam She is feeling about the same. She denies pain. We discussed her lab results and she wants to go ahead with the bone marrow biopsy. Objective Exam Vital Signs Vital Signs Date Time Temp Pulse Resp B/P (MAP) Pulse Ox O2 Delivery O2 Flow Rate FiO2 02/20/22 15:39 36.5 78 18 107/46 (66) 99 Room Air 02/18/22 08:44 0.00 Capillary Refill : Less Than 3 Seconds General Appearance: No Apparent Distress, Chronically ill Respiratory: Lungs Clear, No Respiratory Distress Cardiovascular: Regular Rate, Rhythm, No Murmur Gastrointestinal: Normal Bowel Sounds, Soft Extremity: Normal Inspection, Pedal Edema, Swelling (left arm) Results/Procedures Lab Laboratory Tests 02/20/22 05:30 02/20/22 08:35 Patient resulted labs reviewed. Imaging: Reviewed Imaging Report Assessment/Plan Assessment and Plan Assess & Plan/Chief Complaint Leukocytosis Anemia Thrombocytopenia Possible CMML DIC WBC remains significantly elevated, platelets very low DIC panel remains consistent with DIC No evidence of acute infection Stop antibiotics CT chest/abdomen/pelvis did not identify any infectious source, left lung mass which was previously present CT extremity with soft tissue swelling, no abscess Peripheral smear concerning for possible CML/CMML BCR-ABL testing negative Radiology consulted for bone marrow biopsy Oncology, Dr. Arita, following Case discussed with Drs. Arita and Kin Goals of care discussion Poor prognosis Palliative care following DNR/DNI Metastatic cancer to the brain Lung mass History of breast cancer s/p brain radiation Follows with Dr. Arita DVT Xarelto held due to thrombocytopenia Anxiety and depression Continue home meds Diagnosis/Problems Diagnosis/Problems (1) Leukocytosis Status: Acute Qualifiers: Leukocytosis type: unspecified Qualified Codes: D72.829 - Elevated white blood cell count, unspecified (2) Thrombocytopenia Status: Acute (3) DIC (disseminated intravascular coagulation) Status: Acute (4) Metastatic breast cancer Status: Acute (5) DVT (deep venous thrombosis) Status: Chronic Qualifiers: DVT location: lower extremity Affected thrombotic vein of extremity: unspecified vein of extremity Chronicity: acute Laterality: bilateral Qualified Codes: I82.403 - Acute embolism and thrombosis of unspecified deep veins of lower extremity, bilateral (6) Lung mass Status: Acute (7) Brain mass Status: Acute (8) Poor prognosis Status: Acute (9) Goals of care, counseling/discussion Status: Acute ERIN WAITE MD Feb 20, 2022 16:32
[2022-02-20] MEDS: ALPRAZolam 0.25 MG (XANAX) TAB PO PRN (18:42)
[2022-02-20 23:32] VITALS: BP 99/52
[2022-02-21] VITALS (11 sets, daily range): BP systolic 92–116; BP diastolic 43–64
[2022-02-21] MEDS: oxyCODONE/APAP 5/325MG (PERCOCET 5) TABLET PO PRN (07:46)
[2022-02-21] MEDS ORDERED: LIDOCAINE 1% INJ 20 ML VIAL INJ ONE (08:15)
[2022-02-21] MEDS ORDERED: fentaNYL INJ 100 MCG/2 ML AMP IVP ONE (08:15)
[2022-02-21] MEDS ORDERED: MIDAZOLAM 2 MG/2 ML (VERSED) VIAL IVP ONE (08:15)
[2022-02-21] MEDS ORDERED: NS IV 1000 ML 1,000 ML ONE (08:46)
[2022-02-21 09:26] LABS: ABSOLUTE RETIC # 155 10e9/uL (24-90); BASOPHILS # (AUTO) 0.1 10^3/uL (0.0-0.1); BASOPHILS % (AUTO) 0 % (0-10); EOSINOPHILS # (AUTO) 1.9 10^3/uL (0.0-0.3); EOSINOPHILS % (AUTO) 2 % (0-10); HEMATOCRIT 27 % (35-52); HEMOGLOBIN 8.9 g/dL (11.5-16.0); LYMPHOCYTES # (AUTO) 2.4 10^3/uL (1.0-4.0); LYMPHOCYTES % (AUTO) 2 % (12-44); MEAN CORPUSCULAR HEMOGLOBIN 32 pg (25-34); MEAN CORPUSCULAR HGB CONC 33 g/dL (32-36); MEAN CORPUSCULAR VOLUME 98 fL (80-99); MONOCYTES # (AUTO) 4.6 10^3/uL (0.0-1.0); MONOCYTES % (AUTO) 4 % (0-12); NEUTROPHILS # (AUTO) 94.5 10^3/uL (1.8-7.8); NEUTROPHILS % (AUTO) 83 % (42-75); RETICULOCYTE % 5.53 % (0.50-2.40)
[2022-02-21 09:34] LABS: PLATELET COUNT 15 10^3/uL (130-400); WHITE BLOOD COUNT 113.5 10^3/uL (4.3-11.0)
--- NOTE | 2022-02-21 10:03 | Pre-Op Note & Conscious Sedat ---
Pre-Operative Progress Note H&P Reviewed The H&P was reviewed, patient examined and no changes noted. Date H&P Reviewed: Feb 21, 2022 Time H&P Reviewed: 08:00 Pre-Op Diagnosis: metastatic disease Conscious Sedation Pre-Proced Time 08:00 ASA Score 2 For ASA 3 and 4: Consider anesthesia and medical clearance. Also, for patients with a history of failed moderate sedation consider anesthesia. Airway Lungs Heart ASA score ASA 1: a normal healthy patient ASA 2: a patient with a mild systemic disease (mid diabetes, controlled hypertension, obesity ASA 3: a patient with a severe systemic disease that limits activity (angina, COPD, prior Myocardial infarction) ASA 4: a patient with an incapacitating disease that is a constant threat to life (CHF, renal failure) ASA 5: a moribund patient not expected to survive 24 hrs. (ruptured aneurysm) ASA 6: a declared brain- patient whose organs are being harvested. For emergent operations, add the letter E after the classification Mallampati Classification Grade 2 Sedation Plan Analgesia, Amnesia, Plan communicated to team members, Discussed options with patient/fam, Discussed risks with patient/fam The patient is an appropriate candidate to undergo the planned procedure, sedation, and anesthesia. The patient immediately re-assessed prior to indication. LEIDA RICH MD Feb 21, 2022 10:03
[2022-02-21 10:12] LABS: BAND NEUTROPHILS 27 %; BASOPHILS % (MANUAL) 0 %; EOSINOPHILS % (MANUAL) 4 %; LYMPHOCYTES % (MANUAL) 1 %; MONOCYTES % (MANUAL) 4 %; NEUTROPHILS % (MANUAL) 61 %
[2022-02-21 10:13] LABS: ANISOCYTOSIS MODERATE; METAMYELOCYTES % 2 %; MYELOCYTES % 1 %; POLYCHROMASIA SLIGHT
--- NOTE | 2022-02-21 10:15 | Diagnostic Imaging Report ---
INDICATION: Metastatic disease. Patient brought to the CT suite and placed on the table in the prone position. Axial imaging through the pelvis was performed to evaluate appropriate entry site. The low back was prepped and draped in usual sterile fashion. Small amount of 1% lidocaine was utilized for local anesthesia. Bone marrow needle was advanced and placed with its tip along the posterior cortex of the right iliac bone. The needle was advanced through the cortex utilizing a bone marrow drill. 2 bone marrow aspirates were then obtained. Next, the bone marrow drill was utilized to obtain a bone marrow core biopsy. Needle was removed. Hemostasis was obtained using manual compression. Total procedure time was 3 minutes. Patient tolerated the procedure well and left the department in stable condition. IMPRESSION: Successful CT-guided bone marrow aspiration and core biopsy. Pathology results are currently pending. Dictated by: Dictated on workstation # [id number]
[2022-02-21] MEDS: PANTOPRAZOLE 40 MG (PROTONIX) TAB PO SCH (10:29)
[2022-02-21] MEDS: MAGIC MOUTHWASH, ADULT 155 ML BOTTLE PO SCH ×4 (10:29→21:00)
[2022-02-21] MEDS: NYSTATIN ORAL SUSP 5 ML UDC PO SCH ×4 (10:29→21:00)
--- NOTE | 2022-02-21 11:07 | Physical Therapy Daily Note ---
PT Daily Note-Current Subjective Pt.in bed with LLE elevated, cold pack on top, Pt. states she will try to ex in bed but her Left foot ankle are in severe pain and she is not sure how much she can complete Pain Numeric Pain Scale: 8 Location: Left Location Body Site: Foot Pain Description: Stabbing Appearance Left foot and ankle purple black in color, edema noted Mental Status Patient Orientation: Normal For Age Attachments: IV Transfers SCALE: Activities may be completed with or without assistive devices. 6-Vzfhthnbkt-dezddav completes the activity by him/herself with no assistance from a helper. 5-Set-up or Clean-up Assistance-helper sets up or cleans up; patient completes activity. [place] assists only prior to or following the activity. 4-Supervision or Touching Assistance-helper provides verbal cues and/or touching/steadying and/or contact guard assistance as patient completes activity. Assistance may be provided throughout the activity or intermittently. 3-Partial/Moderate Assistance-helper does LESS THAN HALF the effort. [place] lifts, holds or supports trunk or limbs, but provides less than half the effort. 2-Substantial/Maximal Assistance-helper does MORE THAN HALF the effort. [place] lifts or holds trunk or limbs and provides more than half the effort. 7-Fookblqxj-tepvyd does ALL the effort. Patient does none of the effort to complete the activity. Or, the assistance of 2 or more helpers is required for the patient to complete the activity. If activity was not attempted, code reason: 7-Patient Refused. 9-Not Applicable-not attempted and the patient did not perform the activity before the current illness, exacerbation or injury. 10-Not Attempted due to Environmental Limitations-(lack of equipment, weather restraints, etc.). 88-Not Attempted due to Medical Conditions or Safety Concerns. Exercises Supine Ex: Ankle pumps, Quad Set, Glut sets, Straight leg raise (RLE ), Hip abd/add (RLE only) Supine Reps: 12 Treatments pt. attempted LE AROM but poor tolerance as L foot and ankle are in severe pain, cold/ice pack was repositioned several times but this did not soothe her. Rx was eventually discontinued Assessment Current Status: Poor Progress poor tolerance for Rx secondary to pain etc PT Jail Goals Sales Floor Manager Goals PT Sales Floor Manager Goals Time Frame: Mar 03, 2022 Roll Left & Right (QC): 4 Sit to Lying (QC): 4 Lying-Sitting on Side/Bed(QC): 4 Sit to Stand (QC): 4 Chair/Bab-hy-Plzdt Xfer(QC): 4 Toilet Transfer (QC): 4 Walk 10 feet (QC): 4 Walk 50ft with 2 Turns (QC): 4 Walk 150 ft (QC): 4 PT Plan Treatment/Plan Treatment Plan: Continue Plan of Care (as tolerated) Treatment Plan: Bed Mobility, Education, Functional Activity Kaylynn, Functional Strength, Gait, Safety, Therapeutic Exercise, Transfers Treatment Duration: Mar 03, 2022 Frequency: 6 times per week Estimated Hrs Per Day: .25 hour per day Safety Risks/Education Patient Education: Correct Positioning Teaching Recipient: Patient Teaching Methods: Discussion Response to Teaching: Return Demonstration, Reinforcement Needed Time/GCodes Time In: 1052 Time Out: 1100 Total Billed Treatment Time: 8 Total Billed Treatment 1,EX8m RUPAL KEVIN GARMENT FITTER Feb 21, 2022 11:07
[2022-02-21] MEDS ORDERED: HOLD METFORMIN - RECEIVED CONTRAST 20 ML VIAL IV SCH ×2 (13:15)
[2022-02-21] MEDS ORDERED: NS 100 ML (IVPB) BAG IV ONE (13:15)
[2022-02-21] MEDS ORDERED: CATHETER FLUSH 10 ML SYR IV PRN (13:15)
[2022-02-21] MEDS ORDERED: IOHEXOL 350 MG/ML 100 ML (OMNIPAQUE 350) VIAL IV ONE ×2 (13:15)
--- NOTE | 2022-02-21 14:00 | Diagnostic Imaging Report ---
INDICATION: Left leg pain and swelling and discoloration. Patient presents for CT angiography of the left lower extremity. TECHNIQUE: IV contrast bolus was used, axial slices were obtained with sagittal and coronal MIP reconstructions. Dose reduction protocol was used. FINDINGS: Soft tissue windows demonstrate some edema in the subcutaneous tissues in the left thigh, without well-defined lesion. There is some edema throughout the subcutaneous tissues of the left lower leg as well. There is no acute bony abnormality. The left common iliac artery is patent with minor plaquing. The left internal and external iliac arteries are patent. The left femoral bifurcation, common femoral artery, and profunda femoris artery are patent. The left SFA is patent throughout. The left popliteal artery, anterior tibial artery, tibioperoneal trunk, peroneal artery, and posterior tibial arteries are patent throughout their course. IMPRESSION: No evidence of arterial occlusion in the left lower extremity. Diffuse edema in the subcutaneous tissues throughout the left leg is noted. Dictated by: Dictated on workstation # [id number]
--- NOTE | 2022-02-21 17:23 | Progress Note - Hospitalist ---
Subjective HPI/CC On Admission Date Seen by Provider: Feb 21, 2022 Time Seen by Provider: 11:25 Patient is 66-year-old female with past medical history of metastatic breast cancer who presented to the emergency department due to generalized weakness. She iS under the care of Renita Storm with [facility] and was directed to the emergency department by him. She has breast cancer with brain mets and completed whole brain radiation in November. She states she is supposed to follow-up with her oncologist to have further imaging but she is unsure when that is. Over the past few days she has felt very ill and has continued to get weaker and weaker. She is very thirsty as well and was worried she was getting dehydrated. On arrival to the emergency department she was found to have a leukocytosis of 75 and oncology was consulted due to concern for neoplasm. Dr. Seth was more concerned about infectious etiology so she has been admitted for IV antibiotics. This morning she reports feeling a little better. She has been able to eat breakfast without nausea or vomiting. Subjective/Events-last exam She is having left foot pain. She had her bone marrow biopsy. She says it was uncomfortable. Objective Exam Vital Signs Vital Signs Date Time Temp Pulse Resp B/P (MAP) Pulse Ox O2 Delivery O2 Flow Rate FiO2 02/21/22 15:32 36.5 96 18 108/49 (68) 99 Room Air 02/18/22 08:44 0.00 Capillary Refill : Less Than 3 Seconds General Appearance: No Apparent Distress, Chronically ill Respiratory: Lungs Clear, No Respiratory Distress Cardiovascular: Regular Rate, Rhythm, No Murmur, Normal Peripheral Pulses Extremity: No Inflammation; Swelling, Other (tenderness to light touch, pulses obtained with doppler) Neurologic/Psychiatric: Alert, Depressed Affect Skin: Cool, Ecchymosis (left foot) Results/Procedures Lab Laboratory Tests 02/21/22 09:10 Patient resulted labs reviewed. Imaging: Reviewed Imaging Report Assessment/Plan Assessment and Plan Assess & Plan/Chief Complaint Leukocytosis Anemia Thrombocytopenia Possible CMML DIC WBC remains significantly elevated, platelets very low DIC panel remains consistent with DIC No evidence of acute infection Stop antibiotics CT chest/abdomen/pelvis did not identify any infectious source, left lung mass which was previously present CT extremity with soft tissue swelling, no abscess Peripheral smear concerning for possible CML/CMML BCR-ABL testing negative Radiology performed bone marrow biopsy 02/21 Oncology, Dr. Arita, following Await results of bone marrow biopsy Consider discharge to longterm facility once stable Goals of care discussion Poor prognosis Palliative care following DNR/DNI Metastatic cancer to the brain Lung mass History of breast cancer s/p brain radiation Follows with Dr. Arita DVT Xarelto held due to thrombocytopenia Anxiety and depression Continue home meds Diagnosis/Problems Diagnosis/Problems (1) Leukocytosis Status: Acute Qualifiers: Leukocytosis type: unspecified Qualified Codes: D72.829 - Elevated white blood cell count, unspecified (2) Thrombocytopenia Status: Acute (3) DIC (disseminated intravascular coagulation) Status: Acute (4) Metastatic breast cancer Status: Acute (5) DVT (deep venous thrombosis) Status: Chronic Qualifiers: DVT location: lower extremity Affected thrombotic vein of extremity: unspecified vein of extremity Chronicity: acute Laterality: bilateral Qualified Codes: I82.403 - Acute embolism and thrombosis of unspecified deep veins of lower extremity, bilateral (6) Lung mass Status: Acute (7) Brain mass Status: Acute (8) Poor prognosis Status: Acute (9) Goals of care, counseling/discussion Status: Acute ERIN WAITE MD Feb 21, 2022 17:23
[2022-02-21] MEDS: fentaNYL INJ 100 MCG/2 ML AMP IV PRN (18:26)
[2022-02-22 07:41] VITALS: BP 111/65
[2022-02-22] MEDS: ALPRAZolam 0.25 MG (XANAX) TAB PO PRN (08:41)
[2022-02-22] MEDS: PANTOPRAZOLE 40 MG (PROTONIX) TAB PO SCH ×2 (08:41→11:48)
[2022-02-22] MEDS: oxyCODONE/APAP 5/325MG (PERCOCET 5) TABLET PO PRN (08:42)
[2022-02-22] MEDS: MAGIC MOUTHWASH, ADULT 155 ML BOTTLE PO SCH ×4 (09:00→20:39)
[2022-02-22] MEDS: NYSTATIN ORAL SUSP 5 ML UDC PO SCH ×4 (09:00→20:39)
--- NOTE | 2022-02-22 09:19 | Physical Therapy Progress Note ---
Therapy Progress Note Patient declined PT due to fatigue and "not feeling well". Will attempt tomorrow a.m. 1 ref JESSIKA SALEEM PT Feb 22, 2022 09:19
--- NOTE | 2022-02-22 11:01 | Consultation-Cardiology ---
HPI-Cardiology Cardiology Consultation: Date of Consultation 02/22/22 Time Seen by a Provider: 10:35 Date of Admission 02-09-22 Attending Physician Fartun Obando Admitting Physician Admitting Physician: Mildred Padilla MD Attending Physician: Erin Waite MD Consulting Physician Brianne Sanchez MD HPI: Chief Complaint: Swelling, discoloration of LUE and RLE extremity Ms. Li is a 66 yr old female with breast cancer with mets to the brain for which she has undergone radiation. We have been consulted d/t gross swelling, bruising of right leg, foot and RUE. Patient is lethargic at this time. She opens her eyes to conversation, but ordoñez not answer any questions and closes her eyes. Review of chart has been done. She came in from home with increasing weakness and nausea. She has continued to decline during this hospitalization. Review of Systems-Cardiology Review of Systems Other comments D/t mentation ROS was unable to be obtained PSM-Hxbgvw-Vklfdn Hx Patient Social History Employed/Student: retired Smoking Status: Former Smoker 2nd Hand Smoke Exposure: Yes Have you traveled recently?: No Alcohol Use?: No Pt feels they are or have been: No Immunizations Up To Date Tetanus Booster (TDap): Unknown Past Medical History PMH As described under Assessment. Family Medical History Family Medical History: Unable to obtain Allergies and Home Medications Allergies Coded Allergies: Iodinated Contrast Media (Verified Allergy, Mild, TURNED SKIN ORANGE/LEFT SCAR TISSUE ON ARMS, 03/10/19) Latex, Natural Rubber (Verified Allergy, Mild, ITCHING, 03/10/19) cephalexin (Verified Allergy, Mild, RASH, 03/10/19) hydrocodone (Verified Allergy, Mild, N/V, 03/10/19) Patient Home Medication List ALPRAZolam (ALPRAZolam) 0.25 Mg Tablet, 0.125-0.25 MG PO Q8H PRN for ANXIETY, (Reported) Entered as Reported by: PRIYANKA REDDY on 02/13/22 1013 Last Action: Reviewed Cholecalciferol (Vitamin D3) (Vitamin D3) 10 Mcg/5 Ml (400 Unit/5 Ml) Liquid, 10 MCG PO DAILY, (Reported) Entered as Reported by: PRIYANKA REDDY on 02/13/22 1013 Last Action: Reviewed Dexamethasone (Dexamethasone) 1 Mg Tablet, 1 MG PO DAILY, (Reported) Entered as Reported by: PRIYANKA REDDY on 02/13/22 1013 Last Action: Reviewed Levetiracetam (Keppra) 500 Mg Tablet, 500 MG PO BID, (Reported) Entered as Reported by: TAL GASPAR on 01/01/22 1518 Last Action: Reviewed Multivit-Minerals/Folic Acid (Multivitamin Gummies) 200 Mcg Tab.chew, 200 MCG PO DAILY, (Reported) Entered as Reported by: PRIYANKA REDDY on 02/13/22 101 Last Action: Reviewed Ondansetron (Ondansetron Odt) 8 Mg Tab.rapdis, 8 MG PO Q8H PRN for NAUSEA/VOMITING-1ST LINE, (Reported) Entered as Reported by: PRIYANKA REDDY on 02/13/22 101 Last Action: Reviewed Pantoprazole Sodium (Pantoprazole Sodium) 40 Mg Tablet.dr, 40 MG PO DAILY, (Reported) Entered as Reported by: PRIYANKA REDDY on 02/13/22 101 Last Action: Reviewed Polyethylene Glycol 400 (Visine Dry Eye Relief) 1 % Drops, 1-2 DROPS OP UD PRN for DRY EYES, (Reported) Entered as Reported by: PRIYANKA REDDY on 02/13/22 101 Last Action: Reviewed Rivaroxaban (Xarelto) 15 Mg Tablet, 15 MG PO BID, (Reported) Entered as Reported by: PRIYANKA REDDY on 02/13/22 1017 Last Action: Reviewed Physical Exam-Cardiology Physical Exam Vital Signs/I&O 02/21/22 02/22/22 02/22/22 23:40 07:41 08:00 Temp 36.7 37.0 Pulse 91 110 Resp 18 18 B/P (MAP) 100/61 (74) 111/65 (80) Pulse Ox 98 98 O2 Delivery Room Air Room Air Room Air 02/21/22 23:59 Intake Total 570 ml Balance 570 ml Capillary Refill : Less Than 3 Seconds Constitutional: other (gen weak, frail) HEENT: hearing is well preserved Neck: No carotid bruit; carotid pulses are 2 + bilaterally Respiratory: No accessory muscle use, No respiratory distress; chest expansion is symmetric, chest is bilaterally symmetric, lungs clear to auscultation Cardiovascular: regular rate-rhythm, S1 and S2 Gastrointestinal: soft, audible bowel sounds Extremities: other (LUE with pitting edema, ecchymosis, redness from shoulder t o hand; LLE with pitting edema, large amount of ecchymosis to the entire left foot, toes; pulse is obtainable via doppler - uncomfortable to touch) Neurologic/Psychiatric: grossly intact (moves extremties; lethargic) Skin: other (see above) Data Review Labs Microbiology 02/14/22 Throat Culture - Final, Complete No Beta Strep isolated 02/10/22 Urine Culture - Final, Complete NO GROWTH 02/09/22 Blood Culture - Final, Complete No growth Laboratory Tests 02/21/22 09:10 Radiology NAME: NAVA LI MED REC#: [id number] PT STATUS: REG ER : 1955 PHYSICIAN: RADHA AGUIRRE MD ADMIT DATE: 02/09/22/ER Signed Date of Exam:02/09/22 CHEST 1 VIEW, AP/PA ONLY INDICATION: Elevated white blood cell count COMPARISON: 11/13/2021 TECHNIQUE: Single radiograph of the chest dated 02/09/2022. FINDINGS: Interval placement of a Port-A-Cath with the hub overlying left chest with the distal tip overlying the right atrium. The cardiac silhouette is within normal limits in size. No significant pulmonary vascular congestion. The lungs are hyperinflated with background chronic interstitial lung changes again identified. No new focal pulmonary opacity. No pleural effusion. No pneumothorax. Scattered osseous degenerative changes without acute osseous abnormality. IMPRESSION: Background pulmonary hyperinflation with associated chronic interstitial lung changes without superimposed acute cardiopulmonary abnormality. Interval placement of a Port-A-Cath with the distal tip overlying the right atrium. No pneumothorax. Dictated by: Dictated on workstation # [id number] Dict: 02/09/221904 Trans: 02/09/221936 MEG [id number] Interpreted by: DANIELA OBRIEN MD Electronically signed by: DANIELA OBRIEN MD 02/09/221936 NAME: LINAVA MED REC#: [id number] PT STATUS: ADM IN : 1955 PHYSICIAN: ERIN WAITE MD ADMIT DATE: 02/09/22 Signed Date of Exam:02/13/22 CT CHEST/ABDOMEN/PELVIS WO PROCEDURE: CT chest, abdomen, and pelvis without contrast. TECHNIQUE: Multiple contiguous axial images were obtained through the chest, abdomen, and pelvis without the use of intravenous contrast. Auto Exposure Controls were utilized during the CT exam to meet ALARA standards for radiation dose reduction. INDICATION: Leukocytosis. Correlation is made with prior CT from 03/06/2019. CT CHEST: There is a left chest wall port that has the tip entering the right atrium. Postop changes from left mastectomy are noted. No definite axillary lymphadenopathy is identified. Mediastinal and hilar evaluation is limited without intravenous contrast but no significant lymphadenopathy is seen. There is no pericardial fluid. There is trace right and small left pleural effusion. There appears to be some biapical pleural-parenchymal scarring. There is an area of consolidation versus mass in the lateral aspect of the left upper lobe measuring 2.6 x 1.4 cm. The remainder of the lung li are fairly clear apart from some compressive atelectasis in the left lower lobe. CT abdomen and pelvis: Liver is enlarged measuring 20 cm. No liver mass is detected. There is a stone within the gallbladder. No biliary duct dilatation is seen. Pancreas and spleen are unremarkable. No adrenal mass is detected. Kidneys are unremarkable. Aorta is nonaneurysmal. No central retroperitoneal or mesenteric lymphadenopathy is seen. Bowel loops are normal caliber. No free fluid in the abdomen is seen. There is a small amount of free fluid in the pelvis. The uterus and bladder are unremarkable. No definite pelvic lymphadenopathy is seen. Bony structures are nonacute. IMPRESSION: 1. Postop changes from left mastectomy. There are areas of pleural parenchymal thickening and scarring in the apices bilaterally. There is a soft tissue masslike density in the left upper lobe, indeterminate between an area of consolidation and pneumonia versus mass. Close follow-up after course of therapy would be recommended to confirm clearing. A PET/CT study to evaluate for hypermetabolism would be an additional consideration. 2. Bilateral effusions, left greater. 3. Cholelithiasis. 4. Small amount of free pelvic fluid. No definite abdominal or pelvic mass or lymphadenopathy is seen. 5. Hepatomegaly. Dictated by: Dictated on workstation # [id number] Dict: 02/13/22 193 Trans: 02/14/22805 MEG [id number] Interpreted by: LEIDA RICH MD Electronically signed by: LEIDA RICH MD 02/14/22805 NAME: NAVA LI [facility] REC#: [id number] PT STATUS: ADM IN : 1955 PHYSICIAN: ERIN WAITE MD ADMIT DATE: 02/09/22 Signed Date of Exam:02/13/22 CT EXTREMITY UPPER LEFT WO PROCEDURE: CT left upper extremity without contrast. TECHNIQUE: Multiple contiguous axial images were obtained through the left upper extremity without the use of intravenous contrast. Auto Exposure Controls were utilized during the CT exam to meet ALARA standards for radiation dose reduction. INDICATION: Occult infection and leukocytosis. There is some edema in the subcutaneous tissues of the left upper extremity. No definite superficial or deep soft tissue fluid collection is identified to suggest abscess. No soft tissue gas is identified. No bony destructive changes are seen. Shoulder alignment appears normal. There are no fractures. IMPRESSION: There is some mild soft tissue edema which could be owing to cellulitis. No fluid collection or soft tissue gas is identified. Dictated by: Dictated on workstation # [id number] Dict: 02/13/221925 Trans: 02/13/221958 MEG [id number] Interpreted by: LEIDA RICH MD Electronically signed by: LEIDA RICH MD 02/13/221958 NAME: NAVA LI [facility] REC#: [id number] PT STATUS: ADM IN : 1955 PHYSICIAN: ERIN WAITE MD ADMIT DATE: 02/09/22 Signed Date of Exam:02/21/22 CT BONE MARROW BX(IES) &ASP(S) INDICATION: Metastatic disease. Patient brought to the CT suite and placed on the table in the prone position. Axial imaging through the pelvis was performed to evaluate appropriate entry site. The low back was prepped and draped in usual sterile fashion. Small amount of 1% lidocaine was utilized for local anesthesia. Bone marrow needle was advanced and placed with its tip along the posterior cortex of the right iliac bone. The needle was advanced through the cortex utilizing a bone marrow drill. 2 bone marrow aspirates were then obtained. Next, the bone marrow drill was utilized to obtain a bone marrow core biopsy. Needle was removed. Hemostasis was obtained using manual compression. Total procedure time was 3 minutes. Patient tolerated the procedure well and left the department in stable condition. IMPRESSION: Successful CT-guided bone marrow aspiration and core biopsy. Pathology results are currently pending. Dictated by: Dictated on workstation # [id number] Dict: 02/21/22 1010 Trans: 02/21/22 1435 [facility] [id number] Interpreted by: LEIDA RICH MD Electronically signed by: LEIDA RICH MD 02/21/22 1435 NAME: NAVA LI [facility] REC#: [id number] PT STATUS: ADM IN : 1955 PHYSICIAN: ERIN WAITE MD ADMIT DATE: 02/09/22 Signed Date of Exam:02/21/22 CT ANGIO EXT LOWER LEFT W INDICATION: Left leg pain and swelling and discoloration. Patient presents for CT angiography of the left lower extremity. TECHNIQUE: IV contrast bolus was used, axial slices were obtained with sagittal and coronal MIP reconstructions. Dose reduction protocol was used. FINDINGS: Soft tissue windows demonstrate some edema in the subcutaneous tissues in the left thigh, without well-defined lesion. There is some edema throughout the subcutaneous tissues of the left lower leg as well. There is no acute bony abnormality. The left common iliac artery is patent with minor plaquing. The left internal and external iliac arteries are patent. The left femoral bifurcation, common femoral artery, and profunda femoris artery are patent. The left SFA is patent throughout. The left popliteal artery, anterior tibial artery, tibioperoneal trunk, peroneal artery, and posterior tibial arteries are patent throughout their course. IMPRESSION: No evidence of arterial occlusion in the left lower extremity. Diffuse edema in the subcutaneous tissues throughout the left leg is noted. Dictated by: Dictated on workstation # [id number] Dict: 02/21/22 1348 Trans: 02/21/22 1455 [id number] Interpreted by: QUIANA BLOUNT MD Electronically signed by: QUIANA BLOUNT MD 02/21/22 1455 A/P-Cardiology Assessment/Admission Diagnosis LLE swelling with gross bruising to left foot - undetermined etiology - possibly secondary to acute hemorrhage - pulse doable - done today - LE CTA of 02-21-22 showed: No evidence of arterial occlusion in the left lower extremity. Diffuse edema in the subcutaneous tissues throughout the left leg is noted RUE swelling - same side as previous mastectomy - ? cellulitis - ?lymphedema - undetermined cause Breast cancer with mets to the brain - recently received radiation - lung mass - management per oncology services - awaiting bone marrow biopsy results DIC - likely secondary to metastatic cancer Discussion and Recomendations Complex issues Poor prognosis Palliative services are following Niece is DPOA DNR EVERETT SELF Feb 22, 2022 11:01
[2022-02-22] MEDS: ONDANSETRON 4 MG/2 ML (SDV) Z0FRAN IV PRN (13:45)
[2022-02-22] MEDS ORDERED: APIXABAN 2.5 MG (ELIQUIS) TABLET PO ONE (13:45)
--- NOTE | 2022-02-22 14:04 | Progress Note - Hospitalist ---
Subjective HPI/CC On Admission Date Seen by Provider: Feb 22, 2022 Time Seen by Provider: 10:00 Patient is 66-year-old female with past medical history of metastatic breast cancer who presented to the emergency department due to generalized weakness. She iS under the care of Renita Storm with [facility] program and was directed to the emergency department by him. She has breast cancer with brain mets and completed whole brain radiation in November. She states she is supposed to follow-up with her oncologist to have further imaging but she is unsure when that is. Over the past few days she has felt very ill and has continued to get weaker and weaker. She is very thirsty as well and was worried she was getting dehydrated. On arrival to the emergency department she was found to have a leukocytosis of 75 and oncology was consulted due to concern for neoplasm. Dr. Seth was more concerned about infectious etiology so she has been admitted for IV antibiotics. This morning she reports feeling a little better. She has been able to eat breakfast without nausea or vomiting. Subjective/Events-last exam She is having left foot pain. She still has swelling in her legs and left arm. She has no other complaints. Objective Exam Vital Signs Vital Signs Date Time Temp Pulse Resp B/P (MAP) Pulse Ox O2 Delivery O2 Flow Rate FiO2 02/22/22 08:00 Room Air 02/22/22 07:41 37.0 110 18 111/65 (80) 98 02/18/22 08:44 0.00 Capillary Refill : Less Than 3 Seconds General Appearance: No Apparent Distress, Chronically ill Respiratory: Lungs Clear, No Respiratory Distress Cardiovascular: Regular Rate, Rhythm, No Murmur Gastrointestinal: Normal Bowel Sounds, Soft Extremity: No Inflammation; Swelling, Other (severe tenderness, doppler pulses present) Skin: Cool, Ecchymosis (left foot, bruising on left arm); No Erythema; Pet[place]ia Results/Procedures Lab Patient resulted labs reviewed. 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 Arita, oncology Case duscussed with Dr. Sanchez, cardiology Case discussed with Dr. Tello, surgery Occlusive DVT Possible ischemic left foot Anticoagulation held due to severe thrombocytopenia CT angio with no arterial obstruction US with occlusive DVT Disscussed with Dr. Tello, high risk for DVT filter Discussed with Dr. Arita, recommended against Heparin gtt, begin low dose Eliquis Goals of care discussion Poor prognosis Palliative care following DNR/DNI Metastatic cancer to the brain Lung mass History of breast cancer s/p brain radiation Follows with Dr. Arita Anxiety and depression Continue home meds Diagnosis/Problems Diagnosis/Problems (1) Leukocytosis Status: Acute Qualifiers: Leukocytosis type: unspecified Qualified Codes: D72.829 - Elevated white blood cell count, unspecified (2) Thrombocytopenia Status: Acute (3) DIC (disseminated intravascular coagulation) Status: Acute (4) Metastatic breast cancer Status: Acute (5) DVT (deep venous thrombosis) Status: Chronic Qualifiers: DVT location: lower extremity Affected thrombotic vein of extremity: unspecified vein of extremity Chronicity: acute Laterality: bilateral Qualified Codes: I82.403 - Acute embolism and thrombosis of unspecified deep veins of lower extremity, bilateral (6) Lung mass Status: Acute (7) Brain mass Status: Acute (8) Poor prognosis Status: Acute (9) Goals of care, counseling/discussion Status: Acute (10) Ischemic foot Status: Acute ERIN WAITE MD Feb 22, 2022 14:04
--- NOTE | 2022-02-22 15:23 | Consultation - Surgery ---
MUHAMMADJOANNA Ben 02/22/22 1523: History of Present Illness History of Present Illness Patient Consulted On(sunshine/time) 02/22/22 15:19 Date Seen by Provider: Feb 22, 2022 Time Seen by Provider: 15:19 History of Present Illness Ms. Li is a 66 year old female with a past medical history significant for metastatic breast cancer with metastasis to the brain for which she underwent radiation therapy. She presented to the ED initially for generalized weakness. General surgery was consulted for possible ischemic changes of her left foot. Patient was somnolent but able to answer a few questions. Sometimes it would take multiple tries before she was able to answer a question. She says that her left foot started turning black about 2-3 days ago. She denies any trauma to the area and is not aware of anything that would have caused it. She describes the pain as sharp and constant. She says nothing makes it worse. She said pain medicine helps make her pain better. She has radiation of her pain up into her ipsilateral ankle. She rates her pain as a 5/10. She has a very complex picture and is being followed by multiple services. Allergies and Home Medications Allergies Coded Allergies: Iodinated Contrast Media (Verified Allergy, Mild, TURNED SKIN ORANGE/LEFT SCAR TISSUE ON ARMS, 03/10/19) Latex, Natural Rubber (Verified Allergy, Mild, ITCHING, 03/10/19) cephalexin (Verified Allergy, Mild, RASH, 03/10/19) hydrocodone (Verified Allergy, Mild, N/V, 03/10/19) Patient Home Medication List ALPRAZolam (ALPRAZolam) 0.25 Mg Tablet, 0.125-0.25 MG PO Q8H PRN for ANXIETY, (Reported) Entered as Reported by: PRIYANKA REDDY on 02/13/22 1013 Last Action: Reviewed Cholecalciferol (Vitamin D3) (Vitamin D3) 10 Mcg/5 Ml (400 Unit/5 Ml) Liquid, 10 MCG PO DAILY, (Reported) Entered as Reported by: PRIYANKA REDDY on 02/13/22 1013 Last Action: Reviewed Dexamethasone (Dexamethasone) 1 Mg Tablet, 1 MG PO DAILY, (Reported) Entered as Reported by: PRIYANKA REDDY on 02/13/22 1013 Last Action: Reviewed Levetiracetam (Keppra) 500 Mg Tablet, 500 MG PO BID, (Reported) Entered as Reported by: TAL GASPAR on 01/01/22 1518 Last Action: Reviewed Multivit-Minerals/Folic Acid (Multivitamin Gummies) 200 Mcg Tab.chew, 200 MCG PO DAILY, (Reported) Entered as Reported by: PRIYANKA REDDY on 02/13/22 1013 Last Action: Reviewed Ondansetron (Ondansetron Odt) 8 Mg Tab.rapdis, 8 MG PO Q8H PRN for NAUSEA/VOMITING-1ST LINE, (Reported) Entered as Reported by: PRIYANKA REDDY on 02/13/22 1013 Last Action: Reviewed Pantoprazole Sodium (Pantoprazole Sodium) 40 Mg Tablet.dr, 40 MG PO DAILY, (Reported) Entered as Reported by: PRIYANKA REDDY on 02/13/22 1013 Last Action: Reviewed Polyethylene Glycol 400 (Visine Dry Eye Relief) 1 % Drops, 1-2 DROPS OP UD PRN for DRY EYES, (Reported) Entered as Reported by: PRIYANKA REDDY on 02/13/22 101 Last Action: Reviewed Rivaroxaban (Xarelto) 15 Mg Tablet, 15 MG PO BID, (Reported) Entered as Reported by: PRIYANKA REDDY on 02/13/22 1017 Last Action: Reviewed Past Mloodqz-Owwqfr-Aykprm Hx Patient Social History Smoking Status: Former Smoker Former Smoker, Quit: Mar 12, 2019 Type Used: Cigarettes 2nd Hand Smoke Exposure: Yes Recent Hopitalizations: No Alcohol Use?: No Have you traveled recently?: No Immunizations Up To Date Tetanus Booster (TDap): Unknown PED Vaccines UTD: No Seasonal Allergies Seasonal Allergies: No Surgeries History of Surgeries: Yes (BRAIN TUMOR, mastectomy, port) Surgeries: Breast, Tonsillectomy Respiratory History of Respiratory Disorde: No Cardiovascular History of Cardiac Disorders: No Neurological History of Neurological Disord: Yes (HX BRAIN TUMOR) Genitourinary History of Genitourinary Disor: No Gastrointestinal History of Gastrointestinal Di: No Musculoskeletal History of Musculoskeletal Dis: Yes (MUSCLE CRAMPS IN HANDS/FEET, MILD ARTHRITIS IN BACK) Musculoskeletal Disorders: Arthritis Endocrine History of Endocrine Disorders: No HEENT History of HEENT Disorders: Yes (PARTIAL DENTURE) Loss of Vision: Denies Hearing Impairment: Denies Cancer History of Cancer: Yes (METS TO LYMPH NODES) Cancer: Brain, Breast Psychosocial History of Psychiatric Problem: Yes Behavioral Health Disorders: Anxiety Integumentary History of Skin or Integumenta: Yes (BACTERIAL FOLLICULITIS) Blood Transfusions History of Blood Disorders: No Adverse Reaction to a Blood Tr: No Family Medical History Significant Family History: No Pertinent Family Hx Review of Systems-General ROS-Unable to Obtain: Unable to obtain ROS Physical Exam-General Problems Physical Exam Vital Signs Vital Signs - First Documented 02/16/22 02/16/22 02/18/22 07:00 08:00 08:44 Temp 36.5 Pulse 74 Resp 20 B/P (MAP) 100/54 (69) Pulse Ox 97 O2 Delivery Room Air O2 Flow Rate 0.00 Capillary Refill : Less Than 3 Seconds General Appearance: no apparent distress, cachetic, thin HEENT: PERRL/EOMI; No scleral icterus (R), No scleral icterus (L) Neck: non-tender, supple Respiratory: chest non-tender, lungs clear, normal breath sounds, no respiratory distress, no accessory muscle use Cardiovascular: normal peripheral pulses, tachycardia Peripheral Pulses: 2+ Radial Pulses (R), 2+ Radial Pulses (L) Gastrointestinal: non tender, soft Extremities: inflammation, swelling (Swelling of LUE and LLE, Petechial rash on dorsal aspect of LUE in hand and forearm), other (Left foot with dark, black tissue. Multiple petechiae present. Edematous. Sparing of the majority of the sole. Radiation up to distal 1/3 of calf. Extremely tender.) Neurologic/Psychiatric: no motor/sensory deficits, alert (Patient could answer questions after multiple attempts. Appeared drowsy.) Data Review Labs Microbiology 02/14/22 Throat Culture - Final, Complete No Beta Strep isolated 02/10/22 Urine Culture - Final, Complete NO GROWTH 02/09/22 Blood Culture - Final, Complete No growth Assessment/Plan Assessment/Plan Assessment/Plan Ischemia vs. necrosis vs. unknown of left lower extremity Black, ischemic-looking tissue sudden onset of left foot radiating into calf Ultrasound shows no evidence of arterial thrombosis Extensive DVT in LLE DIC Severe leukocytosis Lactic acidosis Anemia Thrombocytopenia H/o metastatic breast cancer with brain metastasis Plan: Continue medical management Complex patient with multiple issues and poor prognosis No immediate surgical intervention noted at this time, continue to monitor Etiology of LLE pathology is unknown JER SIMS DO 02/22/222144: History of Present Illness History of Present Illness History of Present Illness Consult requested by Dr. Stephens for left foot discoloration. Patient is 66-year-old female with metastatic breast cancer undergoing treatment. She has metastasis to the brain. Patient last 2 to 3 days having discoloration to the left foot and ankle. Is a purplish petechial appearance today it has worsened she and family state. patient states that she is having pain in the foot extremely tender. Pain is sharp and constant. She does not recall any trauma to the foot. Nothing makes it worse except when touching the areas and the pain medication helps her pain. Currently her pain is a 5 out of 10. Patient also with some swelling to the left upper extremity which has wors ened over the last 24 hours. Mild discomfort to the left upper extremity. Not really wanting to move the left upper extremity. Patient with a significant leukocytosis. She is thrombocytopenic. Allergies and Home Medications Allergies Coded Allergies: Iodinated Contrast Media (Verified Allergy, Mild, TURNED SKIN ORANGE/LEFT SCAR TISSUE ON ARMS, 03/10/19) Latex, Natural Rubber (Verified Allergy, Mild, ITCHING, 03/10/19) cephalexin (Verified Allergy, Mild, RASH, 03/10/19) hydrocodone (Verified Allergy, Mild, N/V, 03/10/19) Patient Home Medication List Home Medication List Reviewed: Yes ALPRAZolam (ALPRAZolam) 0.25 Mg Tablet, 0.125-0.25 MG PO Q8H PRN for ANXIETY, (Reported) Entered as Reported by: PRIYANKA REDDY on 02/13/22 1013 Last Action: Reviewed Cholecalciferol (Vitamin D3) (Vitamin D3) 10 Mcg/5 Ml (400 Unit/5 Ml) Liquid, 10 MCG PO DAILY, (Reported) Entered as Reported by: PRIYANKA REDDY on 02/13/22 1013 Last Action: Reviewed Dexamethasone (Dexamethasone) 1 Mg Tablet, 1 MG PO DAILY, (Reported) Entered as Reported by: PRIYANKA REDDY on 02/13/22 1013 Last Action: Reviewed Levetiracetam (Keppra) 500 Mg Tablet, 500 MG PO BID, (Reported) Entered as Reported by: TAL GASPAR on 01/01/22 1518 Last Action: Reviewed Multivit-Minerals/Folic Acid (Multivitamin Gummies) 200 Mcg Tab.chew, 200 MCG PO DAILY, (Reported) Entered as Reported by: PRIYANKA REDDY on 02/13/221012 Last Action: Reviewed Ondansetron (Ondansetron Odt) 8 Mg Tab.rapdis, 8 MG PO Q8H PRN for NAUSEA/VOMITING-1ST LINE, (Reported) Entered as Reported by: PRIYANKA REDDY on 02/13/221012 Last Action: Reviewed Pantoprazole Sodium (Pantoprazole Sodium) 40 Mg Tablet.dr, 40 MG PO DAILY, (Reported) Entered as Reported by: PRIYANKA REDDY on 02/13/221012 Last Action: Reviewed Polyethylene Glycol 400 (Visine Dry Eye Relief) 1 % Drops, 1-2 DROPS OP UD PRN for DRY EYES, (Reported) Entered as Reported by: PRIYANKA REDDY on 02/13/221012 Last Action: Reviewed Rivaroxaban (Xarelto) 15 Mg Tablet, 15 MG PO BID, (Reported) Entered as Reported by: PRIYANKA REDDY on 02/13/221016 Last Action: Reviewed Past Tacsefc-Dobgwz-Varyac Hx Reviewed Nursing Assessment Reviewed/Agree w Nursing PMH: Yes Family Medical History Significant Family History: No Pertinent Family Hx Review of Systems-General Constitutional: No chills, No diaphoresis EENTM: No blurred vision, No double vision Respiratory: No cough, No dyspnea on exertion Cardiovascular: No chest pain, No palpitations Gastrointestinal: No nausea, No vomiting Genitourinary: No decreased output, No discharge Musculoskeletal: other (Left upper extremity edema left lower extremity edema and skin discoloration to ankle/foot) Skin: change in color; No change in hair/nails Psychiatric/Neurological: Denies Anxiety, Denies Depressed, Denies Emotional Problems All Other Systems Reviewed Negative Unless Noted: Yes (Negative excepted noted.) Physical Exam-General Problems Physical Exam General Appearance: cachetic, thin, other (Laying in bed) HEENT: PERRL/EOMI Neck: non-tender, supple Respiratory: chest non-tender, no respiratory distress, no accessory muscle use Cardiovascular: normal peripheral pulses, tachycardia Gastrointestinal: non tender, soft Rectal: deferred Back: no CVA tenderness, no vertebral tenderness Extremities: swelling (Swelling of LUE and LLE, Petechial rash on dorsal aspect sparing portions of the plantar portion left foot slightly cooler than right foot. Left upper extremity slight bruising to the forearm and dorsum of hand) Neurologic/Psychiatric: alert (Patient could answer questions after multiple attempts. Appeared drowsy.), normal mood/affect, oriented x 3 Skin: cool (Left ankle/foot), other (Changes in color to the left ankle foot as noted above some areas sparing tender to touch) Lymphatic: no adenopathy Assessment/Plan Assessment/Plan Assessment/Plan Left lower extremity foot pain Thrombosis left upper extremity left lower extremity ischemia vs. necrosis vs. trauma unknown of left lower extremity left foot is cooler than right, but has blood flow demonstrated by CTA Ultrasound shows no evidence of arterial thrombosis Extensive DVT in LLE DIC Severe leukocytosis Lactic acidosis Anemia Thrombocytopenia H/o metastatic breast cancer with brain metastasis Due to the ultrasounds and venous Dopplers demonstrating extensive DVTs patient also with DIC. Filter would only help with the left lower extremity DVT would not help with the left upper extremity. I think placing would be riskier. Patient being started on Xarelto. I do not think patient has a compartment syndrome. Complex case. Discussed with patient and her niece. Supervisory-Addendum Brief Verification & Attestation Participated in pt care: history, MDM, physical Personally performed: exam, history, MDM, supervision of care Care discussed with: Medical Student Procedures: n/a Results interpretation: Verified all documentation Verification and Attestation of Medical Student E/M Service A medical student performed and documented this service in my presence. I reviewed and verified all information documented by the medical student and made modifications to such information, when appropriate. I personally performed the physical exam and medical decision making. Jer Sims, Feb 22, 2022,21:53 JOANNA MUHAMMAD Feb 22, 2022 15:23 JER SIMS DO Feb 22, 2022 21:45
--- NOTE | 2022-02-22 15:35 | Diagnostic Imaging Report ---
PROCEDURE: US venous upper extremity left. TECHNIQUE: Multiple realtime grayscale images were obtained of left upper extremity in various projections. Additional spectral analysis and color Doppler duplex images were also obtained. INDICATION: Swelling and discoloration of the left upper extremity. The left internal jugular vein is patent. Appears to be occlusive thrombus in the left subclavian vein. There is partially occlusive thrombus in the axillary and brachial veins. Partially occlusive thrombus in the basilic and cephalic as well as radial ulnar veins are noted. There is edema in the subcutis tissues. IMPRESSION: Extensive left upper extremity DVT. Dictated by: Dictated on workstation # [id number]
--- NOTE | 2022-02-22 15:38 | Diagnostic Imaging Report ---
PROCEDURE: US left lower extremity venous. TECHNIQUE: Multiple real-time grayscale images were obtained over the left lower extremity in various projections. Additional duplex Doppler and color Doppler images were also obtained. INDICATION: Left leg pain and swelling Survey of the left leg shows occlusive thrombus in the left common femoral vein through the calf veins. There is occlusion of the femoral and popliteal veins. IMPRESSION: Extensive deep vein thrombosis left leg. Preliminary report was given to patient's nurse at time of exam. Dictated by: Dictated on workstation # [id number]
--- NOTE | 2022-02-22 15:48 | Diagnostic Imaging Report ---
INDICATION: Left foot pain and discoloration. Primarily monophasic waveforms are identified throughout the entire left lower extremity arterial system. The velocities are normal throughout. No high-grade stenosis or occlusion is seen. IMPRESSION: Monophasic waveforms throughout left lower extremity arterial system, perhaps owing to more proximal disease. No occlusion is detected. Dictated by: Dictated on workstation # [id number]
[2022-02-22 16:15] VITALS: BP 110/67
--- NOTE | 2022-02-22 18:26 | Consultation-Cardiology ---
HPI-Cardiology Cardiology Consultation: Date of Consultation 02/22/22 Time Seen by a Provider: 13:00 Date of Admission Attending Physician Fartun Obando Admitting Physician Admitting Physician: Mildred Padilla MD Attending Physician: Tonia Stephens MD Consulting Physician DULCE MARIA MARQUEZ MD, MA, FACP, FACC, FSCAI, CCDS HPI: Chief Complaint: Swelling, discoloration of LUE and RLE extremity Ms. Li is a 66 yr old female with breast cancer with mets to the brain for which she has undergone radiation. We have been consulted d/t gross swelling, bruising of right leg, foot and RUE. Patient is lethargic at this time. She opens her eyes to conversation, but ordoñez not answer any questions and closes her eyes. Review of chart has been done. She came in from home with increasing weakness and nausea. She has continued to decline during this hospitalization. QYB-Jvelgt-Pnklki Hx Patient Social History Employed/Student: retired Smoking Status: Former Smoker 2nd Hand Smoke Exposure: Yes Have you traveled recently?: No Alcohol Use?: No Pt feels they are or have been: No Immunizations Up To Date Tetanus Booster (TDap): Unknown Past Medical History PMH As described under Assessment. Family Medical History Family Medical History: Unable to obtain Allergies and Home Medications Allergies Coded Allergies: Iodinated Contrast Media (Verified Allergy, Mild, TURNED SKIN ORANGE/LEFT SCAR TISSUE ON ARMS, 03/10/19) Latex, Natural Rubber (Verified Allergy, Mild, ITCHING, 03/10/19) cephalexin (Verified Allergy, Mild, RASH, 03/10/19) hydrocodone (Verified Allergy, Mild, N/V, 03/10/19) Patient Home Medication List Home Medication List Reviewed: Yes ALPRAZolam (ALPRAZolam) 0.25 Mg Tablet, 0.125-0.25 MG PO Q8H PRN for ANXIETY, (Reported) Entered as Reported by: PRIYANKA REDDY on 02/13/22 1013 Last Action: Reviewed Cholecalciferol (Vitamin D3) (Vitamin D3) 10 Mcg/5 Ml (400 Unit/5 Ml) Liquid, 10 MCG PO DAILY, (Reported) Entered as Reported by: PRIYANKA REDDY on 02/13/22 1013 Last Action: Reviewed Dexamethasone (Dexamethasone) 1 Mg Tablet, 1 MG PO DAILY, (Reported) Entered as Reported by: PRIYANKA REDDY on 02/13/22 1013 Last Action: Reviewed Levetiracetam (Keppra) 500 Mg Tablet, 500 MG PO BID, (Reported) Entered as Reported by: TAL GASPAR on 01/01/22 1518 Last Action: Reviewed Multivit-Minerals/Folic Acid (Multivitamin Gummies) 200 Mcg Tab.chew, 200 MCG PO DAILY, (Reported) Entered as Reported by: PRIYANKA REDDY on 02/13/22 101 Last Action: Reviewed Ondansetron (Ondansetron Odt) 8 Mg Tab.rapdis, 8 MG PO Q8H PRN for NAUSEA/VOMITING-1ST LINE, (Reported) Entered as Reported by: PRIYANKA REDDY on 02/13/221012 Last Action: Reviewed Pantoprazole Sodium (Pantoprazole Sodium) 40 Mg Tablet.dr, 40 MG PO DAILY, (Reported) Entered as Reported by: PRIYANKA REDDY on 02/13/22 101 Last Action: Reviewed Polyethylene Glycol 400 (Visine Dry Eye Relief) 1 % Drops, 1-2 DROPS OP UD PRN for DRY EYES, (Reported) Entered as Reported by: PRIYANKA REDDY on 02/13/221012 Last Action: Reviewed Rivaroxaban (Xarelto) 15 Mg Tablet, 15 MG PO BID, (Reported) Entered as Reported by: PRIYANKA REDDY on 02/13/22 101 Last Action: Reviewed Physical Exam-Cardiology Physical Exam Vital Signs/I&O 02/22/22 02/22/22 02/22/22 07:41 08:00 16:15 Temp 37.0 36.3 Pulse 110 117 Resp 18 16 B/P (MAP) 111/65 (80) 110/67 (81) Pulse Ox 98 97 O2 Delivery Room Air Room Air Room Air 02/22/22 00:00 Intake Total 570 ml Balance 570 ml Capillary Refill : Less Than 3 Seconds Constitutional: other (gen weak, frail) HEENT: hearing is well preserved Neck: No carotid bruit; carotid pulses are 2 + bilaterally Respiratory: No accessory muscle use, No respiratory distress; chest expansion is symmetric, chest is bilaterally symmetric, lungs clear to auscultation Cardiovascular: regular rate-rhythm, S1 and S2 Gastrointestinal: soft, audible bowel sounds Extremities: other (LUE with pitting edema, ecchymosis, redness from shoulder to hand; LLE with pitting edema, large amount of ecchymosis to the entire left foot, toes; pulse is obtainable via doppler - uncomfortable to touch) Neurologic/Psychiatric: grossly intact (moves extremties; lethargic) Skin: other (see above) Data Review Labs Laboratory Tests 02/22/22 15:25: Lactic Acid Level 2.47*H Microbiology 02/14/22 Throat Culture - Final, Complete No Beta Strep isolated 02/10/22 Urine Culture - Final, Complete NO GROWTH 02/09/22 Blood Culture - Final, Complete No growth A/P-Cardiology Assessment/Admission Diagnosis LLE swelling with gross bruising and dicoloration to left foot - consider soft tissue bleed due to marked thrombocytopenia that is likely due to DIC - consider compartment syndrome - discussed with Dr Stephens on 02/22/22 - evaluate for DVT - No evidence of arterial occlusion - LE CTA of 02-21-22 showed: No evidence of arterial occlusion in the left lower extremity. Diffuse edema in the subcutaneous tissues throughout the left leg is noted - Foot pulses are easily detected by Doppler - Arterial u/s on 02/22/22 does not show any arterial occlusion RUE swelling - same side as previous mastectomy - ? cellulitis - ?lymphedema - undetermined cause Breast cancer with mets to the brain - recently received radiation - lung mass - management per oncology services - awaiting bone marrow biopsy results DIC - likely secondary to metastatic cancer - Heme/Onc consult recommended Discussion and Recomendations Complex issues Poor prognosis Palliative services are following Niece is DPOA DNR DULCE MARIA MARQUEZ MD FACP FAC CCDS Feb 22, 2022 18:26
[2022-02-22] MEDS: APIXABAN 2.5 MG (ELIQUIS) TABLET PO SCH (20:20)
[2022-02-22 23:33] VITALS: BP 118/52
[2022-02-23 06:05] LABS: BASOPHILS % (AUTO) 0 % (0-10); MEAN CORPUSCULAR VOLUME 98 fL (80-99)
[2022-02-23 06:07] LABS: BASOPHILS # (AUTO) 0.2 10^3/uL (0.0-0.1); EOSINOPHILS # (AUTO) 0.6 10^3/uL (0.0-0.3); EOSINOPHILS % (AUTO) 1 % (0-10); HEMATOCRIT 30 % (35-52); HEMOGLOBIN 9.6 g/dL (11.5-16.0); LYMPHOCYTES % (AUTO) 2 % (12-44); MEAN CORPUSCULAR HEMOGLOBIN 32 pg (25-34); MEAN CORPUSCULAR HGB CONC 33 g/dL (32-36); MONOCYTES # (AUTO) 4.9 10^3/uL (0.0-1.0); MONOCYTES % (AUTO) 4 % (0-12); NEUTROPHILS # (AUTO) 110.2 10^3/uL (1.8-7.8); NEUTROPHILS % (AUTO) 83 % (42-75)
[2022-02-23 06:17] LABS: PLATELET COUNT 31 10^3/uL (130-400); WHITE BLOOD COUNT 132.5 10^3/uL (4.3-11.0)
[2022-02-23 06:24] LABS: POTASSIUM 5.2 MMOL/L (3.6-5.0)
[2022-02-23 06:26] LABS: CALCIUM 8.2 MG/DL (8.5-10.1)
[2022-02-23 06:30] LABS: CREATININE SERUM 1.41 MG/DL (0.60-1.30)
[2022-02-23 06:37] LABS: FIBRIN DEGRADATION PRODUCTS 8.9 UG/ML (0.00-0.49); INR 3.2 (0.8-1.4); PROTHROMBIN TIME PATIENT 33.5 SEC (12.2-14.7)
[2022-02-23 07:27] VITALS: BP 110/57
--- NOTE | 2022-02-23 07:42 | Progress Note - Surgery ---
JOANNA MUHAMMAD 02/23/22 0742: Subjective Date Seen by a Provider: Feb 23, 2022 Time Seen by a Provider: 06:45 Subjective/Events-last exam Ms. Li is being followed for possible ischemia of her LLE. This morning she has started to develop similar changes to her left hand, it is beginning to a ppear ischemic with a petechial rash. She was very tired this morning and only able to answer a few questions. She did not allow me to look at her left foot this morning. She reports being very tired and pain in her LUE and LLE. Unable to obtain ROS. Focused Exam Lactate Level 02/22/22 15:25: Lactic Acid Level 2.47*H Objective Exam Vital Signs Date Time Temp Pulse Resp B/P (MAP) Pulse Ox O2 Delivery O2 Flow Rate FiO2 02/23/22 07:27 36.6 116 18 110/57 (74) 98 Room Air 02/22/22 23:33 36.6 109 20 118/52 (74) 96 Room Air 02/22/22 19:59 Room Air 02/22/22 16:15 36.3 117 16 110/67 (81) 97 Room Air 02/22/22 08:00 Room Air 02/22/22 07:41 37.0 110 18 111/65 (80) 98 Room Air I & O 02/23/22 07:00 Intake Total 520 ml Balance 520 ml Capillary Refill : Less Than 3 Seconds General Appearance: No Apparent Distress, Chronically ill HEENT: PERRL/EOMI, Moist Mucous Membranes; No Scleral Icterus (L), No Scleral Icterus (R) Neck: Non Tender, Supple Respiratory: Chest Non Tender, Lungs Clear, Normal Breath Sounds, No Accessory Muscle Use, No Respiratory Distress Cardiovascular: No Murmur, Tachycardia Peripheral Pulses: 2+ Radial Pulses (R), 2+ Radial Pulses (L) Gastrointestinal: non tender, soft Extremity: No Inflammation; Swelling, Other (Severe tenderness, doppler pulses present. LLE not seen this morning. LUE with black/purpleish tissues with a petechial rash.) Neurologic/Psychiatric: Alert, Depressed Affect, Other (Somnolent) Skin: Cool, Ecchymosis (left foot, bruising on left arm); No Erythema; Petechia Lymphatic: No Adenopathy Results Lab Laboratory Tests 02/22/22 15:25: Lactic Acid Level 2.47*H 02/23/22 05:55: White Blood Count 132.5*H, Red Blood Count 3.00L, Hemoglobin 9.6L, Hematocrit 30L, Mean Corpuscular Volume 98, Mean Corpuscular Hemoglobin 32, Mean Corpuscular Hemoglobin Concent 33, Red Cell Distribution Width 19.7H, Platelet Count 31*L, Mean Platelet Volume , Immature Granulocyte % (Auto) 10, Neutrophils (%) (Auto) 83H, Lymphocytes (%) (Auto) 2L, Monocytes (%) (Auto) 4, Eosinophils (%) (Auto) 1, Basophils (%) (Auto) 0, Neutrophils # (Auto) 110.2H, Lymphocytes # (Auto) 3.0, Monocytes # (Auto) 4.9H, Eosinophils # (Auto) 0.6H, Basophils # (Auto) 0.2H, Immature Granulocyte # (Auto) 13.5H, Percent Immature Platelet Fraction 25.5H, Prothrombin Time 33.5H, INR Comment 3.2H, Activated Partial Thromboplast Time 37H, Fibrinogen 102L, D-Dimer 8.90H, Sodium Level 141, Potassium Level 5.2H, Chloride Level 109H, Carbon Dioxide Level 17L, Anion Gap 15H, Blood Urea Nitrogen 44H, Creatinine 1.41H, Estimat Glomerular Filtration Rate 42, BUN/Creatinine Ratio 31, Glucose Level 157H, Calcium Level 8.2L Microbiology 02/14/22 Throat Culture - Final, Complete No Beta Strep isolated 02/10/22 Urine Culture - Final, Complete NO GROWTH 02/09/22 Blood Culture - Final, Complete No growth Assessment/Plan Assessment/Plan Assessment/Plan Ischemia vs. necrosis vs. unknown of left lower extremity Black, ischemic-looking tissue sudden onset of left foot radiating into calf Ultrasound shows no evidence of arterial thrombosis Extensive DVT in LLE Ischemia vs. necrosis vs. unknown of left upper extremity Similar in appearance to LLE DVT in LUE DIC Severe leukocytosis Lactic acidosis Anemia Thrombocytopenia H/o metastatic breast cancer with brain metastasis Plan: Continue medical management Complex patient with multiple issues and poor prognosis No immediate surgical intervention noted at this time, continue to monitor Etiology of pathology is unknown at this time Appreciate cardiology consult JER TELLO DO 02/23/22 1525: Subjective Subjective/Events-last exam More lethargic. Appearing more ischemic left lower extremity and left hand. Tired and having quite a bit of pain. No family at bedside at this time. Objective Exam General Appearance: Chronically ill, Cachetic, Other (lethargic) HEENT: PERRL/EOMI, Moist Mucous Membranes Neck: Non Tender, Supple Respiratory: Chest Non Tender, No Accessory Muscle Use, No Respiratory Distress Cardiovascular: No JVD, Tachycardia Gastrointestinal: non tender, soft Extremity: Swelling, Other (Severe tenderness LLE not seen this morning. LUE with black/purpleish tissues with a petechial rash. appearing more ischemic) Neurologic/Psychiatric: Alert, Depressed Affect, Other (Somnolent) Skin: Cool, Ecchymosis (left foot, bruising on left arm), Petechia Lymphatic: No Adenopathy Assessment/Plan Assessment/Plan Assessment/Plan Ischemia vs. necrosis vs. unknown of left lower extremity possible venous ischemia Black, ischemic-looking tissue sudden onset of left foot radiating into calf Ultrasound shows no evidence of arterial thrombosis Extensive DVT in LLE Ischemia vs. necrosis vs. unknown of left upper extremity Similar in appearance to LLE DVT in LUE DIC Severe leukocytosis Lactic acidosis Anemia Thrombocytopenia H/o metastatic breast cancer with brain metastasis IF this is venous ischemia to left foot and left hand would need amputation. Patient expressed yesterday she would not want amputations. No family present at this time. Other options would be comfort care, which they are exploring. Continue care until family and patient decision. Supervisory-Addendum Brief Verification & Attestation Participated in pt care: history, MDM, physical Personally performed: exam, history, MDM, supervision of care Care discussed with: Medical Student Procedures: n/a Results interpretation: Verified all documentation Verification and Attestation of Medical Student E/M Service A medical student performed and documented this service in my presence. I reviewed and verified all information documented by the medical student and made modifications to such information, when appropriate. I personally performed the physical exam and medical decision making. Jer Tello, Feb 23, 2022,15:25 JOANNA MUHAMMAD Feb 23, 2022 07:42 JER TELLO DO Feb 23, 2022 15:25
[2022-02-23] MEDS: MAGIC MOUTHWASH, ADULT 155 ML BOTTLE PO SCH (09:19)
[2022-02-23] MEDS: PANTOPRAZOLE 40 MG (PROTONIX) TAB PO SCH (09:19)
[2022-02-23] MEDS: NYSTATIN ORAL SUSP 5 ML UDC PO SCH (09:19)
[2022-02-23] MEDS: APIXABAN 2.5 MG (ELIQUIS) TABLET PO SCH ×2 (09:22→09:27)
--- NOTE | 2022-02-23 11:43 | Physical Therapy Progress Note ---
Therapy Progress Note PT to dismiss patient from services at this time per physician due to decline in medical status. JESSIKA SALEEM PT Feb 23, 2022 11:43
--- NOTE | 2022-02-23 12:12 | Progress Note - Cardiology ---
Cardiology SOAP Progress Note Subjective: Gen body pain, worse in the L hand and L foot Gen weakness and malaise Shortness of breath with activity No specific cp or palp or syncope Objective: I&O/Vital Signs 02/23/22 02/23/22 07:27 08:00 Temp 36.6 Pulse 116 Resp 18 B/P (MAP) 110/57 (74) Pulse Ox 98 O2 Delivery Room Air Room Air 02/23/22 00:00 Intake Total 420 ml Balance 420 ml Weight (Pounds): 160 Weight (Ounces): 2.0 Weight (Calculated Kilograms): 72.281960 Constitutional: other (gen weak, frail) Respiratory: No accessory muscle use, No respiratory distress; chest expansion is symmetric, chest is bilaterally symmetric, lungs clear to auscultation Cardiovascular: regular rate-rhythm, S1 and S2 Gastrointestional: soft, audible bowel sounds Extremities: other (LUE with pitting edema, ecchymosis, redness from shoulder to hand, L hand now turning blace; LLE with pitting edema, large amount of ecchymosis to the entire left foot, toes; pulse is obtainable via doppler - L foot and lower leg have now turned blacke) Neurologic/Psychiatric: other (able to move all limbs) Skin: other (see above) Results/Procedures: Labs Laboratory Tests 02/22/22 15:25: Lactic Acid Level 2.47*H 02/23/22 05:55: White Blood Count 132.5*H, Red Blood Count 3.00L, Hemoglobin 9.6L, Hematocrit 30L, Mean Corpuscular Volume 98, Mean Corpuscular Hemoglobin 32, Mean Corpuscular Hemoglobin Concent 33, Red Cell Distribution Width 19.7H, Platelet Count 31*L, Mean Platelet Volume , Immature Granulocyte % (Auto) 10, Neutrophils (%) (Auto) 83H, Lymphocytes (%) (Auto) 2L, Monocytes (%) (Auto) 4, Eosinophils (%) (Auto) 1, Basophils (%) (Auto) 0, Neutrophils # (Auto) 110.2H, Lymphocytes # (Auto) 3.0, Monocytes # (Auto) 4.9H, Eosinophils # (Auto) 0.6H, Basophils # (Auto) 0.2H, Immature Granulocyte # (Auto) 13.5H, Percent Immature Platelet Fraction 25.5H, Prothrombin Time 33.5H, INR Comment 3.2H, Activated Partial Thromboplast Time 37H, Fibrinogen 102L, D-Dimer 8.90H, Sodium Level 141, Potassium Level 5.2H, Chloride Level 109H, Carbon Dioxide Level 17L, Anion Gap 15H, Blood Urea Nitrogen 44H, Creatinine 1.41H, Estimat Glomerular Filtration Rate 42, BUN/Creatinine Ratio 31, Glucose Level 157H, Calcium Level 8.2L Microbiology 02/14/22 Throat Culture - Final, Complete No Beta Strep isolated 02/10/22 Urine Culture - Final, Complete NO GROWTH 02/09/22 Blood Culture - Final, Complete No growth A/P: Assessment: Venous gangrene of L foot and L hand - No evidence of arterial occlusion - Extensive DVT of the L leg - suspected DVT of the L arm Breast cancer with mets to the brain - recently received radiation - lung mass - management per oncology services - awaiting bone marrow biopsy results DIC - likely secondary to metastatic cancer - Heme/Onc consult recommended Plan: Complex issue Poor prognosis Palliative services are following Anticoag if tolerate. May need amputations for venous gangrene. Consider Heme/Onc consult and consider transfer to tertiary care facility if full treatment is to be pursued Discussed with DULCE MARIA Heck MD FACP FACC CCDS Feb 23, 2022 12:12
[2022-02-23] MEDS ORDERED: ARTIFICAL TEARS 0.4 ML UNIT DOSE (REFRESH PLUS) OU PRN (12:45)
[2022-02-23] MEDS ORDERED: LORazepam INJ 2 MG/ML (ATIVAN) VIAL IVP PRN (12:45)
[2022-02-23] MEDS ORDERED: ACETAMINOPHEN 650 MG SUPP (TYLENOL) PR PRN (12:45)
[2022-02-23] MEDS ORDERED: PROMETHAZINE INJ 25 MG/ML (PHENERGAN) AMP IVP PRN (12:45)
[2022-02-23] MEDS ORDERED: BISACODYL 10 MG SUPP (DULCOLAX) PR PRN (12:45)
[2022-02-23] MEDS ORDERED: GLYCOPYRROLATE 0.2 MG/ML (ROBINUL) 2 ML VIAL IV PRN (12:45)
[2022-02-23] MEDS ORDERED: ONDANSETRON 4 MG/2 ML (SDV) Z0FRAN IVP PRN (12:45)
[2022-02-23] MEDS ORDERED: RT-ALBUTEROL/IPRATROPIUM 3 ML (DUONEB) VIAL INH PRN (12:45)
[2022-02-23] MEDS ORDERED: morphine INJ 4 MG/ML 1 ML (VIAL/SYRINGE) IV PRN (12:45)
[2022-02-23] MEDS ORDERED: SALIVA STIMULANT MOUTH SPRAY (BIOTENE) 1.5 OZ MM PRN (12:45)
[2022-02-23] MEDS ORDERED: LORazepam ORAL CONCENTRATE 2 MG/ML 30 ML (ATIVAN) PO PRN (13:15)
--- NOTE | 2022-02-23 14:08 | Progress Note - Hospitalist ---
Subjective HPI/CC On Admission Date Seen by Provider: Feb 23, 2022 Time Seen by Provider: 11:05 Patient is 66-year-old female with past medical history of metastatic breast cancer who presented to the emergency department due to generalized weakness. She iS under the care of Renita Storm with [facility] and was directed to the emergency department by him. She has breast cancer with brain mets and completed whole brain radiation in November. She states she is supposed to follow-up with her oncologist to have further imaging but she is unsure when that is. Over the past few days she has felt very ill and has continued to get weaker and weaker. She is very thirsty as well and was worried she was getting dehydrated. On arrival to the emergency department she was found to have a leukocytosis of 75 and oncology was consulted due to concern for neoplasm. Dr. Seth was more concerned about infectious etiology so she has been admitted for IV antibiotics. This morning she reports feeling a little better. She has been able to eat breakfast without nausea or vomiting. Subjective/Events-last exam She is more lethargic today. She reports pain but does not say where. She says she just wants to sleep. We discussed her prognosis with Bebe and she elected to transition to comfort measures only status. She will contact family members to see if they would like to visit. Focused Exam Lactate Level 02/22/22 15:25: Lactic Acid Level 2.47*H Objective Exam Vital Signs Vital Signs Date Time Temp Pulse Resp B/P (MAP) Pulse Ox O2 Delivery O2 Flow Rate FiO2 02/23/22 08:00 Room Air 02/23/22 07:27 36.6 116 18 110/57 (74) 98 02/18/22 08:44 0.00 Capillary Refill : Less Than 3 Seconds General Appearance: Chronically ill, Moderate Distress (tachypnea) Respiratory: Decreased Breath Sounds, Respiratory Distress (tachypnea) Cardiovascular: Systolic Murmur, Tachycardia Gastrointestinal: Normal Bowel Sounds, Soft Extremity: Other (left hand and foot black, cool) Neurologic/Psychiatric: Depressed Affect, Disoriented, Other (lethargic) Skin: Ecchymosis (left hand and foot) Results/Procedures Lab Laboratory Tests 02/23/22 05:55 Patient resulted labs reviewed. Imaging: Reviewed Imaging Report Assessment/Plan Assessment and Plan Assess & Plan/Chief Complaint Leukocytosis Anemia Thrombocytopenia Possible CMML DIC Occlusive upper and lower extremity DVTs Gangrene of left foot Metastatic cancer to the brain Lung mass History of breast cancer Goals of care discussion Poor prognosis Comfort measures only status WBC remains significantly elevated, platelets very low, likely leukemia Bone marrow biopsy 02/21 results pending Case duscussed with Dr. Sanchez, cardiology, believes her foot is gangrenous and will require amputation Discussed prognosis and plan with Bebe, niece, transition to comfort measures only Comfort care order set placed Critical Care Critically Ill Patient Diagnosis/Problems Diagnosis/Problems (1) Leukocytosis Status: Acute Qualifiers: Leukocytosis type: unspecified Qualified Codes: D72.829 - Elevated white blood cell count, unspecified (2) Thrombocytopenia Status: Acute (3) DIC (disseminated intravascular coagulation) Status: Acute (4) Metastatic breast cancer Status: Acute (5) DVT (deep venous thrombosis) Status: Chronic Qualifiers: DVT location: lower extremity Affected thrombotic vein of extremity: unspecified vein of extremity Chronicity: acute Laterality: bilateral Qual ified Codes: I82.403 - Acute embolism and thrombosis of unspecified deep veins of lower extremity, bilateral (6) Lung mass Status: Acute (7) Brain mass Status: Acute (8) Poor prognosis Status: Acute (9) Goals of care, counseling/discussion Status: Acute (10) Ischemic foot Status: Acute (11) Gangrene of left foot Status: Acute ERIN WAITE MD Feb 23, 2022 14:08
--- NOTE | 2022-02-23 18:22 | Discharge Summary ---
Discharge Summary Hospital Course Problems/Dx: (1) Leukocytosis Status: Acute Qualifiers: Qualified Codes: D72.829 - Elevated white blood cell count, unspecified (2) Thrombocytopenia Status: Acute (3) DIC (disseminated intravascular coagulation) Status: Acute (4) Metastatic breast cancer Status: Acute (5) DVT (deep venous thrombosis) Status: Chronic Qualifiers: Qualified Codes: I82.403 - Acute embolism and thrombosis of unspecified deep veins of lower extremity, bilateral (6) Lung mass Status: Acute (7) Brain mass Status: Acute (8) Poor prognosis Status: Acute (9) Goals of care, counseling/discussion Status: Acute (10) Ischemic foot Status: Acute (11) Gangrene of left foot Status: Acute (12) TINO (acute kidney injury) Status: Acute (13) Lactic acidosis Status: Acute (14) Comfort measures only status Status: Acute Hospital Course Date of Admission: Feb 09, 2022 at 20:09 Admission Diagnosis : Profound leukocytosis Family Physician/Provider: Fartun Obando Date of Discharge: 02/23/22 Discharge Diagnosis: Leukocytosis likely due to leukemia (possible CMML), acute occlusive DVTs of the left upper and lower extremity with gangrene, disseminated intravascular coagulation, thrombocytopenia, lung and brain masses Hospital Course: Karen Li was a 66 year old female with PMH breast cancer, lung cancer with brain metastasis s/p radiation (possibly recurrence of breast cancer), who presented with weakness and was admitted with profound leukocytosis. She was started on IV antibiotics. No acute infection was identified. Oncology was consulted for possible leukemia. She was started on IV Diflucan for possible fungal infection. Her WBC continued to rise despite broad spectrum antimicrobials. She had severe thrombocytopenia and was found to be in DIC. She underwent testing for CML which was negative. She had a bone marrow biopsy for possible CMML, pathology results were pending. She had acute DVTs of her lower extremities and had been on anticoagulation. This had to be held due to her severe thrombocytopenia. She had swelling of her left arm and was found to have a DVT there also. She developed foot bruising which rapidly progressed to her entire foot turning black, cold, and exquisitely tender. She underwent a CT angiogram which showed no arterial occlusion. She did have extensive, occlusive DVTs which were likely the cause of her dry gangrene. Cardiology and Surgery were consulted and assisted with her care. They both believed that amputation would be required. She developed acute renal failure and lactic acidosis. She became more lethargic. Her niece, Bebe, elected to transition her to comfort measures only status. She subsequently on 02/23/2022 at 1502. Labs and Pending Lab Test: Laboratory Tests 02/23/22 05:55: White Blood Count 132.5*H, Red Blood Count 3.00L, Hemoglobin 9.6L, Hematocrit 30L, Mean Corpuscular Volume 98, Mean Corpuscular Hemoglobin 32, Mean Corpuscular Hemoglobin Concent 33, Red Cell Distribution Width 19.7H, Platelet Count 31*L, Mean Platelet Volume , Immature Granulocyte % (Auto) 10, Neutrophils (%) (Auto) 83H, Lymphocytes (%) (Auto) 2L, Monocytes (%) (Auto) 4, Eosinophils (%) (Auto) 1, Basophils (%) (Auto) 0, Neutrophils # (Auto) 110.2H, Lymphocytes # (Auto) 3.0, Monocytes # (Auto) 4.9H, Eosinophils # (Auto) 0.6H, Basophils # (Auto) 0.2H, Immature Granulocyte # (Auto) 13.5H, Percent Immature Platelet Fraction 25.5H, Prothrombin Time 33.5H, INR Comment 3.2H, Activated Partial Thromboplast Time 37H, Fibrinogen 102L, D-Dimer 8.90H, Sodium Level 141, Potassium Level 5.2H, Chloride Level 109H, Carbon Dioxide Level 17L, Anion Gap 15H, Blood Urea Nitrogen 44H, Creatinine 1.41H, Estimat Glomerular Filtration Rate 42, BUN/Creatinine Ratio 31, Glucose Level 157H, Calcium Level 8.2L Microbiology 02/14/22 Throat Culture - Final, Complete No Beta Strep isolated 02/10/22 Urine Culture - Final, Complete NO GROWTH 02/09/22 Blood Culture - Final, Complete No growth Home Meds Active Reported Xarelto (Rivaroxaban) 15 Mg Tablet 15 Mg PO BID FILLED 01-11-2022 #42/21 DAY SUPPLY- STILL TAKING 30NG DAILY AND HAS NOT STARTED THE 20MG MAINTENCE DOSE AT HOME Multivitamin Gummies (Multivit-Minerals/Folic Acid) 200 Mcg Tab.chew 200 Mcg PO DAILY Vitamin D3 (Cholecalciferol (Vitamin D3)) 10 Mcg/5 Ml (400 Unit/5 Ml) Liquid 10 Mcg PO DAILY Visine Dry Eye Relief (Polyethylene Glycol 400) 1 % Drops 1-2 Drops OP UD PRN ALPRAZolam 0.25 Mg Tablet 0.125-0.25 Mg PO Q8H PRN Pantoprazole Sodium 40 Mg Tablet.dr 40 Mg PO DAILY Ondansetron Odt (Ondansetron) 8 Mg Tab.rapdis 8 Mg PO Q8H PRN Dexamethasone 1 Mg Tablet 1 Mg PO DAILY Keppra (Levetiracetam) 500 Mg Tablet 500 Mg PO BID Assessment/Pt Instructions Patient Consultations Oncology, Cardiology, Surgery Discharge Physical Examination Vital Signs Vital Signs Date Time Temp Pulse Resp B/P (MAP) Pulse Ox O2 Delivery O2 Flow Rate FiO2 02/23/22 08:00 Room Air 02/23/22 07:27 36.6 116 18 110/57 (74) 98 02/18/22 08:44 0.00 Allergies: Coded Allergies: Iodinated Contrast Media (Verified Allergy, Mild, TURNED SKIN ORANGE/LEFT SCAR TISSUE ON ARMS, 03/10/19) Latex, Natural Rubber (Verified Allergy, Mild, ITCHING, 03/10/19) cephalexin (Verified Allergy, Mild, RASH, 03/10/19) hydrocodone (Verified Allergy, Mild, N/V, 03/10/19) Copy Copies To 1: SHERITA KIRAN Discharge Summary Date of Admission Feb 09, 2022 at 20:09 Date of Discharge Discharge Date: Feb 23, 2022 Discharge Time: 15:02 Admission Diagnosis Profound leukocytosis Consults/Procedures Consulations Surgery, Cardiology, Oncology Comfort Measures/ End of Life Care: Comfort Measures Advance Care discuss with: family member (s) Plan: initiate discussion, clarifying prognosis, identified end-of-life goals, developed treatment plan Time spent on discussion (min): 30 Cardiopulmonary Arrest: Cardiorespiratory Arrest Date of : Feb 23, 2022 Time of : 15:02 Discharge Diagnosis Leukocytosis Anemia Thrombocytopenia Possible CMML DIC Occlusive upper and lower extremity DVTs Gangrene of left foot Metastatic cancer to the brain Lung mass History of breast cancer Goals of care discussion Poor prognosis Comfort measures only status (1) Leukocytosis Status: Acute Qualifiers: Qualified Codes: D72.829 - Elevated white blood cell count, unspecified (2) Thrombocytopenia Status: Acute (3) DIC (disseminated intravascular coagulation) Status: Acute (4) Metastatic breast cancer Status: Acute (5) DVT (deep venous thrombosis) Status: Chronic Qualifiers: Qualified Codes: I82.403 - Acute embolism and thrombosis of unspecified deep veins of lower extremity, bilateral (6) Lung mass Status: Acute (7) Brain mass Status: Acute (8) Poor prognosis Status: Acute (9) Goals of care, counseling/discussion Status: Acute (10) Ischemic foot Status: Acute (11) Gangrene of left foot Status: Acute (12) Lactic acidosis Status: Acute (13) TINO (acute kidney injury) Status: Acute (14) Comfort measures only status Status: Acute ERIN WAITE MD Feb 23, 2022 18:21
== END 2022-02-23 20:10 | disposition expired | DRG 840 ==
LOC: EDUNIT# 16:42 → ER 16:43 → 4TH 20:09
PROVIDERS: ADMIT Family Medicine; ATTEND Internal Medicine
DX: C92.10 Chronic myeloid leukemia, BCR/ABL-positive, not having achieved remission (principal); D65 Disseminated intravascular coagulation [defibrination syndrome]; C79.31 Secondary malignant neoplasm of brain; B37.0 Candidal stomatitis; I82.509 Chronic embolism and thrombosis of unspecified deep veins of unspecified lower extremity; I82.4Z3 Acute embolism and thrombosis of unspecified deep veins of distal lower extremity, bilateral; E87.2 Acidosis; I82.622 Acute embolism and thrombosis of deep veins of left upper extremity; I96 Gangrene, not elsewhere classified; N17.9 Acute kidney failure, unspecified; E86.0 Dehydration; D64.9 Anemia, unspecified; Z85.3 Personal history of malignant neoplasm of breast; Z51.5 Encounter for palliative care; R91.8 Other nonspecific abnormal finding of lung field; Z79.899 Other long term (current) drug therapy; Z87.891 Personal history of nicotine dependence; M19.90 Unspecified osteoarthritis, unspecified site; Z92.3 Personal history of irradiation; F41.9 Anxiety disorder, unspecified; K21.9 Gastro-esophageal reflux disease without esophagitis; B37.9 Candidiasis, unspecified; F32.A Depression, unspecified; Z66 Do not resuscitate; Z20.822 Contact with and (suspected) exposure to COVID-19
CPT/HCPCS: 36415; 38222; 71045; 71250; 73200; 73706; 74176; 77012; 80048; 80053; 80202; 81000; 83605; 83735; 84145; 85007; 85025; 85027; 85045; 85055; 85379; 85384; 85610; 85730; 87040; 87070; 87088; 87636; 88377; 93926; 94760; 96374